=== PATIENT | female | born 1980 | race Caucasian/White ===

== ENCOUNTER 2017-09-14 10:17 | Emergency (ER) | payer OTHER ==
[2017-09-14 10:25] VITALS: BP 162/98; PULSE 103; RESP 20; TEMP 99.3
--- NOTE | 2017-09-14 10:42 | ED ---
General Adult HPI - General Chief complaint: Upper Respiratory Infection Stated complaint: chest congestion, infection on left breast Time Seen by Provider: 09/14/17 10:30 Source: patient, RN notes reviewed Mode of arrival: ambulatory Limitations: no limitations - History of Present Illness Initial comments: 37-year-old female presents to the emergency department with a chief complaint of upper respiratory infection as well as left breast infection. Patient has history of abscess to left breast. She states that she's noticed some drainage from the area over the past few days and some pain so she was concerned. Patient denies any increased redness. She has pain when she touches the area as long she stopped taking it feels somewhat okay. Patient's states she's had a cough cold symptoms. Patient does admit to history of smoking. Patient states she's having a greenish like sputum production. Patient denies any fever chills. Patient states that she was concerned due to her symptoms so she thought that she should be seen.Patient denies any recent fever, chills, shortness of breath, chest pain, back pain, abdominal pain, nausea vomiting, numbness or tingling, dysuria or hematuria, constipation or diarrhea, headaches or visual changes, or any other current symptoms. - Related Data Home Medications Medication Instructions Recorded Confirmed Ibuprofen [Motrin] 800 mg PO TID PRN 09/14/17 09/14/17 Venlafaxine HCl [Effexor XR] 75 mg PO DAILY 09/14/17 09/14/17 Venlafaxine HCl [Effexor XR] 150 mg PO DAILY 09/14/17 09/14/17 Previous Rx's Medication Instructions Recorded Albuterol Inhaler [Ventolin Hfa 1 - 2 puff INHALATION Q4-6H PRN #1 09/14/17 Inhaler] inhaler Sulfamethox-Tmp 800-160Mg [Bactrim 2 each PO Q12HR #56 tab 09/14/17 DS 800-160 mg] predniSONE 50 mg PO DAILY #5 tab 09/14/17 Allergies Allergy/AdvReac Type Severity Reaction Status Date / Time No Known Allergies Allergy Verified 09/14/17 10:31 Review of Systems ROS Statement: Those systems with pertinent positive or pertinent negative responses have been documented in the HPI. ROS Other: All systems not noted in ROS Statement are negative. Past Medical History Past Medical History: Asthma, COPD, Hypertension History of Any Multi-Drug Resistant Organisms: None Reported Additional Past Surgical History / Comment(s): left breast milk duct removal and reconstruction Past Psychological History: Anxiety, Depression Smoking Status: Current every day smoker Past Alcohol Use History: None Reported Past Drug Use History: None Reported General Exam Limitations: no limitations General appearance: alert, in no apparent distress Eye exam: Present: normal appearance, PERRL, EOMI. Absent: scleral icterus, conjunctival injection, periorbital swelling ENT exam: Present: normal exam, mucous membranes moist Neck exam: Present: normal inspection. Absent: tenderness, meningismus, lymphadenopathy Respiratory exam: Present: normal lung sounds bilaterally. Absent: respiratory distress, wheezes, rales, rhonchi, stridor Cardiovascular Exam: Present: regular rate, normal rhythm, normal heart sounds. Absent: systolic murmur, diastolic murmur, rubs, gallop, clicks Back exam: Present: normal inspection Neurological exam: Present: alert, oriented X3 Psychiatric exam: Present: normal affect, normal mood Skin exam: Present: warm, dry, intact, normal color, other (Patient is appear in abscess under the area that is palpable. There is active drainage to light pressure.). Absent: rash Course Vital Signs 09/14/17 10:19 Temperature 99.3 F Pulse Rate 103 H Respiratory 20 Rate Blood Pressure 162/98 O2 Sat by Pulse 97 Oximetry Medical Decision Making - Medical Decision Making 37 yo female presents to the ER with cc of aggression infection that was consistent with bronchitis. We'll start her an inhaler and prednisone for home. We discussed that her left breast we did actually have been draining. We will put her on Bactrim for this. We did discuss follow-up with surgery we discussed return parameters all her questions. She stated that she understood and she is in agreement with plan. This time patient will be discharged home. - Radiology Data Radiology results: report reviewed, image reviewed Disposition Clinical Impression: Acute bronchitis, Left breast abscess Disposition: HOME SELF-CARE Condition: Stable Instructions: Upper Respiratory Infection (ED), Abscess (ED) Additional Instructions: Please use medication as discussed. Please follow up with family doctor if symptoms have not improved over the next two days. Please return to the emergency room if your symptoms increase or worsen or for any other concerns. Prescriptions: Albuterol Inhaler [Ventolin Hfa Inhaler] 1 - 2 puff INHALATION Q4-6H PRN #1 inhaler PRN Reason: Cough predniSONE 50 mg PO DAILY #5 tab Sulfamethox-Tmp 800-160Mg [Bactrim DS 800-160 mg] 2 each PO Q12HR #56 tab Referrals: Michael Torres DO [Doctor of Osteopathic Medicine] - 1-2 days Time of Disposition: 11:00
--- NOTE | 2017-09-14 10:59 | XR ---
EXAMINATION TYPE: XR chest 2V DATE OF EXAM: 09/14/2017 COMPARISON: NONE HISTORY: Upper respiratory infection TECHNIQUE: Frontal and lateral views of the chest are obtained. FINDINGS: There is no focal air space opacity, pleural effusion, or pneumothorax seen. The cardiac silhouette size is within normal limits. The osseous structures are intact. IMPRESSION: No acute cardiopulmonary process.
== END 2017-09-14 11:09 | disposition home or self-care (01) ==
LOC: EC 10:17
DX: J20.9 Acute bronchitis, unspecified (principal); N61.1 Abscess of the breast and nipple; F32.9 Major depressive disorder, single episode, unspecified; F41.9 Anxiety disorder, unspecified; F17.200 Nicotine dependence, unspecified, uncomplicated; Z79.899 Other long term (current) drug therapy; Z98.890 Other specified postprocedural states
CPT/HCPCS: 71020; 99283

== ENCOUNTER → 2018-03-11 | Outpatient (CLI) | payer SELFPAY ==
[2018-03-11 11:16] LABS: ALT 26 U/L (9-52); AST 23 U/L (14-36); Albumin 3.9 g/dL (3.5-5.0); Alkaline Phosphatase 81 U/L (38-126); Anion Gap 11 mmol/L; Blood Urea Nitrogen 9 mg/dL (7-17); Calcium 9.3 mg/dL (8.4-10.2); Carbon Dioxide 24 mmol/L (22-30); Chloride 106 mmol/L (98-107); Cholesterol 142 mg/dL (<200); Glucose 76 mg/dL (74-99); HDL Cholesterol 42 mg/dL (40-60); LDL Cholesterol,Calculated 89 mg/dL (0-99); Potassium 4.5 mmol/L (3.5-5.1); Sodium 141 mmol/L (137-145); Total Bilirubin 0.3 mg/dL (0.2-1.3); Total Protein 6.4 g/dL (6.3-8.2); Triglycerides 56 mg/dL (<150); Uric Acid 5.1 mg/dL (3.7-7.4)
[2018-03-11 16:18] LABS: Folate, Serum 11.5 ng/mL
[2018-03-11 17:14] LABS: Hemoglobin A1C 5.7 % (4.0-6.0)
== END | disposition home or self-care (01) ==
LOC: LABWHC1 10:29
PROVIDERS: ATTEND Nurse Practitioner Adult Health
DX: Z00.00 Encounter for general adult medical examination without abnormal findings (principal); R53.83 Other fatigue; M10.9 Gout, unspecified; N63.42 Unspecified lump in left breast, subareolar
CPT/HCPCS: 36415; 80053; 80061; 82607; 82746; 83036; 84550

== ENCOUNTER → 2018-03-18 | Outpatient (CLI) | payer BC ==
--- NOTE | 2018-03-19 08:38 | USB ---
Reason for exam: clinical finding. Physical Findings: Nurse Summary: Patient complains of recurring left breast lump retroareolar with intermittent nipple discharge x 2 years (nurse mj). US Breast LT Left breast ultrasound includes all four quadrants, the retroareolar region and axilla. Finding demonstrates no cystic or solid lesion seen. The recurring palpable abnormality is not identified by the nurse or patient and no corresponding sonography cystic mass, solid mass or suspicious abnormality is seen. The patient states he is on antibiotic and will return for mammogram when a palpable mass recurs. These results were verbally communicated with the patient and result sheet given to the patient on 03/18/18. ASSESSMENT: Negative, BI-RAD 1 RECOMMENDATION: Routine screening mammogram of both breasts at age 42. Manage patient on a clinical basis. (or diagnostic mammogram when palpable returns)
== END | disposition home or self-care (01) ==
LOC: RADUSWWP 14:58
PROVIDERS: ATTEND Family Medicine
DX: Z00.00 Encounter for general adult medical examination without abnormal findings (principal); N63.20 Unspecified lump in the left breast, unspecified quadrant; R53.83 Other fatigue

== ENCOUNTER 2018-11-03 05:14 | Emergency (ER) | payer BC, OTHER ==
[2018-11-03 05:30] VITALS: TEMP 98.1
--- NOTE | 2018-11-03 05:57 | ED ---
General Adult HPI - General Source: patient, RN notes reviewed, old records reviewed Mode of arrival: ambulatory Limitations: no limitations <Gregorio Soni - Last Filed: 11/03/18 05:50> <Abbe Mcgowan - Last Filed: 11/03/18 08:13> - General Chief complaint: Extremity Problem,Nontraumatic Stated complaint: R hand swelling Time Seen by Provider: 11/03/18 05:32 - History of Present Illness Initial comments: 38 female presented for evaluation of right hand swelling. Patient's symptoms have been present for the past one day. Denies fever or chills. Denies specific injury. 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 She complains some mild pain with flexion at the wrist. She also had a wart removed on the dorsal surface of her hand approximately 1F weeks ago. Denies fever or chills. Denies erythema. (Gregorio Soni) - Related Data Home Medications Medication Instructions Recorded Confirmed Ibuprofen [Motrin] 800 mg PO TID PRN 09/14/17 11/03/18 ARIPiprazole [Abilify] 10 mg PO HS 11/03/18 11/03/18 PARoxetine [Paxil] 10 mg PO DAILY 11/03/18 11/03/18 traMADol HCl [Ultram] 50 mg PO Q8HR PRN 11/03/18 11/03/18 Allergies Allergy/AdvReac Type Severity Reaction Status Date / Time No Known Allergies Allergy Verified 11/03/18 07:35 Review of Systems ROS Other: All systems not noted in ROS Statement are negative. <Gregorio Soni - Last Filed: 11/03/18 05:50> ROS Other: All systems not noted in ROS Statement are negative. <Abbe Mcgowan - Last Filed: 11/03/18 08:13> ROS Statement: Those systems with pertinent positive or pertinent negative responses have been documented in the HPI. Past Medical History Past Medical History: COPD, Hypertension History of Any Multi-Drug Resistant Organisms: None Reported Past Surgical History: Cholecystectomy, Tubal Ligation Additional Past Surgical History / Comment(s): left breast milk duct removal and reconstruction Past Psychological History: Anxiety, Bipolar, Schizophrenia Smoking Status: Current every day smoker Past Alcohol Use History: None Reported Past Drug Use History: None Reported <Gregorio Soni - Last Filed: 11/03/18 05:50> General Exam Limitations: no limitations General appearance: alert, in no apparent distress Head exam: Present: atraumatic, normocephalic Eye exam: Present: normal appearance, PERRL, EOMI ENT exam: Present: normal exam Neck exam: Present: normal inspection. Absent: tenderness, meningismus Respiratory exam: Present: normal lung sounds bilaterally. Absent: respiratory distress, wheezes Cardiovascular Exam: Present: regular rate, normal rhythm GI/Abdominal exam: Present: soft. Absent: distended, tenderness Extremities exam: Present: joint swelling, other (To soft tissue swelling of the hand, mild tenderness. No erythema, no induration no fluctuance. Patient has normal range of motion at the wrist, range of motion of all digits is normal.) Neurological exam: Present: alert, oriented X3, CN II-XII intact. Absent: motor sensory deficit <Gregorio Soni - Last Filed: 11/03/18 05:50> Course <Gregorio Soni - Last Filed: 11/03/18 05:50> <Abbe Mcgowan - Last Filed: 11/03/18 08:13> Vital Signs 11/03/18 05:24 Temperature 98.1 F Pulse Rate 79 Respiratory 20 Rate Blood Pressure 130/83 O2 Sat by Pulse 100 Oximetry - Reevaluation(s) Reevaluation #1: 11/03/18 05:56 Laboratory studies reveal obtained, x-ray and ultrasound pending. (Gregorio Soni) Reevaluation #2: 11/03/18 0700 Patient's care is signed out to Dr. Mcgowan at shift change awaiting completion of workup. (Gregorio Soni) Procedures - Orthopedic Splinting/Casting Injury #1 Side: right Upper Extremity Injury Location: short arm, hand Upper Extremity Immobilizer: volar splint <Abbe Mcgowan - Last Filed: 11/03/18 08:13> Medical Decision Making <Gregorio Soni - Last Filed: 11/03/18 05:50> - Lab Data Result diagrams: 11/03/18 06:04 11/03/18 06:04 - Radiology Data Radiology results: report reviewed (Ultrasound right upper extremity negative for DVT), image reviewed (X-ray right hand shows no acute process) <Abbe Mcgowan - Last Filed: 11/03/18 08:13> - Medical Decision Making Patient reevaluated by myself, Dr. Mcgowan. Patient does have mild swelling to her right dorsal hand. There is some mild tenderness near the first metacarpal. Some tenderness with range of motion. Patient does admit to repetitive use of her hand at work. Patient is receptive to OCL placement. Patient updated on results and need for follow-up. (Abbe Mcgowan) - Lab Data Lab Results 11/03/18 11/03/18 Range/Units 06:04 06:04 WBC 7.3 (3.8-10.6) k/uL RBC 4.84 (3.80-5.40) m/uL Hgb 13.3 (11.4-16.0) gm/dL Hct 41.9 (34.0-46.0) % MCV 86.5 (80.0-100.0) fL MCH 27.5 (25.0-35.0) pg MCHC 31.8 (31.0-37.0) g/dL RDW 14.2 (11.5-15.5) % Plt Count 255 (150-450) k/uL Neutrophils % 59 % Lymphocytes % 27 % Monocytes % 9 % Eosinophils % 3 % Basophils % 1 % Neutrophils # 4.3 (1.3-7.7) k/uL Lymphocytes # 2.0 (1.0-4.8) k/uL Monocytes # 0.7 (0-1.0) k/uL Eosinophils # 0.2 (0-0.7) k/uL Basophils # 0.1 (0-0.2) k/uL Sodium 142 (137-145) mmol/L Potassium 4.6 (3.5-5.1) mmol/L Chloride 112 H (98-107) mmol/L Carbon Dioxide 24 (22-30) mmol/L Anion Gap 6 mmol/L BUN 10 (7-17) mg/dL Creatinine 0.69 (0.52-1.04) mg/dL Est GFR (CKD-EPI)AfAm >90 (>60 ml/min/1.73 sqM) Est GFR (CKD-EPI)NonAf >90 (>60 ml/min/1.73 sqM) Glucose 105 H (74-99) mg/dL Calcium 9.0 (8.4-10.2) mg/dL Total Bilirubin 0.4 (0.2-1.3) mg/dL AST 19 (14-36) U/L ALT 21 (9-52) U/L Alkaline Phosphatase 55 (38-126) U/L Total Protein 6.2 L (6.3-8.2) g/dL Albumin 3.4 L (3.5-5.0) g/dL Disposition <Gregorio Soni - Last Filed: 11/03/18 05:50> Is patient prescribed a controlled substance at d/c from ED?: No Time of Disposition: 08:12 <Abbe Mcgowan - Last Filed: 11/03/18 08:13> Clinical Impression: Hand swelling Disposition: HOME SELF-CARE Condition: Stable Instructions: Tenosynovitis (ED) Additional Instructions: Limit repetitive use of right hand. [id number] Motrin as needed. Ice to affected area. Return for increased pain, swelling, redness, fevers, worsening or changing symptoms or other concerns. Referrals: Juana Galeano MD [STAFF PHYSICIAN] - 1-2 days Ravi Tatum MD [STAFF PHYSICIAN] - 1-2 days
[2018-11-03 06:39] LABS: ALT 21 U/L (9-52); AST 19 U/L (14-36); Albumin 3.4 g/dL (3.5-5.0); Alkaline Phosphatase 55 U/L (38-126); Anion Gap 6 mmol/L; Blood Urea Nitrogen 10 mg/dL (7-17); Carbon Dioxide 24 mmol/L (22-30); Chloride 112 mmol/L (98-107); Glucose 105 mg/dL (74-99); Potassium 4.6 mmol/L (3.5-5.1); Sodium 142 mmol/L (137-145); Total Bilirubin 0.4 mg/dL (0.2-1.3); Total Protein 6.2 g/dL (6.3-8.2)
--- NOTE | 2018-11-03 06:47 | XR ---
EXAM: XR Right Hand Complete, 3 or More Views. CLINICAL HISTORY: Reason: Pain TECHNIQUE: Frontal, lateral and oblique views of the right hand. COMPARISON: No relevant prior studies available. FINDINGS: Bones: No acute fracture. Mild negative ulnar variance. Joints: No dislocation. Joint spaces are preserved. Soft tissues: Unremarkable. No radiopaque foreign body. IMPRESSION: No acute osseous abnormality.
[2018-11-03 07:04] LABS: Basophils # (A) 0.1 k/uL (0-0.2); Basophils % (A) 1 %; Eosinophils # (A) 0.2 k/uL (0-0.7); Eosinophils % (A) 3 %; HCT 41.9 % (34.0-46.0); HGB 13.3 gm/dL (11.4-16.0); Lymphocytes % (A) 27 %; MCH 27.5 pg (25.0-35.0); MCHC 31.8 g/dL (31.0-37.0); MCV 86.5 fL (80.0-100.0); Monocytes # (A) 0.7 k/uL (0-1.0); Monocytes % (A) 9 %; Neutrophils # (A) 4.3 k/uL (1.3-7.7); Neutrophils % (A) 59 %; Platelet Count 255 k/uL (150-450); RBC 4.84 m/uL (3.80-5.40); RDW 14.2 % (11.5-15.5); WBC 7.3 k/uL (3.8-10.6)
--- NOTE | 2018-11-03 07:54 | US ---
EXAMINATION TYPE: US venous doppler duplex UE RT DATE OF EXAM: 11/03/2018 COMPARISON: NONE CLINICAL HISTORY: Pain. swollen right wrist this am, no h/o dvt SIDE PERFORMED: Right Right Arm: Appears negative for DVT IMPRESSION: 1. Right upper extremity ultrasound negative for deep venous thrombosis.
[2018-11-03 08:45] VITALS: BP 129/82; PULSE 63; RESP 18
== END 2018-11-03 08:44 | disposition home or self-care (01) ==
LOC: EC 05:14
DX: M79.89 Other specified soft tissue disorders (principal); R29.898 Other symptoms and signs involving the musculoskeletal system; M25.531 Pain in right wrist; F20.9 Schizophrenia, unspecified; F31.9 Bipolar disorder, unspecified; F41.9 Anxiety disorder, unspecified; F17.200 Nicotine dependence, unspecified, uncomplicated; Z79.899 Other long term (current) drug therapy
CPT/HCPCS: 29125; 36415; 80053; 85025; 99284

== ENCOUNTER → 2019-04-09 | Outpatient (CLI) | payer BC ==
[2019-04-09 17:42] LABS: Anion Gap 3.3 mmol/L (4.00-12.00); Calcium 8.8 mg/dL (8.7-10.3); Carbon Dioxide 26.7 mmol/L (21.6-31.8); LDL Cholesterol,Calculated 80.4 mg/dL (0.0-131.0); Potassium 4.7 mmol/L (3.5-5.5); VLDL Calculation 15.6 mg/dL (5.00-40.00)
== END | disposition home or self-care (01) ==
LOC: LABWHC1 11:34
PROVIDERS: ATTEND Nurse Practitioner Adult Health
DX: M54.5 Low back pain (principal); F31.62 Bipolar disorder, current episode mixed, moderate
CPT/HCPCS: 36415; 80048; 80061

== ENCOUNTER 2019-04-22 05:59 | Emergency (ER) | payer BC ==
[2019-04-22 06:10] VITALS: TEMP 98.2
--- NOTE | 2019-04-22 07:51 | XR ---
EXAMINATION TYPE: XR ankle complete RT, XR foot complete RT DATE OF EXAM: 04/22/2019 CLINICAL HISTORY: Fall injury today with pain TECHNIQUE: Frontal, lateral and oblique images of the right ankle and foot are obtained. COMPARISON: None. FINDINGS: There is no acute fracture/dislocation evident in the right ankle. The ankle mortise appe ars within normal limits. The overlying soft tissue appears unremarkable. There is no acute fracture or dislocation evident in the right foot. Mild to moderate narrowing and s purring at the base of first metatarsal is present. Overlying soft tissue is unremarkable. IMPRESSION: There is no acute fracture or dislocation in the right ankle or foot.
[2019-04-22] MEDS ORDERED: IBUPROFEN 800 MG TAB PO STA (08:28)
--- NOTE | 2019-04-22 08:30 | ED ---
Lower Extremity Injury HPI - General Chief Complaint: Extremity Injury, Lower Stated Complaint: Rt foot injury Time Seen by Provider: 04/22/19 07:45 Source: patient, RN notes reviewed Mode of arrival: wheelchair Limitations: no limitations - History of Present Illness Initial Comments: This a 39-year-old female who states that she rolled her right foot yesterday when going downstairs she complains of pain to the lateral aspect of her right ankle as well as the dorsal and lateral aspect of the right foot as well as some plantar pain. She is able weight-bear but does have pain with weightbearing. She denies any other injuries proximal to this she did not ask a fall has no head neck or back pain complains. Pain is from most part sharp she states. No other modifying factors MD Complaint: ankle injury, foot injury - Related Data Home Medications Medication Instructions Recorded Confirmed Ibuprofen [Motrin] 800 mg PO TID PRN 09/14/17 04/22/19 traMADol HCl [Ultram] 50 mg PO Q8HR PRN 11/03/18 04/22/19 PARoxetine [Paxil] 20 mg PO DAILY 04/22/19 04/22/19 busPIRone HCL 10 mg PO DAILY 04/22/19 04/22/19 Previous Rx's Medication Instructions Recorded Ibuprofen 800 mg PO Q6HR PRN #20 tablet 04/22/19 Allergies Allergy/AdvReac Type Severity Reaction Status Date / Time No Known Allergies Allergy Verified 04/22/19 07:45 Review of Systems ROS Statement: Those systems with pertinent positive or pertinent negative responses have been documented in the HPI. ROS Other: All systems not noted in ROS Statement are negative. Past Medical History Past Medical History: COPD, Hypertension History of Any Multi-Drug Resistant Organisms: None Reported Past Surgical History: Cholecystectomy, Tubal Ligation Additional Past Surgical History / Comment(s): left breast milk duct removal and reconstruction Past Psychological History: Anxiety, Bipolar, Schizophrenia Smoking Status: Current every day smoker Past Alcohol Use History: None Reported Past Drug Use History: None Reported General Exam - General Exam Comments Initial Comments: This a well-developed well-nourished awake alert oriented 3 female Limitations: no limitations General appearance: alert, in no apparent distress Head exam: Present: atraumatic, normocephalic, normal inspection Eye exam: Present: normal appearance, PERRL, EOMI. Absent: scleral icterus, conjunctival injection, periorbital swelling ENT exam: Present: normal exam Neck exam: Present: full ROM Extremities exam: Present: full ROM, tenderness, normal capillary refill, other (Tenderness palpation over the lateral malleolus soft tissue with some slight amount of swelling noted. Tenderness palpation of the dorsal right foot at this time no overt plantar tenderness. No deformity no ecchymosis seen no step-off or crepitation no pain above the ankle to palpation extending up into the knee area again no sensorimotor vascular deficits) Back exam: Present: full ROM Neurological exam: Present: alert, oriented X3, CN II-XII intact Psychiatric exam: Present: normal affect, normal mood Skin exam: Present: warm, dry, intact, normal color. Absent: rash Course Vital Signs 04/22/19 06:06 Temperature 98.2 F Pulse Rate 79 Respiratory 20 Rate Blood Pressure 124/87 O2 Sat by Pulse 98 Oximetry Medical Decision Making - Medical Decision Making I did review the imaging and report no acute findings of fracture or subluxation. I did discuss this with the patient she'll be discharged with instructions for ice elevation and nonsteroidal for his pain weight-bear as tolerated Ashvin wrap. - Radiology Data Radiology results: report reviewed (Review shows no evidence of any fracture or subluxation), image reviewed Disposition Clinical Impression: Right ankle sprain, Right foot sprain Disposition: HOME SELF-CARE Condition: Good Instructions (If sedation given, give patient instructions): Ankle Sprain (ED), Foot Sprain (ED) Prescriptions: Ibuprofen 800 mg PO Q6HR PRN #20 tablet PRN Reason: Pain Is patient prescribed a controlled substance at d/c from ED?: No Referrals: None,Stated [Primary Care Provider] - 1-2 days
[2019-04-22 08:48] VITALS: BP 131/80; PULSE 72; RESP 18
== END 2019-04-22 08:40 | disposition home or self-care (01) ==
LOC: EC 05:59
DX: S93.401A Sprain of unspecified ligament of right ankle, initial encounter (principal); S93.601A Unspecified sprain of right foot, initial encounter; F31.9 Bipolar disorder, unspecified; F20.9 Schizophrenia, unspecified; F17.200 Nicotine dependence, unspecified, uncomplicated; Z79.899 Other long term (current) drug therapy; X50.9XXA Other and unspecified overexertion or strenuous movements or postures, initial encounter
CPT/HCPCS: 99283

== ENCOUNTER 2019-06-22 06:02 | Emergency (ER) | payer BC ==
[2019-06-22] MEDS ORDERED: KETOROLAC 60 MG/2 ML VIAL IM STA (06:30)
[2019-06-22] MEDS ORDERED: ORPHENADRINE 30 MG/ML 2 ML VIAL IM STA (06:30)
[2019-06-22] MEDS ORDERED: predniSONE 20 MG TAB PO STA (06:30)
--- NOTE | 2019-06-22 06:41 | ED ---
Back Pain HPI - General Chief Complaint: Back Pain/Injury Stated Complaint: Back Pain Time Seen by Provider: 06/22/19 06:24 Source: patient Limitations: no limitations - History of Present Illness Initial Comments: This patient is 39-year-old woman with history of previous low back pain who complains of having a flareup of her previous symptoms going on for about 3 days now. The patient states that she had lifted a large box prior to the onset of this. She indicates low back pain with radiation to her left leg. There is no weakness or numbness. No saddle anesthesia. No abdominal symptoms. The patient states that her previous workup showed an L5 disc problem. Patient states she is taken some ibuprofen which helps a little bit but does not completely relieve the pain. She states the pain gets worse when she is sitting up. MD Complaint: back pain, back injury Onset/Timin -: days(s) Similar Symptoms Previously: Yes Place: home Radiation: left leg Severity: moderate Quality: aching Consistency: constant Improves With: immobilization Worsens With: sitting upright Context: while lifting Associated Symptoms: denies other symptoms - Related Data Home Medications Medication Instructions Recorded Confirmed Ibuprofen [Motrin] 800 mg PO TID PRN 09/14/17 04/22/19 traMADol HCl [Ultram] 50 mg PO Q8HR PRN 11/03/18 04/22/19 PARoxetine [Paxil] 20 mg PO DAILY 04/22/19 04/22/19 busPIRone HCL 10 mg PO DAILY 04/22/19 04/22/19 Previous Rx's Medication Instructions Recorded Ibuprofen 800 mg PO Q6HR PRN #20 tablet 04/22/19 Methocarbamol [Robaxin-750] 750 mg PO TID PRN #30 tablet 06/22/19 predniSONE 20 mg PO BID #8 tab 06/22/19 Allergies Allergy/AdvReac Type Severity Reaction Status Date / Time No Known Allergies Allergy Verified 06/22/19 06:13 Review of Systems ROS Statement: Those systems with pertinent positive or pertinent negative responses have been documented in the HPI. ROS Other: All systems not noted in ROS Statement are negative. Constitutional: Denies: fever, chills, weakness Respiratory: Denies: cough, dyspnea Cardiovascular: Denies: chest pain Genitourinary: Denies: dysuria, frequency, hematuria Musculoskeletal: Reports: as per HPI, back pain Skin: Denies: rash Neurological: Denies: weakness, numbness Past Medical History Past Medical History: COPD, Hypertension Additional Past Medical History / Comment(s): back pain, " numbed the nerves" in back, History of Any Multi-Drug Resistant Organisms: None Reported Past Surgical History: Cholecystectomy, Tubal Ligation Additional Past Surgical History / Comment(s): left breast milk duct removal and reconstruction, Past Psychological History: Anxiety, Bipolar, Depression, Schizophrenia Smoking Status: Current every day smoker Past Alcohol Use History: None Reported Past Drug Use History: None Reported General Exam Limitations: no limitations General appearance: alert, in no apparent distress Head exam: Present: atraumatic, normocephalic Eye exam: Present: normal appearance Respiratory exam: Present: normal lung sounds bilaterally. Absent: respiratory distress, wheezes, rales, rhonchi, stridor Cardiovascular Exam: Present: regular rate, normal rhythm, normal heart sounds GI/Abdominal exam: Present: soft. Absent: distended, tenderness, guarding, rebound, rigid, mass Back exam: Present: normal inspection. Absent: CVA tenderness (R), CVA tenderness (L), paraspinal tenderness, vertebral tenderness Neurological exam: Present: alert, normal gait, reflexes normal. Absent: motor sensory deficit Skin exam: Present: warm, dry, intact, normal color. Absent: rash Course Vital Signs 06/22/19 06:09 Temperature 98.2 F Pulse Rate 68 Respiratory 17 Rate Blood Pressure 126/84 O2 Sat by Pulse 99 Oximetry Disposition Clinical Impression: Lumbar radiculopathy Disposition: HOME SELF-CARE Condition: Good Instructions (If sedation given, give patient instructions): Acute Low Back Pain (ED) Prescriptions: predniSONE 20 mg PO BID #8 tab Methocarbamol [Robaxin-750] 750 mg PO TID PRN #30 tablet PRN Reason: pain Is patient prescribed a controlled substance at d/c from ED?: No Referrals: None,Stated [Primary Care Provider] - 1-2 days
[2019-06-22 06:54] VITALS: BP 114/75; PULSE 56; RESP 18; TEMP 98
== END 2019-06-22 06:55 | disposition home or self-care (01) ==
LOC: EC 06:02
DX: M54.16 Radiculopathy, lumbar region (principal); F41.9 Anxiety disorder, unspecified; F32.9 Major depressive disorder, single episode, unspecified; F20.9 Schizophrenia, unspecified; F17.200 Nicotine dependence, unspecified, uncomplicated; Z79.899 Other long term (current) drug therapy
CPT/HCPCS: 99283; 96372 ×2; J2360; J1885; J7512

== ENCOUNTER 2020-05-16 19:35 | Emergency (ER) | payer BC ==
[2020-05-16] MEDS ORDERED: LIDOCAINE 1% INJ 10MG/ML (20 ML MDV) SQ ONE (19:55)
--- NOTE | 2020-05-16 20:00 | ED ---
General Adult HPI - General Source: patient, RN notes reviewed Mode of arrival: ambulatory Limitations: no limitations <Anuj Lr - Last Filed: 05/16/20 20:31> <Zoraida Chu - Last Filed: 05/20/20 02:01> - General Chief complaint: Wound/Laceration Stated complaint: Mouth Lac Time Seen by Provider: 05/16/20 19:45 - History of Present Illness Initial comments: 40-year-old female with a past medical, COPD presents to the emergency department for bleeding lip. Patient reports that she was eating when her friend told her that her lip was bleeding. Patient did not bite her lip that she recalls. Patient states she has never had this happen before. She does not have any bleeding disorders. She does not take blood thinners. She does not have any medical problems aside from knee pain. Patient reports she could not get it to stop with pressure so came to the ER..Patient has no other complaints at this time including shortness of breath, chest pain, abdominal pain, nausea or vomiting, headache, or visual changes. (Anuj Lr) - Related Data Home Medications Medication Instructions Recorded Confirmed busPIRone HCL 10 mg PO TID 04/22/19 05/16/20 PARoxetine HCL [Paxil] 40 mg PO DAILY 05/16/20 05/16/20 Allergies Allergy/AdvReac Type Severity Reaction Status Date / Time cephalexin [From Keflex] Allergy Rash/Hives Verified 05/16/20 20:49 Review of Systems ROS Other: All systems not noted in ROS Statement are negative. <Anuj Lr - Last Filed: 05/16/20 20:31> ROS Other: All systems not noted in ROS Statement are negative. <Zoraida Chu - Last Filed: 05/20/20 02:01> ROS Statement: Those systems with pertinent positive or pertinent negative responses have been documented in the HPI. Past Medical History Past Medical History: COPD, Hypertension Additional Past Medical History / Comment(s): back pain, " numbed the nerves" in back, History of Any Multi-Drug Resistant Organisms: None Reported Past Surgical History: Cholecystectomy, Tubal Ligation Additional Past Surgical History / Comment(s): left breast milk duct removal and reconstruction, Past Psychological History: Anxiety, Bipolar, Depression, Schizophrenia Smoking Status: Current every day smoker Past Alcohol Use History: None Reported Past Drug Use History: None Reported <Anuj Lr - Last Filed: 05/16/20 20:31> General Exam Limitations: no limitations General appearance: alert, in no apparent distress Head exam: Present: atraumatic, normocephalic, normal inspection Eye exam: Present: normal appearance, PERRL, EOMI. Absent: scleral icterus, conjunctival injection, periorbital swelling ENT exam: Present: normal exam, mucous membranes moist. Absent: normal oropharynx (Patient has a very small superficial artery and on the outside of the lip that is bleeding. I do not see a laceration.) Neck exam: Present: normal inspection, full ROM. Absent: tenderness, meningismus, lymphadenopathy Respiratory exam: Present: normal lung sounds bilaterally. Absent: respiratory distress, wheezes, rales, rhonchi, stridor Cardiovascular Exam: Present: regular rate, normal rhythm, normal heart sounds. Absent: systolic murmur, diastolic murmur, rubs, gallop, clicks GI/Abdominal exam: Present: normal bowel sounds Skin exam: Present: warm, dry, intact, normal color. Absent: rash <Anuj Lr - Last Filed: 05/16/20 20:31> Course Vital Signs 05/16/20 05/16/20 19:42 21:00 Temperature 98 F 98.7 F Pulse Rate 82 74 Respiratory 18 15 Rate Blood Pressure 165/105 138/71 O2 Sat by Pulse 99 97 Oximetry Procedures - Laceration Laceration #1 Consent Obtained: verbal consent Indication: laceration Site: lip Anesthetic Used: lidocaine 1% Anesthesia Technique: local infiltration Amount (mls): 1 Type of Sutures: vicryl Size of Sutures: 5-0 Number of Sutures: 1 Technique: other (figure 8) Patient Tolerated Procedure: well, no complications <Anuj Lr - Last Filed: 05/16/20 20:31> Medical Decision Making <Anuj Lr - Last Filed: 05/16/20 20:31> <Zoraida Chu - Last Filed: 05/20/20 02:01> - Medical Decision Making Patient has a small superficial blood vessel that will not stop with direct pressure. Therefore a [id number] stitch was placed to stop the bleeding. Patient will follow up with her primary care. I did discuss following up for blood studies including platelets and coags because of this bleeding and she is in agreement. She will return here for any worsening symptoms. (Anuj Lr) I was available for consultation in the emergency department. The history and physical exam were done by the midlevel provider. I was consulted for this patients care. I reviewed the case with the midlevel provider and based on their presentation of the patient, I agree with the assessment, medical decision making and plan of care as documented. Chart was dictated using [employer] dictation software. Attempts were made to correct any dictation errors however some typographical errors may persist. Patient was seen during a national state of emergency due to the Covid-19 pa ndemic. (Zoraida Chu) Disposition Is patient prescribed a controlled substance at d/c from ED?: No Time of Disposition: 20:30 <Anuj Lr - Last Filed: 05/16/20 20:31> <Zoraida Chu - Last Filed: 05/20/20 02:01> Clinical Impression: Laceration Disposition: HOME SELF-CARE Condition: Good Instructions (If sedation given, give patient instructions): Laceration (ED), Care For Your Absorbable Stitches (ED) Additional Instructions: Please monitor for signs of infection or return if this occurs. Return if you have any other worsening symptoms. Otherwise follow-up with primary care for a recheck in 1-2 days. This stitch is dissolvable. Return to the ER for any worsening symptoms. Referrals: Andrey Flores MD [Primary Care Provider] - 1-2 days
[2020-05-16 21:45] VITALS: BP 138/71; PULSE 74; RESP 15; TEMP 98.7
--- NOTE | 2020-05-17 07:50 | CDI ---
Dear Anuj Lr, PAC Please provide lip laceration repair length. Thank you, [place] [employer] Skilled Maintenance Supervisor If you have any questions, please contact Export Specialist at [phone] [facility]
== END 2020-05-16 21:17 | disposition home or self-care (01) ==
LOC: EC 19:35
DX: S01.511A Laceration without foreign body of lip, initial encounter (principal); F41.9 Anxiety disorder, unspecified; F32.9 Major depressive disorder, single episode, unspecified; F17.200 Nicotine dependence, unspecified, uncomplicated; Z79.899 Other long term (current) drug therapy; Z88.1 Allergy status to other antibiotic agents
CPT/HCPCS: 99282; 12011; J2001

== ENCOUNTER 2020-06-23 20:15 | Emergency (ER) | payer BC ==
[2020-06-23] MEDS ORDERED: DIPH,PERTUS(ACELL)TETVAC-LF 0.5 ML VIAL IM ONE (20:36)
[2020-06-23 20:37] VITALS: RESP 16
[2020-06-23] MEDS ORDERED: SULFAMETH-TMP DS STARTER PACK 2 TAB BTL PO STA (20:37)
--- NOTE | 2020-06-23 20:40 | ED ---
Wound/Laceration HPI - General Chief Complaint: Wound/Laceration Stated Complaint: L Hand Lac Time Seen by Provider: 06/23/20 20:31 Source: patient, RN notes reviewed, old records reviewed Mode of arrival: ambulatory Limitations: altered mental status - History of Present Illness Initial Comments: This 40-year-old female who presents the emergency department today for a laceration over the left palm of her hand. Patient reports she was at work and she uses a plastic piece overtop of the near. She reports that she had her hand on top of this. She reports that she's having some numbness in her left middle finger. She reports that she does have range of motion and extension and flexion of the fingers. She reports it is painful. She is not sure if the piece of plastic needle broke off into the hand. She denies knowing for tetanus is up-to-date and request an updated tetanus today. - Related Data Home Medications Medication Instructions Recorded Confirmed busPIRone HCL 10 mg PO TID 04/22/19 05/16/20 PARoxetine HCL [Paxil] 40 mg PO DAILY 05/16/20 05/16/20 Previous Rx's Medication Instructions Recorded Sulfamethox-Tmp 800-160Mg [Bactrim 1 tab PO Q12HR #10 tab 06/23/20 DS 800-160 mg] Allergies Allergy/AdvReac Type Severity Reaction Status Date / Time cephalexin [From Keflex] Allergy Rash/Hives Verified 05/16/20 20:49 Review of Systems ROS Statement: Those systems with pertinent positive or pertinent negative responses have been documented in the HPI. ROS Other: All systems not noted in ROS Statement are negative. Past Medical History Past Medical History: COPD, Hypertension Additional Past Medical History / Comment(s): back pain, " numbed the nerves" in back, History of Any Multi-Drug Resistant Organisms: None Reported Past Surgical History: Cholecystectomy, Tubal Ligation Additional Past Surgical History / Comment(s): left breast milk duct removal and reconstruction, Past Psychological History: Anxiety, Bipolar, Depression, Schizophrenia Smoking Status: Current every day smoker Past Alcohol Use History: None Reported Past Drug Use History: None Reported General Exam - General Exam Comments Initial Comments: 32-year-old female. Alert and oriented. No distress. Limitations: altered mental status General appearance: alert, in no apparent distress Head exam: Present: atraumatic, normocephalic, normal inspection Eye exam: Present: normal appearance ENT exam: Present: normal exam, mucous membranes moist Neck exam: Present: normal inspection. Absent: tenderness, meningismus, lymphadenopathy Respiratory exam: Present: normal lung sounds bilaterally. Absent: respiratory distress, wheezes, rales, rhonchi, stridor Cardiovascular Exam: Present: regular rate, normal rhythm, normal heart sounds. Absent: systolic murmur, diastolic murmur, rubs, gallop, clicks GI/Abdominal exam: Present: soft, normal bowel sounds. Absent: distended, tenderness, guarding, rebound, rigid Extremities exam: Present: normal inspection, full ROM, normal capillary refill. Absent: tenderness, pedal edema, joint swelling, calf tenderness Left Upper Arm exam: Present: normal inspection, full ROM Elbow exam: Present: normal inspection, full ROM Forearm Wrist exam: Present: normal inspection, full ROM Hand Wrist exam: Present: full ROM, tenderness (Less than 1 cm puncture woundOver the mid third metacarpal), swelling. Absent: normal inspection (Patient is a 3 cm puncture wound over the palmar aspect of the hand near the middle third metacarpal.), abrasion Neuro motor exam: Present: wrist extension intact, thumb opposition intact, thumb IP flexion intact, thumb adduction intact, fingers 2-5 abduction intact Vascular: Present: normal capillary refill Back exam: Present: normal inspection Neurological exam: Present: alert, oriented X3, CN II-XII intact Psychiatric exam: Present: normal affect, normal mood Skin exam: Present: warm, dry, intact, normal color. Absent: rash Course Vital Signs 06/23/20 20:28 Temperature 98.1 F Pulse Rate 68 Respiratory 16 Rate Blood Pressure 130/85 O2 Sat by Pulse 98 Oximetry Medical Decision Making - Medical Decision Making 40-year-old female presents to return today for a puncture wound from the plastic while at work. She reports that she had said puncture site on the palmar aspect of her third metacarpal. She did have some initial bleeding. Patient reports it did bleed Afterwards. She reports some numbness on the third digit. She has full range of motion no evidence of tendon rupture with flexion and extension with full strength. Patient hand x-ray shows no osseous lesion or foreign body. Advised Patient to follow-up with orthopedic. We'll put the Patient on antibiotic for puncture wound concern. She does have an ALLERGY to Keflex me on Bactrim. Advised follow-up with PCP and orthopedic if symptoms continue persist or worsen. - Radiology Data Radiology results: report reviewed Negative exam. No evidence of foreign body. No fracture. Disposition Clinical Impression: Puncture wound, hand Disposition: HOME SELF-CARE Condition: Good Additional Instructions: Please use medication as discussed. Please follow up with family doctor if symptoms have not improved over the next two days. Please return to the emergency room if your symptoms increase or worsen or for any other concerns. Prescriptions: Sulfamethox-Tmp 800-160Mg [Bactrim DS 800-160 mg] 1 tab PO Q12HR #10 tab Is patient prescribed a controlled substance at d/c from ED?: No Referrals: Andrey Flores MD [Primary Care Provider] - 1-2 days Luis Armando Bailon DO [Medical Doctor] - 1-2 days Time of Disposition: 21:37
--- NOTE | 2020-06-23 21:01 | XR ---
EXAMINATION TYPE: XR hand complete LT DATE OF EXAM: 06/23/2020 COMPARISON: NONE HISTORY: Puncture wound. Pain. TECHNIQUE: 3 views FINDINGS: Metacarpals are intact. I see no fracture nor dislocation. Joint spaces appear normal. Ther e is no evidence of a foreign body. IMPRESSION: Negative exam. No foreign body seen. No fracture.
[2020-06-23 21:56] VITALS: BP 136/78; PULSE 63; TEMP 97.9
== END 2020-06-23 21:56 | disposition home or self-care (01) ==
LOC: EC 20:15
DX: S61.432A Puncture wound without foreign body of left hand, initial encounter (principal); F41.9 Anxiety disorder, unspecified; F32.9 Major depressive disorder, single episode, unspecified; F17.200 Nicotine dependence, unspecified, uncomplicated; Z79.899 Other long term (current) drug therapy; Z88.1 Allergy status to other antibiotic agents; Z23 Encounter for immunization; W25.XXXA Contact with sharp glass, initial encounter; Y99.0 Civilian activity done for income or pay
CPT/HCPCS: 90471; 90715; 99283

== ENCOUNTER 2020-07-10 12:07 | Emergency (ER) | payer BC ==
[2020-07-10 12:12] VITALS: BP 123/84; PULSE 97; RESP 18; TEMP 98
[2020-07-10] MEDS ORDERED: LIDOCAINE 1% INJ 10MG/ML (20 ML MDV) SQ ONE (12:19)
[2020-07-10] MEDS ORDERED: BACITRACIN OINT 1 EACH PACKET TOPICAL ONE (12:35)
--- NOTE | 2020-07-10 12:36 | ED ---
Skin/Abscess/FB HPI - General Chief complaint: Skin/Abscess/Foreign Body Stated complaint: lt hand infection Time Seen by Provider: 07/10/20 12:13 Source: patient, RN notes reviewed Mode of arrival: ambulatory Limitations: no limitations - History of Present Illness Initial comments: 40-year-old female presents emergency Department chief complaint of abscess to her left palm. States approximately 17 days ago she had a puncture wound placed on antibiotics. Patient states that closed up seemed callus over but states is getting more painful and which she stuck a thumbtack any yesterday. Patient states that there was green purulent discharge in which she did take pictures. Patient states that he still painful. No fevers or chills. - Related Data Home Medications Medication Instructions Recorded Confirmed busPIRone HCL 10 mg PO TID 04/22/19 05/16/20 PARoxetine HCL [Paxil] 40 mg PO DAILY 05/16/20 05/16/20 Previous Rx's Medication Instructions Recorded Sulfamethox-Tmp 800-160Mg [Bactrim 1 tab PO Q12HR #10 tab 06/23/20 DS 800-160 mg] Clindamycin HCl 300 mg PO Q6HR #40 cap 07/10/20 Ibuprofen [Motrin] 600 mg PO Q8HR PRN #20 tab 07/10/20 Allergies Allergy/AdvReac Type Severity Reaction Status Date / Time cephalexin [From Keflex] Allergy Rash/Hives Verified 07/10/20 12:12 Review of Systems ROS Statement: Those systems with pertinent positive or pertinent negative responses have been documented in the HPI. ROS Other: All systems not noted in ROS Statement are negative. Past Medical History Past Medical History: COPD, Hypertension Additional Past Medical History / Comment(s): back pain, " numbed the nerves" in back, History of Any Multi-Drug Resistant Organisms: None Reported Past Surgical History: Cholecystectomy, Tubal Ligation Additional Past Surgical History / Comment(s): left breast milk duct removal and reconstruction, Past Psychological History: Anxiety, Bipolar, Depression, Schizophrenia Smoking Status: Current every day smoker Past Alcohol Use History: None Reported Past Drug Use History: None Reported General Exam Limitations: no limitations General appearance: alert, in no apparent distress Head exam: Present: atraumatic, normocephalic, normal inspection Neck exam: Present: normal inspection. Absent: tenderness, meningismus, lymphadenopathy Respiratory exam: Present: normal lung sounds bilaterally. Absent: respiratory distress, wheezes, rales, rhonchi, stridor Cardiovascular Exam: Present: regular rate, normal rhythm, normal heart sounds. Absent: systolic murmur, diastolic murmur, rubs, gallop, clicks Extremities exam: Present: other (Left palm there is a half centimeter callused/erythematous abscessed area mild times with palpation full range of motion of all digits and full strength) Course Vital Signs 07/10/20 12:09 Temperature 98.0 F Pulse Rate 97 Respiratory 18 Rate Blood Pressure 123/84 O2 Sat by Pulse 98 Oximetry Procedures - [place] Protocol (Time Out) Procedure Performed:: Incision and Drainage of left palm abscess Performing Provider: Aleks Fink Nurse: Darlene Mercedes Patient Identification (2 identifiers required): Verbal, Arm Band, Name, Birthdate 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/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 has Confirmed: Identity, Site, Procedure, Consent Site: Left palm abscess Site Marked: Yes Site Verified With Patient/Guardian: Yes - Incision & Drainage Consent Obtained: written consent Site: hand (left palm) Size (cm): 0 (0.5cm) Anesthetic Used: lidocaine 1%, without epi Amount (mLs): 3 I&D Cleaning Method: Alcohol Wipe Sterile Field Used?: No Needle Aspiration Performed?: Yes Irrigation Performed?: No I&D Drainage Obtained: Blood Culture Obtained?: No Patient Tolerated Procedure: well, no complications Medical Decision Making - Medical Decision Making Patient had an abscess from puncture wound to her left palmar aspect this was opened. Patient was placed on antibiotics return parameters were discussed. Her tetanus is up-to-date. Disposition Clinical Impression: Abscess of left hand Disposition: HOME SELF-CARE Condition: Stable Instructions (If sedation given, give patient instructions): Abscess Incision and Drainage (ED) Additional Instructions: Please return to the Emergency Department if symptoms worsen or any other concerns. Prescriptions: Clindamycin HCl 300 mg PO Q6HR #40 cap Ibuprofen [Motrin] 600 mg PO Q8HR PRN #20 tab PRN Reason: Pain Is patient prescribed a controlled substance at d/c from ED?: No Referrals: Andrey Flores MD [Primary Care Provider] - 1-2 days Time of Disposition: 12:35
== END 2020-07-10 12:47 | disposition home or self-care (01) ==
LOC: EC 12:07
DX: L02.512 Cutaneous abscess of left hand (principal); F41.9 Anxiety disorder, unspecified; F32.9 Major depressive disorder, single episode, unspecified; F17.200 Nicotine dependence, unspecified, uncomplicated; Z79.899 Other long term (current) drug therapy; Z88.1 Allergy status to other antibiotic agents
CPT/HCPCS: 10060; 99282; J2001

== ENCOUNTER → 2020-09-06 | Outpatient (CLI) | payer BC ==
[2020-09-06 16:12] LABS: African American GFR (CKD) 108.4 (60.0-200.0); Anion Gap 7.1 mmol/L (4.00-12.00); BUN/Creat Ratio 16.25 Ratio (12.00-20.00); Calcium 9.6 mg/dL (8.7-10.3); Carbon Dioxide 24.9 mmol/L (21.6-31.8); Chol/HDL Ratio 2.48; Non-African American GFR(CKD) 93.5 (60.0-200.0); Potassium 4.5 mmol/L (3.5-5.5)
== END | disposition home or self-care (01) ==
LOC: LABWHC1 07:39
PROVIDERS: ATTEND Nurse Practitioner Adult Health
DX: M54.5 Low back pain (principal); E66.9 Obesity, unspecified; F31.62 Bipolar disorder, current episode mixed, moderate
CPT/HCPCS: 36415; 80048; 80061; 82306; 84443

== ENCOUNTER 2021-04-24 04:23 | Emergency (ER) | payer BC ==
[2021-04-24] MEDS ORDERED: ACET/COD 300 MG/30 MG STARTER PACK 6 TAB BTL PO STA (05:21)
[2021-04-24] MEDS ORDERED: IBUPROFEN 600 MG STARTER PACK 4 TAB BTL PO STA (05:21)
[2021-04-24] MEDS ORDERED: dexAMETHasone 2 MG TAB PO STA (05:21)
--- NOTE | 2021-04-24 05:21 | ED ---
Extremity Problem HPI - General Chief complaint: Extremity Problem,Nontraumatic Stated complaint: R Knee Pain Time Seen by Provider: 04/24/21 04:31 Source: patient Mode of arrival: ambulatory - Related Data Home Medications Medication Instructions Recorded Confirmed busPIRone HCL 10 mg PO TID 04/22/19 05/16/20 PARoxetine HCL [Paxil] 40 mg PO DAILY 05/16/20 05/16/20 Previous Rx's Medication Instructions Recorded Sulfamethox-Tmp 800-160Mg [Bactrim 1 tab PO Q12HR #10 tab 06/23/20 DS 800-160 mg] Clindamycin HCl 300 mg PO Q6HR #40 cap 07/10/20 Ibuprofen [Motrin] 600 mg PO Q8HR PRN #20 tab 07/10/20 Allergies Allergy/AdvReac Type Severity Reaction Status Date / Time cephalexin [From Keflex] Allergy Rash/Hives Verified 04/24/21 04:39 Review of Systems ROS Statement: Those systems with pertinent positive or pertinent negative responses have been documented in the HPI. ROS Other: All systems not noted in ROS Statement are negative. Past Medical History Past Medical History: COPD, Hypertension Additional Past Medical History / Comment(s): back pain, " numbed the nerves" in back, History of Any Multi-Drug Resistant Organisms: None Reported Past Surgical History: Cholecystectomy, Tubal Ligation Additional Past Surgical History / Comment(s): left breast milk duct removal and reconstruction, Past Psychological History: Anxiety, Bipolar, Depression, Schizophrenia Smoking Status: Current every day smoker Past Alcohol Use History: None Reported Past Drug Use History: None Reported Course Vital Signs 04/24/21 04:29 Temperature 97.6 F Pulse Rate 73 Respiratory 15 Rate Blood Pressure 136/88 O2 Sat by Pulse 98 Oximetry Disposition Clinical Impression: Right knee pain Disposition: HOME SELF-CARE Condition: Good Instructions (If sedation given, give patient instructions): Knee Pain (ED) Is patient prescribed a controlled substance at d/c from ED?: No Referrals: Palomo Gage MD [Primary Care Provider] - 1-2 days
[2021-04-24 05:57] VITALS: BP 128/71; PULSE 75; RESP 16; TEMP 98
== END 2021-04-24 05:55 | disposition home or self-care (01) ==
LOC: EC 04:23
DX: M25.561 Pain in right knee (principal); J44.9 Chronic obstructive pulmonary disease, unspecified; I10 Essential (primary) hypertension; F41.9 Anxiety disorder, unspecified; F31.9 Bipolar disorder, unspecified; F20.9 Schizophrenia, unspecified; F17.200 Nicotine dependence, unspecified, uncomplicated
CPT/HCPCS: 99283; J8540

== ENCOUNTER → 2021-05-20 | Outpatient (CLI) | payer BC ==
--- NOTE | 2021-05-20 11:33 | US ---
EXAMINATION TYPE: US venous doppler duplex LE RT DATE OF EXAM: 05/20/2021 10:39 AM COMPARISON: 11/03/2019 CLINICAL HISTORY: I80.9 PHLEBITIS AND THROMBOPHLEBITIS. Pain right leg SIDE PERFORMED: right TECHNIQUE: The lower extremity deep venous system is examined utilizing real time linear array sonog genet with graded compression, doppler sonography and color-flow sonography. VESSELS IMAGED: Common Femoral Vein Deep Femoral Vein Greater Saphenous Vein * Femoral Vein Popliteal Vein Small Saphenous Vein * Proximal Calf Veins Right Leg: no evidence of DVT IMPRESSION: No evidence of deep venous thrombosis in the right lower extremity veins.
== END | disposition home or self-care (01) ==
LOC: RADUSWWP 10:19
PROVIDERS: ATTEND Orthopaedic Surgery
DX: I80.9 Phlebitis and thrombophlebitis of unspecified site (principal)

== ENCOUNTER → 2021-08-19 | Outpatient (CLI) | payer BC, OTHER ==
[2021-08-19 07:30] VITALS: BP 170/109; PULSE 78; RESP 18; TEMP 98.4
--- NOTE | 2021-08-19 07:48 | P.PAINCN ---
History of Present Illness - Reason for Consult Consult date: 08/19/21 - History of Present Illness This is a 41 years old female with a chronic history of severe low back pain with radiation to the lower extremity (RT >LT ), started in April 2021, he denies any initiating event she reported that the pain is constant and increases with any activity interfere with the quality of life, patient started physical therapy, and she already doing home exercise, she was treated with Motrin, and Flexeril and she continued to have severe low back pain, she feels some weakness in her lower extremity, she denies any fever or night sweats she denies any change in bowel movement or urination Past Medical History Past Medical History: Hypertension Additional Past Medical History / Comment(s): back pain, " numbed the nerves" in back, rt knee torn meniscus History of Any Multi-Drug Resistant Organisms: None Reported Past Surgical History: Cholecystectomy, Tubal Ligation Additional Past Surgical History / Comment(s): left breast milk duct removal and reconstruction, Past Anesthesia/Blood Transfusion Reactions: No Reported Reaction Smoking Status: Current every day smoker Medications and Allergies Home Medications Medication Instructions Recorded Confirmed Type Cyclobenzaprine [Flexeril] 10 mg PO TID 08/16/21 08/16/21 History FLUoxetine HCL [PROzac] 40 mg PO DAILY 08/16/21 08/16/21 History Ibuprofen [Motrin] 800 mg PO Q8HR PRN 08/16/21 08/16/21 History Loratadine [Claritin] 10 mg PO DAILY 08/16/21 08/16/21 History OXcarbazepine 600 mg PO BID 08/16/21 08/16/21 History hydrOXYzine HCL [Atarax] 10 mg PO TID 08/16/21 08/16/21 History Allergies Allergy/AdvReac Type Severity Reaction Status Date / Time cephalexin [From Keflex] Allergy Rash/Hives Verified 04/24/21 04:39 soap Allergy Rash/Hives Verified 08/16/21 11:42 Physical Exam Vitals: Vital Signs Temp Pulse Resp BP Pulse Ox 08/19/21 07:25 98.4 F 78 18 170/109 94 L Physical Examinations : -Constitutiona : Cooperative , not in acute distress . -HEENT : nech : supple , no Lymphadenopathy , normal thyroid size . : eyes : no ptosis , no icterus, no photophobia . - neurologic : Cranial nerve II to XII intact , no focal neurological deffecit . -psychatric : alert , oriented X 3 , appropriate affect , intact judgment and insight . -Lymphatic : no Lymphadenopathy . - musculoskeltal : Lumber spine moter stegnth lower extremities ,thigh and legs 5/5 Right side , 5/5 Left side deep tendon reflexes : normal Knee Jerk , normal ankle Jerk lumber facet Loading Test =positive Right , positive Left Range of motion of the lumbar spine Flexion 30 degrees, extension 10 degrees strait leg raising test = positive at 30 degree on the right side, negative on the left side Fabere test= positive Right , and positive LT . Sever tenderness over the Sacroiliac joint on the Right , and Left sides Results Comments: MRI of the lumbar spine= 11 lumbar degenerative disc disease multilevel lumbar spinal stenosis and lumbar spondylosis with lumbar facet arthropathy. Assessment and Plan Plan: Assessment and plan= chronic low back pain secondary to lumbar degenerative disc disease , lumbar spondylosis with lumbar facet arthropathy . Lumbar spinal stenosis Diagnoses, prognosis, treatment options, including but not limited to physical therapy, medication management, interventional therapies, and surgery, were discussed with the patient All the questions answered. Patient will be good candidate to have lumbar epidural steroid injection at L4 5 Time with Patient: Greater than 30 PQRS Measure Charge Sheet Measure #130: Documentation of Current Meds in Medical Chart: Patient's medications documented in chart Measure #226: Tobacco Use: Screen & Cessation Intervention: Pt screened for tobacco use AND intervention given Measure #111: Pneumonia Vaccination: Pneumococcal vaccine NOT administered or previously given Measure #47: Advance Care Plan: Advance care planning discussed & documented, pt chose/unable to give Measure #412: Opioid Treatment Agreement: No documentation of signed opioid treatment agreement Measure #408: Opioid Therapy Follow-up Evaluation: Patient had NO f/u eval minimum every 3 months during opioid therapy Measure #317: Preventitive Care & Scrn High Bld Press & F/U: Pre-hypertensive or hypertensive BP documented, pt will f/u with PCP Measure #128: Body Mass Index (BMI) Screening & Follow-up: BMI documented ABOVE normal parameters - f/u documented Measure #131: Pain Assessment & Follow-up: Pain positive & plan documented, Follow-up scheduled Measure #431: Unhealthy Alcohol Use Preventative Care & Scrn: Patient not identified as an unhealthy alcohol user Mode of Arrival: Ambulatory - Pain Location Lower Back Non-Pharmacological Interventions: Home Exercise, Inactivity, Physical Therapy, Stretching Pharmacological Interventions: Block, Medication, PRN Medication PQRS Narrative: Smoking Status Current every day smoker Blood Pressure 170/109 Pain Intensity [Lower Back] 9 Scale Used Numeric (1 - 10) Hx Alcohol Use (MH) No Home Medications: Ambulatory Orders Cyclobenzaprine [Flexeril] 10 mg PO TID 08/16/21 FLUoxetine HCL [PROzac] 40 mg PO DAILY 08/16/21 Ibuprofen [Motrin] 800 mg PO Q8HR PRN 08/16/21 Loratadine [Claritin] 10 mg PO DAILY 08/16/21 OXcarbazepine 600 mg PO BID 08/16/21 hydrOXYzine HCL [Atarax] 10 mg PO TID 08/16/21
== END ==
LOC: PNWHC3 07:04
PROVIDERS: ATTEND Specialist
DX: M51.36 Other intervertebral disc degeneration, lumbar region (principal); M47.816 Spondylosis without myelopathy or radiculopathy, lumbar region; M48.061 Spinal stenosis, lumbar region without neurogenic claudication; G89.29 Other chronic pain; I10 Essential (primary) hypertension; F17.200 Nicotine dependence, unspecified, uncomplicated; Z88.1 Allergy status to other antibiotic agents; Z91.048 Other nonmedicinal substance allergy status
CPT/HCPCS: 99211

== ENCOUNTER 2021-09-17 13:00 | Day surgery (SDC) | payer OTHER ==
[2021-09-16 11:05] VITALS: BMI 38.3
[2021-09-17] MEDS ORDERED: LIDOCAINE 1% (10MG/ML) FOR IV START INTRADERMA PRN (13:15)
[2021-09-17] MEDS ORDERED: LACTATED RINGERS 1,000 ML IV SCH (13:15)
[2021-09-17 13:26] VITALS: TEMP 98.3
[2021-09-17] MEDS ORDERED: fentaNYL (PF) 50 MCG/ML 2 ML AMP ONE (13:42)
[2021-09-17] MEDS ORDERED: methylPREDNISolone ACETATE 40 MG/ML 1 ML VIAL ONE (13:42)
[2021-09-17] MEDS ORDERED: MIDAZOLAM 2 MG/2 ML VIAL ONE (13:42)
[2021-09-17] MEDS ORDERED: IOPAMIDOL M200 10 ML VIAL ONE (13:42)
--- NOTE | 2021-09-17 13:57 | P.PCN ---
Date of Procedure: 09/17/21 Procedure(s) Performed: PREOPERATIVE DIAGNOSIS: 1- Lumbar Degenerative Disc Diseases 2-Lumbar spondylosis with Facet arthropathy without myelopathy 3-lumbar spinal stenosis POSTOPERATIVE DIAGNOSIS: Same as preop diagnosis. PROCEDURE 1. Lumbar epidural steroid injection under fluoroscopic guidance at the L5-S1 level. (Fluoroscopy imaging was available in radiology department) 2. Lumbar epidurogram. ANESTHESIA: Local with 1% lidocaine 3 ml and , moderate sedation with intravenous Versed 2 mg ,and fentanyle 100 Mcg EBL: Minimal PROCEDURE INDICATION: The patient with low back pain and radiculitis symptoms unresponsive to conservative treatment. Fluoroscopy was used to optimize visualization of the needle placement and to maximize safety. PROCEDURE DESCRIPTION / TECHNIQUE: The patient was seen and identified in the preoperative area. Risks, benefits, complications including but not limited to infections ,bleeding ,allergic reaction to the medications ,nerve damage and not complete pain releife , and alternatives were discussed with the patient. The patient agreed to proceed with the procedure and signed the consent. IV was started, and vital signs were stable. Patient was taken to the OR and time out was completed. The patient was placed in the prone position on procedure table and a pillow was placed under the abdomen to reduce lumbar lordosis. The lumbosacral area was prepped and draped in the usual sterile fashion.ere closely monitored during the procedure. Conscious sedation was used during the procedure to decrease patients anxiety. Vital signs was monitered during the entire procedure. Using anterior-posterior fluoroscopy, the L5-S1 interlaminar space was identified and the skin over this site was marked and then infiltrated with 1% lidocaine subcutaneously. Subsequently, a 20-gauge Tuohy epidural needle was inserted and advanced toward the epidural space using the ``Loss of resistance technique and guided by AP and lateral fluoroscopy. The correct needle position in the epidural space was verified with the injection of 2 mL of the water soluble contrast dye Isovue 200 contrast and observing an excellent epidurogram with the epidural spread of the dye, after negative aspiration for blood and CSF and in the absence of paresthesias. Again after negative aspiration, a 6 ml mixture containing 80 mg of Depo-medrol , and 2 ml of preservative free Normal Saline, and 2 ml of preservative free lidocaine 1% solution was injected and a washout of epidurogram was seen. Needle was withdrawn intact, skin was cleansed, and bandages were applied. COMPLICATIONS: None DISPOSITION / PLANS: The patient was placed in a supine position and transferred to the recovery area in a stable condition for observation. There was no evidence of lower extremity motor or sensory deficit after the procedure. Patient was discharged from the recovery room after meeting discharge criteria. Home discharge instructions were given to the patient by the staff. The patient was reexamined prior to discharge. The patient will schedule a follow up in the clinic in 2-4 weeks. Note = multiple attepts to do do the procedure at L4-5 ,I was not able to accesse the epidural space at that level,tthen I did the L5-S1 Levele.
[2021-09-17] MEDS ORDERED: IV FLUID CONTINUATION 1,000 ML IV ONE ×2 (14:04)
--- NOTE | 2021-09-17 14:10 | FL ---
Fluoroscopy HISTORY: Pain 11 seconds fluoroscopy time supplied to the referring clinician. 1 intraoperative C-arm images docume nt the procedure. See dictated report from anesthesia.
[2021-09-17 14:24] VITALS: RESP 18
[2021-09-17 14:38] VITALS: BP 128/79; PULSE 72
== END 2021-09-17 14:35 | disposition home or self-care (01) ==
LOC: ORPAIN 13:00
PROVIDERS: ATTEND Specialist
DX: M51.36 Other intervertebral disc degeneration, lumbar region (principal); M47.816 Spondylosis without myelopathy or radiculopathy, lumbar region
CPT/HCPCS: 62323; 81025; 99152

== ENCOUNTER 2021-10-24 09:58 | Day surgery (SDC) | payer OTHER ==
[2021-10-22 13:59] VITALS: BMI 40.3
[2021-10-24] MEDS ORDERED: LACTATED RINGERS 1,000 ML IV ONE (11:25)
[2021-10-24 11:26] VITALS: TEMP 98
[2021-10-24] MEDS ORDERED: MIDAZOLAM 2 MG/2 ML VIAL ONE (11:48)
[2021-10-24] MEDS ORDERED: IOPAMIDOL M200 10 ML VIAL ONE (11:48)
[2021-10-24] MEDS ORDERED: .fentaNYL (PF) 50 MCG/ML AMP ONE (11:48)
[2021-10-24] MEDS ORDERED: methylPREDNISolone ACETATE 40 MG/ML 1 ML VIAL ONE (11:48)
[2021-10-24] MEDS ORDERED: LACTATED RINGERS 1,000 ML IV SCH (12:00)
--- NOTE | 2021-10-24 12:03 | P.PCN ---
Date of Procedure: 10/24/21 Description of Procedure: Procedure: 1. L4-L5 Epidural steroid injection under fluoroscopic guidance #1 out of 3, 2. Lumbar epidurogram PREOPERATIVE DIAGNOSIS: Lumbar degenerative disc disease, and Lumbar radiculopathy. POSTOPERATIVE DIAGNOSIS: Lumbar degenerative disc disease, and Lumbar rad iculopathy. SURGEON: Alonso Perez ANESTHESIA: Local with 1% lidocaine, and IV sedation : Versed, and fentanyl EBL: None. Specimen removed: None Fluoroscopic image: saved to electronic medical records PROCEDURE INDICATION: The patient had history of Lumbar degenerative disc disease and Lumbar radiculopathy. Failed to conservative therapy. Presented for epidural steroid injection. PROCEDURE DESCRIPTION: The patient was seen and identified in the preoperative area. Risks, benefits, complications, and alternatives were discussed with the patient. The patient agreed to proceed with the procedure and signed the consent. IV was started, and vital signs were stable. Patient was taken to the procedure area, and time out was completed. The patient was placed in the prone position on procedure table and a pillow was placed under the abdomen to reduce lumbar lordosis. The lumbosacral area was prepped and draped in the usual sterile fashion. Critical pause was taken. Vital signs were closely monitored during the procedure. Using anterior-posterior fluoroscopy, the L4-L5 interlaminar space was identified, and skin and deeper tissues were localized with 1% lidocaine. Using anterior-posterior fluoroscopy, lateral fluoroscopy, and [id number] technique, a 20 gauge 3.5 Tuohy epidural needle entered the epidural space. After negative aspiration of CSF and blood with no paresthesias, 1 ml of Wepria292 contrast dye was injected and an excellent epidurogram was seen. Again after negative aspiration of CSF and blood with no paresthesias, 10 mL of block solution was injected into the epidural space. Block solution contained 80 mg of Depo-Medrol, and 8 mL of preservative-free normal saline. Needle was withdrawn intact, skin was cleansed, and bandages were applied. COMPLICATIONS: None. DISPOSITION / PLANS: The patient was placed in a supine position and transferred to the recovery area in a stable condition for observation. Patient was discharged from the recovery room after meeting discharge criteria. Home discharge instructions given to the patient by the staff. The patient was reexamined prior to discharge. The patient will schedule a follow up in the [facility] in 4 weeks.
[2021-10-24] MEDS ORDERED: IV FLUID CONTINUATION 1,000 ML IV ONE ×2 (12:08)
[2021-10-24 12:12] VITALS: RESP 15
--- NOTE | 2021-10-24 12:17 | FL ---
EXAMINATION TYPE: FL guided pain mgmt statistic DATE OF EXAM: 10/24/2021 HISTORY: Fluoroscopy time 5 seconds of fluoroscopy provided. IMPRESSION: 1. Fluoroscopy time.
[2021-10-24 13:10] VITALS: BP 118/60; PULSE 70
== END 2021-10-24 13:07 | disposition home or self-care (01) ==
LOC: ORPAIN 09:58
DX: M51.36 Other intervertebral disc degeneration, lumbar region (principal); M54.16 Radiculopathy, lumbar region
CPT/HCPCS: 62323; 81025; J2250; J1030; J3010; Q9966

== ENCOUNTER 2021-11-16 20:40 | Emergency (ER) | payer OTHER ==
[2021-11-16 21:02] VITALS: BP 139/86; PULSE 86; RESP 20; TEMP 97.5
--- NOTE | 2021-11-16 21:32 | XR ---
EXAMINATION TYPE: XR knee complete RT DATE OF EXAM: 11/16/2021 COMPARISON: NONE HISTORY: Knee pain TECHNIQUE: 3 views FINDINGS: There is small knee joint effusion. There is spurring of the femoral and tibial condyles. I see no fracture nor dislocation. IMPRESSION: Mild osteoarthritis and joint effusion. No fracture.
--- NOTE | 2021-11-16 22:36 | ED ---
Lower Extremity Injury HPI - General Chief Complaint: Extremity Injury, Lower Stated Complaint: Rt Knee pain Time Seen by Provider: 11/16/21 22:21 Source: patient, RN notes reviewed Mode of arrival: ambulatory Limitations: no limitations - History of Present Illness Initial Comments: 41-year-old female presented emergency department complaining of right knee pain. She notes she does have a slight or meniscus that she has been doing physical therapy for. She notes she has follow-up with orthopedist but not a while. She notes that he said he would not do surgery. She notes he does not take any medication at home. She denied any recent injury trauma. She denied any overuse. She was otherwise well-appearing in no apparent distress. She denied chest pain shortness breath headache nausea vomiting diarrhea constipation fever fatigue chills. - Related Data Home Medications Medication Instructions Recorded Confirmed FLUoxetine HCL [PROzac] 40 mg PO DAILY 08/16/21 10/22/21 Ibuprofen [Motrin] 800 mg PO Q8HR PRN 08/16/21 10/22/21 Loratadine [Claritin] 10 mg PO DAILY 08/16/21 10/22/21 OXcarbazepine 600 mg PO BID 08/16/21 10/22/21 hydrOXYzine HCL [Atarax] 10 mg PO TID 08/16/21 10/22/21 Allergies Allergy/AdvReac Type Severity Reaction Status Date / Time cephalexin [From Keflex] Allergy Rash/Hives Verified 11/16/21 21:03 soap Allergy Rash/Hives Verified 11/16/21 21:03 Review of Systems ROS Statement: Those systems with pertinent positive or pertinent negative responses have been documented in the HPI. ROS Other: All systems not noted in ROS Statement are negative. Past Medical History Past Medical History: Hypertension Additional Past Medical History / Comment(s): back pain, " numbed the nerves" in back, rt knee torn meniscus History of Any Multi-Drug Resistant Organisms: None Reported Past Surgical History: Cholecystectomy, Tubal Ligation Additional Past Surgical History / Comment(s): left breast milk duct removal and reconstruction, Past Anesthesia/Blood Transfusion Reactions: No Reported Reaction Past Psychological History: Anxiety, Bipolar, Depression, Schizophrenia Smoking Status: Current every day smoker Past Alcohol Use History: None Reported Past Drug Use History: None Reported General Exam Limitations: no limitations General appearance: alert, in no apparent distress Head exam: Present: atraumatic, normocephalic, normal inspection Eye exam: Present: normal appearance, PERRL, EOMI. Absent: scleral icterus, conjunctival injection, periorbital swelling ENT exam: Present: normal exam, mucous membranes moist Neck exam: Present: normal inspection Respiratory exam: Present: normal lung sounds bilaterally. Absent: respiratory distress, wheezes, rales, rhonchi, stridor Cardiovascular Exam: Present: regular rate, normal rhythm, normal heart sounds. Absent: systolic murmur, diastolic murmur, rubs, gallop, clicks Extremities exam: Present: normal inspection, full ROM, normal capillary refill. Absent: tenderness, pedal edema, joint swelling, calf tenderness Right Knee exam: Present: normal inspection, full ROM, tenderness (Minimal), swelling. Absent: abrasion, laceration, ecchymosis, deformity, crepitus, dislocation, erythema, effusion Neurological exam: Present: alert, oriented X3 Psychiatric exam: Present: normal affect, normal mood Skin exam: Present: warm, dry, intact, normal color. Absent: rash Course Vital Signs 11/16/21 20:59 Temperature 97.5 F L Pulse Rate 86 Respiratory 20 Rate Blood Pressure 139/86 O2 Sat by Pulse 100 Oximetry Medical Decision Making - Medical Decision Making 41-year-old female with right knee pain. X-ray the right knee ordered and is negative for any acute fractures dislo cations, small joint effusion. 15 g Toradol ordered for pain. Patient was informed that results in his room with discharge home with follow-up to orthopedics. Case discussed with Dr. Rahman, patient discharge home. - Radiology Data Radiology results: report reviewed, image reviewed X-ray right knee: Mild osteoarthritis and joint effusion. No fracture. Disposition Clinical Impression: Effusion of right knee joint, Right knee pain Disposition: HOME SELF-CARE Condition: Stable Instructions (If sedation given, give patient instructions): Knee Pain (ED) Additional Instructions: Please return to the Emergency Department if symptoms worsen or any other concerns. Follow-up with primary care 1-2 days. Follow-up with orthopedics as soon as possible. Take Tylenol Motrin as needed for pain. Is patient prescribed a controlled substance at d/c from ED?: No Referrals: Annabella Rao NPC [Primary Care Provider] - 1-2 days Branch,Rj M, PAC [PHYSICIAN [employer]OSTHETIC [employer]IDES TEACHER] - 1-2 days Time of Disposition: 22:36
[2021-11-16] MEDS: KETOROLAC 15 MG/ML 1 ML VIAL IM STA (22:41)
== END 2021-11-16 23:04 | disposition home or self-care (01) ==
LOC: EC 20:40
DX: M25.461 Effusion, right knee (principal); I10 Essential (primary) hypertension; F31.9 Bipolar disorder, unspecified; F41.9 Anxiety disorder, unspecified; F20.9 Schizophrenia, unspecified; F17.200 Nicotine dependence, unspecified, uncomplicated; Z79.1 Long term (current) use of non-steroidal anti-inflammatories (NSAID); Z79.899 Other long term (current) drug therapy
CPT/HCPCS: 73562; 99283; 96372; J1885

== ENCOUNTER → 2021-11-20 | Outpatient (CLI) | payer OTHER ==
[2021-11-20 11:36] VITALS: BP 147/101; PULSE 77; RESP 18; TEMP 98.1
--- NOTE | 2021-11-20 11:37 | P.PN ---
Subjective Progress Note Date: 11/20/21 This is Follow up visit for this 41 years old female with a chronic history of severe low back pain with radiation to the lower extremity (RT >LT ), she is diagnosed with lumbar spinal stenosis, lumbar degenerative disc disease and lumbar spondylosis with lumbar facet arthropathy , recently we have done multiple epidural steroid injections standstill , he reported that she had minimal benefit after Both injection, she had only 20% improvement of her low back pain, she denies any initiating event, she reported that the pain is constant and increases with any activity interfere with the quality of life, patient started physical therapy, and she already doing home exercise, she was treated with Motrin, and Flexeril and she had minimal benefit, she feels some weakness in her lower extremity, she denies any fever or night sweats she denies any change in bowel movement or urination Physical Examinations : -Constitutiona : Cooperative , not in acute distress . -HEENT : nech : supple , no Lymphadenopathy , normal thy roid size . : eyes : no ptosis , no icterus, no photophobia . - neurologic : Cranial nerve II to XII intact , no focal neurological deffecit . -psychatric : alert , oriented X 3 , appropriate affect , intact judgment and insight . -Lymphatic : no Lymphadenopathy . - musculoskeltal : Lumber spine moter stegnth lower extremities ,thigh and legs 5/5 Right side , 5/5 Left side deep tendon reflexes : normal Knee Jerk , normal ankle Jerk lumber facet Loading Test =positive Right , positive Left Range of motion of the lumbar spine Flexion 30 degrees, extension 10 degrees strait leg raising test = positive at 30 degree on the right side, negative on the left side Fabere test= positive Right , and positive LT . Sever tenderness over the Sacroiliac joint on the Right , and Left sides Results MRI of the lumbar spine= 11 lumbar degenerative disc disease multilevel lumbar spinal stenosis and lumbar spondylosis with lumbar facet arthropathy. Assessment and plan= chronic low back pain secondary to lumbar degenerative disc disease , lumbar spondylosis with lumbar facet arthropathy . Lumbar spinal stenosis Diagnoses, prognosis, treatment options, including but not limited to physical therapy, medication management, interventional therapies, and surgery, were discussed with the patient All the questions answered. Serge had 20% improvement of her low back pain after lumbar epidural steroid injections x2 Patient will be good candidate to diagnostic medial branch block lumbar area at L4 5 and L5-S1 possible RFA Time with Patient: Greater than 30 PQRS Measure Charge Sheet Measure #130: Documentation of Current Meds in Medical Chart: Patient's medications documented in chart Measure #226: Tobacco Use: Screen & Cessation Intervention: Pt screened for tobacco use AND intervention given Measure #111: Pneumonia Vaccination: Pneumococcal vaccine NOT administered or previously given Measure #47: Advance Care Plan: Advance care planning discussed & documented, pt chose/unable to give Measure #412: Opioid Treatment Agreement: No documentation of signed opioid treatment agreement Measure #408: Opioid Therapy Follow-up Evaluation: Patient had NO f/u eval minimum every 3 months during opioid therapy Measure #317: Preventitive Care & Scrn High Bld Press & F/U: Pre-hypertensive or hypertensive BP documented, pt will f/u with PCP Measure #128: Body Mass Index (BMI) Screening & Follow-up: BMI documented ABOVE normal parameters - f/u documented Measure #131: Pain Assessment & Follow-up: Pain positive & plan documented, Follow-up scheduled Measure #431: Unhealthy Alcohol Use Preventative Care & Scrn: Patient not identified as an unhealthy alcohol user Mode of Arrival: Ambulatory
== END ==
LOC: PNWHC3 10:45
PROVIDERS: ATTEND Specialist
DX: M51.36 Other intervertebral disc degeneration, lumbar region (principal); M47.816 Spondylosis without myelopathy or radiculopathy, lumbar region; M48.061 Spinal stenosis, lumbar region without neurogenic claudication; G89.29 Other chronic pain; F17.200 Nicotine dependence, unspecified, uncomplicated; Z88.1 Allergy status to other antibiotic agents; Z88.8 Allergy status to other drugs, medicaments and biological substances
CPT/HCPCS: 99211

== ENCOUNTER 2021-12-03 21:31 | Emergency (ER) | payer OTHER ==
[2021-12-04] MEDS ORDERED: ACETAMINOPHEN TAB 500 MG TAB PO STA (01:11)
[2021-12-04] MEDS ORDERED: BAMLANIVIMAB (EUA) 700 MG, ETESEVIMAB (EUA) 1,400 MG in SODIUM CHLORIDE 0.9% 100 ML IVPB ONE (01:30)
[2021-12-04] MEDS ORDERED: SODIUM CHLORIDE 0.9% 50 ML IVPB ONE (01:30)
--- NOTE | 2021-12-04 01:55 | ED ---
URI HPI - General Chief Complaint: Upper Respiratory Infection Stated Complaint: Wants Covid test Time Seen by Provider: 12/04/21 01:05 Source: patient, RN notes reviewed Mode of arrival: ambulatory Limitations: no limitations - Related Data Home Medications Medication Instructions Recorded Confirmed FLUoxetine HCL [PROzac] 60 mg PO DAILY 08/16/21 11/20/21 Ibuprofen [Motrin] 800 mg PO Q8HR PRN 08/16/21 11/20/21 Loratadine [Claritin] 10 mg PO DAILY PRN 08/16/21 11/20/21 OXcarbazepine 600 mg PO BID 08/16/21 11/20/21 hydrOXYzine HCL [Atarax] 10 mg PO TID PRN 08/16/21 11/20/21 Allergies Allergy/AdvReac Type Severity Reaction Status Date / Time cephalexin [From Keflex] Allergy Rash/Hives Verified 12/03/21 22:03 soap Allergy Rash/Hives Verified 12/03/21 22:03 Review of Systems ROS Statement: Those systems with pertinent positive or pertinent negative responses have been documented in the HPI. ROS Other: All systems not noted in ROS Statement are negative. Past Medical History Past Medical History: Hypertension Additional Past Medical History / Comment(s): back pain, " numbed the nerves" in back, rt knee torn meniscus History of Any Multi-Drug Resistant Organisms: None Reported Past Surgical History: Cholecystectomy, Tubal Ligation Additional Past Surgical History / Comment(s): left breast milk duct removal and reconstruction, Past Anesthesia/Blood Transfusion Reactions: No Reported Reaction Past Psychological History: Anxiety, Bipolar, Depression, Schizophrenia Smoking Status: Current every day smoker Past Alcohol Use History: None Reported Past Drug Use History: None Reported General Exam - General Exam Comments Initial Comments: Patient resting comfortably in the room. No distress. SpO2 is 97% on room air. At overhydration. Capillary refill less than 2 seconds. No evidence of mottling. Limitations: no limitations General appearance: alert, in no apparent distress Head exam: Present: atraumatic, normocephalic, normal inspection Eye exam: Present: normal appearance, PERRL, EOMI. Absent: scleral icterus, conjunctival injection, periorbital swelling ENT exam: Present: normal exam, mucous membranes moist Neck exam: Present: normal inspection, full ROM. Absent: tenderness, meningismus, lymphadenopathy Respiratory exam: Present: normal lung sounds bilaterally. Absent: respiratory distress, wheezes, rales, rhonchi, stridor Cardiovascular Exam: Present: regular rate, normal rhythm, normal heart sounds. Absent: systolic murmur, diastolic murmur, rubs, gallop, clicks GI/Abdominal exam: Present: soft, normal bowel sounds. Absent: distended, tenderness, guarding, rebound, rigid Extremities exam: Present: normal inspection, full ROM, normal capillary refill. Absent: tenderness, pedal edema, joint swelling, calf tenderness Back exam: Present: normal inspection Neurological exam: Present: alert, oriented X3, CN II-XII intact Psychiatric exam: Present: normal affect, normal mood Skin exam: Present: warm, dry, intact, normal color. Absent: rash Course Vital Signs 12/03/21 22:01 Temperature 100.1 F H Pulse Rate 75 Respiratory 18 Rate Blood Pressure 170/113 O2 Sat by Pulse 98 Oximetry Medical Decision Making - Medical Decision Making Patient criteria for monoclonal antibody infusion. This was ordered. Patient was counseled extensively on quarantine measures. All questions answered. Patient was told to return to the ER for any signs or symptoms worsen. Told to return immediately if any other problems arise. All questions answered. Treatment plan discussed. Patient in agreement - Lab Data Lab Results 12/03/21 Range/Units 22:15 Coronavirus (PCR) Detected A (Not Detectd) Disposition Clinical Impression: COVID-19, Cigarette smoker, Sinusitis Disposition: HOME SELF-CARE Condition: Good Instructions (If sedation given, give patient instructions): Coronavirus Disease 2019 (COVID-19), How to Stop Smoking (ED) Additional Instructions: SELF QUARANTINE DISCHARGE: As you are at risk for symptoms due to coronavirus, please stay home and stay away from others as much as possible. Please maintain social distance of 6 feet if possible. You should not return to work until at least 3 days (72 hours) have passed since recovery of symptoms. This defined as resolution of fever without the use of fever reducing medicines and improvement in respiratory symptoms (e.g,, cough, shortness of breath) and, At least 5 days have passed since symptoms first appeared. More information about what to do if you are sick can be found on the CDC website at https://www.cdc.gov/coronavirus/2019-ncov/ch-wis-tjt-sick/vmnmk-yvln-yfzt.html Expect the symptoms to last for 7-14 days from onset. Use acetaminophen (Tylenol) as needed for discomfort. You can take a maximum of 1 gram every 6 hours for discomfort, with your total dose in 24 hours not exceeding 4 grams. Be sure to maintain hydration. Drink continuous water and/or items high in vitamin C, such as orange juice and/or lemonade. Unless you have high blood pressure, you may consider Sudafed (which is [id number]) for nasal congestion. I would suggest that a short acting Sudafed rather than the 24 hour Sudafed. For a cough you may take Mucinex or Robitussin. Also consider the use of Vicks Vapor Rub or your chest when you sleep. Use a humidifier that is cleaned frequently, in the bedroom at night. For Nausea /Vomiting/Diarrhea associated with your Illness: o Small frequent sips of room temperature liquids. o Diet: [employer] - If you are still experiencing discomfort and/or nausea please slowly advancing your diet using the BRAT Diet = bananas, rice, apples/apple sauce, toast. o With diarrhea avoid any dairy for 48 hours after symptoms resolved. o Continue with activity as tolerated. If your symptoms do get worse and you believe that the upper respiratory infection has developed into something else, such as pneumonia or severe dehydration, please return to the emergency department or follow-up with your primary care. But expect to be symptomatic for the days as indicated above Is patient prescribed a controlled substance at d/c from ED?: No Referrals: Annabella Rao NPC [Primary Care Provider] - 12/11/21 Time of Disposition: 01:54
[2021-12-04 02:52] VITALS: RESP 20; TEMP 99.9
[2021-12-04 03:23] VITALS: BP 128/65; PULSE 71
== END 2021-12-04 03:58 | disposition home or self-care (01) ==
LOC: EC 21:31
DX: U07.1 COVID-19 (principal); F17.210 Nicotine dependence, cigarettes, uncomplicated; J01.90 Acute sinusitis, unspecified; I10 Essential (primary) hypertension; F41.9 Anxiety disorder, unspecified; F31.9 Bipolar disorder, unspecified; F25.9 Schizoaffective disorder, unspecified; Z88.1 Allergy status to other antibiotic agents; Z90.49 Acquired absence of other specified parts of digestive tract; Z98.51 Tubal ligation status
CPT/HCPCS: 99283; M0245; 87635

== ENCOUNTER → 2022-01-01 | Outpatient (CLI) | payer OTHER ==
[2022-01-01 09:21] LABS: Basophils # (A) 0.1 k/uL (0-0.2); Basophils % (A) 1 %; Eosinophils # (A) 0.3 k/uL (0-0.7); Eosinophils % (A) 3 %; HCT 40.7 % (34.0-46.0); HGB 13.2 gm/dL (11.4-16.0); Lymphocytes # (A) 2.7 k/uL (1.0-4.8); Lymphocytes % (A) 28 %; MCH 27.6 pg (25.0-35.0); MCHC 32.5 g/dL (31.0-37.0); MCV 85.1 fL (80.0-100.0); Mean Platelet Volume 7.6; Monocytes # (A) 0.5 k/uL (0-1.0); Monocytes % (A) 5 %; Neutrophils # (A) 5.9 k/uL (1.3-7.7); Neutrophils % (A) 62 %; Platelet Count 320 k/uL (150-450); RBC 4.78 m/uL (3.80-5.40); RDW 14.2 % (11.5-15.5); WBC 9.7 k/uL (3.8-10.6)
[2022-01-01 09:43] LABS: Potassium 3.9 mmol/L (3.5-5.1)
== END | disposition home or self-care (01) ==
LOC: PAT 07:26
PROVIDERS: ATTEND Orthopaedic Surgery
DX: M23.91 Unspecified internal derangement of right knee (principal)
CPT/HCPCS: 36415; 80051; 85025

== ENCOUNTER → 2022-01-01 | Outpatient (CLI) | payer OTHER | END | disposition home or self-care (01) | LOC: LABWHC1 08:23 | PROVIDERS: ATTEND Nurse Practitioner | DX: Z00.00 Encounter for general adult medical examination without abnormal findings (principal) | CPT/HCPCS: 36415; 80183 ==

== ENCOUNTER 2022-01-10 11:21 | Day surgery (SDC) | payer OTHER ==
--- NOTE | 2022-01-09 13:25 | HP ---
HISTORY AND PHYSICAL CHIEF COMPLAINT: Right knee pain. HISTORY OF PRESENT ILLNESS: The patient is a 41-year-old female who presents with right knee pain after an injury in April of 2021. She twisted her knee. She has had pain ever since. She notes posterior and lateral pain with walking and weightbearing activities along with stiffness and locking. She has tried medications in addition to therapy and an injection, without much relief. She notes daily pain that limits her. PAST MEDICAL HISTORY: Significant for bipolar disorder, anxiety, depression, arthritis and obesity. PAST SURGICAL HISTORY: Significant for cholecystectomy and tubal ligation. CURRENT MEDICATIONS: Prozac and oxcarbazepine. ALLERGIES: KEFLEX. FAMILY HISTORY: Significant for cancer. SOCIAL HISTORY: Significant for current tobacco use. REVIEW OF SYSTEMS: Sixteen-point review of systems otherwise reviewed and is noncontributory. PHYSICAL EXAMINATION: On examination, the patient is approximately 5 feet 11 inches, 280 pounds of endomorphic habitus. HEENT exam is nonfocal. Neck is supple. She has painless passive motion of the right hip. Straight-leg raise is negative. Active motion of right knee: Minus 9 to 115 degrees of flexion. She has a moderate effusion. She is tender about the lateral joint line. Collaterals are stable, Octavio is negative, Fede's elicits lateral pain. She does have an antalgic gait pattern. Her distal neurovascular exam appears intact in the right lower extremity. MRI report right knee 05/07/2021 shows evidence of a posterolateral meniscal tear along with medial compartment osteoarthrosis. IMPRESSION: 1. Right knee symptomatic lateral meniscal tear. 2. Right knee medial compartment osteoarthrosis. 3. Obesity. RECOMMENDATIONS: I talked to the patient at length regarding her condition along with treatment options. At this point she is having pain and mechanical symptoms that limit her despite previous conservative measures. After thorough discussion, she opts to proceed with surgery. We will plan to proceed with arthroscopic evaluation of the right knee with possible partial lateral meniscectomy. Risks and benefits were discussed at length in layman's terms. We will likely perform that as an outpatient procedure. MMODL / IJN: [id number] /
[~2022-01-10 11:21] MED LIST: CLINDAMYCIN 900 MG in DEXTROSE 5% IN WATER 50 ML IVPB PRN; DEXAMETHASONE SOD PHOSPHATE 4 MG/ML 1 ML VIAL IV ONE; HYDROmorphone 0.5 MG/0.5 ML SYRINGE IVP PRN; LACTATED RINGERS 1,000 ML IV SCH; MIDAZOLAM 2 MG/2 ML VIAL IV PRN; ONDANSETRON 4 MG/2 ML VIAL IVP ONE; SCOPOLAMINE 1.5MG/72HR PATCH TRANSDERM ONE
[2022-01-10] MEDS ORDERED: LIDOCAINE 1% INJ 10MG/ML (20 ML MDV) ONE (14:11)
[2022-01-10] MEDS ORDERED: PROPOFOL 10 MG/ML 20 ML VIAL IV ONE (14:11)
[2022-01-10] MEDS ORDERED: HYDROmorphone (PF) 1 MG/ML ONE (14:11)
[2022-01-10] MEDS ORDERED: MIDAZOLAM 2 MG/2 ML VIAL ONE (14:11)
[2022-01-10] MEDS ORDERED: fentaNYL (PF) 50 MCG/ML 2 ML AMP ONE (14:11)
[2022-01-10] MEDS ORDERED: EPINEPHrine (PF) 1 ML in SODIUM CHLORIDE 0.9% IRRIGATIO 3,000 ML IRRIGATION ONE ×4 (14:15)
--- NOTE | 2022-01-10 14:55 | P.OP ---
Date of Procedure: 01/10/22 Preoperative Diagnosis: Right knee internal derangement Postoperative Diagnosis: Right knee posterior lateral meniscal tear Procedure(s) Performed: Right knee arthroscopic partial lateral meniscectomy Anesthesia: TANIAA Surgeon: Beto Baig Estimated Blood Loss (ml): 10 Pathology: none sent Condition: stable Disposition: PACU Indications for Procedure: The patient's 41-year-old female presents with progressive right knee pain and mechanical symptoms after a previous twisting injury despite conservative measures. A discussion of the risks and benefits of operative intervention versus continued conservative measures was made with patient. She opted proceed with surgery. Operative risks to include infection, neurovascular injury, development of blood clots, possible incomplete resolution of symptoms, possible worsening symptoms and need for subsequent procedures was discussed. Informed consent was obtained. Operative Findings: As below Description of Procedure: The patient was brought to the operating room, and after induction of general anesthesia examined the right knee. Collaterals were stable, Octavio was negative, and posterior drawer was negative. The right lower extremity was prepped and draped in a normal fashion. A superior lateral portal was made through a 3 mm skin incision superior and lateral to the patella. This was used for outflow. A lateral portal was made through a 5 mm vertical skin incision lateral to the patella tendon above the joint line. Diagnostic arthroscopy was performed. On inspection of the medial compartment, the medial meniscus was stable and intact. Grade 2 chondral changes were noted diffusely in the medial compartment. On inspection of the notch, the anterior cruciate ligament appeared to be intact. On inspection of the lateral compartment, and oblique tear involving the middle to posterior one third was noted in the white-white junction. This was debrided back to a stable base with straight baskets and a motorized shaver. On inspection of the patellofemoral articulation, there was grade 2-3 chondral changes involving the lateral patella facet and the femoral trochlea. The gutters were clear debris. The knee was then thoroughly ir rigated. The portals were closed with Steri-Strips. A sterile dressing was applied in addition to a compression stocking. The patient was awoken from general anesthesia and transferred to recovery room in good condition. Blood loss was estimated at 10 mL. No complications were incurred.
[2022-01-10 15:04] VITALS: TEMP 97
[2022-01-10 15:29] VITALS: RESP 20
[2022-01-10] MEDS ORDERED: HYDROcodone/APAP 5-325MG 1 EACH TAB ONE (15:55)
[2022-01-10] MEDS ORDERED: HYDROcodone/APAP 5-325MG 1 EACH TAB PO ONE (15:56)
[2022-01-10 16:36] VITALS: BP 123/83; PULSE 91
== END 2022-01-10 16:42 | disposition home or self-care (01) ==
LOC: OR 11:21
PROVIDERS: ATTEND Orthopaedic Surgery
DX: S83.281A Other tear of lateral meniscus, current injury, right knee, initial encounter (principal); X50.1XXA Overexertion from prolonged static or awkward postures, initial encounter; M17.11 Unilateral primary osteoarthritis, right knee; F31.9 Bipolar disorder, unspecified; F41.9 Anxiety disorder, unspecified; F32.A Depression, unspecified; E66.9 Obesity, unspecified; Z68.41 Body mass index [BMI] 40.0-44.9, adult; Z90.49 Acquired absence of other specified parts of digestive tract; Z98.51 Tubal ligation status; Z79.899 Other long term (current) drug therapy; Z88.1 Allergy status to other antibiotic agents
CPT/HCPCS: 29881; J2250; J1100; J2405; J0171; J1170

== ENCOUNTER → 2022-03-27 | Outpatient (CLI) | payer OTHER ==
[2022-03-27 11:54] LABS: Appearance,Urine Cloudy (Clear); Bacteria,Urine Rare /hpf; Bilirubin,Urine Negative (Negative); Blood,Urine Negative (Negative); Color,Urine Yellow; Glucose,Urine (UA) Negative (Negative); Ketones,Urine Negative (Negative); Leukocyte Esterase,Urine Large (Negative); Mucus,Urine Rare /hpf; Nitrite,Urine Negative (Negative); PH, Urine 6.5 (5.0-8.0); Protein,Urine Negative (Negative); RBC,Urine 3 /hpf (0-5); Specific Gravity,Urine 1.017 (1.001-1.035); Squamous Epithelial Cell,Urine 8 /hpf (0-4); Urobilinogen,Urine <2.0 mg/dL (<2.0); WBC,Urine 5 /hpf (0-5)
[2022-03-27 12:03] LABS: Basophils # (A) 0.1 k/uL (0-0.2); Basophils % (A) 1 %; Eosinophils # (A) 0.2 k/uL (0-0.7); Eosinophils % (A) 2 %; HCT 43.2 % (34.0-46.0); HGB 13.9 gm/dL (11.4-16.0); Lymphocytes # (A) 2.5 k/uL (1.0-4.8); Lymphocytes % (A) 26 %; MCH 27.4 pg (25.0-35.0); MCHC 32.1 g/dL (31.0-37.0); MCV 85.4 fL (80.0-100.0); Mean Platelet Volume 7.9; Monocytes # (A) 0.5 k/uL (0-1.0); Monocytes % (A) 5 %; Neutrophils # (A) 6.3 k/uL (1.3-7.7); Neutrophils % (A) 65 %; Platelet Count 375 k/uL (150-450); RBC 5.06 m/uL (3.80-5.40); RDW 15.3 % (11.5-15.5); WBC 9.7 k/uL (3.8-10.6)
[2022-03-27 12:05] LABS: ALT 20 U/L (4-34); African American GFR (CKD) >90 (>60 ml/min/1.73 sqM); Albumin/Globulin Ratio 1.1; Anion Gap 8 mmol/L; Blood Urea Nitrogen 8 mg/dL (7-17); Calcium 9.2 mg/dL (8.4-10.2); Carbon Dioxide 22 mmol/L (22-30); Chloride 107 mmol/L (98-107); Globulin 3.7 g/dL; Glucose 98 mg/dL (74-99); Lipase 92 U/L (23-300); Non-African American GFR(CKD) >90 (>60 ml/min/1.73 sqM); Sodium 137 mmol/L (137-145); Total Bilirubin 0.7 mg/dL (0.2-1.3)
[2022-03-27 12:07] LABS: AST 32 U/L (14-36)
[2022-03-27 12:08] LABS: Albumin 4.1 g/dL (3.5-5.0); Alkaline Phosphatase 86 U/L (38-126); Total Protein 7.8 g/dL (6.3-8.2)
--- NOTE | 2022-03-27 12:16 | CT ---
EXAMINATION TYPE: CT abdomen pelvis w con DATE OF EXAM: 03/27/2022 COMPARISON: None HISTORY: Abdominal pain bilateral lower quadrants CT DLP: 2835.3 mGycm CONTRAST: CT scan of the abdomen and pelvis is performed with Oral Contrast and with IV Contrast, patient injec erick with 100 mL of Isovue 300. FINDINGS: LUNG BASES-: No visible nodule. No infiltrate. LIVER/GB: Cholecystectomy clips are in place. No space occupying hepatic lesion. Biliary tree is o f normal caliber. PANCREAS: No inflammation. No distinct mass. SPLEEN: No splenic enlargement. No lesion seen. ADRENALS: No nodule. No thickening. KIDNEYS/BLADDER: No hydronephrosis. No nephrolithiasis. No distinct renal mass. Urinary bladder g rossly unremarkable. BOWEL: Normal appendix. Normal bowel caliber. No inflammation. GENITAL ORGANS: No gross abnormality. LYMPH NODES: No greater than 1cm abdominal or pelvic lymph nodes are appreciated. AORTA: No significant abnormality. OSSEOUS STRUCTURES: No significant abnormality is seen. OTHER: No significant additional abnormality is seen. IMPRESSION: 1. No significant abnormality identified to account for the patient's symptoms.
== END | disposition home or self-care (01) ==
LOC: RADCTMAIN 10:32
PROVIDERS: ATTEND Internal Medicine
DX: R10.31 Right lower quadrant pain (principal); R10.32 Left lower quadrant pain
CPT/HCPCS: 80053; 83690; 85025; 81001; 74177; 36415; Q9967

== ENCOUNTER 2022-03-31 18:01 | Emergency (ER) | payer OTHER ==
[2022-03-31 19:44] VITALS: BP 126/80; PULSE 82; RESP 16; TEMP 98.3
--- NOTE | 2022-03-31 20:19 | XR ---
EXAMINATION TYPE: XR ankle complete LT DATE OF EXAM: 03/31/2022 COMPARISON: None HISTORY: Pain TECHNIQUE: 3 views FINDINGS: Ankle mortise is anatomic. I see no fracture nor dislocation. Joint spaces are normal. IMPRESSION: Negative left ankle exam. No fracture seen.
--- NOTE | 2022-03-31 20:21 | XR ---
EXAMINATION TYPE: XR foot complete LT DATE OF EXAM: 03/31/2022 COMPARISON: NONE HISTORY: Foot pain TECHNIQUE: 3 views FINDINGS: There is some spurring at the tarsometatarsal joints. Metatarsals are intact. I see no frac ture nor dislocation. The toes appear intact. There are no erosions. IMPRESSION: Mild spurring in the mid foot. No fracture.
--- NOTE | 2022-03-31 20:46 | ED ---
Lower Extremity Injury HPI - General Chief Complaint: Extremity Injury, Lower Stated Complaint: Left side hip pain Time Seen by Provider: 03/31/22 20:35 Source: patient, RN notes reviewed Mode of arrival: wheelchair - History of Present Illness Initial Comments: Patient was told to return to the ER for any signs or symptoms worsen. Told to return immediately if any other problems arise. All questions answered. Treatment plan discussed. Patient in agreement Every effort has been made to ensure accuracy of this dictation. However, due to the limitations of electronic medical records and dictation devices, errors in charting still occur. - Related Data Home Medications Medication Instructions Recorded Confirmed FLUoxetine HCL [PROzac] 40 mg PO QAM 08/16/21 01/10/22 Ibuprofen [Motrin] 800 mg PO Q8HR PRN 08/16/21 01/10/22 Loratadine [Claritin] 10 mg PO DAILY PRN 08/16/21 01/10/22 OXcarbazepine 600 mg PO BID 08/16/21 01/10/22 hydrOXYzine HCL [Atarax] 10 mg PO TID PRN 08/16/21 01/10/22 FLUoxetine HCL [PROzac] 20 mg PO HS 01/08/22 01/10/22 Previous Rx's Medication Instructions Recorded HYDROcodone/APAP 5-325MG [[place] 1 tab PO Q6HR PRN 3 Days #21 tab 01/10/22 5-325] Acetaminophen [Tylenol] 500 mg PO Q4-6H PRN #24 tab 03/31/22 Ibuprofen [Motrin] 600 mg PO Q8HR PRN #30 tab 03/31/22 Allergies Allergy/AdvReac Type Severity Reaction Status Date / Time cephalexin [From Keflex] Allergy Rash/Hives Verified 03/31/22 19:44 soap Allergy Rash/Hives Verified 03/31/22 19:44 Review of Systems ROS Statement: Those systems with pertinent positive or pertinent negative responses have been documented in the HPI. ROS Other: All systems not noted in ROS Statement are negative. Past Medical History Past Medical History: Hypertension Additional Past Medical History / Comment(s): back pain, " numbed the nerves" in back, rt knee torn meniscus History of Any Multi-Drug Resistant Organisms: None Reported Past Surgical History: Cholecystectomy, Orthopedic Surgery, Tubal Ligation Additional Past Surgical History / Comment(s): left breast milk duct removal and reconstruction, right knee Past Anesthesia/Blood Transfusion Reactions: No Reported Reaction Past Psychological History: Anxiety, Bipolar, Depression, Schizophrenia Smoking Status: Current every day smoker Past Alcohol Use History: None Reported Past Drug Use History: None Reported - Past Family History Mother Family Medical History: Unable to Obtain General Exam General appearance: alert, in no apparent distress Head exam: Present: atraumatic, normocephalic, normal inspection Eye exam: Present: normal appearance, PERRL, EOMI. Absent: scleral icterus, conjunctival injection, periorbital swelling ENT exam: Present: normal exam, mucous membranes moist Neck exam: Present: normal inspection. Absent: tenderness, meningismus, lymphadenopathy Respiratory exam: Present: normal lung sounds bilaterally. Absent: respiratory distress, wheezes, rales, rhonchi, stridor Cardiovascular Exam: Present: regular rate, normal rhythm, normal heart sounds. Absent: systolic murmur, diastolic murmur, rubs, gallop, clicks GI/Abdominal exam: Present: soft, normal bowel sounds. Absent: distended, tenderness, guarding, rebound, rigid Extremities exam: Present: full ROM (Full range of motion with increased pain), tenderness (Tenderness over the ATF and the deltoid ligament, no bony point tenderness), normal capillary refill, other (Ligament stability difficult to ascertain at this time.). Absent: normal inspection (Soft tissue swelling noted to both the lateral and medial aspects of the ankle), pedal edema, joint swelling, calf tenderness Back exam: Present: normal inspection Neurological exam: Present: alert, oriented X3, CN II-XII intact Psychiatric exam: Present: normal affect, normal mood Skin exam: Present: warm, dry, normal color. Absent: intact (Very superficial abrasion to the anterior aspect of left lower leg. No contamination.), rash Course Vital Signs 03/31/22 19:41 Temperature 98.3 F Pulse Rate 82 Respiratory 16 Rate Blood Pressure 126/80 O2 Sat by Pulse 97 Oximetry Medical Decision Making - Medical Decision Making No evidence of acute pathology and plain film x-rays. Warn the patient about the possibility of occult fracture. Presentation not consistent with Lisfranc fracture. Conservative therapy discussed. Ibuprofen, acetaminophen, Rice therapy, Ashvin wrap. Follow-up with orthopedics. Patient concurs with this treatment plan. Supervising physicians Dr. Soni - Radiology Data Radiology results: report reviewed, image reviewed Disposition Clinical Impression: Left ankle sprain, Abrasion, left lower leg, initial encounter Disposition: HOME SELF-CARE Instructions (If sedation given, give patient instructions): Ankle Sprain (ED), Abrasion (ED) Additional Instructions: Follow-up with orthopedics as directed. Prescriptions: Ibuprofen [Motrin] 600 mg PO Q8HR PRN #30 tab PRN Reason: Pain Acetaminophen [Tylenol] 500 mg PO Q4-6H PRN #24 tab PRN Reason: Pain Is patient prescribed a controlled substance at d/c from ED?: No Referrals: Emperatriz Gregorio DO [Doctor of Osteopathic Medicine] - 04/07/22 Time of Disposition: 20:44
== END 2022-03-31 20:50 | disposition home or self-care (01) ==
LOC: EC 18:01
DX: S93.402A Sprain of unspecified ligament of left ankle, initial encounter (principal); S80.812A Abrasion, left lower leg, initial encounter; I10 Essential (primary) hypertension; F31.9 Bipolar disorder, unspecified; F20.9 Schizophrenia, unspecified; F41.9 Anxiety disorder, unspecified; F17.200 Nicotine dependence, unspecified, uncomplicated; Z79.899 Other long term (current) drug therapy; Z88.1 Allergy status to other antibiotic agents; X50.1XXA Overexertion from prolonged static or awkward postures, initial encounter
CPT/HCPCS: 99283

== ENCOUNTER 2022-06-25 13:34 | Emergency (ER) | payer OTHER ==
[2022-06-25 14:47] VITALS: BP 123/79; PULSE 65; RESP 18; TEMP 98.9
--- NOTE | 2022-06-25 15:10 | XR ---
EXAMINATION TYPE: XR hand complete 3 views LT DATE OF EXAM: 06/25/2022 Comparison: 06/23/2020 Clinical History: 42-year-old female pain after injury/laceration Findings: No acute fracture, subluxation, or dislocation. Joint spaces are maintained. Impression: No acute osseous abnormality seen.
[2022-06-25] MEDS ORDERED: DIPH,PERTUS(ACELL)TETVAC-LF 0.5 ML VIAL IM ONE (15:51)
[2022-06-25] MEDS ORDERED: LIDOCAINE 1% INJ 10MG/ML (5 ML VIAL-PF) SQ ONE (15:51)
--- NOTE | 2022-06-25 16:19 | ED ---
Wound/Laceration HPI - General Chief Complaint: Wound/Laceration Stated Complaint: Finger Lac Time Seen by Provider: 06/25/22 15:21 Source: patient, RN notes reviewed Mode of arrival: ambulatory Limitations: no limitations - History of Present Illness Initial Comments: This is a 42-year-old female who presents to the emergency department for lacerations. States that she was cleaning a metal fan earlier today, when it accidentally flipped over and lacerated 2 of the fingers on her left hand. Unsure when her last Tetanus vaccine was. Denies any fevers, chills, sore throat, cough, dyspnea, chest pain, palpitations, abdominal pain, nausea, vomiting, diarrhea, back pain, or headaches. Extremity Location: Left: Hand Place: home Patient Tetanus UTD: No Context: accidental Associated Symptoms: pain Treatments Prior to Arrival: bandage - Related Data Home Medications Medication Instructions Recorded Confirmed FLUoxetine HCL [PROzac] 40 mg PO QAM 08/16/21 01/10/22 Ibuprofen [Motrin] 800 mg PO Q8HR PRN 08/16/21 01/10/22 Loratadine [Claritin] 10 mg PO DAILY PRN 08/16/21 01/10/22 OXcarbazepine 600 mg PO BID 08/16/21 01/10/22 hydrOXYzine HCL [Atarax] 10 mg PO TID PRN 08/16/21 01/10/22 FLUoxetine HCL [PROzac] 20 mg PO HS 01/08/22 01/10/22 Previous Rx's Medication Instructions Recorded HYDROcodone/APAP 5-325MG [[place] 1 tab PO Q6HR PRN 3 Days #21 tab 01/10/22 5-325] Acetaminophen [Tylenol] 500 mg PO Q4-6H PRN #24 tab 03/31/22 Ibuprofen [Motrin] 600 mg PO Q8HR PRN #30 tab 03/31/22 Allergies Allergy/AdvReac Type Severity Reaction Status Date / Time cephalexin [From Keflex] Allergy Rash/Hives Verified 06/25/22 14:47 soap Allergy Rash/Hives Verified 06/25/22 14:47 Review of Systems ROS Statement: Those systems with pertinent positive or pertinent negative responses have been documented in the HPI. ROS Other: All systems not noted in ROS Statement are negative. Past Medical History Past Medical History: Hypertension Additional Past Medical History / Comment(s): back pain, " numbed the nerves" in back, rt knee torn meniscus History of Any Multi-Drug Resistant Organisms: None Reported Past Surgical History: Cholecystectomy, Orthopedic Surgery, Tubal Ligation Additional Past Surgical History / Comment(s): left breast milk duct removal and reconstruction, right knee Past Anesthesia/Blood Transfusion Reactions: No Reported Reaction Past Psychological History: Anxiety, Bipolar, Depression, Schizophrenia Smoking Status: Current every day smoker Past Alcohol Use History: None Reported Past Drug Use History: None Reported - Past Family History Mother Family Medical History: Unable to Obtain General Exam Limitations: no limitations General appearance: alert, in no apparent distress Head exam: Present: atraumatic, normocephalic, normal inspection Respiratory exam: Present: normal lung sounds bilaterally. Absent: respiratory distress, wheezes, rales, rhonchi, stridor Cardiovascular Exam: Present: regular rate, normal rhythm, normal heart sounds. Absent: systolic murmur, diastolic murmur, rubs, gallop, clicks Neurological exam: Present: alert, oriented X3, CN II-XII intact Psychiatric exam: Present: normal affect, normal mood Skin exam: Present: other (2cm diagonal laceration to the center of the dorsal aspect of the left index finger. 1cm superficial laceration to the dorsal aspect of the left middle finger. Capillary refill <1 second. ) Course Vital Signs 06/25/22 14:43 Temperature 98.9 F Pulse Rate 65 Respiratory 18 Rate Blood Pressure 123/79 O2 Sat by Pulse 100 Oximetry Procedures - Laceration Laceration #1 Consent Obtained: verbal consent Indication: laceration Site: hand Size (cm): 2 Description: linear Depth: simple, single layer Anesthetic Used: lidocaine 1% Anesthesia Technique: local infiltration Amount (mls): 1 Type of Sutures: nylon Size of Sutures: 5-0 Number of Sutures: 2 Technique: simple, interrupted Medical Decision Making - Medical Decision Making This is a 42-year-old female who presents to the emergency department for lacerations to the left fingers. XRs revealed no acute osseous abnormalities. The laceration on the index finger was repaired with sutures. The laceration on the middle finger was superficial and no repair was required. Tetanus status was updated. Advised taking Tylenol and Ibuprofen as needed for pain relief. She will return in 5-7 days for suture removal. Return precautions reviewed in depth, the patient is instructed to return to the emergency department with any new, worsening, or concerning symptoms. Patient verbalized understanding. This case was discussed in detail with the attending ED physician. Presentation, findings, and treatment plan discussed in detail as well. - Radiology Data Radiology results: report reviewed, image reviewed Disposition Clinical Impression: Laceration Disposition: HOME SELF-CARE Instructions (If sedation given, give patient instructions): Care For Your Stitches (ED) Additional Instructions: Return to the emergency department with any new, worsening, or concerning symptoms and return in 5-7 days for suture removal. Take Tylenol and Ibuprofen as needed for pain relief. Is patient prescribed a controlled substance at d/c from ED?: No Referrals: Palomo Gage MD [Primary Care Provider] - 1-2 days
== END 2022-06-25 16:34 | disposition home or self-care (01) ==
LOC: EC 13:34
DX: S61.211A Laceration without foreign body of left index finger without damage to nail, initial encounter (principal); I10 Essential (primary) hypertension; Z23 Encounter for immunization; F17.200 Nicotine dependence, unspecified, uncomplicated; Z91.018 Allergy to other foods; Z88.8 Allergy status to other drugs, medicaments and biological substances
CPT/HCPCS: 73130; 90715; 99282; 90471; 12001; J2001

== ENCOUNTER 2022-06-27 23:16 | Emergency (ER) | payer OTHER ==
[2022-06-28 00:36] VITALS: BP 166/99; PULSE 65; RESP 19; TEMP 97.5
[2022-06-28] MEDS ORDERED: BACITRACIN ZINC 500 UNIT/GM OINT 28.4 GM TUBE TOPICAL STA (01:06)
[2022-06-28] MEDS ORDERED: DOXYCYCLINE 100 MG CAP PO STA (01:08)
--- NOTE | 2022-06-28 01:17 | ED ---
Recheck HPI - General Chief Complaint: Recheck/Abnormal Lab/Rx Stated Complaint: left hand finger infection Time Seen by Provider: 06/28/22 00:57 Source: patient, RN notes reviewed Mode of arrival: ambulatory - History of Present Illness Initial Comments: Patient seen here 2 days ago for a laceration to her left ring finger. Patient now complaining of redness and some drainage to the area. No headache, no fever or chills, no changes in vision or hearing, no sore throat or difficulty with speech, no neck pain, no chest pain or shortness of breath, no abdominal pain, no nausea or vomiting, no changes in urination or bowel movements, no numbness or tingling, no skin rashes or lesions. Past medical, surgical, social, and family history reviewed. MD Complaint: wound re-check Returns Today for: staple/Stitch removal - Related Data Home Medications Medication Instructions Recorded Confirmed FLUoxetine HCL [PROzac] 40 mg PO QAM 08/16/21 01/10/22 Ibuprofen [Motrin] 800 mg PO Q8HR PRN 08/16/21 01/10/22 Loratadine [Claritin] 10 mg PO DAILY PRN 08/16/21 01/10/22 OXcarbazepine 600 mg PO BID 08/16/21 01/10/22 hydrOXYzine HCL [Atarax] 10 mg PO TID PRN 08/16/21 01/10/22 FLUoxetine HCL [PROzac] 20 mg PO HS 01/08/22 01/10/22 Previous Rx's Medication Instructions Recorded HYDROcodone/APAP 5-325MG [[place] 1 tab PO Q6HR PRN 3 Days #21 tab 01/10/22 5-325] Acetaminophen [Tylenol] 500 mg PO Q4-6H PRN #24 tab 03/31/22 Ibuprofen [Motrin] 600 mg PO Q8HR PRN #30 tab 03/31/22 Doxycycline [Vibramycin] 100 mg PO BID 1 Days #20 each 06/28/22 Allergies Allergy/AdvReac Type Severity Reaction Status Date / Time cephalexin [From Keflex] Allergy Rash/Hives Verified 06/28/22 00:35 soap Allergy Rash/Hives Verified 06/28/22 00:35 Review of Systems ROS Statement: Those systems with pertinent positive or pertinent negative responses have been documented in the HPI. ROS Other: All systems not noted in ROS Statement are negative. Past Medical History Past Medical History: Hypertension Additional Past Medical History / Comment(s): back pain, " numbed the nerves" in back, rt knee torn meniscus History of Any Multi-Drug Resistant Organisms: None Reported Past Surgical History: Cholecystectomy, Orthopedic Surgery, Tubal Ligation Additional Past Surgical History / Comment(s): left breast milk duct removal and reconstruction, right knee Past Anesthesia/Blood Transfusion Reactions: No Reported Reaction Past Psychological History: Anxiety, Bipolar, Depression, Schizophrenia Smoking Status: Current every day smoker Past Alcohol Use History: None Reported Past Drug Use History: None Reported - Past Family History Mother Family Medical History: Unable to Obtain General Exam Limitations: no limitations General appearance: alert, in no apparent distress Head exam: Present: atraumatic, normocephalic, normal inspection Eye exam: Present: normal appearance, EOMI Neck exam: Present: normal inspection Respiratory exam: Present: normal lung sounds bilaterally. Absent: respiratory distress, wheezes, rales, rhonchi, stridor Cardiovascular Exam: Present: regular rate, normal rhythm, normal heart sounds. Absent: systolic murmur, diastolic murmur, rubs, gallop, clicks GI/Abdominal exam: Present: soft. Absent: tenderness Extremities exam: Present: normal inspection, full ROM, normal capillary refill. Absent: tenderness, pedal edema, joint swelling, calf tenderness Left Neuro motor exam: Present: wrist extension intact, thumb opposition intact, thumb IP flexion intact, thumb adduction intact, fingers 2-5 abduction intact Neurosensory exam: Present: radial nerve intact, ulnar nerve intact, median nerve intact. Absent: 2-point discrimination Vascular: Present: vascular compromise, normal capillary refill. Absent: Pallo Course Vital Signs 06/28/22 00:33 Temperature 97.5 F L Pulse Rate 65 Respiratory 19 Rate Blood Pressure 166/99 O2 Sat by Pulse 99 Oximetry Procedures - Procedures Initial comment: Patient appears to have secondary infection involving the laceration to her left ring finger. 2 sutures removed without difficulty. Wound was cleansed thoroughly. Antibiotic ointment applied. Sterile dressing applied. Patient tolerated well Medical Decision Making - Medical Decision Making Present with appear to be a secondary infection. Sutures removed. Patient had good tendon function. Patient had her tetanus updated previous visit. We'll treat the patient with doxycycline, wound care, warm compresses. Treatment plan discussed. All questions answered. Patient was told to return to the ER for any signs or symptoms worsen. Told to return immediately if any other problems arise. All questions answered. Treatment plan discussed. Patient in agreement Every effort has been made to ensure accuracy of this dictation. However, due to the limitations of electronic medical records and dictation devices, errors in charting still occur. [employer] Operator Dr. Rahman Disposition Clinical Impression: Cellulitis of finger of left hand Narrative: Cellulitis, left ring finger, secondary to laceration Disposition: HOME SELF-CARE Condition: Good Instructions (If sedation given, give patient instructions): Cellulitis (ED) Additional Instructions: Take antibiotics as directed. Apply warm compresses for 10-15 minutes 4 times daily. Follow-up with your regular physician as directed. Return to the ER immediately if any symptoms worsen, new symptoms arise, or any other problems develop. Prescriptions: Doxycycline [Vibramycin] 100 mg PO BID 1 Days #20 each Is patient prescribed a controlled substance at d/c from ED?: No Referrals: Palomo Gage MD [Primary Care Provider] - 1-2 days Time of Disposition: 01:09
== END 2022-06-28 01:31 | disposition home or self-care (01) ==
LOC: EC 23:16
DX: S61.215A Laceration without foreign body of left ring finger without damage to nail, initial encounter (principal); I10 Essential (primary) hypertension; F17.200 Nicotine dependence, unspecified, uncomplicated; Z88.8 Allergy status to other drugs, medicaments and biological substances; X58.XXXA Exposure to other specified factors, initial encounter

== ENCOUNTER 2022-06-30 01:01 | Emergency (ER) | payer OTHER ==
[2022-06-30 01:22] VITALS: BP 150/90; PULSE 76; RESP 19; TEMP 98.1
[2022-06-30] MEDS ORDERED: LIDOCAINE 1% INJ 10MG/ML (5 ML VIAL-PF) SQ ONE (01:28)
--- NOTE | 2022-06-30 01:29 | ED ---
Extremity Problem HPI - General Chief complaint: Extremity Problem,Nontraumatic Stated complaint: finger infection, revisit Time Seen by Provider: 06/30/22 01:23 Source: patient, RN notes reviewed Mode of arrival: ambulatory - History of Present Illness Initial comments: This is a pleasant, ilhlb-[id number] 42-year-old female who presents for his primary for recheck and on the distal aspect of her left fourth finger. Patient was seen here 2 nights ago and had suture removal after she noticed some redness around the wound. It appeared to be consistent with a mild infection. Patient has been on doxycycline for 2 days. Patient states that she believes the redness may be getting worse. She is Gettings on increased pain at the tip of the finger as well. No headache, no fever or chills, no changes in vision or hearing, no sore throat or difficulty with speech, no neck pain, no chest pain or shortness of breath, no abdominal pain, no nausea or vomiting, no changes in urination or bowel movements, no numbness or tingling, no skin rashes or lesions. Past medical, surgical, social, and family history reviewed. - Related Data Home Medications Medication Instructions Recorded Confirmed FLUoxetine HCL [PROzac] 40 mg PO QAM 08/16/21 01/10/22 Ibuprofen [Motrin] 800 mg PO Q8HR PRN 08/16/21 01/10/22 Loratadine [Claritin] 10 mg PO DAILY PRN 08/16/21 01/10/22 OXcarbazepine 600 mg PO BID 08/16/21 01/10/22 hydrOXYzine HCL [Atarax] 10 mg PO TID PRN 08/16/21 01/10/22 FLUoxetine HCL [PROzac] 20 mg PO HS 01/08/22 01/10/22 Previous Rx's Medication Instructions Recorded HYDROcodone/APAP 5-325MG [[place] 1 tab PO Q6HR PRN 3 Days #21 tab 01/10/22 5-325] Acetaminophen [Tylenol] 500 mg PO Q4-6H PRN #24 tab 03/31/22 Ibuprofen [Motrin] 600 mg PO Q8HR PRN #30 tab 03/31/22 Doxycycline [Vibramycin] 100 mg PO BID 1 Days #20 each 06/28/22 Allergies Allergy/AdvReac Type Severity Reaction Status Date / Time cephalexin [From Keflex] Allergy Rash/Hives Verified 06/30/22 01:22 soap Allergy Rash/Hives Verified 06/30/22 01:22 Review of Systems ROS Statement: Those systems with pertinent positive or pertinent negative responses have been documented in the HPI. ROS Other: All systems not noted in ROS Statement are negative. Past Medical History Past Medical History: Hypertension Additional Past Medical History / Comment(s): back pain, " numbed the nerves" in back, rt knee torn meniscus History of Any Multi-Drug Resistant Organisms: None Reported Past Surgical History: Cholecystectomy, Orthopedic Surgery, Tubal Ligation Additional Past Surgical History / Comment(s): left breast milk duct removal and reconstruction, right knee Past Anesthesia/Blood Transfusion Reactions: No Reported Reaction Past Psychological History: Anxiety, Bipolar, Depression, Schizophrenia Smoking Status: Current every day smoker Past Alcohol Use History: None Reported Past Drug Use History: None Reported - Past Family History Mother Family Medical History: Unable to Obtain General Exam - General Exam Comments Initial Comments: She does not appear to be ill or toxic. No evidence of systemic infection. General appearance: alert, in no apparent distress Head exam: Present: atraumatic Eye exam: Present: normal appearance, EOMI Neck exam: Present: normal inspection Respiratory exam: Present: normal lung sounds bilaterally. Absent: respiratory distress, wheezes, rales, rhonchi, stridor Cardiovascular Exam: Present: regular rate, normal rhythm, normal heart sounds. Absent: systolic murmur, diastolic murmur, rubs, gallop, clicks Left Hand Wrist exam: Present: full ROM, tenderness (Tender to the distal aspect of the left fourth finger), swelling (Minimal swelling distal aspect left fourth finger), subungual hematoma (Tiny subungual hematoma noted. Less than 10%), other (Erythema adjacent to the eponychial full consistent with a mild paronychia, left fourth finger). Absent: abrasion, laceration, ecchymosis, deformity, crepitus, dislocation, erythema, amputation, nail avulsion Neuro motor exam: Present: wrist extension intact, thumb opposition intact, thumb IP flexion intact, thumb adduction intact, fingers 2-5 abduction intact Neurosensory exam: Present: radial nerve intact, ulnar nerve intact, median nerve intact Vascular: Absent: vascular compromise, Pallo, pulse deficit radial art, pulse deficit ulnar art, radial pulse, brachial pulse Back exam: Present: normal inspection Neurological exam: Present: alert, oriented X3, CN II-XII intact. Absent: motor sensory deficit Psychiatric exam: Present: normal affect, normal mood Skin exam: Present: warm, dry. Absent: rash, cyanosis, diaphoretic, urticaria, vesicles, petechiae, pallor, abrasion Course Vital Signs 06/30/22 01:16 Temperature 98.1 F Pulse Rate 76 Respiratory 19 Rate Blood Pressure 150/90 O2 Sat by Pulse 99 Oximetry Procedures - Incision & Drainage Consent Obtained: verbal consent Site: upper extremity (Paronychia) Size (cm): 1 I&D Cleaning Method: Betadine Sterile Field Used?: Yes Scalpel Used: #11 Needle Aspiration Performed?: No Irrigation Performed?: Yes I&D Drainage Obtained: Pus, Blood Culture Obtained?: Yes Patient Tolerated Procedure: well Medical Decision Making - Medical Decision Making Patient has been on doxycycline for 2 days after having sutures removed from the distal aspect of her left fourth finger. Apparently this was a crush injury. Patient then developed some redness. I removed the sutures 2 days ago. Patient complaining of some increased swelling and redness to the distal aspect of the finger. No proximal symptomology. No subsequent injury. No fever or chills. Plan incision and drainage of paronychia. Incision and drainage was performed. Small amount of pus with minimal bleeding. We'll continue the antibiotics and warm compresses. Culture was sent. Patient was told to return to the ER for any signs or symptoms worsen. Told to return immediately if any other problems arise. All questions answered. Treatment plan discussed. Patient in agreement Every effort has been made to ensure accuracy of this dictation. However, due to the limitations of electronic medical records and dictation devices, errors in charting still occur. Communications Engineer Dr. Duque Disposition Clinical Impression: Paronychia of finger Narrative: Paronychia left fourth finger Disposition: HOME SELF-CARE Condition: Good Instructions (If sedation given, give patient instructions): Paronychia (ED) Additional Instructions: Warm compresses, use warm soapy water for 10-15 minutes at a time 4 times daily. Keep the wound clean and covered. Use topical antibiotic ointment such as Neosporin or triple antibiotic ointment Follow-up with your regular physician as directed. Return to the ER immediately if any symptoms worsen, new symptoms arise, or any other problems develop. Continue the doxycycline as prescribed Is patient prescribed a controlled substance at d/c from ED?: No Referrals: Palomo Gage MD [Primary Care Provider] - 07/02/22 Time of Disposition: 01:45
[2022-06-30] MEDS ORDERED: BACITRACIN OINT 1 EACH PACKET TOPICAL ONE (01:43)
== END 2022-06-30 01:58 | disposition home or self-care (01) ==
LOC: EC 01:01
DX: L03.012 Cellulitis of left finger (principal); I10 Essential (primary) hypertension; F17.200 Nicotine dependence, unspecified, uncomplicated; Z88.1 Allergy status to other antibiotic agents; Z91.048 Other nonmedicinal substance allergy status
CPT/HCPCS: 87070; 87205; 99282; 10060; J2001

== ENCOUNTER 2022-08-01 20:28 | Emergency (ER) | payer OTHER ==
[2022-08-01 21:16] VITALS: BP 141/91; PULSE 67; RESP 20; TEMP 98
--- NOTE | 2022-08-01 21:35 | XR ---
EXAMINATION TYPE: XR chest 2V DATE OF EXAM: 08/01/2022 9:32 PM COMPARISON: Left shoulder radiograph 08/01/2022 TECHNIQUE: XR chest 2V . CLINICAL INDICATION:Female, 42 years old with history of left shoulder pain; FINDINGS: Lungs/Pleura: There is no evidence of pleural effusion, focal consolidation, or pneumothorax. Pulmonary vascularity: Unremarkable. Heart/mediastinum: Cardiomediastinal silhouette is unremarkable. Musculoskeletal: No acute osseous pathology. IMPRESSION: No acute cardiopulmonary disease/process.
--- NOTE | 2022-08-01 21:36 | XR ---
EXAMINATION TYPE: XR shoulder complete LT DATE OF EXAM: 08/01/2022 9:32 PM INDICATION: Patient age:Female; 42 years old; Reason for study: left shoulder pain; COMPARISON: Chest x-ray 08/01/2022 TECHNIQUE: The left shoulder was examined in AP, internally rotated and scapular Y projections. . FINDINGS: No evidence of acute osseous pathology, joint dislocation, or soft tissue swelling. The remaining por tions of the visualized chest are unremarkable. Moderate acromioclavicular arthropathy. Acromioclavic ular joint demonstrates normal anatomical alignment. No radiopaque foreign bodies. IMPRESSION: 1. No evidence for fracture dislocation. 2. Moderate acromioclavicular arthropathy.
[2022-08-01] MEDS ORDERED: predniSONE 20 MG TAB PO STA (23:21)
--- NOTE | 2022-08-01 23:30 | ED ---
Upper Extremity HPI - General Chief Complaint: Extremity Injury, Upper Stated Complaint: left shoulder pain Time Seen by Provider: 08/01/22 23:11 Source: patient, RN notes reviewed, old records reviewed Mode of arrival: ambulatory Limitations: no limitations - History of Present Illness Initial Comments: This is a pleasant 42-year-old female presents to the emergency department complaining of pain in her left shoulder which started about 4 days ago. She states it feels like a sharp and dull pain in her shoulder which is exacerbated by reaching overhead above shoulder level. Does radiate into the upper arm at times. She states she occasionally gets a shooting type pain into the tricep area. Denies any chest pain or shortness of breath. Denies any loss of function or loss of strength. No rashes or lesions. No headache, no fever or chills, no changes in vision or hearing, no sore throat or difficulty with speech, no neck pain, no chest pain or shortness of breath, no abdominal pain, no nausea or vomiting, no changes in urination or bowel movements, no numbness or tingling, no skin rashes or lesions. Past medical, surgical, social, and family history reviewed. Complaint: Injury to:: left, shoulder - Related Data Home Medications Medication Instructions Recorded Confirmed FLUoxetine HCL [PROzac] 40 mg PO QAM 08/16/21 01/10/22 Ibuprofen [Motrin] 800 mg PO Q8HR PRN 08/16/21 01/10/22 Loratadine [Claritin] 10 mg PO DAILY PRN 08/16/21 01/10/22 OXcarbazepine 600 mg PO BID 08/16/21 01/10/22 hydrOXYzine HCL [Atarax] 10 mg PO TID PRN 08/16/21 01/10/22 FLUoxetine HCL [PROzac] 20 mg PO HS 01/08/22 01/10/22 Previous Rx's Medication Instructions Recorded HYDROcodone/APAP 5-325MG [[place] 1 tab PO Q6HR PRN 3 Days #21 tab 01/10/22 5-325] Acetaminophen [Tylenol] 500 mg PO Q4-6H PRN #24 tab 03/31/22 Ibuprofen [Motrin] 600 mg PO Q8HR PRN #30 tab 03/31/22 Doxycycline [Vibramycin] 100 mg PO BID 1 Days #20 each 06/28/22 methylPREDNISolone Dose Pack 4 mg PO DIRECTED #21 tab 08/01/22 [Medrol Dose Pack] Allergies Allergy/AdvReac Type Severity Reaction Status Date / Time cephalexin [From Keflex] Allergy Rash/Hives Verified 08/01/22 21:16 soap Allergy Rash/Hives Verified 08/01/22 21:16 Review of Systems ROS Statement: Those systems with pertinent positive or pertinent negative responses have been documented in the HPI. ROS Other: All systems not noted in ROS Statement are negative. Past Medical History Past Medical History: Hypertension Additional Past Medical History / Comment(s): back pain, " numbed the nerves" in back, rt knee torn meniscus, bipolar History of Any Multi-Drug Resistant Organisms: None Reported Past Surgical History: Cholecystectomy, Orthopedic Surgery, Tubal Ligation Additional Past Surgical History / Comment(s): left breast milk duct removal and reconstruction, right knee Past Anesthesia/Blood Transfusion Reactions: No Reported Reaction Past Psychological History: Anxiety, Bipolar, Depression, Schizophrenia Smoking Status: Current every day smoker Past Alcohol Use History: None Reported Past Drug Use History: None Reported - Past Family History Mother Family Medical History: Unable to Obtain General Exam Limitations: no limitations General appearance: alert, in no apparent distress Head exam: Present: atraumatic, normocephalic, normal inspection Eye exam: Present: normal appearance, PERRL, EOMI. Absent: scleral icterus, conjunctival injection, periorbital swelling ENT exam: Present: normal exam, mucous membranes moist Neck exam: Present: normal inspection, full ROM, other (No cervical tenderness, full range of motion). Absent: tenderness, meningismus, lymphadenopathy Respiratory exam: Present: normal lung sounds bilaterally. Absent: respiratory distress, wheezes, rales, rhonchi, stridor, chest wall tenderness, accessory muscle use, decreased breath sounds, prolonged expiratory Cardiovascular Exam: Present: regular rate, normal rhythm, normal heart sounds. Absent: systolic murmur, diastolic murmur, rubs, gallop, clicks GI/Abdominal exam: Present: soft, normal bowel sounds. Absent: distended, tenderness, guarding, rebound, rigid Extremities exam: Present: normal inspection, full ROM (Patient retains full range of motion with regards to left shoulder but has significant increased pain with both passive and active range of motion about the shoulder with abduction or external rotation. No crepitus. No break in skin integrity. No erythema.), normal capillary refill. Absent: tenderness, pedal edema, joint swelling, calf tenderness Back exam: Present: normal inspection, full ROM. Absent: tenderness, rash noted Neurological exam: Present: alert, oriented X3, CN II-XII intact Psychiatric exam: Present: normal affect, normal mood Skin exam: Present: warm, dry, intact, normal color. Absent: rash Course Vital Signs 08/01/22 21:12 Temperature 98 F Pulse Rate 67 Respiratory 20 Rate Blood Pressure 141/91 O2 Sat by Pulse 99 Oximetry Medical Decision Making - Medical Decision Making Symptomology most consistent with impingement syndrome. Patient does have some intermittent shooting pains down the arm. 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 Center mount did not consistent with infectious etiology. I consistent with central neurological etiology. I consistent with cardiac disease Patient was told to return to the ER for any signs or symptoms worsen. Told to return immediately if any other problems arise. All questions answered. Treatment plan discussed. Patient in agreement Every effort has been made to ensure accuracy of this dictation. However, due to the limitations of electronic medical records and dictation devices, errors in charting still occur. Agree to try a Medrol Dosepak. Patient is off work Thursday. I tallish needs to either follow up with orthopedics or her regular physician if symptoms persist discussed conservative therapy Supervising physicians Dr. Vásquez Disposition Clinical Impression: Impingement syndrome of left shoulder Disposition: HOME SELF-CARE Condition: Good Instructions (If sedation given, give patient instructions): Shoulder Pain (ED) Additional Instructions: Follow-up with your regular physician as directed. Return to the ER immediately if any symptoms worsen, new symptoms arise, or any other problems develop. If symptoms persist, make a follow-up appointment with the orthopedic physician or your regular physician. You may need further testing such as an EMG or further imaging Is patient prescribed a controlled substance at d/c from ED?: No Referrals: Palomo Gage MD [Primary Care Provider] - 1-2 days Time of Disposition: 23:23
== END 2022-08-01 23:48 | disposition home or self-care (01) ==
LOC: EC 20:28
DX: M75.42 Impingement syndrome of left shoulder (principal); I10 Essential (primary) hypertension; F17.200 Nicotine dependence, unspecified, uncomplicated; Z88.1 Allergy status to other antibiotic agents; Z91.09 Other allergy status, other than to drugs and biological substances
CPT/HCPCS: 93005; 73030; 71046; 99283; J7512

== ENCOUNTER 2022-08-13 23:07 | Emergency (ER) | payer OTHER ==
[2022-08-13 23:12] VITALS: TEMP 98.2
--- NOTE | 2022-08-14 00:10 | ED ---
Upper Extremity HPI - General Chief Complaint: Extremity Injury, Upper Stated Complaint: lt arm pain, finger infection Time Seen by Provider: 08/13/22 23:44 Source: patient, RN notes reviewed Mode of arrival: ambulatory Limitations: no limitations - History of Present Illness Initial Comments: This is a pleasant 42-year-old female who presents to the emergency department complaining of left fourth finger infection which has been recurrent. Patient had a laceration to the finger earlier in the spring and then subsequently had a wound infection. I removed the sutures myself. Anaerobic wound culture showed no bacteria. However she injured her left shoulder at work about 3 weeks ago and has had left shoulder pain which is exacerbated by movement since. Patient denying any chest pain or shortness of breath. There was no direct trauma. She states the pain seems to be in the left deltoid muscle area. No headache, no fever or chills, no changes in vision or hearing, no sore throat or difficulty with speech, no neck pain, no chest pain or shortness of breath, no abdominal pain, no nausea or vomiting, no changes in urination or bowel movem ents, no numbness or tingling, no skin rashes or lesions. Past medical, surgical, social, and family history reviewed. MD Complaint: Injury to:: left - Related Data Home Medications Medication Instructions Recorded Confirmed FLUoxetine HCL [PROzac] 40 mg PO QAM 08/16/21 01/10/22 Ibuprofen [Motrin] 800 mg PO Q8HR PRN 08/16/21 01/10/22 Loratadine [Claritin] 10 mg PO DAILY PRN 08/16/21 01/10/22 OXcarbazepine 600 mg PO BID 08/16/21 01/10/22 hydrOXYzine HCL [Atarax] 10 mg PO TID PRN 08/16/21 01/10/22 FLUoxetine HCL [PROzac] 20 mg PO HS 01/08/22 01/10/22 Previous Rx's Medication Instructions Recorded HYDROcodone/APAP 5-325MG [[place] 1 tab PO Q6HR PRN 3 Days #21 tab 01/10/22 5-325] Acetaminophen [Tylenol] 500 mg PO Q4-6H PRN #24 tab 03/31/22 Ibuprofen [Motrin] 600 mg PO Q8HR PRN #30 tab 03/31/22 Doxycycline [Vibramycin] 100 mg PO BID 1 Days #20 each 06/28/22 methylPREDNISolone Dose Pack 4 mg PO DIRECTED #21 tab 08/01/22 [Medrol Dose Pack] Amoxic-Pot Clav 875-125Mg 1 tab PO Q12HR 1 Days #20 tab 08/14/22 [Augmentin 875-125] HYDROcodone/APAP 5-325MG [[place] 1 tab PO Q6HR PRN 3 Days #12 tab 08/14/22 5-325] Sulfamethox-Tmp 800-160Mg [Bactrim 1 tab PO Q12HR #20 tab 08/14/22 DS 800-160 mg] Allergies Allergy/AdvReac Type Severity Reaction Status Date / Time cephalexin [From Keflex] Allergy Rash/Hives Verified 08/13/22 23:12 soap Allergy Rash/Hives Verified 08/13/22 23:12 Review of Systems ROS Statement: Those systems with pertinent positive or pertinent negative responses have been documented in the HPI. ROS Other: All systems not noted in ROS Statement are negative. Past Medical History Past Medical History: Hypertension Additional Past Medical History / Comment(s): back pain, " numbed the nerves" in back, rt knee torn meniscus, bipolar History of Any Multi-Drug Resistant Organisms: None Reported Past Surgical History: Cholecystectomy, Orthopedic Surgery, Tubal Ligation Additional Past Surgical History / Comment(s): left breast milk duct removal and reconstruction, right knee Past Anesthesia/Blood Transfusion Reactions: No Reported Reaction Past Psychological History: Anxiety, Bipolar, Depression, Schizophrenia Smoking Status: Current every day smoker Past Alcohol Use History: None Reported Past Drug Use History: None Reported - Past Family History Mother Family Medical History: Unable to Obtain General Exam - General Exam Comments Initial Comments: Patient does not appear to be ill or toxic. Vital signs reviewed. Limitations: no limitations General appearance: alert, in no apparent distress Head exam: Present: atraumatic, normocephalic, normal inspection Eye exam: Present: normal appearance, PERRL, EOMI. Absent: scleral icterus, conjunctival injection, periorbital swelling ENT exam: Present: normal exam, mucous membranes moist Neck exam: Present: normal inspection. Absent: tenderness, meningismus, lymphadenopathy Respiratory exam: Present: normal lung sounds bilaterally. Absent: respiratory distress, wheezes, rales, rhonchi, stridor Cardiovascular Exam: Present: regular rate, normal rhythm, normal heart sounds. Absent: systolic murmur, diastolic murmur, rubs, gallop, clicks GI/Abdominal exam: Present: soft, normal bowel sounds. Absent: distended, tenderness, guarding, rebound, rigid Extremities exam: Present: tenderness (Distal left fourth finger and left deltoi d area), normal capillary refill. Absent: normal inspection (Patient has what appears to be a paronychia involving the eponychial fold of the left fourth finger.), full ROM (Left shoulder), pedal edema, joint swelling Back exam: Present: normal inspection Neurological exam: Present: alert, oriented X3, CN II-XII intact Psychiatric exam: Present: normal affect, normal mood Skin exam: Present: warm, dry, intact, normal color. Absent: rash Course Vital Signs 08/13/22 08/14/22 23:08 02:56 Temperature 98.2 F Pulse Rate 75 68 Respiratory 22 15 Rate Blood Pressure 155/94 133/77 O2 Sat by Pulse 99 97 Oximetry Medical Decision Making - Lab Data Result diagrams: 08/14/22 01:25 08/14/22 01:25 Lab Results 08/14/22 08/14/22 Range/Units 01:25 01:25 WBC 11.7 H (3.8-10.6) k/uL RBC 5.27 (3.80-5.40) m/uL Hgb 13.7 (11.4-16.0) gm/dL Hct 43.7 (34.0-46.0) % MCV 83.0 (80.0-100.0) fL MCH 26.0 (25.0-35.0) pg MCHC 31.3 (31.0-37.0) g/dL RDW 15.2 (11.5-15.5) % Plt Count 328 (150-450) k/uL MPV 7.7 Neutrophils % 79 % Lymphocytes % 16 % Monocytes % 3 % Eosinophils % 1 % Basophils % 1 % Neutrophils # 9.2 H (1.3-7.7) k/uL Lymphocytes # 1.9 (1.0-4.8) k/uL Monocytes # 0.3 (0-1.0) k/uL Eosinophils # 0.2 (0-0.7) k/uL Basophils # 0.1 (0-0.2) k/uL ESR 32 H (0-20) mm/hr Sodium 135 L (137-145) mmol/L Potassium 4.6 (3.5-5.1) mmol/L Chloride 107 (98-107) mmol/L Carbon Dioxide 19 L (22-30) mmol/L Anion Gap 9 mmol/L BUN 8 (7-17) mg/dL Creatinine 0.58 (0.52-1.04) mg/dL Est GFR (CKD-EPI)AfAm >90 (>60 ml/min/1.73 sqM) Est GFR (CKD-EPI)NonAf >90 (>60 ml/min/1.73 sqM) Glucose 102 H (74-99) mg/dL Calcium 9.4 (8.4-10.2) mg/dL C-Reactive Protein 3.9 H (<1.0) mg/dL Disposition Clinical Impression: Paronychia of finger, Fracture of distal phalanx of left ring finger Disposition: HOME SELF-CARE Condition: Good Instructions (If sedation given, give patient instructions): Finger Fracture (ED), Paronychia (ED) Additional Instructions: Wear the finger splint as directed. Call 8 AM to schedule a follow-up with the orthopedic physician as discussed. Take the antibiotics as directed. Apply warm compresses 20 minutes on and off for times daily. Return to the ER immediately if any symptoms worsen, new symptoms arise, or any other problems develop. Prescriptions: Amoxic-Pot Clav 875-125Mg [Augmentin 875-125] 1 tab PO Q12HR 1 Days #20 tab Sulfamethox-Tmp 800-160Mg [Bactrim DS 800-160 mg] 1 tab PO Q12HR #20 tab HYDROcodone/APAP 5-325MG [[place] 5-325] 1 tab PO Q6HR PRN 3 Days #12 tab PRN Reason: Pain Is patient prescribed a controlled substance at d/c from ED?: No Referrals: Jean Claude Saldana DO [Doctor of Osteopathic Medicine] - As Soon As Possible Emperatriz Gregorio DO [Doctor of Osteopathic Medicine] - As Soon As Possible Time of Disposition: 02:46
--- NOTE | 2022-08-14 00:46 | XR ---
EXAMINATION TYPE: XR shoulder complete LT DATE OF EXAM: 08/14/2022 COMPARISON: 08/01/2022 HISTORY: Shoulder injury TECHNIQUE: 3 views FINDINGS: I see no fracture nor dislocation. Joint spaces are normal. There is minor spurring at the AC joint. IMPRESSION: Negative left shoulder exam.
--- NOTE | 2022-08-14 00:47 | XR ---
EXAMINATION TYPE: XR finger LT DATE OF EXAM: 08/14/2022 COMPARISON: NONE HISTORY: Pain TECHNIQUE: 3 views FINDINGS: There is nondisplaced fracture across the base of the distal phalanx of the ring finger lef t hand. No dislocation. No evidence of a foreign body. IMPRESSION: Acute nondisplaced fracture of the distal phalanx ring finger left hand.
[2022-08-14] MEDS ORDERED: KETOROLAC 15 MG/ML 1 ML VIAL IVP STA (00:56)
[2022-08-14] MEDS ORDERED: PIPERACILLIN-TAZOBACTAM 3.375 GM in SODIUM CHLORIDE 0.9% 100 ML IVPB STA (00:57)
[2022-08-14 01:52] LABS: Basophils # (A) 0.1 k/uL (0-0.2); Basophils % (A) 1 %; Eosinophils # (A) 0.2 k/uL (0-0.7); Eosinophils % (A) 1 %; HCT 43.7 % (34.0-46.0); HGB 13.7 gm/dL (11.4-16.0); Lymphocytes # (A) 1.9 k/uL (1.0-4.8); Lymphocytes % (A) 16 %; MCHC 31.3 g/dL (31.0-37.0); Mean Platelet Volume 7.7; Monocytes # (A) 0.3 k/uL (0-1.0); Monocytes % (A) 3 %; Neutrophils # (A) 9.2 k/uL (1.3-7.7); Neutrophils % (A) 79 %; Platelet Count 328 k/uL (150-450); RBC 5.27 m/uL (3.80-5.40); RDW 15.2 % (11.5-15.5); WBC 11.7 k/uL (3.8-10.6)
[2022-08-14 02:09] LABS: African American GFR (CKD) >90 (>60 ml/min/1.73 sqM); Anion Gap 9 mmol/L; Blood Urea Nitrogen 8 mg/dL (7-17); C Reactive Protein 3.9 mg/dL (<1.0); Calcium 9.4 mg/dL (8.4-10.2); Carbon Dioxide 19 mmol/L (22-30); Chloride 107 mmol/L (98-107); Glucose 102 mg/dL (74-99); Non-African American GFR(CKD) >90 (>60 ml/min/1.73 sqM); Potassium 4.6 mmol/L (3.5-5.1); Sodium 135 mmol/L (137-145)
[2022-08-14] MEDS ORDERED: HYDROcodone/APAP 5-325MG 1 EACH TAB PO STA (02:40)
[2022-08-14 02:56] VITALS: BP 133/77; PULSE 68; RESP 15
[2022-08-14 03:14] LABS: Erythrocyte Sedimentation Rate 32 mm/hr (0-20)
== END 2022-08-14 03:02 | disposition home or self-care (01) ==
LOC: EC 23:07
DX: S62.665A Nondisplaced fracture of distal phalanx of left ring finger, initial encounter for closed fracture (principal); L03.012 Cellulitis of left finger; I10 Essential (primary) hypertension; F17.200 Nicotine dependence, unspecified, uncomplicated; Z91.048 Other nonmedicinal substance allergy status; Z88.1 Allergy status to other antibiotic agents; Z79.899 Other long term (current) drug therapy
CPT/HCPCS: 99284; 36415; 80048; 85652; 85025; 86140; 73030; 73140; 96374; 96375; J2543; J1885

== ENCOUNTER 2022-12-10 02:13 | Emergency (ER) | payer OTHER ==
[2022-12-10] MEDS ORDERED: dexAMETHasone 2 MG TAB PO STA (02:48)
--- NOTE | 2022-12-10 03:18 | XR ---
EXAMINATION TYPE: XR chest 2V DATE OF EXAM: 12/10/2022 COMPARISON: 08/01/2022 HISTORY: Cough TECHNIQUE: 2 view FINDINGS: Heart and mediastinum are normal. Lungs are clear. Diaphragm is normal. Bony thorax appears normal. IMPRESSION: Normal chest. No change.
[2022-12-10] MEDS ORDERED: DOXYCYCLINE 100 MG CAP PO STA (03:52)
--- NOTE | 2022-12-10 03:56 | ED ---
General Adult HPI - General Chief complaint: Upper Respiratory Infection Stated complaint: Congestion Time Seen by Provider: 12/10/22 02:35 Source: patient, RN notes reviewed, old records reviewed Mode of arrival: ambulatory Limitations: no limitations - History of Present Illness Initial comments: Patient is a 42-year-old female with past medical history remarkable for tobacco use, hypertension and presents emergency Department complaining of a two-week history of worsening upper respiratory symptoms. Has not improved. Has nasal congestion, ear fullness sensation. Denies sore throat. Endorses a cough that is nonproductive. Denies fevers. Has not been tested for Covid or flu. Denies any shortness of breath, abdominal pain, nausea, vomiting, diarrhea, chest pain. No other acute complaints at this time. Is concerned she may have an upper respiratory infection. Is a smoker but has no history of COPD. Does not use inhalers at home. - Related Data Home Medications Medication Instructions Recorded Confirmed FLUoxetine HCL [PROzac] 40 mg PO QAM 08/16/21 01/10/22 Ibuprofen [Motrin] 800 mg PO Q8HR PRN 08/16/21 01/10/22 Loratadine [Claritin] 10 mg PO DAILY PRN 08/16/21 01/10/22 OXcarbazepine 600 mg PO BID 08/16/21 01/10/22 hydrOXYzine HCL [Atarax] 10 mg PO TID PRN 08/16/21 01/10/22 FLUoxetine HCL [PROzac] 20 mg PO HS 01/08/22 01/10/22 Previous Rx's Medication Instructions Recorded HYDROcodone/APAP 5-325MG [[employer] 1 tab PO Q6HR PRN 3 Days #21 tab 01/10/22 5-325] Acetaminophen [Tylenol] 500 mg PO Q4-6H PRN #24 tab 03/31/22 Ibuprofen [Motrin] 600 mg PO Q8HR PRN #30 tab 03/31/22 Doxycycline [Vibramycin] 100 mg PO BID 1 Days #20 each 06/28/22 methylPREDNISolone Dose Pack 4 mg PO DIRECTED #21 tab 08/01/22 [Medrol Dose Pack] Amoxic-Pot Clav 875-125Mg 1 tab PO Q12HR 1 Days #20 tab 08/14/22 [Augmentin 875-125] HYDROcodone/APAP 5-325MG [[employer] 1 tab PO Q6HR PRN 3 Days #12 tab 08/14/22 5-325] Sulfamethox-Tmp 800-160Mg [Bactrim 1 tab PO Q12HR #20 tab 08/14/22 DS 800-160 mg] Doxycycline Hyclate 100 mg PO BID 7 Days #14 capsule 12/10/22 Allergies Allergy/AdvReac Type Severity Reaction Status Date / Time cephalexin [From Keflex] Allergy Rash/Hives Verified 08/13/22 23:12 soap Allergy Rash/Hives Verified 08/13/22 23:12 Review of Systems ROS Statement: Those systems with pertinent positive or pertinent negative responses have been documented in the HPI. Review of Systems: CONST: Denies fever EYES: Denies blurry vision ENT: Endorses nasal congestion C/V: Denies Chest pain RESP: Denies shortness of breath GI: Denies abdominal pain : Denies dysuria SKIN: Denies rash. MSK: Denies joint pain. NEURO: Denies headache ROS Other: All systems not noted in ROS Statement are negative. Past Medical History Past Medical History: Hypertension Additional Past Medical History / Comment(s): back pain, " numbed the nerves" in back, rt knee torn meniscus, bipolar History of Any Multi-Drug Resistant Organisms: None Reported Past Surgical History: Cholecystectomy, Orthopedic Surgery, Tubal Ligation Additional Past Surgical History / Comment(s): left breast milk duct removal and reconstruction, right knee Past Anesthesia/Blood Transfusion Reactions: No Reported Reaction Past Psychological History: Anxiety, Bipolar, Depression, Schizophrenia Smoking Status: Current every day smoker Past Alcohol Use History: None Reported Past Drug Use History: None Reported - Past Family History Mother Family Medical History: Unable to Obtain General Exam - General Exam Comments Initial Comments: General: Appears in no acute distress. HEAD: Normal with no signs of head trauma. EYES: PERRLA, EOMI, conjunctiva normal, no discharge.Pupils are 3 mm and equal bilaterally. ENT: Hearing grossly intact, normal oropharynx. Bilateral TMs within normal limits. Mild tenderness with palpation of bilateral maxillary sinuses. RESPIRATORY: Clear breath sounds bilaterally. No wheezes, rales, or rhonchi. C/V: Regular rate and rhythm. S1 and S2 auscultated, no edema, peripheral pulses 2+ and intact throughout ABD: Abd is soft, nontender, nondistended EXT: Normal range of motion, no obvious deformity SKIN: No rashes or lesions observed on exposed skin. NEURO: Alert and oriented 4. Limitations: no limitations Course Vital Signs 12/10/22 02:19 Temperature 98.4 F Pulse Rate 71 Respiratory 18 Rate Blood Pressure 142/97 O2 Sat by Pulse 97 Oximetry Medical Decision Making - Medical Decision Making Based the patient's presentation and physical exam, I'm concerned for upper respiratory infection for the patient. We will obtain viral swabs as well as a chest x-ray. She'll be given a dose of steroids. Vital signs within acceptable limits. She was in agreement this plan. Patient is negative for Covid, flu, RSV. Chest x-ray reveals no acute cardio pulmonary process, infiltrate. After the patient. Due to her persistence of symptoms for 2 weeks, I will provide her with antibiotics. She'll be started on doxycycline twice a day and will be given a dose prior to discharge. She was in agreement this plan. Strict return precautions were discussed. Instructed to follow-up with her PCP within the next few days. I will provide the patient with a prescription for doxycycline. I instructed the patient to follow up with their PCP in the next 1-3 days. I explained that the patient should return to the emergency department if they experience any worsening symptoms. Strict return precautions were discussed with the patient. The patient expressed understanding of these instructions. I answered all questions that the patient had. The patient was discharged home in good condition with their prescriptions and follow up information. Was pt. sent in by a medical professional or institution (, [facility], [facility], urgent care, hospital, or fci...) When possible be specific @ -No Did you speak to anyone other than the patient for history (EMS, parent, family, police, friend...)? What history was obtained from this source @ -No Did you review nursing and triage notes (agree or disagree)? Why? @ -I reviewed and agree with nursing and triage notes Were old charts reviewed (outside hosp., previous admission, EMS record, old EKG, old radiological studies, urgent care reports/EKG's, fci records)? Report findings @ -No old charts were reviewed Differential Diagnosis (chest pain, altered mental status, abdominal pain women, abdominal pain men, vaginal bleeding, weakness, fever, dyspnea, syncope, headache, dizziness, GI bleed, back pain, seizure, CVA, palpatations, mental health)? @ -URI, Covid, influenza, sinusitis, pneumonia. This list is not all encompassing. EKG interpreted by me (3pts min.). @ -None done X-rays interpreted by me (1pt min.). @ -Chest x-ray reveals no acute infiltrate, cardiac primary process. CT interpreted by me (1pt min.). @ -None done U/S interpreted by me (1pt. min.). @ -None done What testing was considered but not performed or refused? (CT, X-rays, U/S, labs)? Why? @ -None What meds were considered but not given or refused? Why? @ -None Did you discuss the management of the patient with other professionals (professionals i.e. , PA, [facility], lab, RT, psych nurse, social scientist, historiography professor, teacher, geospatial program management officer, telephonic case manager)? Give summary @ -No Was smoking cessation discussed for >3mins.? @ -Yes Was critical care preformed (if so, how long)? @ -No Were there social determinants of health that impacted care today? How? (Homelessness, low income, unemployed, alcoholism, drug addiction, transportation, low edu. Level, literacy, decrease access to med. care, nursing home, rehab)? @ -No Was there de-escalation of care discussed even if they declined (Discuss DNR or withdrawal of care, Hospice)? DNR status @ -No What co-morbidities impacted this encounter? (DM, HTN, Smoking, COPD, CAD, Cancer, CVA, ARF, Chemo, Hep., AIDS, mental health diagnosis, sleep apnea, morbid obesity)? @ -Tobacco use Was patient admitted / discharged? Hospital course, mention meds given and route, prescriptions, significant lab abnormalities, going to OR and other pertinent info. @ -Discharged home. See above for ED course. Undiagnosed new problem with uncertain prognosis? @ -No Drug Therapy requiring intensive monitoring for toxicity (Heparin, Nitro, Insulin, Cardizem)? @ -No Were any procedures done? @ -No Diagnosis/symptom? @ -URI Acute, or Chronic, or Acute on Chronic? @ -Acute Uncomplicated (without systemic symptoms) or Complicated (systemic symptoms)? @ -Uncomplicated Side effects of treatment? @ -No Exacerbation, Progression, or Severe Exacerbation? @ -No Poses a threat to life or bodily function? How? (Chest pain, [place], [place], pneumonia, PE, COPD, DKA, ARF, appy, cholecystitis, CVA, Diverticulitis, Homicidal, Suicidal, threat to staff... and all critical care pts) @ -No Diagnosis/symptom? @ -Sinusitis Acute, or Chronic, or Acute on Chronic? @ -Acute Uncomplicated (without systemic symptoms) or Complicated (systemic symptoms)? @ -Uncomplicated Side effects of treatment? @ -none Exacerbation, Progression, or Severe Exacerbation] @ -no Poses a threat to life or bodily function? @ -no - Lab Data Lab Results 12/10/22 Range/Units 02:54 Influenza Type A (PCR) Not Detected (Not Detectd) Influenza Type B (PCR) Not Detected (Not Detectd) RSV (PCR) Not Detected (Not Detectd) SARS-CoV-2 (PCR) Not Detected (Not Detectd) Disposition Clinical Impression: Sinusitis, URI (upper respiratory infection) Disposition: HOME SELF-CARE Condition: Good Instructions (If sedation given, give patient instructions): Sinusitis (ED), Upper Respiratory Infection (ED) Prescriptions: Doxycycline Hyclate 100 mg PO BID 7 Days #14 capsule Is patient prescribed a controlled substance at d/c from ED?: No Referrals: Palomo Gage MD [Primary Care Provider] - 1-2 days Time of Disposition: 03:55
[2022-12-10 04:09] VITALS: BP 134/78; PULSE 72; RESP 16; TEMP 98.2
== END 2022-12-10 04:09 | disposition home or self-care (01) ==
LOC: EC 02:13
DX: J32.9 Chronic sinusitis, unspecified (principal); J06.9 Acute upper respiratory infection, unspecified; I10 Essential (primary) hypertension; F41.9 Anxiety disorder, unspecified; F31.9 Bipolar disorder, unspecified; F17.200 Nicotine dependence, unspecified, uncomplicated; Z88.1 Allergy status to other antibiotic agents; Z88.8 Allergy status to other drugs, medicaments and biological substances; Z20.822 Contact with and (suspected) exposure to COVID-19
CPT/HCPCS: 87636; 71046; 99283; J8540

== ENCOUNTER 2023-07-17 09:18 | Emergency (ER) | payer OTHER ==
[2023-07-17 09:26] VITALS: RESP 18
--- NOTE | 2023-07-17 09:53 | ED ---
General Adult HPI - General Chief complaint: Chest Pain Stated complaint: Chest pressure Time Seen by Provider: 07/17/23 09:27 Source: EMS Mode of arrival: EMS Limitations: no limitations - History of Present Illness Initial comments: Dictation was produced using [employer] dictation software. please excuse any grammatical, word or spelling errors. Chief Complaint: 43-year-old female presents emergency department for 2 days of sharp chest pain History of Present Illness: Is 43-year-old female she went to the urgent care for chief complaint of sharp chest pain. She also complaining of shortness of breath. Patient states worse with deep inspiration. Denies any trauma to chest. No history of blood clots. The ROS documented in this emergency department record has been reviewed and confirmed by me. Those systems with pertinent positive or negative responses have been documented in the HPI. All other systems are other negative and/or noncontributory. - Related Data Home Medications Medication Instructions Recorded Confirmed FLUoxetine HCL [PROzac] 40 mg PO QAM 08/16/21 01/10/22 Ibuprofen [Motrin] 800 mg PO Q8HR PRN 08/16/21 01/10/22 Loratadine [Claritin] 10 mg PO DAILY PRN 08/16/21 01/10/22 OXcarbazepine 600 mg PO BID 08/16/21 01/10/22 hydrOXYzine HCL [Atarax] 10 mg PO TID PRN 08/16/21 01/10/22 FLUoxetine HCL [PROzac] 20 mg PO HS 01/08/22 01/10/22 Previous Rx's Medication Instructions Recorded HYDROcodone/APAP 5-325MG [[place] 1 tab PO Q6HR PRN 3 Days #21 tab 01/10/22 5-325] Acetaminophen [Tylenol] 500 mg PO Q4-6H PRN #24 tab 03/31/22 Ibuprofen [Motrin] 600 mg PO Q8HR PRN #30 tab 03/31/22 Doxycycline [Vibramycin] 100 mg PO BID 1 Days #20 each 06/28/22 methylPREDNISolone Dose Pack 4 mg PO DIRECTED #21 tab 08/01/22 [Medrol Dose Pack] Amoxic-Pot Clav 875-125Mg 1 tab PO Q12HR 1 Days #20 tab 08/14/22 [Augmentin 875-125] HYDROcodone/APAP 5-325MG [[place] 1 tab PO Q6HR PRN 3 Days #12 tab 08/14/22 5-325] Sulfamethox-Tmp 800-160Mg [Bactrim 1 tab PO Q12HR #20 tab 08/14/22 DS 800-160 mg] Doxycycline Hyclate 100 mg PO BID 7 Days #14 capsule 12/10/22 Allergies Allergy/AdvReac Type Severity Reaction Status Date / Time cephalexin [From Keflex] Allergy Rash/Hives Verified 07/17/23 09:27 soap Allergy Rash/Hives Verified 07/17/23 09:27 Bleach (Sodium Hypochlorite) AdvReac Itching Verified 07/17/23 09:27 Review of Systems ROS Statement: Those systems with pertinent positive or pertinent negative responses have been documented in the HPI. ROS Other: All systems not noted in ROS Statement are negative. Past Medical History Past Medical History: Hypertension Additional Past Medical History / Comment(s): back pain, " numbed the nerves" in back, rt knee torn meniscus, bipolar History of Any Multi-Drug Resistant Organisms: None Reported Past Surgical History: Cholecystectomy, Orthopedic Surgery, Tubal Ligation Additional Past Surgical History / Comment(s): left breast milk duct removal and reconstruction, right knee Past Anesthesia/Blood Transfusion Reactions: No Reported Reaction Past Psychological History: Anxiety, Bipolar, Depression, Schizophrenia Smoking Status: Current every day smoker Past Alcohol Use History: None Reported Past Drug Use History: None Reported - Past Family History Mother Family Medical History: Unable to Obtain General Exam - General Exam Comments Initial Comments: PHYSICAL EXAM: General Impression: Alert and oriented x3, not in acute distress HEENT: Normocephalic atraumatic, extra-ocular movements intact, pupils equal and reactive to light bilaterally, mucous membranes moist. Cardiovascular: Heart regular rate and rhythm Chest: Able to complete full sentences, no retractions, no tachypnea Abdomen: abdomen soft, non-tender, non-distended, no organomegaly Musculoskeletal: Pulses present and equal in all extremities, no peripheral edema Motor: no focal deficits noted Neurological: CN II-XII grossly intact, no focal motor or sensory deficits noted Skin: Intact with no visualized rashes Psych: Normal affect and mood Limitations: no limitations Course Vital Signs 07/17/23 09:23 Temperature 97.9 F Pulse Rate 73 Respiratory 18 Rate Blood Pressure 162/91 O2 Sat by Pulse 97 Oximetry EKG Findings - EKG Comments: EKG Findings:: My EKG interpretation: Ventricular rate 61, sinus rhythm,. 160, QRS and 5, QTc 443. No MA prolongation, no QTC prolongation, no ST or T-wave changes noted. Overall, this EKG is unremarkable Medical Decision Making - Medical Decision Making Was pt. sent in by a medical professional or institution (, [facility], COMPOSITION ROOFER, urgent care, hospital, or fci...) When possible be specific @ -No Did you speak to anyone other than the patient for history (EMS, parent, family, police, friend...)? What history was obtained from this source @ -No Did you review nursing and triage notes (agree or disagree)? Why? @ -I reviewed and agree with nursing and triage notes Were old charts reviewed (outside hosp., previous admission, EMS record, old EKG, old radiological studies, urgent care reports/EKG's, fci records)? Report findings @ -No old charts were reviewed Differential Diagnosis (chest pain, altered mental status, abdominal pain women, abdominal pain men, vaginal bleeding, musculoskeletal, weakness, fever, dyspnea, syncope, headache, dizziness, GI bleed, back pain, seizure, CVA, palpatations, mental health)? @ -Differential Chest Pain: Stable Angina, Unstable Angina, STEMI, NSTEMI Aortic Dissection, Pneumothorax, Musculoskeletal, Esophageal Spasm GERD, Cholecystitis, Pancreatitis, Zoster, this is not meant to be an all-inclusive list. EKG interpreted by me (3pts min.). @ -As above X-rays interpreted by me (1pt min.). @ -Chest x-ray shows no acute processes CT interpreted by me (1pt min.). @ -None done U/S interpreted by me (1pt. min.). @ -None done What testing was considered but not performed or refused? (CT, X-rays, U/S, labs)? Why? @ -None What meds were considered but not given or refused? Why? @ -None Did you discuss the management of the patient with other professionals (professionals i.e. [facility]AN[facility] [place], COMPOSITION ROOFER, lab, RT, psych nurse, sexual assault social worker, ball thread machine tender, teacher, vessel traffic officer, social work case manager)? Give summary @ -No Was smoking cessation discussed for >3mins.? @ -No Was critical care preformed (if so, how long)? @ -No Were there social determinants of health that impacted care today? How? (Homelessness, low income, unemployed, alcoholism, drug addiction, transportation, low edu. Level, literacy, decrease access to med. care, penitentiary, rehab)? @ -No Was there de-escalation of care discussed even if they declined (Discuss DNR or withdrawal of care, Hospice)? DNR status @ -No What co-morbidities impacted this encounter? (DM, HTN, Smoking, COPD, CAD, Cancer, CVA, ARF, Chemo, Hep., AIDS, mental health diagnosis, sleep apnea, morbid obesity)? @ -None Was patient admitted / discharged? Hospital course, mention meds given and route, prescriptions, significant lab abnormalities, going to OR and other pertinent info. @ -43-year-old female presents with pleuritic chest pain. Vital signs stable. Not tachycardic, not hypoxic. She did report also associated shortness of breath. Labs are unremarkable. D-dimer and troponin negative. Chest x-ray is nonacute. Reevaluated penicillin 30 and resting comfortably. Discharged Undiagnosed new problem with uncertain prognosis? @ -No Drug Therapy requiring intensive monitoring for toxicity (Heparin, Nitro, Insulin, Cardizem)? @ -No Were any procedures done? @ -[No] Diagnosis/symptom? Acute, or Chronic, or Acute on Chronic? Uncomplicated (without systemic symptoms) or Complicated (systemic symptoms)? @ -1. Pleuritic chest pain Side effects of treatment? @ -[No] Exacerbation, Progression, or Severe Exacerbation? @ -[No] Poses a threat to life or bodily function? How? (Chest pain, [place], [place], pneumonia, PE, COPD, DKA, ARF, appy, cholecystitis, CVA, Diverticulitis, Homicidal, Suicidal, threat to staff... and all critical care pts) @ -[No] - Lab Data Result diagrams: 07/17/23 10:16 07/17/23 10:16 Lab Results 07/17/23 07/17/23 07/17/23 Range/Units 10:16 10:16 10:16 WBC 10.4 (3.8-10.6) k/uL RBC 4.76 (3.80-5.40) m/uL Hgb 12.8 (11.4-16.0) gm/dL Hct 39.1 (34.0-46.0) % MCV 82.2 (80.0-100.0) fL MCH 26.8 (25.0-35.0) pg MCHC 32.6 (31.0-37.0) g/dL RDW 15.0 (11.5-15.5) % Plt Count 307 (150-450) k/uL MPV 8.4 Neutrophils % 62 % Lymphocytes % 28 % Monocytes % 6 % Eosinophils % 2 % Basophils % 0 % Neutrophils # 6.5 (1.3-7.7) k/uL Lymphocytes # 2.9 (1.0-4.8) k/uL Monocytes # 0.6 (0-1.0) k/uL Eosinophils # 0.2 (0-0.7) k/uL Basophils # 0.0 (0-0.2) k/uL D-Dimer 0.46 (<0.60) mg/L FEU Sodium 135 L (137-145) mmol/L Potassium 4.5 (3.5-5.1) mmol/L Chloride 104 (98-107) mmol/L Carbon Dioxide 23 (22-30) mmol/L Anion Gap 8 mmol/L BUN 11 (7-17) mg/dL Creatinine 0.71 (0.52-1.04) mg/dL Est GFR (CKD-EPI)AfAm >90 (>60 ml/min/1.73 sqM) Est GFR (CKD-EPI)NonAf >90 (>60 ml/min/1.73 sqM) Glucose 89 (74-99) mg/dL Calcium 9.0 (8.4-10.2) mg/dL Troponin I (0.000-0.034) ng/mL HCG, Quant <2.4 mIU/mL 07/17/23 Range/Units 10:16 WBC (3.8-10.6) k/uL RBC (3.80-5.40) m/uL Hgb (11.4-16.0) gm/dL Hct (34.0-46.0) % MCV (80.0-100.0) fL MCH (25.0-35.0) pg MCHC (31.0-37.0) g/dL RDW (11.5-15.5) % Plt Count (150-450) k/uL MPV Neutrophils % % Lymphocytes % % Monocytes % % Eosinophils % % Basophils % % Neutrophils # (1.3-7.7) k/uL Lymphocytes # (1.0-4.8) k/uL Monocytes # (0-1.0) k/uL Eosinophils # (0-0.7) k/uL Basophils # (0-0.2) k/uL D-Dimer (<0.60) mg/L FEU Sodium (137-145) mmol/L Potassium (3.5-5.1) mmol/L Chloride (98-107) mmol/L Carbon Dioxide (22-30) mmol/L Anion Gap mmol/L BUN (7-17) mg/dL Creatinine (0.52-1.04) mg/dL Est GFR (CKD-EPI)AfAm (>60 ml/min/1.73 sqM) Est GFR (CKD-EPI)NonAf (>60 ml/min/1.73 sqM) Glucose (74-99) mg/dL Calcium (8.4-10.2) mg/dL Troponin I <0.012 (0.000-0.034) ng/mL HCG, Quant mIU/mL Disposition Clinical Impression: Pleurisy Disposition: HOME SELF-CARE Condition: Good Instructions (If sedation given, give patient instructions): Costochondritis (ED) Is patient prescribed a controlled substance at d/c from ED?: No Referrals: Palomo Gage MD [Primary Care Provider] - 1-2 days Time of Disposition: 11:26
[2023-07-17 10:28] LABS: Basophils % (A) 0 %; Eosinophils # (A) 0.2 k/uL (0-0.7); Eosinophils % (A) 2 %; HCT 39.1 % (34.0-46.0); HGB 12.8 gm/dL (11.4-16.0); Lymphocytes # (A) 2.9 k/uL (1.0-4.8); Lymphocytes % (A) 28 %; MCH 26.8 pg (25.0-35.0); MCHC 32.6 g/dL (31.0-37.0); MCV 82.2 fL (80.0-100.0); Mean Platelet Volume 8.4; Monocytes # (A) 0.6 k/uL (0-1.0); Monocytes % (A) 6 %; Neutrophils # (A) 6.5 k/uL (1.3-7.7); Neutrophils % (A) 62 %; Platelet Count 307 k/uL (150-450); RBC 4.76 m/uL (3.80-5.40); WBC 10.4 k/uL (3.8-10.6)
--- NOTE | 2023-07-17 10:39 | XR ---
EXAMINATION TYPE: XR chest 2V DATE OF EXAM: 07/17/2023 COMPARISON: 12/10/2022 TECHNIQUE: PA and lateral views submitted. HISTORY: Chest pain FINDINGS: The lungs are clear and there is no pneumothorax, pleural effusion, or focal pneumonia. Heart size normal and no overt failure. Osseous structures demonstrate hypertrophic and degenerative changes of the spine. AC joint arthropathy. Biapical pleural thickening. IMPRESSION: 1. No acute process.
[2023-07-17 10:40] LABS: African American GFR (CKD) >90 (>60 ml/min/1.73 sqM); Anion Gap 8 mmol/L; Blood Urea Nitrogen 11 mg/dL (7-17); Carbon Dioxide 23 mmol/L (22-30); Chloride 104 mmol/L (98-107); Glucose 89 mg/dL (74-99); Non-African American GFR(CKD) >90 (>60 ml/min/1.73 sqM); Potassium 4.5 mmol/L (3.5-5.1); Sodium 135 mmol/L (137-145)
[2023-07-17 10:56] LABS: HCG,Quantitative Serum <2.4 mIU/mL
[2023-07-17 11:55] VITALS: BP 145/85; PULSE 65; TEMP 98.2
== END 2023-07-17 11:55 | disposition home or self-care (01) ==
LOC: EC 09:18
DX: R09.1 Pleurisy (principal); I10 Essential (primary) hypertension; F41.9 Anxiety disorder, unspecified; F31.9 Bipolar disorder, unspecified; F17.200 Nicotine dependence, unspecified, uncomplicated; Z79.899 Other long term (current) drug therapy; Z88.8 Allergy status to other drugs, medicaments and biological substances; Z88.1 Allergy status to other antibiotic agents
CPT/HCPCS: 36415; 71046; 80048; 84484; 84702; 85025; 85379; 93005; 99285

== ENCOUNTER 2023-09-18 08:53 | Emergency (ER) | payer OTHER ==
[2023-09-18] MEDS ORDERED: PANTOPRAZOLE 40 MG/10 ML VIAL IVP STA (10:11)
[2023-09-18] MEDS ORDERED: ONDANSETRON 4 MG/2 ML VIAL IVP STA (10:11)
[2023-09-18] MEDS ORDERED: SODIUM CHLORIDE 0.9% 1,000 ML IV STA (10:11)
--- NOTE | 2023-09-18 10:37 | ED ---
General Adult HPI - General Chief complaint: Nausea/Vomiting/Diarrhea Stated complaint: VOMITING,CHILLS Time Seen by Provider: 09/18/23 10:00 Source: patient, RN notes reviewed, old records reviewed Mode of arrival: ambulatory Limitations: no limitations - History of Present Illness Initial comments: Patient is a 43-year-old female with past medical history remarkable for cholecystectomy presents emergency Department complaining of multiple complaints . They include nausea, vomiting, diarrhea, mild cough. Has been seen at urgent care multiple times this week and they diagnosed with upper respiratory infection and no testing. States the nausea and vomiting since her worse. Denies any significant abdominal pain. Denies chest pain or shortness of breath. No history of cardiac disease. No fevers. Mild sore throat. No known sick contacts. Is concern for dehydration or other infectious etiology for symptoms. Presents for further evaluation at this time. I evaluated the patient when she was placed in a room. - Related Data Home Medications Medication Instructions Recorded Confirmed FLUoxetine HCL [PROzac] 40 mg PO DAILY 08/16/21 09/18/23 OXcarbazepine 600 mg PO BID 08/16/21 09/18/23 FLUoxetine HCL [PROzac] 20 mg PO DAILY 01/08/22 09/18/23 OXcarbazepine [Trileptal] 300 mg PO BID 09/18/23 09/18/23 diazePAM [Valium] 5 mg PO BID PRN 09/18/23 09/18/23 Previous Rx's Medication Instructions Recorded Famotidine [Pepcid] 20 mg PO DAILY 14 Days #14 tablet 09/18/23 Allergies Allergy/AdvReac Type Severity Reaction Status Date / Time Bleach (Sodium Hypochlorite) Allergy Rash/Hives Verified 09/18/23 11:39 cephalexin [From Keflex] Allergy Rash/Hives Verified 09/18/23 11:39 soap Allergy Rash/Hives Verified 09/18/23 11:39 Review of Systems ROS Statement: Those systems with pertinent positive or pertinent negative responses have been documented in the HPI. Review of Systems: CONST: Denies fever EYES: Denies blurry vision ENT: Denies nasal congestion C/V: Denies Chest pain RESP: Denies shortness of breath GI: Endorses nausea and vomiting : Denies dysuria SKIN: Denies rash. MSK: Denies joint pain. NEURO: Denies headache ROS Other: All systems not noted in ROS Statement are negative. Past Medical History Past Medical History: Hypertension Additional Past Medical History / Comment(s): back pain, " numbed the nerves" in back, rt knee torn meniscus, bipolar History of Any Multi-Drug Resistant Organisms: None Reported Past Surgical History: Cholecystectomy, Orthopedic Surgery, Tubal Ligation Additional Past Surgical History / Comment(s): left breast milk duct removal and reconstruction, right knee Past Anesthesia/Blood Transfusion Reactions: No Reported Reaction Past Psychological History: Anxiety, Bipolar, Depression, Schizophrenia Smoking Status: Current every day smoker Past Alcohol Use History: None Reported Past Drug Use History: None Reported - Past Family History Mother Family Medical History: Unable to Obtain General Exam - General Exam Comments Initial Comments: General: Appears in no acute distress. HEAD: Normal with no signs of head trauma. EYES: PERRLA, EOMI, conjunctiva normal, no discharge. ENT: Hearing grossly intact, normal oropharynx. Posterior oropharynx is mildly erythematous. Mildly dry mucous membranes. RESPIRATORY: Clear breath sounds bilaterally. No wheezes, rales, or rhonchi. C/V: Regular rate and rhythm. S1 and S2 auscultated, no edema, peripheral pulses 2+ and intact throughout ABD: Abd is soft, nontender, nondistended EXT: Normal range of motion, no obvious deformity SKIN: No rashes or lesions observed on exposed skin. NEURO: Alert and oriented 4. Limitations: no limitations Course Vital Signs 09/18/23 09/18/23 09/18/23 08:55 11:58 13:50 Temperature 98.1 F 98.6 F 98.9 F Pulse Rate 95 73 70 Respiratory 20 17 16 Rate Blood Pressure 104/72 112/68 115/70 O2 Sat by Pulse 96 95 99 Oximetry Medical Decision Making - Medical Decision Making Was pt. sent in by a medical professional or institution (, PA, BET TAKER, urgent care, hospital, or custodial...) When possible be specific @ -No Did you speak to anyone other than the patient for history (EMS, parent, family, police, friend...)? What history was obtained from this source @ -No Did you review nursing and triage notes (agree or disagree)? Why? @ -I reviewed and agree with nursing and triage notes Were old charts reviewed (outside hosp., previous admission, EMS record, old EKG, old radiological studies, urgent care reports/EKG's, custodial records)? Report findings @ -Old charts reviewed. Differential Diagnosis (chest pain, altered mental status, abdominal pain women, abdominal pain men, vaginal bleeding, weakness, fever, dyspnea, syncope, headache, dizziness, GI bleed, back pain, seizure, CVA, palpatations, mental health, musculoskeletal)? @ -Differential Abdominal Pain Women: Appendicitis, Cholecystitis, diverticulosis, ischemic bowel, pancreatitis, hepatitis, UTI, gastroenteritis, AAA, incarcerated hernia, bowel obstruction, constipation, inflammatory bowel, hepatitis, peptic ulcer disease, splenic infarction, perforated viscus, vulvitis, ovarian torsion, PID, kidney stone, placenta abruption, this is not meant to be an all-inclusive list EKG interpreted by me (3pts min.). @ -As above X-rays interpreted by me (1pt min.). @ -Chest x-ray shows no obvious evidence of acute cardio pulmonary process. CT interpreted by me (1pt min.). @ -None done U/S interpreted by me (1pt. min.). @ -None done What testing was considered but not performed or refused? (CT, X-rays, U/S, labs)? Why? @ -None What meds were considered but not given or refused? Why? @ -None Did you discuss the management of the patient with other professionals (professionals i.e. , PA, BET TAKER, lab, RT, psych nurse, hospice social worker, radio director, teacher, geological technical officer, complex case manager)? Give summary @ -No Was smoking cessation discussed for >3mins.? @ -No Was critical care preformed (if so, how long)? @ -No Were there social determinants of health that impacted care today? How? (Homelessness, low income, unemployed, alcoholism, drug addiction, transportation, low edu. Level, literacy, decrease access to med. care, usp, rehab)? @ -No Was there de-escalation of care discussed even if they declined (Discuss DNR or withdrawal of care, Hospice)? DNR status @ -No What co-morbidities impacted this encounter? (DM, HTN, Smoking, COPD, CAD, Cancer, CVA, ARF, Chemo, Hep., AIDS, mental health diagnosis, sleep apnea, morbid obesity)? @ -None Was patient admitted / discharged? Hospital course, mention meds given and route, prescriptions, significant lab abnormalities, going to OR and other pertinent info. @ -Based on the patient's presentation and physical exam, I'm concerned for possible infectious etiology for her current symptoms. We will obtain a screening EKG in addition to abdominal laboratory studies per chest x-ray will also be obtained. His no abdominal pain. She'll be given symptomatic treatment with IV fluids, Protonix, Zofran. Patient was in agreement this plan. Vital signs within acceptable limits. Chest x-ray unremarkable. Patient's laboratory studies also within acceptable limits. Contaminated urine. No concern for UTI at this time. Viral swabs and strep throat swab negative. Discussed results with the patient. She expressed understanding. She is feeling improved. She'll be discharged home at this time. Discussed proper hy dration. Strict return precautions discussed. I will provide the patient with a prescription for Zofran, Pepcid. I instructed the patient to follow up with their PCP in the next 1-3 days. I explained that the patient should return to the emergency department if they experience any wo rsening symptoms. Strict return precautions were discussed with the patient. The patient expressed understanding of these instructions. I answered all questions that the patient had. The patient was discharged home in good condition with their prescriptions and follow up information. Undiagnosed new problem with uncertain prognosis? @ -No Drug Therapy requiring intensive monitoring for toxicity (Heparin, Nitro, Insulin, Cardizem)? @ -No Were any procedures done? @ -No Diagnosis/symptom? @ -Nausea and vomiting Acute, or Chronic, or Acute on Chronic? @ -Acute Uncomplicated (without systemic symptoms) or Complicated (systemic symptoms)? @ -Uncomplicated Side effects of treatment? @ -none Exacerbation, Progression, or Severe Exacerbation] @ -no Poses a threat to life or bodily function? @ -no. - Lab Data Result diagrams: 09/18/23 10:44 09/18/23 10:44 Lab Results 09/18/23 09/18/23 09/18/23 Range/Units 10:44 10:44 10:44 WBC 10.6 (3.8-10.6) k/uL RBC 5.04 (3.80-5.40) m/uL Hgb 13.5 (11.4-16.0) gm/dL Hct 41.2 (34.0-46.0) % MCV 81.8 (80.0-100.0) fL MCH 26.9 (25.0-35.0) pg MCHC 32.8 (31.0-37.0) g/dL RDW 15.8 H (11.5-15.5) % Plt Count 205 (150-450) k/uL MPV 7.9 Neutrophils % (Manual) 33 % Lymphocytes % (Manual) 57 % Monocytes % (Manual) 9 % Eosinophils % (Manual) 2 % Neutrophils # (Manual) 3.50 (1.3-7.7) k/uL Lymphocytes # (Manual) 6.04 H (1.0-4.8) k/uL Monocytes # (Manual) 0.95 (0-1.0) k/uL Eosinophils # (Manual) 0.21 (0-0.7) k/uL Nucleated RBCs 0 (0-0) /100 WBC Manual Slide Review Performed PT 11.1 (10.0-12.5) sec INR 1.0 (<1.2) APTT 29.8 (22.0-30.0) sec Sodium 137 (137-145) mmol/L Potassium 4.0 (3.5-5.1) mmol/L Chloride 108 H (98-107) mmol/L Carbon Dioxide 22 (22-30) mmol/L Anion Gap 7 mmol/L BUN 9 (7-17) mg/dL Creatinine 0.77 (0.52-1.04) mg/dL Est GFR (CKD-EPI)AfAm >90 (>60 ml/min/1.73 sqM) Est GFR (CKD-EPI)NonAf >90 (>60 ml/min/1.73 sqM) Glucose 93 (74-99) mg/dL Plasma Lactic Acid Zac (0.7-2.0) mmol/L Calcium 8.4 (8.4-10.2) mg/dL Total Bilirubin 0.6 (0.2-1.3) mg/dL AST 77 H (14-36) U/L ALT 65 H (4-34) U/L Alkaline Phosphatase 118 (38-126) U/L Total Protein 6.3 (6.3-8.2) g/dL Albumin 3.2 L (3.5-5.0) g/dL Amylase <30 L (30-110) U/L Lipase 56 (23-300) U/L HCG, Qual Not Detected Urine Color Urine Appearance (Clear) Urine pH (5.0-8.0) Ur Specific Atkins (1.001-1.035) Urine Protein (Negative) Urine Glucose (UA) (Negative) Urine Ketones (Negative) Urine Blood (Negative) Urine Nitrite (Negative) Urine Bilirubin (Negative) Urine Urobilinogen (<2.0) mg/dL Ur Leukocyte Esterase (Negative) Urine RBC (0-5) /hpf Urine WBC (0-5) /hpf Urine WBC Clumps (None) /hpf Ur Squamous Epith Cells (0-4) /hpf Urine Bacteria (None) /hpf Urine Mucus (None) /hpf Influenza Type A (PCR) (Not Detectd) Influenza Type B (PCR) (Not Detectd) RSV (PCR) (Not Detectd) SARS-CoV-2 (PCR) (Not Detectd) Group A Strep (PCR) (Not Detectd) 09/18/23 09/18/23 09/18/23 Range/Units 10:44 10:44 10:44 WBC (3.8-10.6) k/uL RBC (3.80-5.40) m/uL Hgb (11.4-16.0) gm/dL Hct (34.0-46.0) % MCV (80.0-100.0) fL MCH (25.0-35.0) pg MCHC (31.0-37.0) g/dL RDW (11.5-15.5) % Plt Count (150-450) k/uL MPV Neutrophils % (Manual) % Lymphocytes % (Manual) % Monocytes % (Manual) % Eosinophils % (Manual) % Neutrophils # (Manual) (1.3-7.7) k/uL Lymphocytes # (Manual) (1.0-4.8) k/uL Monocytes # (Manual) (0-1.0) k/uL Eosinophils # (Manual) (0-0.7) k/uL Nucleated RBCs (0-0) /100 WBC Manual Slide Review PT (10.0-12.5) sec INR (<1.2) APTT (22.0-30.0) sec Sodium (137-145) mmol/L Potassium (3.5-5.1) mmol/L Chloride (98-107) mmol/L Carbon Dioxide (22-30) mmol/L Anion Gap mmol/L BUN (7-17) mg/dL Creatinine (0.52-1.04) mg/dL Est GFR (CKD-EPI)AfAm (>60 ml/min/1.73 sqM) Est GFR (CKD-EPI)NonAf (>60 ml/min/1.73 sqM) Glucose (74-99) mg/dL Plasma Lactic Acid Zac 1.0 (0.7-2.0) mmol/L Calcium (8.4-10.2) mg/dL Total Bilirubin (0.2-1.3) mg/dL AST (14-36) U/L ALT (4-34) U/L Alkaline Phosphatase (38-126) U/L Total Protein (6.3-8.2) g/dL Albumin (3.5-5.0) g/dL Amylase (30-110) U/L Lipase (23-300) U/L HCG, Qual Urine Color Urine Appearance (Clear) Urine pH (5.0-8.0) Ur Specific Atkins (1.001-1.035) Urine Protein (Negative) Urine Glucose (UA) (Negative) Urine Ketones (Negative) Urine Blood (Negative) Urine Nitrite (Negative) Urine Bilirubin (Negative) Urine Urobilinogen (<2.0) mg/dL Ur Leukocyte Esterase (Negative) Urine RBC (0-5) /hpf Urine WBC (0-5) /hpf Urine WBC Clumps (None) /hpf Ur Squamous Epith Cells (0-4) /hpf Urine Bacteria (None) /hpf Urine Mucus (None) /hpf Influenza Type A (PCR) Not Detected (Not Detectd) Influenza Type B (PCR) Not Detected (Not Detectd) RSV (PCR) Not Detected (Not Detectd) SARS-CoV-2 (PCR) Not Detected (Not Detectd) Group A Strep (PCR) NOT DETECTED (Not Detectd) 09/18/23 Range/Units 11:54 WBC (3.8-10.6) k/uL RBC (3.80-5.40) m/uL Hgb (11.4-16.0) gm/dL Hct (34.0-46.0) % MCV (80.0-100.0) fL MCH (25.0-35.0) pg MCHC (31.0-37.0) g/dL RDW (11.5-15.5) % Plt Count (150-450) k/uL MPV Neutrophils % (Manual) % Lymphocytes % (Manual) % Monocytes % (Manual) % Eosinophils % (Manual) % Neutrophils # (Manual) (1.3-7.7) k/uL Lymphocytes # (Manual) (1.0-4.8) k/uL Monocytes # (Manual) (0-1.0) k/uL Eosinophils # (Manual) (0-0.7) k/uL Nucleated RBCs (0-0) /100 WBC Manual Slide Review PT (10.0-12.5) sec INR (<1.2) APTT (22.0-30.0) sec Sodium (137-145) mmol/L Potassium (3.5-5.1) mmol/L Chloride (98-107) mmol/L Carbon Dioxide (22-30) mmol/L Anion Gap mmol/L BUN (7-17) mg/dL Creatinine (0.52-1.04) mg/dL Est GFR (CKD-EPI)AfAm (>60 ml/min/1.73 sqM) Est GFR (CKD-EPI)NonAf (>60 ml/min/1.73 sqM) Glucose (74-99) mg/dL Plasma Lactic Acid Zac (0.7-2.0) mmol/L Calcium (8.4-10.2) mg/dL Total Bilirubin (0.2-1.3) mg/dL AST (14-36) U/L ALT (4-34) U/L Alkaline Phosphatase (38-126) U/L Total Protein (6.3-8.2) g/dL Albumin (3.5-5.0) g/dL Amylase (30-110) U/L Lipase (23-300) U/L HCG, Qual Urine Color [place] Urine Appearance Cloudy H (Clear) Urine pH 6.0 (5.0-8.0) Ur Specific Atkins >1.030 (1.001-1.035) Urine Protein 1+ (Negative) Urine Glucose (UA) Negative (Negative) Urine Ketones Negative (Negative) Urine Blood Negative (Negative) Urine Nitrite Negative (Negative) Urine Bilirubin 1+ (Negative) Urine Urobilinogen 2.0 (<2.0) mg/dL Ur Leukocyte Esterase Large (Negative) Urine RBC 43 H (0-5) /hpf Urine WBC 146 H (0-5) /hpf Urine WBC Clumps Occasional H (None) /hpf Ur Squamous Epith Cells 36 H (0-4) /hpf Urine Bacteria Few H (None) /hpf Urine Mucus Many H (None) /hpf Influenza Type A (PCR) (Not Detectd) Influenza Type B (PCR) (Not Detectd) RSV (PCR) (Not Detectd) SARS-CoV-2 (PCR) (Not Detectd) Group A Strep (PCR) (Not Detectd) - EKG Data -: EKG Interpreted by Me EKG Comments: 12-lead Electrocardiogram Interpretation Note EKG was reviewed and interpreted by myself. 12-lead ECG performed at 1059 is interpreted by me as revealing normal sinus rhythm at a rate of 75 beats per minute. [place]ley is normal. MT interval is 152 ms, QRS ration is 103 ms, QTc is 454 ms.. There were no ST or T wave abnormalities to suggest myocardial ischemia or injury. R wave progression across the precordium was satisfactory. By my interpretation this EKG is non-diagnostic for acute ischemia. Disposition Clinical Impression: Nausea and vomiting Disposition: HOME SELF-CARE Condition: Good Instructions (If sedation given, give patient instructions): Acute Nausea and Vomiting (ED) Prescriptions: Famotidine [Pepcid] 20 mg PO DAILY 14 Days #14 tablet Is patient prescribed a controlled substance at d/c from ED?: No Referrals: Palomo Gage MD [Primary Care Provider] - 1-2 days Time of Disposition: 13:30
[2023-09-18 11:05] LABS: HCT 41.2 % (34.0-46.0); HGB 13.5 gm/dL (11.4-16.0); MCH 26.9 pg (25.0-35.0); MCHC 32.8 g/dL (31.0-37.0); MCV 81.8 fL (80.0-100.0); Mean Platelet Volume 7.9; Platelet Count 205 k/uL (150-450); RBC 5.04 m/uL (3.80-5.40); RDW 15.8 % (11.5-15.5); WBC 10.6 k/uL (3.8-10.6)
--- NOTE | 2023-09-18 11:12 | XR ---
EXAMINATION TYPE: XR chest 2V DATE OF EXAM: 09/18/2023 COMPARISON: NONE HISTORY: Nausea. TECHNIQUE: Frontal and lateral views of the chest are obtained. FINDINGS: There is no focal air space opacity, pleural effusion, or pneumothorax seen. The cardiac silhouette size is within normal limits. The osseous structures are intact. IMPRESSION: No acute cardiopulmonary process.
[2023-09-18 11:13] LABS: HCG,Qualitative Serum Not Detected
[2023-09-18 11:18] LABS: ALT 65 U/L (4-34); AST 77 U/L (14-36); African American GFR (CKD) >90 (>60 ml/min/1.73 sqM); Albumin 3.2 g/dL (3.5-5.0); Alkaline Phosphatase 118 U/L (38-126); Amylase <30 U/L (30-110); Anion Gap 7 mmol/L; Blood Urea Nitrogen 9 mg/dL (7-17); Calcium 8.4 mg/dL (8.4-10.2); Carbon Dioxide 22 mmol/L (22-30); Chloride 108 mmol/L (98-107); Glucose 93 mg/dL (74-99); Lipase 56 U/L (23-300); Non-African American GFR(CKD) >90 (>60 ml/min/1.73 sqM); Sodium 137 mmol/L (137-145); Total Bilirubin 0.6 mg/dL (0.2-1.3); Total Protein 6.3 g/dL (6.3-8.2)
[2023-09-18 11:51] LABS: Partial Thromboplastin Time 29.8 sec (22.0-30.0); Prothrombin Time 11.1 sec (10.0-12.5)
[2023-09-18 11:58] LABS: Eosinophils # (M) 0.21 k/uL (0-0.7); Lymphocytes # (M) 6.04 k/uL (1.0-4.8); Monocytes # (M) 0.95 k/uL (0-1.0); Neutrophils % (M) 33 %; Nucleated Red Blood Cells 0 /100 WBC (0-0); Total Cells Counted 200
[2023-09-18 13:10] LABS: Bacteria,Urine Few /hpf; Mucus,Urine Many /hpf; RBC,Urine 43 /hpf (0-5); Squamous Epithelial Cell,Urine 36 /hpf (0-4); WBC,Urine 146 /hpf (0-5)
[2023-09-18 13:31] LABS: Appearance,Urine Cloudy (Clear); Color,Urine Orange; Specific Gravity,Urine >1.030 (1.001-1.035)
[2023-09-18 13:32] LABS: Bilirubin,Urine 1+ (Negative); Blood,Urine Negative (Negative); Glucose,Urine (UA) Negative (Negative); Ketones,Urine Negative (Negative); Nitrite,Urine Negative (Negative); Protein,Urine 1+ (Negative)
[2023-09-18 13:33] LABS: Leukocyte Esterase,Urine Large (Negative)
[2023-09-18] MEDS ORDERED: ONDANSETRON 4 MG ODT STARTER PACK 2 TAB BTL PO STA (13:48)
[2023-09-18 13:59] VITALS: BP 115/70; PULSE 70; RESP 16; TEMP 98.9
== END 2023-09-18 14:04 | disposition home or self-care (01) ==
LOC: EC 08:53
DX: R11.2 Nausea with vomiting, unspecified (principal); I10 Essential (primary) hypertension; F41.9 Anxiety disorder, unspecified; F31.9 Bipolar disorder, unspecified; F17.200 Nicotine dependence, unspecified, uncomplicated; Z88.1 Allergy status to other antibiotic agents; Z88.8 Allergy status to other drugs, medicaments and biological substances; Z79.899 Other long term (current) drug therapy; Z20.822 Contact with and (suspected) exposure to COVID-19
CPT/HCPCS: 99284 ×2; 96374 ×2; 36415; 93005; 87651; 80053; 82150; 83605; 83690; 85025; 85610; 85730; 81001; 84703; 87636; 71046; 96375; J2405; S0119; C9113

== ENCOUNTER 2023-09-21 16:24 | Inpatient (IN) | payer OTHER ==
--- NOTE | 2023-09-21 17:27 | XR ---
EXAMINATION TYPE: XR KUB DATE OF EXAM: 09/21/2023 5:17 PM CLINICAL INDICATION:Female, 43 years old with history of abdominal pain; COMPARISON: None. TECHNIQUE: One radiographic view of the abdomen was obtained. FINDINGS: The bowel gas pattern is nonspecific without dilated loops of small or large bowel. There i s no evidence for organomegaly or pneumoperitoneum. The osseous structures are intact. No abnormal calcifications are present. Fecal material and gas are demonstrated throughout the colon and rectum. Right upper quadrant cholecystectomy clips. Left pelvis tubal ligation clip. IMPRESSION: Nonspecific bowel gas pattern without radiographic evidence for acute process.
[2023-09-21 17:39] LABS: Appearance,Urine Cloudy (Clear); Bilirubin,Urine Negative (Negative); Blood,Urine Negative (Negative); Color,Urine Dark Yellow; Glucose,Urine (UA) Negative (Negative); Ketones,Urine Trace (Negative); Leukocyte Esterase,Urine Large (Negative); Mucus,Urine Many /hpf; Nitrite,Urine Negative (Negative); Protein,Urine 1+ (Negative); RBC,Urine 6 /hpf (0-5); Specific Gravity,Urine 1.033 (1.001-1.035); Squamous Epithelial Cell,Urine 17 /hpf (0-4); WBC,Urine 12 /hpf (0-5)
[2023-09-21 17:46] LABS: HCT 39.2 % (34.0-46.0); HGB 12.6 gm/dL (11.4-16.0); MCH 26.2 pg (25.0-35.0); MCHC 32.2 g/dL (31.0-37.0); MCV 81.2 fL (80.0-100.0); Mean Platelet Volume 7.8; Platelet Count 225 k/uL (150-450); RBC 4.82 m/uL (3.80-5.40); RDW 15.9 % (11.5-15.5); WBC 15.9 k/uL (3.8-10.6)
[2023-09-21 18:03] LABS: ALT 61 U/L (4-34); AST 76 U/L (14-36); African American GFR (CKD) >90 (>60 ml/min/1.73 sqM); Albumin 3.3 g/dL (3.5-5.0); Alkaline Phosphatase 115 U/L (38-126); Amylase 33 U/L (30-110); Anion Gap 6 mmol/L; Blood Urea Nitrogen 9 mg/dL (7-17); Calcium 8.8 mg/dL (8.4-10.2); Carbon Dioxide 24 mmol/L (22-30); Chloride 106 mmol/L (98-107); Glucose 89 mg/dL (74-99); Lipase 68 U/L (23-300); Non-African American GFR(CKD) 86 (>60 ml/min/1.73 sqM); Sodium 136 mmol/L (137-145); Total Bilirubin 0.7 mg/dL (0.2-1.3); Total Protein 6.7 g/dL (6.3-8.2)
[2023-09-21 18:29] LABS: Nucleated Red Blood Cells 0 /100 WBC (0-0); Total Cells Counted 100
[2023-09-21 18:50] LABS: Lymphocytes # (M) 10.49 k/uL (1.0-4.8); Monocytes # (M) 0.64 k/uL (0-1.0); Neutrophils # (M) 4.77 k/uL (1.3-7.7); Neutrophils % (M) 30 %
[2023-09-21 18:52] LABS: Polychromasia Present
--- NOTE | 2023-09-21 20:15 | ED ---
General Adult HPI <Darryl Rahman - Last Filed: 09/21/23 23:58> - General Source: patient, RN notes reviewed Mode of arrival: ambulatory Limitations: no limitations <Yaima Tinajero - Last Filed: 09/22/23 01:15> - General Chief complaint: Abdominal Pain Stated complaint: abdo pain sob Time Seen by Provider: 09/21/23 19:34 - History of Present Illness Initial comments: 43-year-old female presents to emergency room chief complaint of left-sided abdominal pain. She states that this started 2 days ago. She states that this pain is on the left side of her abdomen and goes to her back slightly. She st ates that she was recently diagnosed with an upper respiratory infection and thought that she strained something from coughing. She states that this pain is been constant for the past 2 days. She does admit to vomiting 3-4 days ago. She also admits to diarrhea. Denies blood in stool, fever, chills. (Yaima Tinajero) - Related Data Home Medications Medication Instructions Recorded Confirmed FLUoxetine HCL [PROzac] 40 mg PO DAILY 08/16/21 09/21/23 OXcarbazepine 600 mg PO BID 08/16/21 09/21/23 FLUoxetine HCL [PROzac] 20 mg PO DAILY 01/08/22 09/21/23 OXcarbazepine [Trileptal] 300 mg PO BID 09/18/23 09/21/23 diazePAM [Valium] 5 mg PO BID PRN 09/18/23 09/21/23 Previous Rx's Medication Instructions Recorded Famotidine [Pepcid] 20 mg PO DAILY 14 Days #14 tablet 09/18/23 Allergies Allergy/AdvReac Type Severity Reaction Status Date / Time Bleach (Sodium Hypochlorite) Allergy Rash/Hives Verified 09/21/23 22:50 cephalexin [From Keflex] Allergy Rash/Hives Verified 09/21/23 22:50 soap Allergy Rash/Hives Verified 09/21/23 22:50 Review of Systems ROS Other: All systems not noted in ROS Statement are negative. <Darryl Rahman - Last Filed: 09/21/23 23:58> ROS Other: All systems not noted in ROS Statement are negative. <Yaima Tinajero - Last Filed: 09/22/23 01:15> ROS Statement: Those systems with pertinent positive or pertinent negative responses have been documented in the HPI. Past Medical History Past Medical History: Hypertension Additional Past Medical History / Comment(s): back pain, " numbed the nerves" in back, rt knee torn meniscus, bipolar, ovarian cyst History of Any Multi-Drug Resistant Organisms: None Reported Past Surgical History: Cholecystectomy, Orthopedic Surgery, Tubal Ligation Additional Past Surgical History / Comment(s): left breast milk duct removal and reconstruction, right knee Past Anesthesia/Blood Transfusion Reactions: No Reported Reaction Past Psychological History: Anxiety, Bipolar, Depression, Schizophrenia Smoking Status: Current every day smoker Past Alcohol Use History: None Reported Past Drug Use History: None Reported - Past Family History Mother Family Medical History: Unable to Obtain <Yaima Tinajero - Last Filed: 09/22/23 01:15> General Exam Limitations: no limitations General appearance: alert, in no apparent distress Head exam: Present: atraumatic, normocephalic, normal inspection Eye exam: Present: normal appearance, PERRL, EOMI. Absent: scleral icterus, conjunctival injection, periorbital swelling ENT exam: Present: normal exam, mucous membranes moist Neck exam: Present: normal inspection. Absent: tenderness, meningismus, lymphadenopathy Respiratory exam: Present: normal lung sounds bilaterally. Absent: respiratory distress, wheezes, rales, rhonchi, stridor Cardiovascular Exam: Present: regular rate, normal rhythm, normal heart sounds. Absent: systolic murmur, diastolic murmur, rubs, gallop, clicks GI/Abdominal exam: Present: soft, tenderness (Left upper quadrant), normal bowel sounds. Absent: guarding, rebound, rigid Extremities exam: Present: normal inspection, full ROM, normal capillary refill. Absent: tenderness, pedal edema, joint swelling, calf tenderness Back exam: Present: normal inspection Neurological exam: Present: alert, oriented X3 Psychiatric exam: Present: normal affect, normal mood Skin exam: Present: warm, dry, intact, normal color. Absent: rash <Yaima Tinajero - Last Filed: 09/22/23 01:15> Course <Darryl Rahman - Last Filed: 09/21/23 23:58> Vital Signs 09/21/23 09/21/23 16:29 19:38 Temperature 98.2 F 98.8 F Pulse Rate 109 H 91 Respiratory 16 18 Rate Blood Pressure 128/90 136/86 O2 Sat by Pulse 97 96 Oximetry - Reevaluation(s) Reevaluation #1: 09/21/23 23:58 I was asked to provide placement in order, no other interaction (Darryl Rahman) Medical Decision Making - Lab Data Result diagrams: 09/21/23 17:35 09/21/23 17:35 <Darryl Rahman - Last Filed: 09/21/23 23:58> - Lab Data Result diagrams: 09/21/23 17:35 09/21/23 17:35 <Yaima Tinajero - Last Filed: 09/22/23 01:15> - Medical Decision Making Was pt. sent in by a medical professional or institution (, PA, LINE PRODUCER, urgent care, hospital, or half-way...) When possible be specific @ -No Did you speak to anyone other than the patient for history (EMS, parent, family, police, friend...)? What history was obtained from this source @ -No Did you review nursing and triage notes (agree or disagree)? Why? @ -I reviewed and agree with nursing and triage notes Were old charts reviewed (outside hosp., previous admission, EMS record, old EKG, old radiological studies, urgent care reports/EKG's, half-way records)? Report findings @ -No old charts were reviewed Differential Diagnosis (chest pain, altered mental status, abdominal pain women, abdominal pain men, vaginal bleeding, weakness, fever, dyspnea, syncope, he adache, dizziness, GI bleed, back pain, seizure, CVA, palpatations, mental health, musculoskeletal)? @ -Differential Abdominal Pain Women: Appendicitis, Cholecystitis, diverticulosis, ischemic bowel, pancreatitis, hepatitis, UTI, gastroenteritis, AAA, incarcerated hernia, bowel obstruction, constipation, inflammatory bowel, hepatitis, peptic ulcer disease, splenic infarction, perforated viscus, vulvitis, ovarian torsion, PID, kidney stone, placenta abruption, this is not meant to be an all-inclusive list EKG interpreted by me (3pts min.). @ -none X-rays interpreted by me (1pt min.). @ -None done CT interpreted by me (1pt min.). @ -None done U/S interpreted by me (1pt. min.). @ -None done What testing was considered but not performed or refused? (CT, X-rays, U/S, labs)? Why? @ -None What meds were considered but not given or refused? Why? @ -None Did you discuss the management of the patient with other professionals (pro fessionals i.e. , PA, LINE PRODUCER, lab, RT, psych nurse, social sciences instructor, bulbs farmworker, teacher, chief security officer, family independence case manager)? Give summary @ -Case discussed with Dr. Montesinos patient will be admitted with surgical consult Case discussed with [facility] who is accepting of the admission Was smoking cessation discussed for >3mins.? @ -No Was critical care preformed (if so, how long)? @ -No Were there social determinants of health that impacted care today? How? (Homelessness, low income, unemployed, alcoholism, drug addiction, transportation, low edu. Level, literacy, decrease access to med. care, half-way, rehab)? @ -No Was there de-escalation of care discussed even if they declined (Discuss DNR or withdrawal of care, Hospice)? DNR status @ -No What co-morbidities impacted this encounter? (DM, HTN, Smoking, COPD, CAD, Cancer, CVA, ARF, Chemo, Hep., AIDS, mental health diagnosis, sleep apnea, morbid obesity)? @ -None Was patient admitted / discharged? Hospital course, mention meds given and route, prescriptions, significant lab abnormalities, going to OR and other pertinent info. @ -Admitted. Patient presented to emergency room chief complaint of abdominal pain 2 days. States this pain is been constant. She does admit to some episodes of vomiting prior to the onset of the abdominal pain. She also admits to diarrhea. Laboratory studies obtained which showed white count of 15.9.CMP shows sodium 136, potassium 4.0, AST and ALT slightly elevated; UA shows trace ketones, 1+ protein, large leukocyte esterase, 6 RBCs, 12 WBCs, 17 squamous epithelial cells this urine will be sent for culture CT abdomen and pelvis showed low density regions in the spleen which are irregular shaped, one linear peripherally and laterally along the periphery and the other more masslike and wedged shaped; cholecystectomy with pneumobilia. Case was discussed with Dr. Montesinos who will consult on the patient. Case discussed with [facility] who is accepting of the admission. Undiagnosed new problem with uncertain prognosis? @ -No Drug Therapy requiring intensive monitoring for toxicity (Heparin, Nitro, Insulin, Cardizem)? @ -No Were any procedures done? @ -No Diagnosis/symptom? @ -Abdominal pain Acute, or Chronic, or Acute on Chronic? @ -Acute Uncomplicated (without systemic symptoms) or Complicated (systemic symptoms)? @ -uncomplicated Side effects of treatment? @ -No Exacerbation, Progression, or Severe Exacerbation? @ -No Poses a threat to life or bodily function? How? (Chest pain, [place], [place], pneumonia, PE, COPD, DKA, ARF, appy, cholecystitis, CVA, Diverticulitis, Homicidal, Suicidal, threat to staff... and all critical care pts) @ -No (Yaima Tinajero) - Lab Data Lab Results 09/21/23 09/21/23 09/21/23 Range/Units 16:55 16:55 17:35 WBC 15.9 H (3.8-10.6) k/uL RBC 4.82 (3.80-5.40) m/uL Hgb 12.6 (11.4-16.0) gm/dL Hct 39.2 (34.0-46.0) % MCV 81.2 (80.0-100.0) fL MCH 26.2 (25.0-35.0) pg MCHC 32.2 (31.0-37.0) g/dL RDW 15.9 H (11.5-15.5) % Plt Count 225 (150-450) k/uL MPV 7.8 Neutrophils % (Manual) 30 % Lymphocytes % (Manual) 66 % Monocytes % (Manual) 4 % Eosinophils % (Manual) Not Reportable Neutrophils # (Manual) 4.77 (1.3-7.7) k/uL Lymphocytes # (Manual) 10.49 H (1.0-4.8) k/uL Monocytes # (Manual) 0.64 (0-1.0) k/uL Eosinophils # (Manual) LINE PRODUCER Nucleated RBCs 0 (0-0) /100 WBC Differential Comment Manual Slide Review Performed Polychromasia Present Sodium (137-145) mmol/L Potassium (3.5-5.1) mmol/L Chloride (98-107) mmol/L Carbon Dioxide (22-30) mmol/L Anion Gap mmol/L BUN (7-17) mg/dL Creatinine (0.52-1.04) mg/dL Est GFR (CKD-EPI)AfAm (>60 ml/min/1.73 sqM) Est GFR (CKD-EPI)NonAf (>60 ml/min/1.73 sqM) Glucose (74-99) mg/dL Plasma Lactic Acid Zac (0.7-2.0) mmol/L Calcium (8.4-10.2) mg/dL Total Bilirubin (0.2-1.3) mg/dL AST (14-36) U/L ALT (4-34) U/L Alkaline Phosphatase (38-126) U/L Total Protein (6.3-8.2) g/dL Albumin (3.5-5.0) g/dL Amylase (30-110) U/L Lipase (23-300) U/L Urine Color Dark Yellow Urine Appearance Cloudy H (Clear) Urine pH 6.0 (5.0-8.0) Ur Specific Tyler 1.033 (1.001-1.035) Urine Protein 1+ H (Negative) Urine Glucose (UA) Negative (Negative) Urine Ketones Trace H (Negative) Urine Blood Negative (Negative) Urine Nitrite Negative (Negative) Urine Bilirubin Negative (Negative) Urine Urobilinogen 2.0 (<2.0) mg/dL Ur Leukocyte Esterase Large H (Negative) Urine RBC 6 H (0-5) /hpf Urine WBC 12 H (0-5) /hpf Ur Squamous Epith Cells 17 H (0-4) /hpf Urine Mucus Many H (None) /hpf Urine HCG, Qual Not Detected (Not Detectd) 09/21/23 09/21/23 Range/Units 17:35 17:35 WBC (3.8-10.6) k/uL RBC (3.80-5.40) m/uL Hgb (11.4-16.0) gm/dL Hct (34.0-46.0) % MCV (80.0-100.0) fL MCH (25.0-35.0) pg MCHC (31.0-37.0) g/dL RDW (11.5-15.5) % Plt Count (150-450) k/uL MPV Neutrophils % (Manual) % Lymphocytes % (Manual) % Monocytes % (Manual) % Eosinophils % (Manual) Neutrophils # (Manual) (1.3-7.7) k/uL Lymphocytes # (Manual) (1.0-4.8) k/uL Monocytes # (Manual) (0-1.0) k/uL Eosinophils # (Manual) Nucleated RBCs (0-0) /100 WBC Differential Comment Manual Slide Review Polychromasia Sodium 136 L (137-145) mmol/L Potassium 4.0 (3.5-5.1) mmol/L Chloride 106 (98-107) mmol/L Carbon Dioxide 24 (22-30) mmol/L Anion Gap 6 mmol/L BUN 9 (7-17) mg/dL Creatinine 0.85 (0.52-1.04) mg/dL Est GFR (CKD-EPI)AfAm >90 (>60 ml/min/1.73 sqM) Est GFR (CKD-EPI)NonAf 86 (>60 ml/min/1.73 sqM) Glucose 89 (74-99) mg/dL Plasma Lactic Acid Zac 1.0 (0.7-2.0) mmol/L Calcium 8.8 (8.4-10.2) mg/dL Total Bilirubin 0.7 (0.2-1.3) mg/dL AST 76 H (14-36) U/L ALT 61 H (4-34) U/L Alkaline Phosphatase 115 (38-126) U/L Total Protein 6.7 (6.3-8.2) g/dL Albumin 3.3 L (3.5-5.0) g/dL Amylase 33 (30-110) U/L Lipase 68 (23-300) U/L Urine Color Urine Appearance (Clear) Urine pH (5.0-8.0) Ur Specific Tyler (1.001-1.035) Urine Protein (Negative) Urine Glucose (UA) (Negative) Urine Ketones (Negative) Urine Blood (Negative) Urine Nitrite (Negative) Urine Bilirubin (Negative) Urine Urobilinogen (<2.0) mg/dL Ur Leukocyte Esterase (Negative) Urine RBC (0-5) /hpf Urine WBC (0-5) /hpf Ur Squamous Epith Cells (0-4) /hpf Urine Mucus (None) /hpf Urine HCG, Qual (Not Detectd) Disposition <Darryl Rahman - Last Filed: 09/21/23 23:58> Is patient prescribed a controlled substance at d/c from ED?: No <Yaima Tinajero - Last Filed: 09/22/23 01:15> Clinical Impression: Abdominal pain Disposition: ADMITTED IP TO THIS HOSP Condition: Stable
--- NOTE | 2023-09-21 21:45 | CT ---
EXAMINATION TYPE: CT abdomen pelvis w con CT DLP: 2396.8 mGycm, Automated exposure control for dose reduction was used. DATE OF EXAM: 09/21/2023 9:16 PM COMPARISON: CT abdomen pelvis most recent from 03/27/2022 CLINICAL INDICATION:Female, 43 years old with history of abd pain; left side abd pain, pelvic pain an d SOB, TECHNIQUE: Axial CT of the ;CT abdomen pelvis w con;Sagittal and coronal reformats were created on a separate workstation. Contrast used:100ml mL of Isovue 300 with IV Contrast, (none if empty) Oral contrast used: without Oral Contrast (none if empty) FINDINGS: LOWER CHEST: The heart is mildly enlarged for size. ABDOMEN LIVER: Unremarkable GALLBLADDER AND BILE DUCTS: Mild amount of pneumobilia noted. The gallbladder surgically absent. Some what similar to prior. PANCREAS: Unremarkable. SPLEEN: Spleen demonstrates low density regions which are at least 2 which are irregular shaped. Find ings are new from prior exam 03/27/2022. One of them is linear more peripherally and laterally along th e periphery and the other is more masslike but also along the periphery and wedge-shaped. ADRENAL GLANDS: Unremarkable. KIDNEYS AND URETERS: No evidence of hydronephrosis or renal calculus. The ureters are unremarkable. PELVIS BLADDER: Unremarkable REPRODUCTIVE: Unremarkable. ABDOMEN & PELVIS STOMACH AND BOWEL: No evidence of bowel obstruction. The appendix is normal. PERITONEUM/RETROPERITONEUM: No evidence of pneumoperitoneum or free fluid. Surgical clips within the pelvis on the left. VASCULATURE: No evidence of aortic aneurysm. MUSCULOSKELETAL: No acute osseous abnormalities LYMPH NODES: No gross evidence for lymphadenopathy. SOFT TISSUE/ABDOMINAL WALL: Unremarkable IMPRESSION: 1. Lower density nonenhancing areas are seen within the liver one which is more linear and other mor e masslike. These are not seen on 03/27/2022. Correlate for history of trauma. Consider multiphase cont rast-enhanced MRI or CT for further characterization. Correlate with history of trauma for traumatic injury. Alternatively one of these lesions looks wedgelike which could represent infarct. No no addit ional acute abdominal process definitively visualized. 2. Cholecystectomy with pneumobilia.
[2023-09-21] MEDS ORDERED: ACETAMINOPHEN TAB 500 MG TAB PO STA (22:24)
[2023-09-21] MEDS ORDERED: MORPHINE SULFATE 2 MG/ML SYRINGE IVP ONE (22:24)
[2023-09-21] MEDS ORDERED: NALOXONE 0.4 MG/ML 1 ML VIAL IV PRN (22:41)
[2023-09-21] MEDS: SODIUM CHLORIDE 0.9% 1,000 ML IV SCH (23:58)
[2023-09-22] MEDS: KETOROLAC 15 MG/ML 1 ML VIAL IVP PRN ×2 (01:30→10:20)
[2023-09-22] MEDS: MORPHINE SULFATE 4 MG/ML SYRINGE IV PRN ×4 (01:31→21:04)
[2023-09-22] MEDS: ACETAMINOPHEN TAB 325 MG TAB PO PRN (01:31)
[2023-09-22] MEDS ORDERED: HEPARIN SODIUM 1,000 UN/ML (10ML VL) IV PRN (06:23)
[2023-09-22] MEDS ORDERED: HEPARIN SODIUM 1,000 UN/ML (10ML VL) IV ONE (06:23)
--- NOTE | 2023-09-22 06:30 | P.HPIM ---
History of Present Illness H&P Date: 09/21/23 Chief Complaint: abd pain 43-year-old female with history of bipolar disorder Patient coming in for complaint of sudden onset left-sided abdominal pain of 2 days' duration she reports that everyone at home is sick with upper respiratory infection she started having left-sided abdominal pain colicky in nature 6 out of 10 in severity for the past 2 days comes and goes was associated with diarrhea. But denies any fevers or chills denies any urinary changes. However today she noticed that she vomited with food every time she eats she would throw up diarrhea not improving and started to have decreased urine output for which she decided to come in for evaluation Computed tomography scan of the abdomen showed lower density nonenhancing areas within the liver one is linear one of masslike not seen compared to a year ago radiologist recommended further testing and suggesting one of the lesions look switch like which could represent an infarct She denies any history of blood clots or recent travel denies any history of trauma to the abdomen Patient admits to tobacco smoking denies illicit drugs or alcohol review of systems Pertinent positives as noted in HPI. All other systems were reviewed and are negative on exam Constitutional: No acute distress, conversant, pleasant Eyes: Anicteric sclerae, moist conjunctiva, Pupils equal round reactive to light ENMT: NC/AT Oropharynx clear, no erythema, or exudates Neck: Supple, no masses, or JVD No carotid bruits No thyromegaly Lungs: Clear to auscultation Clear to percussion Normal respiratory effort, no accessory muscle use Cardiovascular: Heart regular in rate and rhythm, No murmurs, gallops, or rubs No peripheral edema Abdominal: Soft Nontender, no guarding, rebound or rigidity Abdomen moving with respiration Normoactive bowel sounds No hepatomegaly, No splenomegaly No palpable mass No abdominal wall hernia noted Skin: Normal temperature, tone, texture, turgor No induration No subcutaneous nodules No rash, lesions No ulcers Extremities: No digital cyanosis No clubbing Pedal pulses intact and symmetrical Radial pulses intact and symmetrical No calf tenderness Psychiatric: Alert and oriented to person, place and time Appropriate affect fair judgement Neuro Muscles Strength 5/5 in all 4 extremities Sensation to light touch grossly present throughout Cranial nerves II-XII grossly intact Lymphatics: no palpable cervical or supraclavicular lymph nodes Past Medical History Past Medical History: Hypertension Additional Past Medical History / Comment(s): back pain, " numbed the nerves" in back, rt knee torn meniscus, bipolar, ovarian cyst History of Any Multi-Drug Resistant Organisms: None Reported Past Surgical History: Cholecystectomy, Orthopedic Surgery, Tubal Ligation Additional Past Surgical History / Comment(s): left breast milk duct removal and reconstruction, right knee Past Anesthesia/Blood Transfusion Reactions: No Reported Reaction Past Psychological History: Anxiety, Bipolar, Depression, Schizophrenia Smoking Status: Current every day smoker Past Alcohol Use History: None Reported Past Drug Use History: None Reported - Past Family History Mother Family Medical History: Unable to Obtain Medications and Allergies Home Medications Medication Instructions Recorded Confirmed Type FLUoxetine HCL [PROzac] 40 mg PO DAILY 08/16/21 09/21/23 History OXcarbazepine 600 mg PO BID 08/16/21 09/21/23 History FLUoxetine HCL [PROzac] 20 mg PO DAILY 01/08/22 09/21/23 History Famotidine [Pepcid] 20 mg PO DAILY 14 Days #14 tablet 09/18/23 09/21/23 Rx OXcarbazepine [Trileptal] 300 mg PO BID 09/18/23 09/21/23 History diazePAM [Valium] 5 mg PO BID PRN 09/18/23 09/21/23 History Allergies Allergy/AdvReac Type Severity Reaction Status Date / Time Bleach (Sodium Hypochlorite) Allergy Rash/Hives Verified 09/21/23 22:50 cephalexin [From Keflex] Allergy Rash/Hives Verified 09/21/23 22:50 soap Allergy Rash/Hives Verified 09/21/23 22:50 Physical Exam Vitals: Vital Signs Temp Pulse Resp BP Pulse Ox 09/22/23 02:00 98.6 F 82 18 144/88 93 L 09/22/23 00:00 141/92 09/21/23 23:00 94 18 130/67 94 L 09/21/23 21:00 130/91 09/21/23 20:00 136/86 93 L 09/21/23 19:40 136/86 95 09/21/23 19:38 98.8 F 91 18 136/86 96 09/21/23 16:29 98.2 F 109 H 16 128/90 97 Intake and Output 09/21/23 09/21/23 09/22/23 14:59 22:59 06:59 Other: Weight 127.006 kg Results CBC & Chem 7: 09/21/23 17:35 09/21/23 17:35 Labs: Abnormal Lab Results - Last 24 Hours (Table) 09/21/23 09/21/23 09/21/23 Range/Units 01:55 16:55 17:35 WBC 15.9 H (3.8-10.6) k/uL RDW 15.9 H (11.5-15.5) % Lymphocytes # (Manual) 10.49 H (1.0-4.8) k/uL D-Dimer 2.39 H (<0.60) mg/L FEU Sodium (137-145) mmol/L AST (14-36) U/L ALT (4-34) U/L Albumin (3.5-5.0) g/dL Urine Appearance Cloudy H (Clear) Urine Protein 1+ H (Negative) Urine Ketones Trace H (Negative) Ur Leukocyte Esterase Large H (Negative) Urine RBC 6 H (0-5) /hpf Urine WBC 12 H (0-5) /hpf Ur Squamous Epith Cells 17 H (0-4) /hpf Urine Mucus Many H (None) /hpf 09/21/23 Range/Units 17:35 WBC (3.8-10.6) k/uL RDW (11.5-15.5) % Lymphocytes # (Manual) (1.0-4.8) k/uL D-Dimer (<0.60) mg/L FEU Sodium 136 L (137-145) mmol/L AST 76 H (14-36) U/L ALT 61 H (4-34) U/L Albumin 3.3 L (3.5-5.0) g/dL Urine Appearance (Clear) Urine Protein (Negative) Urine Ketones (Negative) Ur Leukocyte Esterase (Negative) Urine RBC (0-5) /hpf Urine WBC (0-5) /hpf Ur Squamous Epith Cells (0-4) /hpf Urine Mucus (None) /hpf Assessment and Plan Assessment: 43-year-old female with bipolar disorder coming in today history of left-sided abdominal pain and diarrhea, computed tomography scan of the abdomen suggested low-density nonenhancing areas within the liver could be masslike versus infarct I discussed the case with the adductor accepted the admission for abdominal pain requiring further workup and evaluation by surgery and GI with anticipated length of stay less than [address] findings suggestive of nonenhancing low-density lesions in the liver possible masslike structures versus infarct Await surgery and GI input Check acute respiratory viral panel D-dimer was elevated Liver infarct usually self-limited will hold off anticoagulation until further evaluation check liver Doppler ultrasound Symptomatic control of nausea with Zofran when necessary Symptomatic control of pain with morphine when necessary Blood work showing hemoglobin 12.6 Leukocytosis 15.9 afebrile Renal function unremarkable sodium 136 potassium 409 creatinine 0.8 Bipolar disorder Resume home psych meds Full code DVT prophylaxis heparin subcu.tid
[2023-09-22] MEDS: HEPARIN SOD,PORK IN 0.45% NACL 25,000 UNIT in 0.45% NACL 1 250ML.BAG IV SCH ×2 (07:05→19:51)
[2023-09-22] MEDS: SODIUM CHLORIDE 0.9% 1,000 ML IV SCH ×3 (07:24→22:13)
[2023-09-22] MEDS: OXcarbazepine 300 MG TAB PO SCH ×2 (08:49→22:13)
[2023-09-22] MEDS: FLUoxetine HCL 20 MG CAP PO SCH (08:50)
[2023-09-22] MEDS: FAMOTIDINE 20 MG TAB PO SCH (08:50)
[2023-09-22] MEDS ORDERED: NON FORMULARY DRUG (Fluoxetine Hcl [Prozac] 40 MG Capsule) PO SCH (09:00)
[2023-09-22] MEDS ORDERED: OXCARBAZEPINE 600 MG PO SCH (09:00)
[2023-09-22] MEDS: ONDANSETRON 4 MG/2 ML VIAL IVP PRN (10:16)
[2023-09-22 10:30] LABS: HCT 38.1 % (34.0-46.0); HGB 12.6 gm/dL (11.4-16.0); MCH 27.2 pg (25.0-35.0); MCHC 33.1 g/dL (31.0-37.0); MCV 82.2 fL (80.0-100.0); Mean Platelet Volume 7.8; Platelet Count 179 k/uL (150-450); RBC 4.64 m/uL (3.80-5.40); RDW 15.8 % (11.5-15.5); WBC 8.1 k/uL (3.8-10.6)
[2023-09-22] MEDS ORDERED: diazePAM 5 MG TAB PO PRN (11:41)
--- NOTE | 2023-09-22 11:44 | P.PN ---
Subjective Progress Note Date: 09/22/23 43 year old F with PMH of Bipolar disorder presents to the ED for LLQ abdominal pain that has been ongoing for the past 2 days. Reports a recent URI that she has recovered from. Pain is colicky in nature, 6/10 in severity radiating to the LUQ with deep inspiration. Reports some nausea and diarrhea but no vomiting. Reports a history of ovarian cyst. No dysuria. No history of IV drug use. In the ED she underwent extensive evaluation. Vital signs were stable. CBC showed a leukocytosis of 15.9. D-dimer 2.39. CMP sodium 136, AST 76, ALT 61, albumin 3.3. Amylase and lipase negative. Urinalysis large leukocyte esterase with 12 WBC. Urine hCG negative. COVID-19 and RSV negative. KUB showing no acute process. CT AP shows lower density nonenhancing areas within the spleen, correlate for trauma, consider MRI or CT with contrast, infarct? Patient was admitted for further management and workup given findings on CTAP. She was started on a heparin drip for concerns of splenic infarct. Surgery and GI consulted. 09/22 Patient was seen and examined. She reports continue LLQ abdominal pain. Reports nausea. CBC shows normal Hg and WBC count. General: non toxic, no distress, appears at stated age Derm: warm, dry Head: atraumatic, normocephalic, symmetric Eyes: EOMI, no lid lag, anicteric sclera Cardiovascular: S1S2 reg, no murmur Lungs: CTA bilateral, no rhonchi, no rales , no accessory muscle use Abdominal: soft, TTP LLQ without rebound, no guarding, no appreciable organomegaly Ext: no gross muscle atrophy, no edema, no contractures Neuro: no focal neuro deficits Psych: Alert, oriented, appropriate affect Abdominal pain Splenic mass Elevated D-Dimer Chronic conditions: Bipolar disorder Based on my assessment of this patient, this patient meets a high complexity level of care. Patient has an acute diagnosis of Abdominal pain with splenic mass concerning for splenic infarct that poses a threat to life or bodily function. Abdominal pain: Morphine 4 mg IV Q4H PRN for pain. Zofran 4 mg IV Q6H PRN for N/V. Surgery and GI consulted. Splenic mass: She will likely need further imaging. Awaiting input from GI. Continue heparin drip at 18 units/kg/hr. Elevated D-Dimer: Heparin drip as above. I have reviewed the following outplacement consultant notes: I have reviewed the results of the following tests: CBC I have ordered the following tests: Pelvic US. APTT I have discussed the care of this patient with the following independent historian: I have independently interpreted the following test below: I have discussed the management of this patient with the following physician: Objective - Vital Signs Vital signs: Vital Signs Temp 98.6 F 09/22/23 02:00 Pulse 90 09/22/23 10:00 Resp 20 09/22/23 10:00 BP 119/57 09/22/23 10:00 Pulse Ox 95 09/22/23 10:00 FiO2 Intake & Output 09/21/23 09/22/23 09/22/23 18:59 06:59 18:59 Weight 127.006 kg - Labs CBC & Chem 7: 09/22/23 09:15 09/21/23 17:35 Labs: Abnormal Lab Results - Last 24 Hours (Table) 09/21/23 09/21/23 09/21/23 Range/Units 01:55 16:55 17:35 WBC 15.9 H (3.8-10.6) k/uL RDW 15.9 H (11.5-15.5) % Lymphocytes # (Manual) 10.49 H (1.0-4.8) k/uL D-Dimer 2.39 H (<0.60) mg/L FEU Sodium (137-145) mmol/L AST (14-36) U/L ALT (4-34) U/L Albumin (3.5-5.0) g/dL Urine Appearance Cloudy H (Clear) Urine Protein 1+ H (Negative) Urine Ketones Trace H (Negative) Ur Leukocyte Esterase Large H (Negative) Urine RBC 6 H (0-5) /hpf Urine WBC 12 H (0-5) /hpf Ur Squamous Epith Cells 17 H (0-4) /hpf Urine Mucus Many H (None) /hpf 09/21/23 09/22/23 Range/Units 17:35 09:15 WBC (3.8-10.6) k/uL RDW 15.8 H (11.5-15.5) % Lymphocytes # (Manual) (1.0-4.8) k/uL D-Dimer (<0.60) mg/L FEU Sodium 136 L (137-145) mmol/L AST 76 H (14-36) U/L ALT 61 H (4-34) U/L Albumin 3.3 L (3.5-5.0) g/dL Urine Appearance (Clear) Urine Protein (Negative) Urine Ketones (Negative) Ur Leukocyte Esterase (Negative) Urine RBC (0-5) /hpf Urine WBC (0-5) /hpf Ur Squamous Epith Cells (0-4) /hpf Urine Mucus (None) /hpf
--- NOTE | 2023-09-22 11:54 | P.CONS ---
History of Present Illness - Reason for Consult Consult date: 09/22/23 Liver infarction Requesting physician: Reji Boggs - Chief Complaint Left-sided abdominal pain - History of Present Illness This is a pleasant 43-year-old female who presented to the emergency department yesterday with complaints of left-sided abdominal pain. Patient states that it started 2-3 days ago. The pain is mostly on the left lower abdomen where she states she's had ovarian cysts in the past. States the pain is similar. It is a constant crampy feeling worse with palpation. Apparently the patient also has been sick with an upper respiratory infection over the last week and then prior to coming into the hospital she states that she had a day or so of nausea and vomiting and diarrhea. She denied any blood in her emesis or stool. Past medical history includes hypertension, bipolar, back pain, ovarian cysts, cholecystectomy, and tubal ligation. Patient is a every day smoker, denies any regular alcohol consumption. She underwent abdominal x-ray that showed nonspecific bowel gas pattern without evidence for acute process. She was noted to have elevated d-dimer. She underwent a CT of the abdomen and pelvis which had distal cord and report and findings. In the body of the report that stated low density nonenhancing areas in the spleen however in the impression it states low density nonenhancing area seen within the liver which could represent infarct. Gastroenterology was consulted for liver infarction. Patient denies any previous history of clotting disorder, no recent new medications. Denies any history of liver disease. Denies any recent trauma or falls. Admitting labs WBC 15.9 hemoglobin 12.6 hematocrit 39 platelet count 225,000 d-dimer 2.39 sodium 136 potassium 4.0 BUN 9 creatinine 0.85 glucose 89 total bilirubin 0.7 AST 76 ALT 61 alkaline phosphatase 1:15 amylase 33 and lipase 68 Review of Systems REVIEW OF SYSTEMS: CARDIOPULMONARY: No chest pain or shortness of breath. Gastrointestinal: Left lower quadrant pain. Nausea vomiting and diarrhea 2 days prior to hospitalization. No hematemesis, coffee-ground emesis. No rectal bleeding, or melena. GENITOURINARY: No dysuria or hematuria. MUSCULOSKELETAL: Reports normal range of motion chronic back pain. SKIN: No rashes. No jaundice. ENDOCRINE: No chills, fevers. No excessive weight gain or loss. No polydipsia or polyuria. PSYCHIATRIC: Unremarkable. NEUROLOGY: No change in mental status. Denies dizziness, headache. ENT: Vision unremarkable. CONSTITUTIONAL: No recent weight loss. No fever, chills, night sweats. Patient recently diagnosed with upper respiratory infection. Past Medical History Past Medical History: Hypertension Additional Past Medical History / Comment(s): back pain, " numbed the nerves" in back, rt knee torn meniscus, bipolar, ovarian cyst History of Any Multi-Drug Resistant Organisms: None Reported Past Surgical History: Cholecystectomy, Orthopedic Surgery, Tubal Ligation Additional Past Surgical History / Comment(s): left breast milk duct removal and reconstruction, right knee Past Anesthesia/Blood Transfusion Reactions: No Reported Reaction Past Psychological History: Anxiety, Bipolar, Depression, Schizophrenia Smoking Status: Current every day smoker Past Alcohol Use History: None Reported Past Drug Use History: None Reported - Past Family History Mother Family Medical History: Unable to Obtain Medications and Allergies Home Medications Medication Instructions Recorded Confirmed Type FLUoxetine HCL [PROzac] 40 mg PO DAILY 08/16/21 09/21/23 History OXcarbazepine 600 mg PO BID 08/16/21 09/21/23 History FLUoxetine HCL [PROzac] 20 mg PO DAILY 01/08/22 09/21/23 History Famotidine [Pepcid] 20 mg PO DAILY 14 Days #14 tablet 09/18/23 09/21/23 Rx OXcarbazepine [Trileptal] 300 mg PO BID 09/18/23 09/21/23 History diazePAM [Valium] 5 mg PO BID PRN 09/18/23 09/21/23 History Allergies Allergy/AdvReac Type Severity Reaction Status Date / Time Bleach (Sodium Hypochlorite) Allergy Rash/Hives Verified 09/21/23 22:50 cephalexin [From Keflex] Allergy Rash/Hives Verified 09/21/23 22:50 soap Allergy Rash/Hives Verified 09/21/23 22:50 Physical Exam Vitals: Vital Signs Temp Pulse Resp BP Pulse Ox 09/22/23 08:00 86 16 135/68 98 09/22/23 02:00 98.6 F 82 18 144/88 93 L 09/22/23 00:00 141/92 09/21/23 23:00 94 18 130/67 94 L 09/21/23 21:00 130/91 09/21/23 20:00 136/86 93 L 09/21/23 19:40 136/86 95 09/21/23 19:38 98.8 F 91 18 136/86 96 09/21/23 16:29 98.2 F 109 H 16 128/90 97 Intake and Output 09/21/23 09/22/23 09/22/23 22:59 06:59 14:59 Other: Weight 127.006 kg General appearance: The patient is alert, oriented, appears in no acute distress. HET: Head is normocephalic and atraumatic. Conjunctiva pink. Sclera anicteric. Neck: Supple without lymphadenopathy. Trachea midline. Heart: Regular. Lungs: Equal expansion, normal respiratory effort. Abdomen: Soft, left lower and left upper abdomen with tenderness to palpation, nondistended. No guarding or rigidity. Skin: No rashes. No jaundice. Extremities: Normal skin color and turgor. No pedal edema. Neurological: No focal deficits. Alert and oriented x3. Results CBC & Chem 7: 09/22/23 09:15 09/21/23 17:35 Labs: Abnormal Lab Results - Last 24 Hours (Table) 09/21/23 09/21/23 09/21/23 Range/Units 01:55 16:55 17:35 WBC 15.9 H (3.8-10.6) k/uL RDW 15.9 H (11.5-15.5) % Lymphocytes # (Manual) 10.49 H (1.0-4.8) k/uL D-Dimer 2.39 H (<0.60) mg/L FEU Sodium (137-145) mmol/L AST (14-36) U/L ALT (4-34) U/L Albumin (3.5-5.0) g/dL Urine Appearance Cloudy H (Clear) Urine Protein 1+ H (Negative) Urine Ketones Trace H (Negative) Ur Leukocyte Esterase Large H (Negative) Urine RBC 6 H (0-5) /hpf Urine WBC 12 H (0-5) /hpf Ur Squamous Epith Cells 17 H (0-4) /hpf Urine Mucus Many H (None) /hpf 09/21/23 Range/Units 17:35 WBC (3.8-10.6) k/uL RDW (11.5-15.5) % Lymphocytes # (Manual) (1.0-4.8) k/uL D-Dimer (<0.60) mg/L FEU Sodium 136 L (137-145) mmol/L AST 76 H (14-36) U/L ALT 61 H (4-34) U/L Albumin 3.3 L (3.5-5.0) g/dL Urine Appearance (Clear) Urine Protein (Negative) Urine Ketones (Negative) Ur Leukocyte Esterase (Negative) Urine RBC (0-5) /hpf Urine WBC (0-5) /hpf Ur Squamous Epith Cells (0-4) /hpf Urine Mucus (None) /hpf Comments: CT abdomen and pelvis with contrast. Initially impression reported as low density nonenhancing areas seen within the liver one which is more linear and other more masslike. These are not seen on 03/27/2022. Correlate for history of trauma. Consider multiphasic contrast enhanced MRI or CT for further characterization. Correlate with history of trauma or traumatic injury. Alternatively one of these lesions looks much like which could represent infarct. No additional acute abdominal process definitively visualized. Cholecystectomy with pneumobilia. Addendum added today at 0933 which reports lower density nonenhancing areas are seen within the spleen one which is more linear and other more masslike. These are not seen on 03/27/2022. Correlate for history of trauma. Consider multiphasic contrast enhanced MRI or CT for further characterization. Correlate with history of trauma or traumatic injury. Alternatively one of these lesions looks wedgelike which could represent infarct. No additional acute abdominal process definitively visualized. Assessment and Plan (1) Abdominal pain Narrative/Plan: 43-year-old who reported to the emergency department with complaints of lower left abdominal pain starting 2-3 days ago. Patient recently sick with acute upper respiratory infection followed by nausea vomiting and diarrhea 1-2 days prior to this admission. She was known to have elevated d-dimer. Denies any p revious history of blood clots or clotting disorders. She underwent CT abdomen and pelvis that initially reported possible liver infarct however has been addended that areas of concern were noted in the spleen. Patient has been started on IV heparin drip with general surgery on consult. She denies any abdominal trauma or falls. Patient does state that she has history of ovarian cysts. No further nausea or vomiting, no fevers or chills. Still has an achy discomfort in the left lower abdomen. Liver ultrasound ordered. Current Visit: Yes Status: Acute Code(s): R10.9 - UNSPECIFIED ABDOMINAL PAIN SNOMED Code(s): 11037095 (2) Elevated LFTs Narrative/Plan: Patient with mildly elevated LFTs noted on previous emergency room visit on 09/18/2023 as well as this admission. 77 and 76 respectively ALT mildly elevated as well 65 on previous admission and 61 on this admission. Normal LFTs in the past. No new medications or antibiotics. May be reactive to possible splenic infarct. Current Visit: Yes Status: Acute Code(s): R79.89 - OTHER SPECIFIED ABNORMAL FINDINGS OF BLOOD CHEMISTRY SNOMED Code(s): 177992223 Plan: 1. Continue symptomatic and supportive care 2. Continue heparin drip for now for possible splenic infarct 3. Daily CMP 4. Liver ultrasound ordered, currently pending 5. Transvaginal ultrasound ordered currently pending 6. Will order MRI abdomen with contrast 7. Consider possible consult to hematology regarding possible splenic infarct Thank you for this consultation, we will continue to follow. Dr. Albin Telles I agree with the dictator's note, documented as a scribe by Reshma Santoyo.
[2023-09-22 12:10] LABS: Eosinophils # (M) 0.24 k/uL (0-0.7); Lymphocytes # (M) 4.54 k/uL (1.0-4.8); Monocytes # (M) 0.65 k/uL (0-1.0); Neutrophils # (M) 2.67 k/uL (1.3-7.7); Neutrophils % (M) 33 %; Nucleated Red Blood Cells 0 /100 WBC (0-0); Total Cells Counted 100
--- NOTE | 2023-09-22 13:26 | P.GSCN ---
History of Present Illness Consult date: 09/22/23 History of present illness: CHIEF COMPLAINT: Abdominal pain HISTORY OF PRESENT ILLNESS: This is a 43-year-old female who presented with left-sided abdominal pain 2 days. She reports the pain is in the left lower quadrant and it does radiate up into the left upper quadrant. Pain is worse with deep breath. She has been having a significant cough with upper respirat ory infection for the past week. She has been having nausea and vomiting the last emesis was 2 days ago. She is having bowel movements but they have been diarrhea. She denies any trauma or injury to the abdomen. Patient had a computed tomography scan of the abdomen which initially discussed findings in the liver. However radiologist did make an addendum and report states lower density nonenhancing areas are seen in within the spleen 1 which is more linear and other more masslike. One of these lesions looks wedgelike which could represent infarct. Patient is currently on IV heparin for possible splenic infarct. She denies being on any blood thinners at home. PAST MEDICAL HISTORY: Hypertension, back pain, ovarian cyst, bipolar, schizophrenia anxiety and depression PAST SURGICAL HISTORY: Cholecystectomy, Orthopedic Surgery, Tubal Ligation MEDICATIONS: See below ALLERGIES: See below SOCIAL HISTORY: No illicit drug use. Nicotine dependence REVIEW OF SYSTEMS: CONSTITUTIONAL: Denies fever or chills. HEENT: Denies blurred vision, vision changes, or eye pain. Denies hemoptysis CARDIOVASCULAR: Denies chest pain or pressure. RESPIRATORY: No shortness of breath. GASTROINTESTINAL: See HPI for pertinent findings HEMATOLOGIC: Denies bleeding disorders. GENITOURINARY: Denies any blood in urine or increased urinary frequency. SKIN: Denies pruitis. Denies rash. PHYSICAL EXAM: VITAL SIGNS: Reviewed GENERAL: Well-developed in no acute distress. ABDOMEN: Soft. Nondistended. Tenderness with palpation of the left side of the abdomen more so on the left lower quadrant. Tenderness from the left lower quadrant all he up into the left upper quadrant. NEUROLOGIC: Alert and oriented. Cranial nerves II through XII grossly intact. LABORATORY DATA: WBC 15.9 down to 8.1 Hgb 12.6 platelets 179 D-dimer 2.39 Sodium 136 potassium 4.0 creatinine 0.85 Lactic acid 1.0 AST 76 ALT 61 lipase 68 COVID-19 not detected RSV negative IMAGING: Computed tomography scan abdomen and pelvis reports lower density nonenhancing areas are seen within the spleen 1 which is more linear and other more masslike. These are not seen on 03/27/2022. Correlate for history of trauma. Consider multiphase contrast-enhanced MRI or CT for further characterization. Correlate with history of trauma or traumatic injury. Alternatively one of these lesions looks wedgelike which could represent infarct. No additional acute abdominal process definitively visualized. ASSESSMENT: 1. Left-sided abdominal pain 2. Possible splenic infarct PLAN: -Continue to observe -Continue IV heparin for possible splenic infarct -Follow up on abdominal ultrasound and transvaginal ultrasound results Physician Arm Maker note has been reviewed by physician. Signing provider agrees with the documented findings, assessment, and plan of care. Past Medical History Past Medical History: Hypertension Additional Past Medical History / Comment(s): back pain, " numbed the nerves" in back, rt knee torn meniscus, bipolar, ovarian cyst History of Any Multi-Drug Resistant Organisms: None Reported Past Surgical History: Cholecystectomy, Orthopedic Surgery, Tubal Ligation Additional Past Surgical History / Comment(s): left breast milk duct removal and reconstruction, right knee Past Anesthesia/Blood Transfusion Reactions: No Reported Reaction Past Psychological History: Anxiety, Bipolar, Depression, Schizophrenia Smoking Status: Current every day smoker Past Alcohol Use History: None Reported Past Drug Use History: None Reported - Past Family History Mother Family Medical History: Unable to Obtain Medications and Allergies Home Medications Medication Instructions Recorded Confirmed Type FLUoxetine HCL [PROzac] 40 mg PO DAILY 08/16/21 09/21/23 History OXcarbazepine 600 mg PO BID 08/16/21 09/21/23 History FLUoxetine HCL [PROzac] 20 mg PO DAILY 01/08/22 09/21/23 History Famotidine [Pepcid] 20 mg PO DAILY 14 Days #14 tablet 09/18/23 09/21/23 Rx OXcarbazepine [Trileptal] 300 mg PO BID 09/18/23 09/21/23 History diazePAM [Valium] 5 mg PO BID PRN 09/18/23 09/21/23 History Allergies Allergy/AdvReac Type Severity Reaction Status Date / Time Bleach (Sodium Hypochlorite) Allergy Rash/Hives Verified 09/21/23 22:50 cephalexin [From Keflex] Allergy Rash/Hives Verified 09/21/23 22:50 soap Allergy Rash/Hives Verified 09/21/23 22:50 Surgical - Exam Vital Signs Temp Pulse Resp BP Pulse Ox 98.2 F 109 H 16 128/90 97 09/21/23 16:29 09/21/23 16:29 09/21/23 16:29 09/21/23 16:29 09/21/23 16:29 Results - Labs 09/22/23 09:15 09/21/23 17:35 Abnormal Lab Results - Last 24 Hours (Table) 09/21/23 09/21/23 09/21/23 Range/Units 01:55 16:55 17:35 WBC 15.9 H (3.8-10.6) k/uL RDW 15.9 H (11.5-15.5) % Lymphocytes # (Manual) 10.49 H (1.0-4.8) k/uL D-Dimer 2.39 H (<0.60) mg/L FEU Sodium (137-145) mmol/L AST (14-36) U/L ALT (4-34) U/L Albumin (3.5-5.0) g/dL Urine Appearance Cloudy H (Clear) Urine Protein 1+ H (Negative) Urine Ketones Trace H (Negative) Ur Leukocyte Esterase Large H (Negative) Urine RBC 6 H (0-5) /hpf Urine WBC 12 H (0-5) /hpf Ur Squamous Epith Cells 17 H (0-4) /hpf Urine Mucus Many H (None) /hpf 09/21/23 09/22/23 Range/Units 17:35 09:15 WBC (3.8-10.6) k/uL RDW 15.8 H (11.5-15.5) % Lymphocytes # (Manual) (1.0-4.8) k/uL D-Dimer (<0.60) mg/L FEU Sodium 136 L (137-145) mmol/L AST 76 H (14-36) U/L ALT 61 H (4-34) U/L Albumin 3.3 L (3.5-5.0) g/dL Urine Appearance (Clear) Urine Protein (Negative) Urine Ketones (Negative) Ur Leukocyte Esterase (Negative) Urine RBC (0-5) /hpf Urine WBC (0-5) /hpf Ur Squamous Epith Cells (0-4) /hpf Urine Mucus (None) /hpf Diabetes panel 09/21/23 Range/Units 17:35 Sodium 136 L (137-145) mmol/L Potassium 4.0 (3.5-5.1) mmol/L Chloride 106 (98-107) mmol/L Carbon Dioxide 24 (22-30) mmol/L BUN 9 (7-17) mg/dL Creatinine 0.85 (0.52-1.04) mg/dL Glucose 89 (74-99) mg/dL Calcium 8.8 (8.4-10.2) mg/dL AST 76 H (14-36) U/L ALT 61 H (4-34) U/L Alkaline Phosphatase 115 (38-126) U/L Total Protein 6.7 (6.3-8.2) g/dL Albumin 3.3 L (3.5-5.0) g/dL Calcium panel 09/21/23 Range/Units 17:35 Calcium 8.8 (8.4-10.2) mg/dL Albumin 3.3 L (3.5-5.0) g/dL Pituitary panel 09/21/23 Range/Units 17:35 Sodium 136 L (137-145) mmol/L Potassium 4.0 (3.5-5.1) mmol/L Chloride 106 (98-107) mmol/L Carbon Dioxide 24 (22-30) mmol/L BUN 9 (7-17) mg/dL Creatinine 0.85 (0.52-1.04) mg/dL Glucose 89 (74-99) mg/dL Calcium 8.8 (8.4-10.2) mg/dL Adrenal panel 09/21/23 Range/Units 17:35 Sodium 136 L (137-145) mmol/L Potassium 4.0 (3.5-5.1) mmol/L Chloride 106 (98-107) mmol/L Carbon Dioxide 24 (22-30) mmol/L BUN 9 (7-17) mg/dL Creatinine 0.85 (0.52-1.04) mg/dL Glucose 89 (74-99) mg/dL Calcium 8.8 (8.4-10.2) mg/dL Total Bilirubin 0.7 (0.2-1.3) mg/dL AST 76 H (14-36) U/L ALT 61 H (4-34) U/L Alkaline Phosphatase 115 (38-126) U/L Total Protein 6.7 (6.3-8.2) g/dL Albumin 3.3 L (3.5-5.0) g/dL
[2023-09-22 13:51] LABS: INR 1.1 (<1.2); Prothrombin Time 11.9 sec (10.0-12.5)
[2023-09-22 13:52] LABS: Partial Thromboplastin Time 150.2 sec (22.0-30.0)
--- NOTE | 2023-09-22 14:06 | US ---
EXAMINATION TYPE: US transvaginal DATE OF EXAM: 09/22/2023 COMPARISON: NONE CLINICAL INDICATION: Female, 43 years old with history of LLQ pain; h/o ovarian cysts, tubal ligation , 2 cycles this month - not normal TECHNIQUE: TV. Transvaginal sonographic images Date of LMP: 2 cycles this month EXAM MEASUREMENTS: Uterus: 7.5 x 5.3 x 4.7 cm Endometrial Stripe: 0.9 cm Right Ovary: 3.8 x 3.5 x 4.0 cm Left Ovary: 3.5 x 1.9 x 2.4 cm 1. Uterus: Retroverted wnl 2. Endometrium: wnl 3. Right Ovary: cyst with daughter cyst seen = 3.3 x 3.4 x 3.6cm 4. Left Ovary: 1.5 x 1.7 x 1.6cm Spectral, color and waveform doppler imaging shows good arterial and venous flow within the ovaries ; there is no evidence for ovarian torsion. 5. Bilateral Adnexa: mild bilaterally 6. Posterior cul-de-sac: wnl. Some free fluid is present which could be physiologic. IMPRESSION: 1. Right ovarian cyst. Follow up following the next normal menstrual period or 6 weeks is recommended .
--- NOTE | 2023-09-22 14:08 | US ---
EXAMINATION TYPE: US abdomen limited DATE OF EXAM: 09/22/2023 COMPARISON: NONE CLINICAL INDICATION: Female, 43 years old with history of splenic infarct; LUQ pain, patient had CT t hat showed splenic infarct TECHNIQUE: Multiple sonographic images of the left upper quadrant are obtained. FINDINGS: EXAM MEASUREMENTS: Spleen: 12.4 cm Left Kidney: 11.3 x 5.3 x 5.8 cm HOSIERY KNITTER NOTES: large habitus and bowel gas limits exam 1. Spleen: tiny granulomas seen, hypoechoic area measuring 2.5 x 1.9 x 2.2cm seen, 2nd lesion noted on CT not appreciated on US. 2. Left Kidney: wnl IMPRESSION: 1. Hypoechoic lesion by ultrasound appears to correspond to the hypodense lesion on CT exam
[2023-09-23] MEDS: HEPARIN SOD,PORK IN 0.45% NACL 25,000 UNIT in 0.45% NACL 1 250ML.BAG IV SCH ×2 (00:49→20:01)
[2023-09-23] MEDS: SODIUM CHLORIDE 0.9% 1,000 ML IV SCH ×2 (05:15→19:30)
[2023-09-23] MEDS: OXcarbazepine 300 MG TAB PO SCH ×2 (08:29→20:01)
[2023-09-23] MEDS: FAMOTIDINE 20 MG TAB PO SCH (08:29)
[2023-09-23] MEDS: MORPHINE SULFATE 4 MG/ML SYRINGE IV PRN ×2 (08:47→19:57)
[2023-09-23] MEDS: ONDANSETRON 4 MG/2 ML VIAL IVP PRN (08:47)
[2023-09-23] MEDS: FLUoxetine HCL 20 MG CAP PO SCH (08:47)
[2023-09-23 09:10] LABS: HCT 39.4 % (37.2-46.3); HGB 12.5 d/dL (12.0-15.0); MCH 25.9 pg (27.0-32.0); MCHC 31.7 d/dL (32.0-37.0); MCV 81.6 FL (80.0-97.0); Mean Platelet Volume 10.8 FL (9.5-12.2); NRBC Per 100 WBC 0.03 X 10*3/uL (0.00-0.01); Platelet Count 194 X 10*3/uL (140-440); RBC 4.83 X 10*6/uL (4.10-5.20); RDW 16.9 % (11.5-14.5); WBC 9.83 X 10*3/uL (4.50-10.00)
[2023-09-23 09:19] LABS: Albumin 2.9 d/dL (3.8-4.9); BUN/Creat Ratio 8.86 Ratio (12.00-20.00); Blood Urea Nitrogen 6.2 mg/dL (9.0-27.0); Calcium 8.2 mg/dL (8.7-10.3); Carbon Dioxide 20.9 mmol/L (21.6-31.8); Chloride 107 mmol/L (96-109); Globulin 2.7 d/dL (1.6-3.3); Glucose 78 mg/dL (70-110); Potassium 4.1 mmol/L (3.5-5.5); Sodium 138 mmol/L (135-145); Total Protein 5.6 d/dL (6.2-8.2)
[2023-09-23 09:20] LABS: ALT 56 U/L (8-44); AST 67 U/L (13-35); Albumin/Globulin Ratio 1.07 Ratio (1.60-3.17); Alkaline Phosphatase 109 U/L (41-126); Total Bilirubin 0.5 mg/dL (0.3-1.2)
--- NOTE | 2023-09-23 11:19 | P.PN ---
Subjective Progress Note Date: 09/23/23 Hospital course: Patient is a 43-year-old female with a past medical history of bipolar disorder. She presented to the emergency department on 09/21/23 with a chief complaint of abdominal pain. Patient underwent full evaluation in the emergency department. CBC showing leukocytosis with WBC count of 15.9. BMP revealing hyponatremia with sodium 136 and elevated liver enzymes with AST of 76, ALT is 61, an alkaline phosphatase of 115. Urinalysis contaminated. Covid PCR negative. D- dimer was elevated at 2.39. CT abdomen and pelvis with contrast was completed showing lower density nonenhancing areas within the spleen 1 appearing linear and other reported to be more masslike, unable to rule out infarct. Patient was started on heparin infusion and admitted under our services with consultation to Gen. surgery and gastroenterology. Physical exam: Vital signs reviewed and stable. General: Nontoxic, no distress and appears stated age. Derm: Skin warm and dry, normal coloration for ethnicity. Head: Atraumatic, normocephalic and symmetric. Eyes: EOMs intact, no lid lag, and anicteric sclera Mouth: no lip lesions, mucus membranes moist Cardiovascular: regular rate and rhythm with normal S1S2, no murmur, positive posterior tibial pulses bilaterally, and cap refill < 2 seconds. Lungs: Respirations even, regular, and unlabored on room air. Lungs CTA bilaterally, no rhonchi, no rales, no wheezing, and no accessory muscle usage. Abdominal: soft, diffuse tenderness to palpation in left upper and lower quadrants, pain appears worse in left upper quadrant Ext: ROM intact. No gross muscle atrophy, no edema, no contractures Neuro: Speech clear, face symmetrical and CN II-XII grossly intact with no noted focal neuro deficits Psych: Alert and oriented to person, place, time, and situation. Appropriate and pleasant affect. Assessment and Plan of Care: Left-sided abdominal pain, rule out splenic infarct vs splenic mass Elevated liver enzymes Elevated d-dimer, believed to be secondary to above continue high intensity heparin infusion -Continuation of high intensity heparin infusion. Morning PTT is therapeutic at 54.1 seconds. -Gastroenterology following, discussed with gastroenterology CAN CAPPER recommending patient undergo MRI abdomen -Gen. surgery following reviewed documentation in chart. -Continue with gentle IV fluid hydration reduced 0.9% normal saline infusion to 100 mL per hour. -Patient has failed observation length of stay, order placed for admit to inpatient secondary to continued concerns of splenic infarct versus splenic mass. Bipolar disorder Continue daily medication regimen with Prozac 60 mg daily and oxcarbazepine 900 mg twice daily with when necessary Valium 5 mg as needed for anxiety. Data reviewed: Morning labs reviewed. CBC unremarkable. PTT therapeutic at 54.1 seconds. BMP unremarkable. Liver profile continues to show elevation of AST at 67 and ALT of 56 with a normal alkaline phosphatase of 109 and bilirubin of 0.5. Vital signs reviewed. Blood pressure 149/72, heart rate 77, respiratory rate 17, temp 98.9F, and SpO2 of 96% on room air. CODE STATUS: Full code DVT prophylaxis: Heparin infusion Anticipated discharge date: Clinical course to determine Anticipated discharge place: Home Patient was seen independently by Nurse Pracitioner. This document was prepared using [employer] dictation software. Please allow for errors in showcase trimmer, while rare they do occur. Rivas Arvizu NP rendered care for this patient independently, reviewed the findings and plan as documented in the note above. I did not physically speak with or examine the patient on this date Objective - Vital Signs Vital signs: Vital Signs Temp 98.9 F 09/23/23 07:00 Pulse 77 09/23/23 07:00 Resp 17 09/23/23 07:00 BP 149/72 09/23/23 07:00 Pulse Ox 96 09/23/23 07:00 FiO2 Intake & Output 09/22/23 09/23/23 09/23/23 18:59 06:59 18:59 Intake Total 250.000 162.825 Balance 250.000 162.825 Weight 127.006 kg Intake: Intake, IV Titration 250.000 162.825 Amount Heparin Sod,Pork in 0.45% 250.000 162.825 NaCl 25,000 unit In 0.45 % NaCl 1 250ml.bag @ 18 UNITS/KG/HR 22.861 mls/hr IV .[id number] [facility] Rx#: [id number] Other: # Voids 1 # Bowel Movements 0 - Labs CBC & Chem 7: 09/28/23 05:27 09/28/23 05:27 Labs: Abnormal Lab Results - Last 24 Hours (Table) 09/22/23 09/22/23 09/22/23 Range/Units 09:15 12:58 22:40 MCH (27.0-32.0) pg MCHC (32.0-37.0) d/dL RDW 15.8 H (11.5-15.5) % NRBC/100 WBC Diff (0.00-0.01) X 10*3/uL APTT 150.2 H* 48.5 H (22.0-30.0) sec Carbon Dioxide (21.6-31.8) mmol/L BUN (9.0-27.0) mg/dL BUN/Creatinine Ratio (12.00-20.00) Ratio Calcium (8.7-10.3) mg/dL AST (13-35) U/L ALT (8-44) U/L Total Protein (6.2-8.2) d/dL Albumin (3.8-4.9) d/dL Albumin/Globulin Ratio (1.60-3.17) Ratio 09/23/23 09/23/23 09/23/23 Range/Units 05:22 05:22 05:22 MCH 25.9 L (27.0-32.0) pg MCHC 31.7 L (32.0-37.0) d/dL RDW 16.9 H (11.5-15.5) % NRBC/100 WBC Diff 0.03 H (0.00-0.01) X 10*3/uL APTT 54.1 H (22.0-30.0) sec Carbon Dioxide 20.9 L (21.6-31.8) mmol/L BUN 6.2 L (9.0-27.0) mg/dL BUN/Creatinine Ratio 8.86 L (12.00-20.00) Ratio Calcium 8.2 L (8.7-10.3) mg/dL AST 67 H (13-35) U/L ALT 56 H (8-44) U/L Total Protein 5.6 L (6.2-8.2) d/dL Albumin 2.9 L (3.8-4.9) d/dL Albumin/Globulin Ratio 1.07 L (1.60-3.17) Ratio
[2023-09-23] MEDS: KETOROLAC 15 MG/ML 1 ML VIAL IVP PRN (11:43)
[2023-09-23 12:09] LABS: Elliptocytes 2+; Eosinophils # (M) 0 X 10*3/uL (0.04-0.35); Lymphocytes # (M) 7.57 X 10*3/uL (0.90-5.00); Microcytosis (M) 2+; Monocytes # (M) 0.49 X 10*3/uL (0.20-1.00); Neutrophils # (M) 1.67 X 10*3/uL (1.80-7.70); Neutrophils % (M) 17 %
--- NOTE | 2023-09-23 13:30 | MR ---
EXAMINATION TYPE: MR abdomen wo/w con DATE OF EXAM: 09/23/2023 1:03 PM CLINICAL INDICATION:Female, 43 years old with history of abdominal pain, evaluate spleen; Abdominal p ain, abnormal CT. COMPARISON: CT scan abdomen from 09/21/2023. TECHNIQUE: Multiplanar multi-sequence imaging was performed without contrast. Post contrast imaging was performed. Post IV contrast subtraction images were also submitted for review. IV Contrast: 13 cc Gadavist FINDINGS: LOWER CHEST: No gross irregularity. ABDOMEN Liver: No evidence for hepatic steatosis or cirrhosis. Gallbladder and Bile ducts: No evidence for ductal dilation, or biliary stricture or evidence of chol edocholithiasis. The gallbladder is within normal limits. Pancreas: No ductal dilation. No evidence for solid mass. Spleen: Areas of concern within the spleen do not demonstrate postcontrast enhancement. These are sim ilar in morphology to CT. These extend towards the periphery and there are wedge-shape. The vasculatu re of the spleen appears patent. Adrenal glands: Unremarkable. Kidneys: No evidence for obstructive uropathy. No suspicious renal masses. Stomach and Bowel: No evidence for bowel wall thickening or evidence for obstruction.. Peritoneum: No evidence of pneumoperitoneum or free fluid. Vasculature: No aortic aneurysm. Splenic vein in the splenic artery appear patent Musculoskeletal: The osseous structures appear intact. Lymph Nodes: No gross evidence for lymphadenopathy. Abdominal wall: Unremarkable. IMPRESSION: Findings within the spleen are favored represent splenic infarcts. No suspicious masses.
--- NOTE | 2023-09-23 13:57 | P.PN ---
Subjective Progress Note Date: 09/23/23 Principal diagnosis: Possible Splenic infarct This is a pleasant 43-year-old female who presented to the emergency department yesterday with complaints of left-sided abdominal pain. Patient states that it started 2-3 days ago. The pain is mostly on the left lower abdomen where she states she's had ovarian cysts in the past. States the pain is similar. It is a constant crampy feeling worse with palpation. Apparently the patient also has been sick with an upper respiratory infection over the last week and then prior to coming into the hospital she states that she had a day or so of nausea and vomiting and diarrhea. She denied any blood in her emesis or stool. Past m edical history includes hypertension, bipolar, back pain, ovarian cysts, cholecystectomy, and tubal ligation. Patient is a every day smoker, denies any regular alcohol consumption. She underwent abdominal x-ray that showed nonspecific bowel gas pattern without evidence for acute process. She was noted to have elevated d-dimer. She underwent a CT of the abdomen and pelvis which had distal cord and report and findings. In the body of the report that stated low density nonenhancing areas in the spleen however in the impression it states low density nonenhancing area seen within the liver which could represent infarct. Gastroenterology was consulted for liver infarction. Patient denies any previous history of clotting disorder, no recent new medications. Denies any history of liver disease. Denies any recent trauma or falls. Admitting labs WBC 15.9 hemoglobin 12.6 hematocrit 39 platelet count 225,000 d-dimer 2.39 sodium 136 potassium 4.0 BUN 9 creatinine 0.85 glucose 89 total bilirubin 0.7 AST 76 ALT 61 alkaline phosphatase 1:15 amylase 33 and lipase 68 09/23/2023 Patient seen and examined today as a follow-up. States she still has pain in the left side of her abdomen mostly in the left lower and flank region. States she vomited once through the night. No nausea or vomiting currently. She is waiting for MRI of pancreas. History patient underwent a liver ultrasound that reported hypoechoic lesion by ultrasound appears to correspond to hypodense lesion on CT exam. Transvaginal ultrasound also completed reporting a right ovarian cyst recommend follow-up in 6 weeks. AST ALT trending down. Objective - Vital Signs Vital signs: Vital Signs Temp 98.9 F 09/23/23 07:00 Pulse 77 09/23/23 07:00 Resp 17 09/23/23 07:00 BP 149/72 09/23/23 07:00 Pulse Ox 96 09/23/23 07:00 FiO2 Intake & Output 09/22/23 09/23/23 09/23/23 18:59 06:59 18:59 Intake Total 250.000 162.825 Balance 250.000 162.825 Weight 127.006 kg Intake: Intake, IV Titration 250.000 162.825 Amount Heparin Sod,Pork in 0.45% 250.000 162.825 NaCl 25,000 unit In 0.45 % NaCl 1 250ml.bag @ 18 UNITS/KG/HR 22.861 mls/hr IV .[id number] [facility] Rx#: [id number] Other: # Voids 1 # Bowel Movements 0 - Exam General appearance: The patient is alert, oriented, appears in no acute distress. HET: Head is normocephalic and atraumatic. Conjunctiva pink. Sclera anicteric. Neck: Supple without lymphadenopathy. Abdomen: Soft, left lower quadrant tenderness and flank tenderness, nondistended. Guarding but no rigidity. Extremities: Normal skin color and turgor. No pedal edema Skin: No rashes, no jaundice Neurological: No focal deficits. Alert and oriented. - Labs CBC & Chem 7: 09/23/23 05:22 09/23/23 05:22 Labs: Abnormal Lab Results - Last 24 Hours (Table) 09/22/23 09/22/23 09/22/23 Range/Units 09:15 12:58 22:40 MCH (27.0-32.0) pg MCHC (32.0-37.0) d/dL RDW 15.8 H (11.5-15.5) % NRBC/100 WBC Diff (0.00-0.01) X 10*3/uL APTT 150.2 H* 48.5 H (22.0-30.0) sec Carbon Dioxide (21.6-31.8) mmol/L BUN (9.0-27.0) mg/dL BUN/Creatinine Ratio (12.00-20.00) Ratio Calcium (8.7-10.3) mg/dL AST (13-35) U/L ALT (8-44) U/L Total Protein (6.2-8.2) d/dL Albumin (3.8-4.9) d/dL Albumin/Globulin Ratio (1.60-3.17) Ratio 09/23/23 09/23/23 09/23/23 Range/Units 05:22 05:22 05:22 MCH 25.9 L (27.0-32.0) pg MCHC 31.7 L (32.0-37.0) d/dL RDW 16.9 H (11.5-15.5) % NRBC/100 WBC Diff 0.03 H (0.00-0.01) X 10*3/uL APTT 54.1 H (22.0-30.0) sec Carbon Dioxide 20.9 L (21.6-31.8) mmol/L BUN 6.2 L (9.0-27.0) mg/dL BUN/Creatinine Ratio 8.86 L (12.00-20.00) Ratio Calcium 8.2 L (8.7-10.3) mg/dL AST 67 H (13-35) U/L ALT 56 H (8-44) U/L Total Protein 5.6 L (6.2-8.2) d/dL Albumin 2.9 L (3.8-4.9) d/dL Albumin/Globulin Ratio 1.07 L (1.60-3.17) Ratio Assessment and Plan (1) Abdominal pain Narrative/Plan: 43-year-old who reported to the emergency department with complaints of lower left abdominal pain starting 2-3 days ago. Patient recently sick with acute upper respiratory infection followed by nausea vomiting and diarrhea 1-2 days prior to this admission. She was known to have elevated d-dimer. Denies any previous history of blood clots or clotting disorders. She underwent CT abdomen and pelvis that initially reported possible liver infarct however has been addended that areas of concern were noted in the spleen. Patient has been started on IV heparin drip with general surgery on consult. She denies any abdominal trauma or falls. Patient does state that she has history of ovarian cysts. No further nausea or vomiting, no fevers or chills. Still has an achy d iscomfort in the left lower abdomen. Liver ultrasound ordered. Current Visit: Yes Status: Acute Code(s): R10.9 - UNSPECIFIED ABDOMINAL PAIN SNOMED Code(s): 90246186 (2) Elevated LFTs Narrative/Plan: Patient with mildly elevated LFTs noted on previous emergency room visit on 09/18/2023 as well as this admission. 77 and 76 respectively ALT mildly e levated as well 65 on previous admission and 61 on this admission. Normal LFTs in the past. No new medications or antibiotics. May be reactive to possible splenic infarct. Current Visit: Yes Status: Acute Code(s): R79.89 - OTHER SPECIFIED ABNORMAL FINDINGS OF BLOOD CHEMISTRY SNOMED Code(s): 465052764 (3) Splenic infarct Narrative/Plan: CT abdomen and pelvis with and without contrast reviewed stating that findings within the spleen are favored to represent splenic infarcts. No suspicious masses. Will recommend a hematology consult for further recommendations on anticoagulation. Current Visit: Yes Status: Acute Code(s): D73.5 - INFARCTION OF SPLEEN SNOMED Code(s): 84907438 Plan: 1. Continue symptomatic and supportive care 2. MRI abdomen reviewed 3. Continue heparin drip for now, will consult hematology for further recommendations on anticoagulation 4. Patient may have regular diet if cleared by surgery 5. Appreciate recommendations from general surgery 6. There is no indication for any further gastroenterology workup Thank you for this consultation, we will sign off at this time. Dr. Albin Telles I agree with the dictator's note, documented as a scribe by Reshma Santoyo.
--- NOTE | 2023-09-23 14:36 | P.PN ---
Subjective Progress Note Date: 09/23/23 CHIEF COMPLAINT: Left-sided abdominal pain HISTORY OF PRESENT ILLNESS: Patient continues to complain of pain along the left side of her abdomen. She denies any nausea or vomiting. Abdominal ultrasound report Hypoechoic lesion noted in spleen. Transvaginal ultrasound noted a right ovarian cyst. Abdomen MRI findings within the spleen favored to represent splenic infarcts. No suspicious masses. Patient remains on IV heparin. Afebrile. WBC is 9.83 Hgb 12.5 platelet 194 PHYSICAL EXAM: VITAL SIGNS: Reviewed. GENERAL: Well-developed in no acute distress. ABDOMEN: Soft. Nondistended. Tenderness with palpation along the left side of the abdomen from the upper left to left lower quadrant. Left flank tenderness NEUROLOGIC: Alert and oriented. Cranial nerves II through XII grossly intact. ASSESSMENT: 1. Left-sided abdominal pain 2. Splenic infarct PLAN: -No surgical intervention planned -Continue IV heparin -Agree with consulting hematology for anticoagulation recommendations for s plenic infarct -Agree with advancing diet Physician Truck Hopper note has been reviewed by physician. Signing provider agrees with the documented findings, assessment, and plan of care. Objective - Vital Signs Vital signs: Vital Signs Temp 98.9 F 09/23/23 07:00 Pulse 77 09/23/23 07:00 Resp 17 09/23/23 07:00 BP 149/72 09/23/23 07:00 Pulse Ox 96 09/23/23 07:00 FiO2 Intake & Output 09/22/23 09/23/23 09/23/23 18:59 06:59 18:59 Intake Total 250.000 162.825 Balance 250.000 162.825 Weight 127.006 kg Intake: Intake, IV Titration 250.000 162.825 Amount Heparin Sod,Pork in 0.45% 250.000 162.825 NaCl 25,000 unit In 0.45 % NaCl 1 250ml.bag @ 18 UNITS/KG/HR 22.861 mls/hr IV .[id number] [facility] Rx#: [id number] Other: # Voids 1 # Bowel Movements 0 - Labs CBC & Chem 7: 09/23/23 05:22 09/23/23 05:22 Labs: Abnormal Lab Results - Last 24 Hours (Table) 09/22/23 09/22/23 09/23/23 Range/Units 12:58 22:40 05:22 MCH 25.9 L (27.0-32.0) pg MCHC 31.7 L (32.0-37.0) d/dL RDW 16.9 H (11.5-14.5) % Lymphocytes # (Manual) 7.57 H (0.90-5.00) X 10*3/uL Eosinophils # (Manual) 0 L (0.04-0.35) X 10*3/uL NRBC/100 WBC Diff 0.03 H (0.00-0.01) X 10*3/uL Microcytosis (manual) 2+ A Elliptocytes 2+ A APTT 150.2 H* 48.5 H (22.0-30.0) sec Carbon Dioxide (21.6-31.8) mmol/L BUN (9.0-27.0) mg/dL BUN/Creatinine Ratio (12.00-20.00) Ratio Calcium (8.7-10.3) mg/dL AST (13-35) U/L ALT (8-44) U/L Total Protein (6.2-8.2) d/dL Albumin (3.8-4.9) d/dL Albumin/Globulin Ratio (1.60-3.17) Ratio 09/23/23 09/23/23 Range/Units 05:22 05:22 MCH (27.0-32.0) pg MCHC (32.0-37.0) d/dL RDW (11.5-14.5) % Lymphocytes # (Manual) (0.90-5.00) X 10*3/uL Eosinophils # (Manual) (0.04-0.35) X 10*3/uL NRBC/100 WBC Diff (0.00-0.01) X 10*3/uL Microcytosis (manual) Elliptocytes APTT 54.1 H (22.0-30.0) sec Carbon Dioxide 20.9 L (21.6-31.8) mmol/L BUN 6.2 L (9.0-27.0) mg/dL BUN/Creatinine Ratio 8.86 L (12.00-20.00) Ratio Calcium 8.2 L (8.7-10.3) mg/dL AST 67 H (13-35) U/L ALT 56 H (8-44) U/L Total Protein 5.6 L (6.2-8.2) d/dL Albumin 2.9 L (3.8-4.9) d/dL Albumin/Globulin Ratio 1.07 L (1.60-3.17) Ratio Microbiology - Last 24 Hours (Table) 09/21/23 16:55 Urine Culture - Final Urine,Voided
[2023-09-24] MEDS: SODIUM CHLORIDE 0.9% 1,000 ML IV SCH ×3 (01:33→20:06)
[2023-09-24] MEDS: HEPARIN SOD,PORK IN 0.45% NACL 25,000 UNIT in 0.45% NACL 1 250ML.BAG IV SCH ×2 (03:40→13:21)
[2023-09-24] MEDS: FAMOTIDINE 20 MG TAB PO SCH (08:39)
[2023-09-24] MEDS: FLUoxetine HCL 20 MG CAP PO SCH (08:39)
[2023-09-24] MEDS: OXcarbazepine 300 MG TAB PO SCH ×2 (08:40→20:06)
[2023-09-24] MEDS: MORPHINE SULFATE 4 MG/ML SYRINGE IV PRN ×3 (08:40→17:56)
[2023-09-24] MEDS: KETOROLAC 15 MG/ML 1 ML VIAL IVP PRN ×2 (11:41→20:06)
--- NOTE | 2023-09-24 13:45 | P.PN ---
Subjective Progress Note Date: 09/24/23 CHIEF COMPLAINT: Left-sided abdominal pain HISTORY OF PRESENT ILLNESS: Patient continues to complain of pain along the left side of her abdomen. She denies any nausea or vomiting. She reports relief in pain with laying on the left side of the abdomen. She did report vomiting yesterday because she thinks she ate too fast. She was up to tolerate breakfast. She is having bowel movements. Patient be seen by hematology for further anticoagulation recommendations. PHYSICAL EXAM: VITAL SIGNS: Reviewed. GENERAL: Well-developed in no acute distress. ABDOMEN: Soft. Nondistended. Tenderness with palpation along the left side of the abdomen from the upper left to left lower quadrant. Left flank tenderness NEUROLOGIC: Alert and oriented. Cranial nerves II through XII grossly intact. ASSESSMENT: 1. Left-sided abdominal pain 2. Splenic infarct PLAN: -No surgical intervention planned -Continue IV heparin -Awaiting further hematology recommendations -Continue regular diet Physician Livestock Feeder note has been reviewed by physician. Signing provider agrees with the documented findings, assessment, and plan of care. Objective - Vital Signs Vital signs: Vital Signs Temp 97.6 F 09/24/23 07:38 Pulse 78 09/24/23 08:00 Resp 16 09/24/23 08:00 BP 123/78 09/24/23 07:38 Pulse Ox 94 L 09/24/23 07:38 FiO2 Intake & Output 09/23/23 09/24/23 09/24/23 18:59 06:59 18:59 Intake Total 280.872 116.594 327.584 Balance 280.872 116.594 327.584 Intake: Intake, IV Titration 162.872 116.594 147.584 Amount Heparin Sod,Pork in 0.45% 162.872 116.594 147.584 NaCl 25,000 unit In 0.45 % NaCl 1 250ml.bag @ 18 UNITS/KG/HR 22.861 mls/hr IV .[id number] [facility] Rx#: [id number] Oral 118 180 Other: # Voids 2 2 - Labs CBC & Chem 7: 09/23/23 05:22 09/23/23 05:22 Labs: Abnormal Lab Results - Last 24 Hours (Table) 09/23/23 09/24/23 Range/Units 05:22 05:42 Neutrophils # (Manual) 1.67 L (1.80-7.70) X 10*3/uL APTT 46.7 H (22.0-30.0) sec Microbiology - Last 24 Hours (Table) 09/21/23 16:55 Urine Culture - Final Urine,Voided
[2023-09-24 14:36] LABS: African American GFR (CKD) >90 (>60 ml/min/1.73 sqM); Anion Gap 3 mmol/L; Blood Urea Nitrogen 7 mg/dL (7-17); Calcium 7.9 mg/dL (8.4-10.2); Carbon Dioxide 23 mmol/L (22-30); Chloride 109 mmol/L (98-107); Glucose 95 mg/dL (74-99); Non-African American GFR(CKD) >90 (>60 ml/min/1.73 sqM); Potassium 4.1 mmol/L (3.5-5.1); Sodium 135 mmol/L (137-145)
--- NOTE | 2023-09-24 15:07 | US ---
EXAMINATION TYPE: US venous doppler duplex LE BI DATE OF EXAM: 09/24/2023 2:58 PM COMPARISON: 05/20/2021 CLINICAL INDICATION: Female, 43 years old with history of r/o thrombus, dx splenic infarct; On IV hep otis. No redness or swelling. SIDE PERFORMED: Bilateral TECHNIQUE: The lower extremity deep venous system is examined utilizing real time linear array sonog genet with graded compression, doppler sonography and color-flow sonography. VESSELS IMAGED: Common Femoral Vein Deep Femoral Vein Greater Saphenous Vein * Femoral Vein Popliteal Vein Small Saphenous Vein * Proximal Calf Veins (* superficial vessels) Right Leg: Negative for DVT Left Leg: Negative for DVT IMPRESSION: Grayscale, color doppler, spectral doppler imaging performed of the deep veins of the lo wer extremities. There is normal flow, compressibility, vascular waveforms.
--- NOTE | 2023-09-24 15:21 | P.PN ---
Subjective Progress Note Date: 09/24/23 Hospital course: Patient is a 43-year-old female with a past medical history of bipolar disorder. She presented to the emergency department on 09/21/23 with a chief complaint of abdominal pain. Patient underwent full evaluation in the emergency department. CBC showing leukocytosis with WBC count of 15.9. BMP revealing hyponatremia with sodium 136 and elevated liver enzymes with AST of 76, ALT is 61, an alkaline phosphatase of 115. Urinalysis contaminated. Covid PCR negative. D- dimer was elevated at 2.39. CT abdomen and pelvis with contrast was completed showing lower density nonenhancing areas within the spleen 1 appearing linear and other reported to be more masslike, unable to rule out infarct. Patient was started on heparin infusion and admitted under our services with consultation to Gen. surgery and gastroenterology. Abdominal MRI shows findings consistent with splenic infarcts. Lower extremity Dopplers negative for DVT. Hematology consulted. Physical exam: Vital signs reviewed and stable. General: Nontoxic, no distress and appears stated age. Derm: Skin warm and dry, normal coloration for ethnicity. Head: Atraumatic, normocephalic and symmetric. Eyes: EOMs intact, no lid lag, and anicteric sclera Mouth: no lip lesions, mucus membranes moist Cardiovascular: regular rate and rhythm with normal S1S2, no murmur, positive posterior tibial pulses bilaterally, and cap refill < 2 seconds. Lungs: Respirations even, regular, and unlabored on room air. Lungs CTA bilaterally, no rhonchi, no rales, no wheezing, and no accessory muscle usage. Abdominal: soft, diffuse tenderness to palpation in left upper and lower quadrants, pain appears worse in left upper quadrant Ext: ROM intact. No gross muscle atrophy, no edema, no contractures Neuro: Speech clear, face symmetrical and CN II-XII grossly intact with no noted focal neuro deficits Psych: Alert and oriented to person, place, time, and situation. Appropriate and pleasant affect. Assessment and Plan of Care: Splenic infarcts Left-sided abdominal pain Elevated liver enzymes Elevated d-dimer, believed to be secondary to above -Continuation of high intensity heparin infusion, monitor for bleeding, daily CBC -Gastroenterology following -Gen. surgery note reviewed, no interventions planned -Continue with gentle IV fluid hydration reduced 0.9% normal saline infusion to 100 mL per hour. -Hematology consulted, consider transitioning off of IV heparin to oral anticoagulation Bipolar disorder Continue daily medication regimen with Prozac 60 mg daily and oxcarbazepine 900 mg twice daily with when necessary Valium 5 mg as needed for anxiety. Data reviewed: APTT 46.7, sodium 135, creatinine 0.7 -Abdominal MRI report reviewed, shows findings consistent with splenic infarcts -Lower extremity Dopplers, no DVT noted CODE STATUS: Full code DVT prophylaxis: Heparin infusion Anticipated discharge date: Likely tomorrow Anticipated discharge place: Home Objective - Vital Signs Vital signs: Vital Signs Temp 97.8 F 09/24/23 14:00 Pulse 75 09/24/23 14:00 Resp 18 09/24/23 14:00 BP 130/83 09/24/23 14:00 Pulse Ox 96 09/24/23 14:00 FiO2 Intake & Output 09/23/23 09/24/23 09/24/23 18:59 06:59 18:59 Intake Total 280.872 116.594 327.584 Balance 280.872 116.594 327.584 Intake: Intake, IV Titration 162.872 116.594 147.584 Amount Heparin Sod,Pork in 0.45% 162.872 116.594 147.584 NaCl 25,000 unit In 0.45 % NaCl 1 250ml.bag @ 18 UNITS/KG/HR 22.861 mls/hr IV .[id number] [facility] Rx#: [id number] Oral 118 180 Other: # Voids 2 2 - Labs CBC & Chem 7: 09/23/23 05:22 09/24/23 13:23 Labs: Abnormal Lab Results - Last 24 Hours (Table) 09/23/23 09/24/23 09/24/23 Range/Units 05:22 05:42 13:23 Neutrophils # (Manual) 1.67 L (1.80-7.70) X 10*3/uL APTT 46.7 H (22.0-30.0) sec Sodium 135 L (137-145) mmol/L Chloride 109 H (98-107) mmol/L Calcium 7.9 L (8.4-10.2) mg/dL
--- NOTE | 2023-09-24 17:57 | CT ---
EXAMINATION TYPE: CT angio abdomen pelvis, without and with contrast and with 3-D reconstruction monica otscano at an independent workstation DATE OF EXAM: 09/24/2023 HISTORY: R/o thrombus, splenic infarct noted on MRI. Inpatient. CT DLP: 2830.60mGycm Automated Exposure Control for Dose Reduction was Utilized. CONTRAST: CT scan of the abdomen and pelvis is performed with IV Contrast, patient injected with 100 mL of Isovue 370. COMPARISON: CT 09/21/2022; MR abdomen 09/23/2023 FINDINGS: LUNG BASES: No significant abnormality is appreciated. LIVER/GB: No significant abnormality is appreciated. PANCREAS: No significant abnormality is seen. SPLEEN: The known two splenic hypodense lesions are redemonstrated and unchanged. Mild splenomegaly r edemonstrated, stable. ADRENALS: No significant abnormality is seen. KIDNEYS: No significant abnormality is seen. BOWEL: No bowel dilation. No focal inflammatory change. Appendix is unremarkable. PERITONEAL CAVITY: There is a [id number] volume of cul-de-sac fluid in the pelvis. No other pe ritoneal fluid. No pneumoperitoneum. VASCULATURE: The precontrast data set is negative for evidence of intramural hematoma or other acute aortic proces s. There are generalized atherosclerotic changes seen throughout the aorta, relatively mild in degree. The visualized distal thoracic aorta is not dilated. Abdominal aorta is not dilated. The celiac axis, SMA, and ALPHONSE are widely patent, as are the bilateral renal arteries. The splenic artery arises from the celiac axis and has normal caliber; it is widely patent and unremarkable throughout its extent. The splenic vein is also contrast-opacified and unrema rkable, as is the portal venous system. Aortoiliac inflow is widely patent, as are the bilateral common, external, and internal iliac arterie s. The bilateral [employer] and visualized proximal profunda/superficial femoral arteries are also patent. LYMPH NODES: No greater than 1 cm abdominal or pelvic lymph nodes. PELVIC VISCERA: No gross abnormality seen. OSSEOUS STRUCTURES: No aggressive lesion. Limitation of the study: CT a contrast opacification is only arterial. Without intravenous contrast contrast-enhancement there is limited CT sensitivity for focal visceral lesions, filling defects, and venous pathology. IMPRESSION: Stable splenic findings. Unremarkable CTA. Pelvic cul-de-sac fluid noted.
[2023-09-24] MEDS: ONDANSETRON 4 MG/2 ML VIAL IVP PRN (18:02)
[2023-09-25 05:17] LABS: Cardiolipin Ab IgG Interp Negative (Negative); Cardiolipin Ab IgM Interp Negative (Negative); Cardiolipin IgA Antibody <2.0 U/mL; Cardiolipin IgM Antibody <1.5 U/mL
[2023-09-25] MEDS: ONDANSETRON 4 MG/2 ML VIAL IVP PRN ×2 (05:35→20:03)
[2023-09-25] MEDS: MORPHINE SULFATE 4 MG/ML SYRINGE IV PRN ×3 (05:35→20:04)
[2023-09-25] MEDS: HEPARIN SOD,PORK IN 0.45% NACL 25,000 UNIT in 0.45% NACL 1 250ML.BAG IV SCH ×3 (05:36→20:04)
[2023-09-25] MEDS: SODIUM CHLORIDE 0.9% 1,000 ML IV SCH ×2 (05:39→11:00)
[2023-09-25] MEDS: OXcarbazepine 300 MG TAB PO SCH ×2 (08:40→20:04)
[2023-09-25] MEDS: FAMOTIDINE 20 MG TAB PO SCH (08:40)
[2023-09-25] MEDS: FLUoxetine HCL 20 MG CAP PO SCH (08:40)
[2023-09-25 08:46] LABS: BUN/Creat Ratio 9.25 Ratio (12.00-20.00); Blood Urea Nitrogen 7.4 mg/dL (9.0-27.0); Calcium 8.4 mg/dL (8.7-10.3); Carbon Dioxide 25.4 mmol/L (21.6-31.8); Chloride 107 mmol/L (96-109); Glucose 86 mg/dL (70-110); Potassium 4.4 mmol/L (3.5-5.5); Sodium 139 mmol/L (135-145)
[2023-09-25] MEDS ORDERED: fentaNYL (PF) 50 MCG/ML 2 ML AMP ONE (09:44)
--- NOTE | 2023-09-25 10:01 | P.CRDCN ---
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 She has a PMH of borderline HTN and borderline DM. We have been asked to evaluate the patient for need for echo/Samira/o thrombus with diagnosis of splenic infarct. Patient states that she was having abdominal pain for the past 2 weeks and thought it was her ovaries. She has also had nausea and vomiting. She's never had these symptoms before. She is normally quite active and does not have any chest pain or shortness of breath with activity. She denies having any dizziness no syncope episodes. She has occasional cough. She's had no blood in her urine or stool. Patient is active smoker of half a pack per day. She denies any alcohol use. Patient has been maintained on heparin drip. CTA of the abdomen and pelvis reveals stable splenic findings with known to splenic hypodense lesions are demonstrated and unchanged. Mild splenomegaly redemonstrated. WBC 9.8, hemoglobin 12.5, platelet count 194. Electrolytes normal. BUN 7.4, creatinine 0.8. Home cardiac medications: None Review Of Systems: At the time of my evaluation: Constitutional: No fever, no chills. No weakness, fatigue or lethargy. EENT: No headache. No dizziness. Lungs: No shortness of breath, cough, no sputum production. No wheezing. Cardiovascular: No chest pain, no lower extremity edema. No palpitations. No paroxysmal nocturnal dyspnea. No orthopnea. No lightheadedness or dizziness. No syncopal episodes. Abdominal: + abdominal pain. + nausea, +vomiting. No diarrhea. No constipation. No bloody or tarry stools. Genitourinary: No dysuria. Musculoskeletal: No myalgias. No muscle weakness, no frequent falls. Integumentary: No wounds. No rash. No unusual bruising. Neurologic: No aphasia. No facial droop. No change in mentation. Physical examination: Gen: This is a 43-year-old female resting in bed and appears to be fairly comfortable. VS: reviewed HEENT: Head is atraumatic, normocephalic. Pupils equal, round. Sclerae is anicteric. NECK: Supple. No JVD. . LUNGS: Clear to auscultation. No wheezes or rhonchi. No intercostal retractions. HEART: Regular rate and rhythm. Soft murmur. ABDOMEN: Soft + left-sided tenderness. EXTREMITIES: No pedal edema. No calf tenderness. NEUROLOGICAL: Patient is awake, alert and oriented x3. Assessment: Splenic infarcts Left-sided abdominal pain Borderline hypertension Borderline diabetes Plan: Patient will be scheduled for FABBY today with Dr. Alvarez Further recommendations to follow based upon clinical course Thank you kindly for this consultation. Nurse practitioner note has been reviewed, I agree with documented findings and plan of care. Patient was seen and examined. Past Medical History Past Medical History: Hypertension Additional Past Medical History / Comment(s): back pain, " numbed the nerves" in back, rt knee torn meniscus, bipolar, ovarian cyst History of Any Multi-Drug Resistant Organisms: None Reported Past Surgical History: Cholecystectomy, Orthopedic Surgery, Tubal Ligation Additional Past Surgical History / Comment(s): left breast milk duct removal and reconstruction, right knee Past Anesthesia/Blood Transfusion Reactions: No Reported Reaction Past Psychological History: Anxiety, Bipolar, Depression, Schizophrenia Smoking Status: Current every day smoker Past Alcohol Use History: None Reported Additional Past Alcohol Use History / Comment(s): 1ppd, SINCE 18 YR. Past Drug Use History: None Reported - Past Family History Mother Family Medical History: Unable to Obtain Medications and Allergies Home Medications Medication Instructions Recorded Confirmed Type FLUoxetine HCL [PROzac] 40 mg PO DAILY 08/16/21 09/21/23 History OXcarbazepine 600 mg PO BID 08/16/21 09/21/23 History FLUoxetine HCL [PROzac] 20 mg PO DAILY 01/08/22 09/21/23 History Famotidine [Pepcid] 20 mg PO DAILY 14 Days #14 tablet 09/18/23 09/21/23 Rx OXcarbazepine [Trileptal] 300 mg PO BID 09/18/23 09/21/23 History diazePAM [Valium] 5 mg PO BID PRN 09/18/23 09/21/23 History Allergies Allergy/AdvReac Type Severity Reaction Status Date / Time Bleach (Sodium Hypochlorite) Allergy Rash/Hives Verified 09/21/23 22:50 cephalexin [From Keflex] Allergy Rash/Hives Verified 09/21/23 22:50 soap Allergy Rash/Hives Verified 09/21/23 22:50 Physical Exam Vitals: Vital Signs Temp Pulse Resp BP Pulse Ox 09/25/23 02:00 97.6 F 69 16 114/66 95 09/24/23 20:00 75 18 09/24/23 19:00 98.0 F 73 15 110/76 100 09/24/23 14:00 97.8 F 75 18 130/83 96 09/24/23 08:00 78 16 09/24/23 07:38 97.6 F 78 16 123/78 94 L Intake and Output 09/24/23 09/25/23 09/25/23 22:59 06:59 14:59 Intake Total 247.666 Balance 247.666 Intake: Intake, IV Titration 247.666 Amount Heparin Sod,Pork in 0.45% 247.666 NaCl 25,000 unit In 0.45 % NaCl 1 250ml.bag @ 18 UNITS/KG/HR 22.861 mls/hr IV .[id number] [facility] Rx#: [id number] Other: # Voids 2 # Bowel Movements 0 Results 09/23/23 05:22 09/25/23 05:15 Coagulation 09/24/23 09/25/23 Range/Units 05:42 05:15 APTT 46.7 H 45.0 H (22.0-30.0) sec Comprehensive Metabolic Panel 09/24/23 Range/Units 13:23 Sodium 135 L (137-145) mmol/L Potassium 4.1 (3.5-5.1) mmol/L Chloride 109 H (98-107) mmol/L Carbon Dioxide 23 (22-30) mmol/L BUN 7 (7-17) mg/dL Creatinine 0.70 (0.52-1.04) mg/dL Glucose 95 (74-99) mg/dL Calcium 7.9 L (8.4-10.2) mg/dL Current Medications Generic Name Dose Route Start Last Admin Trade Name Freq PRN Reason Stop Dose Admin Acetaminophen 650 mg 09/21/23 22:41 09/22/23 01:31 Acetaminophen Tab 325 Mg Tab PO 650 mg Q6HR PRN Administration Mild Pain or Fever > 100.5 Diazepam 5 mg 09/22/23 11:41 Diazepam 5 Mg Tab PO BID PRN Anxiety Famotidine 20 mg 09/22/23 09:00 09/24/23 08:39 Famotidine 20 Mg Tab PO 20 mg DAILY [facility] Administration Fluoxetine HCl 60 mg 09/22/23 09:00 09/24/23 08:39 Fluoxetine Hcl 20 Mg Cap PO 60 mg DAILY [facility] Administration Heparin Sodium (Porcine) 0 unit 09/22/23 06:23 Heparin Sodium 1,000 Un/Ml (10ml Vl) IV PER PROTOCOL PRN Low PTT Protocol Sodium Chloride 1,000 mls @ 100 mls/hr 09/21/23 22:45 09/25/23 05:39 Saline 0.9% IV 100 mls/hr .Q10H [facility] Administration Heparin Sodium/Sodium Chloride 250 mls @ 22.861 mls/hr 09/22/23 06:30 09/25/23 05:36 25,000 unit/ Sodium Chloride IV 12 units/kg/hr .[id number] [facility] 15.241 mls/hr Administration Protocol 18 UNITS/KG/HR Morphine Sulfate 4 mg 09/21/23 22:41 09/25/23 05:35 Morphine Sulfate 4 Mg/Ml Syringe IV 4 mg Q4HR PRN Administration Severe Pain (Scale 7 to 10) Naloxone HCl 0.2 mg 09/21/23 22:41 Naloxone 0.4 Mg/Ml 1 Ml Vial IV Q2M PRN Opioid Reversal Ondansetron HCl 4 mg 09/22/23 10:10 09/25/23 05:35 Ondansetron 4 Mg/2 Ml Vial IVP 4 mg Q6HR PRN Administration Nausea And Vomiting Oxcarbazepine 900 mg 09/22/23 09:00 09/24/23 20:06 Oxcarbazepine 300 Mg Tab PO 900 mg BID [facility] Administration Intake and Output 09/24/23 09/25/23 09/25/23 22:59 06:59 14:59 Intake Total 247.666 Balance 247.666 Intake: Intake, IV Titration 247.666 Amount Heparin Sod,Pork in 0.45% 247.666 NaCl 25,000 unit In 0.45 % NaCl 1 250ml.bag @ 18 UNITS/KG/HR 22.861 mls/hr IV .[id number] [facility] Rx#: [id number] Other: # Voids 2 # Bowel Movements 0 09/23/23 05:22 09/24/23 13:23
[2023-09-25] MEDS ORDERED: BENZOCAINE SPRAY 1 CAN MUCOUS MEM ONE (10:07)
[2023-09-25] MEDS ORDERED: IV FLUID CONTINUATION 1,000 ML IV ONE (10:08)
[2023-09-25] MEDS ORDERED: fentaNYL (PF) 50 MCG/ML 2 ML AMP IVP ONE (10:20)
[2023-09-25] MEDS ORDERED: MIDAZOLAM 2 MG/2 ML VIAL IVP ONE ×2 (10:20→10:29)
--- NOTE | 2023-09-25 10:36 | P.PCN ---
Date of Procedure: 09/25/23 Description of Procedure: Indication: Splenic infarct Procedure Description: After explaining the procedure to the patient, it's risk and complications, blood pressure, heart rate and O2 saturation were monitored. The throat was sprayed with Cetacaine. Patient received 3 mg intravenous Versed, 50 mcg intra venous fentanyl. The probe was introduced into the esophagus without difficulty. Images were obtained. Following that, the probe was removed. There was no immediate complication. Findings: Left atrial size is normal, left atrial appendage is normal. left ventricular size and systolic function are normal. Aortic valve, mitral valve and tricuspid valve are normal. Descending thoracic aorta is normal. Contrast bubble study revealed no shunting across the intra-atrial septum with Valsalva maneuver. No pericardial effusion Doppler: Pulse wave and color Doppler were obtained, and revealed mild mitral regurgitation. There was no shunting by color Doppler study Conclusion: 1. Normal left ventricular size and systolic function 2. Normal appearance of the left atrial appendage 3. No evidence of shunting 4. Mild mitral regurgitation 5. Normal appearance of the descending thoracic aorta.
--- NOTE | 2023-09-25 10:59 | P.PN ---
Subjective Progress Note Date: 09/25/23 CHIEF COMPLAINT: Left-sided abdominal pain HISTORY OF PRESENT ILLNESS: Patient continues to complain of pain along the left side of her abdomen. She did report an episode of vomiting yesterday after lunch. But she was able to tolerate her dinner. She currently denies any nausea. Her pain is controlled. She is scheduled for a FABBY today. CTA of the abdomen had reported stable splenic findings. Patient seen by hematology. PHYSICAL EXAM: VITAL SIGNS: Reviewed. GENERAL: Well-developed in no acute distress. ABDOMEN: Soft. Nondistended. Tenderness with palpation along the left side of the abdomen from the upper left to left lower quadrant. Left flank tenderness NEUROLOGIC: Alert and oriented. Cranial nerves II through XII grossly intact. ASSESSMENT: 1. Left-sided abdominal pain 2. Splenic infarcts PLAN: -No surgical intervention planned -Continue IV heparin -Hematology following. Anticoagulation recommendations per hematology -Continue supportive care Physician Rivet Bucker note has been reviewed by physician. Signing provider agrees with the documented findings, assessment, and plan of care. Objective - Vital Signs Vital signs: Vital Signs Temp 98.0 F 09/25/23 07:51 Pulse 94 09/25/23 07:51 Resp 12 09/25/23 07:51 BP 123/77 09/25/23 07:51 Pulse Ox 95 09/25/23 07:51 FiO2 Intake & Output 09/24/23 09/25/23 09/25/23 18:59 06:59 18:59 Intake Total 327.584 247.666 Balance 327.584 247.666 Intake: Intake, IV Titration 147.584 247.666 Amount Heparin Sod,Pork in 0.45% 147.584 247.666 NaCl 25,000 unit In 0.45 % NaCl 1 250ml.bag @ 18 UNITS/KG/HR 22.861 mls/hr IV .[id number] [facility] Rx#: [id number] Oral 180 Other: # Voids 2 # Bowel Movements 0 - Labs CBC & Chem 7: 09/23/23 05:22 09/25/23 05:15 Labs: Abnormal Lab Results - Last 24 Hours (Table) 09/24/23 09/25/23 09/25/23 Range/Units 13:23 05:15 05:15 APTT 45.0 H (22.0-30.0) sec Sodium 135 L (137-145) mmol/L Chloride 109 H (98-107) mmol/L BUN 7.4 L (9.0-27.0) mg/dL BUN/Creatinine Ratio 9.25 L (12.00-20.00) Ratio Calcium 7.9 L 8.4 L (8.4-10.2) mg/dL
--- NOTE | 2023-09-25 11:07 | P.CONS ---
History of Present Illness - Reason for Consult Consult date: 09/24/23 splenic infarct Requesting physician: Reshma Ortiz - Chief Complaint abdominal pain - History of Present Illness Patient is a 43-year-old female with history of bipolar disorder. Consult was placed for splenic infarcts. Patient presented to emergency room with complaints of sudden onset left-sided abdominal pain began last 2 days. Patient does reports she's had recent URI symptoms. She also reports associated diarrhea and nausea vomiting. Denies blood in stool and melena. Denies urinary symptoms and fever and chills. Patient denies unintentional weight loss and night sweats. denies history of CVA and TN. Denies history of blood clots. Denies personal and family history of blood clotting disorders. Denies previous diagnosis of anemias or thalassemia. No known autoimmune disorders. Upon admission CT abdomen and pelvis revealed lower density nonenhancing areas are seen within the spleen which is more linear and other more masslike. One of the lesions look wedgelike which could represent infarct.abdominal ultrasound revealed a hypoechoic lesion patient corresponding to hypodense lesion on CT exam. Transvaginal ultrasound showed a right ovarian cyst. MRI abdomen revealed findings within the spleen are favored to represent splenic infarcts, no suspicious masses noted. CBC revealed WBC 9.8 with lymphocytosis noted, 7.57. Hemoglobin 12.5, platelets 194,000. AST 67, ALT 56. Review of Systems 10 point ROS is negative except as stated in the HPI Past Medical History Past Medical History: Hypertension Additional Past Medical History / Comment(s): back pain, " numbed the nerves" in back, rt knee torn meniscus, bipolar, ovarian cyst History of Any Multi-Drug Resistant Organisms: None Reported Past Surgical History: Cholecystectomy, Orthopedic Surgery, Tubal Ligation Additional Past Surgical History / Comment(s): left breast milk duct removal and reconstruction, right knee Past Anesthesia/Blood Transfusion Reactions: No Reported Reaction Past Psychological History: Anxiety, Bipolar, Depression, Schizophrenia Smoking Status: Current every day smoker Past Alcohol Use History: None Reported Additional Past Alcohol Use History / Comment(s): 1ppd, SINCE 18 YR. Past Drug Use History: None Reported - Past Family History Mother Family Medical History: Unable to Obtain Medications and Allergies Home Medications Medication Instructions Recorded Confirmed Type FLUoxetine HCL [PROzac] 40 mg PO DAILY 08/16/21 09/21/23 History OXcarbazepine 600 mg PO BID 08/16/21 09/21/23 History FLUoxetine HCL [PROzac] 20 mg PO DAILY 01/08/22 09/21/23 History Famotidine [Pepcid] 20 mg PO DAILY 14 Days #14 tablet 09/18/23 09/21/23 Rx OXcarbazepine [Trileptal] 300 mg PO BID 09/18/23 09/21/23 History diazePAM [Valium] 5 mg PO BID PRN 09/18/23 09/21/23 History Allergies Allergy/AdvReac Type Severity Reaction Status Date / Time Bleach (Sodium Hypochlorite) Allergy Rash/Hives Verified 09/21/23 22:50 cephalexin [From Keflex] Allergy Rash/Hives Verified 09/21/23 22:50 soap Allergy Rash/Hives Verified 09/21/23 22:50 Physical Exam Vitals: Vital Signs Temp Pulse Resp BP Pulse Ox 09/24/23 14:00 97.8 F 75 18 130/83 96 09/24/23 08:00 78 16 09/24/23 07:38 97.6 F 78 16 123/78 94 L 09/24/23 02:00 97.8 F 68 16 123/81 95 Intake and Output 09/24/23 09/24/23 09/24/23 06:59 14:59 22:59 Intake Total 116.594 327.584 Balance 116.594 327.584 Intake: Intake, IV Titration 116.594 147.584 Amount Heparin Sod,Pork in 0.45% 116.594 147.584 NaCl 25,000 unit In 0.45 % NaCl 1 250ml.bag @ 18 UNITS/KG/HR 22.861 mls/hr IV .[id number] [facility] Rx#: [id number] Oral 180 Other: # Voids 2 - Constitutional General appearance: no acute distress, obese - EENT Eyes: anicteric sclerae, EOMI ENT: hearing grossly normal - Neck Neck: no lymphadenopathy - Respiratory Respiratory: bilateral: CTA - Cardiovascular Rhythm: regular Heart sounds: normal: S1, S2 leg Peripheral Edema: bilateral: None - Gastrointestinal General gastrointestinal: soft, tenderness Localized gastrointestinal: tender: LUQ, LLQ - Integumentary Integumentary: no cyanotic, no jaundiced - Neurologic Neurologic: CNII-XII intact - Musculoskeletal Musculoskeletal: strength equal bilaterally - Psychiatric Psychiatric: A&O x's 3, appropriate affect, intact judgment & insight Results CBC & Chem 7: 09/23/23 05:22 09/25/23 05:15 Labs: Abnormal Lab Results - Last 24 Hours (Table) 09/23/23 09/24/23 09/24/23 Range/Units 05:22 05:42 13:23 Neutrophils # (Manual) 1.67 L (1.80-7.70) X 10*3/uL APTT 46.7 H (22.0-30.0) sec Sodium 135 L (137-145) mmol/L Chloride 109 H (98-107) mmol/L Calcium 7.9 L (8.4-10.2) mg/dL Comments: transvaginal ultrasound reviewed CT scan - abdomen: report reviewed CT scan - pelvis: report reviewed US - abdomen: report reviewed MRI - abdomen: report reviewed Assessment and Plan (1) Abdominal pain Current Visit: Yes Status: Acute Priority: High Code(s): R10.9 - UNSPECIFIED ABDOMINAL PAIN SNOMED Code(s): 55894469 (2) Elevated LFTs Current Visit: Yes Status: Acute Priority: High Code(s): R79.89 - OTHER SPECIFIED ABNORMAL FINDINGS OF BLOOD CHEMISTRY SNOMED Code(s): 506459394 (3) Splenic infarct Current Visit: Yes Status: Acute Priority: High Code(s): D73.5 - INFARCTION OF SPLEEN SNOMED Code(s): 86623378 Plan: Splenic infarct: -Complaints of sudden onset left-sided abdominal pain that began over last 2 days with associated diarrhea and nausea vomiting. -No constitutional symptoms. No known history of CVA, [place], blood clots. Denies personal and family history of blood clotting disorders. Denies previous diagnosis of anemias or thalassemia. No known autoimmune disorders. -Upon admission CT abdomen and pelvis revealed lower density nonenhancing areas are seen within the spleen which is more linear and other more masslike. One of the lesions look wedgelike which could represent infarct. Abdominal ultrasound revealed a hypoechoic lesion patient corresponding to hypodense lesion on CT exam. MRI abdomen revealed findings within the spleen are favored to represent splenic infarcts, no suspicious masses noted. -CBC revealed WBC 9.8 with lymphocytosis noted, 7.57. Hemoglobin 12.5, platelets 194,000. AST 67, ALT 56. -Flow cytometry on peripheral blood, B and T lymphocyte panel ordered for evaluation of lymphocytosis -APL workup ordered -Will obtain further imaging to r/o underlying thrombus attributing to splenic infarct -Cardiology consulted for evaluation for echo/FABBY -Recommend to continue anticoagulation for now, pending current workup Pt updated on plan of care and ia greeable to proceed with further testing attests: I have seen and examined patient, performed H&P, developed impression and plan of care. Discussed with dictator. Agree with documentation, dictated as a scribe
--- NOTE | 2023-09-25 13:22 | P.PN ---
Subjective Progress Note Date: 09/25/23 Hospital course: Patient is a 43-year-old female with a past medical history of bipolar disorder. She presented to the emergency department on 09/21/23 with a chief complaint of abdominal pain. Patient underwent full evaluation in the emergency department. CBC showing leukocytosis with WBC count of 15.9. BMP revealing hyponatremia with sodium 136 and elevated liver enzymes with AST of 76, ALT is 61, an alkaline phosphatase of 115. Urinalysis contaminated. Covid PCR negative. D- dimer was elevated at 2.39. CT abdomen and pelvis with contrast was completed showing lower density nonenhancing areas within the spleen 1 appearing linear and other reported to be more masslike, unable to rule out infarct. Patient was started on heparin infusion and admitted under our services with consultation to Gen. surgery and gastroenterology. Abdominal MRI shows findings consistent with splenic infarcts. Lower extremity Dopplers negative for DVT. Hematology consulted. Unclear source of potential embolism. Cardiology also consulted. FABBY he did not show any evidence of shunting, normal LV size and systolic function, normal appearance of left atrial appendage. Physical exam: Vital signs reviewed and stable. General: Nontoxic, no distress and appears stated age. Derm: Skin warm and dry, normal coloration for ethnicity. Head: Atraumatic, normocephalic and symmetric. Eyes: EOMs intact, no lid lag, and anicteric sclera Mouth: no lip lesions, mucus membranes moist Cardiovascular: regular rate and rhythm with normal S1S2, no murmur, positive posterior tibial pulses bilaterally, and cap refill < 2 seconds. Lungs: Respirations even, regular, and unlabored on room air. Lungs CTA bilaterally, no rhonchi, no rales, no wheezing, and no accessory muscle usage. Abdominal: soft, diffuse tenderness to palpation in left upper and lower quadrants, pain appears worse in left upper quadrant Ext: ROM intact. No gross muscle atrophy, no edema, no contractures Neuro: Speech clear, face symmetrical and CN II-XII grossly intact with no noted focal neuro deficits Psych: Alert and oriented to person, place, time, and situation. Appropriate and pleasant affect. Assessment and Plan of Care: Splenic infarcts Left-sided abdominal pain Elevated liver enzymes Elevated d-dimer, believed to be secondary to above -Continuation of high intensity heparin infusion, monitor for bleeding, daily CBC -Hematology following, pending recommendations with regards to further anticoagulation therapy -Gen. surgery note reviewed, no interventions planned -Cardiology was also consulted, FABBY report reviewed, no evidence of shunting, normal appearance of left atrial appendage Bipolar disorder Continue daily medication regimen with Prozac 60 mg daily and oxcarbazepine 900 mg twice daily with when necessary Valium 5 mg as needed for anxiety. Data reviewed: APTT 45, sodium 139, creatinine 0.8 CODE STATUS: Full code DVT prophylaxis: Heparin infusion Anticipated discharge date: Likely tomorrow Anticipated discharge place: Home Objective - Vital Signs Vital signs: Vital Signs Temp 97.7 F 09/25/23 11:03 Pulse 84 09/25/23 11:45 Resp 12 09/25/23 11:45 BP 119/76 09/25/23 11:45 Pulse Ox 91 L 09/25/23 11:45 FiO2 Intake & Output 09/24/23 09/25/23 09/25/23 18:59 06:59 18:59 Intake Total 327.584 247.666 158.571 Balance 327.584 247.666 158.571 Intake: IV 75 Intake, IV Titration 147.584 247.666 83.571 Amount Heparin Sod,Pork in 0.45% 147.584 247.666 83.571 NaCl 25,000 unit In 0.45 % NaCl 1 250ml.bag @ 18 UNITS/KG/HR 22.861 mls/hr IV .[id number] [facility] Rx#: [id number] Oral 180 Other: # Voids 2 # Bowel Movements 0 - Labs CBC & Chem 7: 09/23/23 05:22 09/25/23 05:15 Labs: Abnormal Lab Results - Last 24 Hours (Table) 09/24/23 09/25/23 09/25/23 Range/Units 13:23 05:15 05:15 APTT 45.0 H (22.0-30.0) sec Sodium 135 L (137-145) mmol/L Chloride 109 H (98-107) mmol/L BUN 7.4 L (9.0-27.0) mg/dL BUN/Creatinine Ratio 9.25 L (12.00-20.00) Ratio Calcium 7.9 L 8.4 L (8.4-10.2) mg/dL
--- NOTE | 2023-09-25 16:36 | P.PN ---
Subjective Progress Note Date: 09/25/23 Principal diagnosis: splenic infarct At today's visit patient is resting comfortably in bed. Reporting persisting left-sided abdominal pain. Had 1 episode nausea vomiting yesterday, symptoms have since resolved. S?P FABBY today with cardiology. Objective - Vital Signs Vital signs: Vital Signs Temp 98.2 F 09/25/23 13:54 Pulse 53 L 09/25/23 13:54 Resp 14 09/25/23 13:54 BP 115/74 09/25/23 13:54 Pulse Ox 94 L 09/25/23 13:54 FiO2 Intake & Output 09/24/23 09/25/23 09/25/23 18:59 06:59 18:59 Intake Total 327.584 247.666 276.571 Balance 327.584 247.666 276.571 Intake: IV 75 Intake, IV Titration 147.584 247.666 83.571 Amount Heparin Sod,Pork in 0.45% 147.584 247.666 83.571 NaCl 25,000 unit In 0.45 % NaCl 1 250ml.bag @ 18 UNITS/KG/HR 22.861 mls/hr IV .[id number] [facility] Rx#: [id number] Oral 180 118 Other: # Voids 2 # Bowel Movements 0 - Constitutional General appearance: Present: no acute distress, obese - EENT Eyes: Present: anicteric sclerae, EOMI ENT: Present: hearing grossly normal - Respiratory Details: breathing is even and unlabored - Cardiovascular Details: skin warm and dry - Gastrointestinal General gastrointestinal: Present: soft, tenderness Localized gastrointestinal: tender: LUQ, LLQ - Integumentary Integumentary: Absent: cyanotic - Neurologic Neurologic: Present: CNII-XII intact - Musculoskeletal Musculoskeletal: Present: strength equal bilaterally - Psychiatric Psychiatric: Present: A&O x's 3 - Labs CBC & Chem 7: 09/23/23 05:22 09/25/23 05:15 Labs: Abnormal Lab Results - Last 24 Hours (Table) 09/25/23 09/25/23 Range/Units 05:15 05:15 APTT 45.0 H (22.0-30.0) sec BUN 7.4 L (9.0-27.0) mg/dL BUN/Creatinine Ratio 9.25 L (12.00-20.00) Ratio Calcium 8.4 L (8.7-10.3) mg/dL - Imaging and Cardiology Venous US: report reviewed FABBY and CTA abdomen and pelvis reviewed Assessment and Plan (1) Abdominal pain Current Visit: Yes Status: Acute Priority: High Code(s): R10.9 - UNSPECIFIED ABDOMINAL PAIN SNOMED Code(s): 00987439 (2) Elevated LFTs Current Visit: Yes Status: Acute Priority: High Code(s): R79.89 - OTHER SPECIFIED ABNORMAL FINDINGS OF BLOOD CHEMISTRY SNOMED Code(s): 608162089 (3) Splenic infarct Current Visit: Yes Status: Acute Priority: High Code(s): D73.5 - INFARCTION OF SPLEEN SNOMED Code(s): 52477164 Plan: Splenic infarct: -Complaints of sudden onset left-sided abdominal pain that began over last 2 days with associated diarrhea and nausea vomiting. -No constitutional symptoms. No known history of CVA, VT, blood clots. Denies personal and family history of blood clotting disorders. Denies previous diagnosis of anemias or thalassemia. No known autoimmune disorders. -Upon admission CT abdomen and pelvis revealed lower density nonenhancing areas are seen within the spleen which is more linear and other more masslike. One of the lesions look wedgelike which could represent infarct. Abdominal ultrasound revealed a hypoechoic lesion patient corresponding to hypodense lesion on CT ex am. MRI abdomen revealed findings within the spleen are favored to represent splenic infarcts, no suspicious masses noted. -CBC revealed WBC 9.8 with lymphocytosis noted, 7.57. Hemoglobin 12.5, plat elets 194,000. AST 67, ALT 56. -Flow cytometry on peripheral blood, B and T lymphocyte panel ordered for evaluation of lymphocytosis, results pending -APL workup ordered, cardiolipins negative, beta 2 glycoprotein pending -Will obtain further imaging to r/o underlying thrombus attributing to splenic infarct. Dopplers of bilateral lower extremities negative for DVT. CTA abdomen pelvis revealed stable splenic findings, unremarkable CTA -Cardiology consulted for evaluation for echo/FABBY. FABBY showed no evidence of shunting or intracardiac thrombus with a normal LV systolic function. -Recommend to continue anticoagulation for now, pending current workup Pt updated on results thus far
[2023-09-26] MEDS: ONDANSETRON 4 MG/2 ML VIAL IVP PRN (03:47)
[2023-09-26] MEDS: MORPHINE SULFATE 4 MG/ML SYRINGE IV PRN ×2 (03:48→21:19)
--- NOTE | 2023-09-26 08:59 | P.PN ---
Subjective Progress Note Date: 09/26/23 Patient is a 43-year-old female with bipolar disorder, hypertension, and chronic back pain who presented to the emergency department with complaints of abdominal pain. In the emergency department she underwent an extensive evaluation. Initial vitals were remarkable for heart rate of 109. Initial laboratory analysis was remarkable for white blood cell count 15.9, d-dimer 2.39, AST 76, ALT 61. She subsequently underwent a CT abdomen and pelvis which was remarkable for nonenhancing areas in the spleen concerning for possible infarct as well as nonenhancing areas in the liver also with possible infarct. She was subsequently admitted. GI and general surgery were consulted. She subsequently underwent an abdominal ultrasound which showed tiny granulomas as well as a hypoechoic lesion in the spleen. She underwent a transvaginal ultrasound which demonstrates a right ovarian cyst follow-up the next normal menstrual cycle in 6 weeks recommended. She then underwent MRI of the abdomen which demonstrated splenic infarcts without suspicious masses. Bilateral large Dopplers were negative. She then underwent a CTA of the abdomen and pelvis which shows stable splenic findings an otherwise unremarkable CTA. Hematology and oncology was consulted. She then had a cardiology consult and FABBY was performed which showed no evidence of shunting or intracardiac thrombus. Patient seen and examined at bedside. She continues to have some abdominal pain but it is getting better. She is feeling hungy. SHe is having some lower abdominal cramping but has had this for 20 years. She denies any family hx of blood clots but states that her mother had lymphoma, she had a tubal ligation 20 years ago. She had 2 menstrual cycles this month. Vital signs reviewed General: nontoxic, no distress, appears at stated age Cardiovascular: S1S2 reg, no murmur, positive posterior tibial pulse bilateral, Lungs: CTA bilateral, no rhonchi, no rales , no accessory muscle use Abdominal: soft, nontender to palpation, no guarding, no appreciable organomegaly Ext: no gross muscle atrophy, no edema b/l lower extremities, no contractures Neuro: CN II-XI grossly intact, no focal neuro deficits Psych: Alert, oriented, appropriate affect Assessment/Plan: Splenic infarcts Transaminitis Abdominal pain due to splenic infarcts -Hematology oncology recommendations: Cardiology consult for possible FABBY, flow cytometry on peripheral blood with BMT lymphocyte panel, Hypercoag workup -FABBY without signs of intracardiac thrombus, cardiology signed off - On heparin gtt, continue to monitor ptt, monitor patient for unusual bleeding as sign of toxicity. -Tylenol 650 mg every 6 hours as needed for pain, morphine 4 mg IV every 4 hours as needed for severe pain -COVID and RSV negative - had 2 menstrual cycles this month. - anticardiolipin antibodies negative - flow cytometery and B2 pending - Surgery recs: no surgical intervention warranted - GI signed off - CBC in AM Bipolar disorder -Continue with Trileptal 900 mg twice daily -Prozac 60 mg daily Imaging: None new Data Review: Ptt> 200 DVT prophylaxis: On heparin gtt Anticipated discharge date: Once cleared from oncology Anticipated discharge place: Home This dictation was prepared using [employer] voice recognition software. Though every attempt is made to correct errors during dictation some may still exist. Objective - Vital Signs Vital signs: Vital Signs Temp 98.0 F 09/26/23 07:00 Pulse 58 L 09/26/23 07:00 Resp 12 09/26/23 07:00 BP 118/75 09/26/23 07:00 Pulse Ox 94 L 09/26/23 07:00 FiO2 Intake & Output 09/25/23 09/26/23 09/26/23 18:59 06:59 18:59 Intake Total 276.571 136.915 Balance 276.571 136.915 Intake: IV 75 Intake, IV Titration 83.571 136.915 Amount Heparin Sod,Pork in 0.45% 83.571 136.915 NaCl 25,000 unit In 0.45 % NaCl 1 250ml.bag @ 18 UNITS/KG/HR 22.861 mls/hr IV .[id number] [facility] Rx#: [id number] Oral 118 Other: # Voids 3 2 # Bowel Movements 1 - Labs CBC & Chem 7: 09/23/23 05:22 09/25/23 05:15 Labs: Abnormal Lab Results - Last 24 Hours (Table) 09/26/23 Range/Units 05:26 APTT >200.0 H* (22.0-30.0) sec
[2023-09-26] MEDS: OXcarbazepine 300 MG TAB PO SCH ×2 (09:16→21:19)
[2023-09-26] MEDS: FAMOTIDINE 20 MG TAB PO SCH (09:17)
[2023-09-26] MEDS: FLUoxetine HCL 20 MG CAP PO SCH (09:17)
[2023-09-26] MEDS: HEPARIN SOD,PORK IN 0.45% NACL 25,000 UNIT in 0.45% NACL 1 250ML.BAG IV SCH ×2 (09:18→21:24)
[2023-09-26] MEDS: HYDROcodone/APAP 5-325MG 1 EACH TAB PO PRN ×2 (09:37→16:19)
[2023-09-26] MEDS: SODIUM CHLORIDE 0.9% 1,000 ML IV SCH (09:38)
--- NOTE | 2023-09-26 10:48 | P.PN ---
Subjective Progress Note Date: 09/26/23 (Surgery) Patient is still complaining of pain. No changes overnight. Abdominal exam is unchanged from last exam. Plan: Continue medical management. No surgical intervention necessary at this time. Objective - Vital Signs Vital signs: Vital Signs Temp 98.0 F 09/26/23 07:00 Pulse 58 L 09/26/23 07:00 Resp 12 09/26/23 07:00 BP 118/75 09/26/23 07:00 Pulse Ox 94 L 09/26/23 07:00 FiO2 Intake & Output 09/25/23 09/26/23 09/26/23 18:59 06:59 18:59 Intake Total 276.571 136.915 201.689 Balance 276.571 136.915 201.689 Intake: IV 75 Intake, IV Titration 83.571 136.915 201.689 Amount Heparin Sod,Pork in 0.45% 83.571 136.915 201.689 NaCl 25,000 unit In 0.45 % NaCl 1 250ml.bag @ 18 UNITS/KG/HR 22.861 mls/hr IV .[id number] [facility] Rx#: [id number] Oral 118 Other: # Voids 3 2 # Bowel Movements 1 - Labs CBC & Chem 7: 09/23/23 05:22 09/25/23 05:15 Labs: Abnormal Lab Results - Last 24 Hours (Table) 09/26/23 Range/Units 05:26 APTT >200.0 H* (22.0-30.0) sec
[2023-09-27] MEDS: MORPHINE SULFATE 4 MG/ML SYRINGE IV PRN (03:53)
[2023-09-27 06:07] LABS: Anisocytosis Slight; HCT 38.6 % (34.0-46.0); HGB 12.5 gm/dL (11.4-16.0); MCH 26.7 pg (25.0-35.0); MCHC 32.4 g/dL (31.0-37.0); MCV 82.5 fL (80.0-100.0); Mean Platelet Volume 7.8; Platelet Count 192 k/uL (150-450); RBC 4.67 m/uL (3.80-5.40); RDW 16.9 % (11.5-15.5); WBC 8.2 k/uL (3.8-10.6)
[2023-09-27] MEDS: HEPARIN SOD,PORK IN 0.45% NACL 25,000 UNIT in 0.45% NACL 1 250ML.BAG IV SCH (07:33)
[2023-09-27] MEDS ORDERED: MORPHINE SULFATE 4 MG/ML SYRINGE IV PRN (08:27)
--- NOTE | 2023-09-27 08:47 | P.PN ---
Subjective Progress Note Date: 09/27/23 Patient is a 43-year-old female with bipolar disorder, hypertension, and chronic back pain who presented to the emergency department with complaints of abdominal pain. In the emergency department she underwent an extensive evaluation. Initial vitals were remarkable for heart rate of 109. Initial laboratory analysis was remarkable for white blood cell count 15.9, d-dimer 2.39, AST 76, ALT 61. She subsequently underwent a CT abdomen and pelvis which was remarkable for nonenhancing areas in the spleen concerning for possible infarct as well as nonenhancing areas in the liver also with possible infarct. She was subsequently admitted. GI and general surgery were consulted. She subsequently underwent an abdominal ultrasound which showed tiny granulomas as well as a hypoechoic lesion in the spleen. She underwent a transvaginal ultrasound which demonstrates a right ovarian cyst follow-up the next normal menstrual cycle in 6 weeks recommended. She then underwent MRI of the abdomen which demonstrated splenic infarcts without suspicious masses. Bilateral large Dopplers were negative. She then underwent a CTA of the abdomen and pelvis which shows stable splenic findings an otherwise unremarkable CTA. Hematology and oncology was consulted. She then had a cardiology consult and FABBY was performed which showed no evidence of shunting or intracardiac thrombus. She was tranitioned off heparin and to eliquis on 09/27. Patient seen and examined at bedside. She reports that she's doing well. She continues to have some left-sided upper quadrant pain as well as some cramping but that seems to have shifted. She has no other complaints currently. She is worried about returning to work and I stated that she will get at least 1 week off. Vital signs reviewed General: nontoxic, no distress, appears at stated age Cardiovascular: S1S2 reg, no murmur, positive posterior tibial pulse bilateral, Lungs: CTA bilateral, no rhonchi, no rales , no accessory muscle use Abdominal: soft, nontender to palpation, no guarding, no appreciable organomegaly Ext: no gross muscle atrophy, no edema b/l lower extremities, no contractures Neuro: CN II-XI grossly intact, no focal neuro deficits Psych: Alert, oriented, appropriate affect Assessment/Plan: Splenic infarcts Transaminitis Abdominal pain due to splenic infarcts -Hematology oncology recommendations: Cardiology consult for possible FABBY, flow cytometry on peripheral blood with BMT lymphocyte panel, Hypercoag workup -FABBY without signs of intracardiac thrombus, cardiology signed off - D/C heparin gtt start Eliquis 10 mg BID -Tylenol 650 mg every 6 hours as needed for pain, morphine 4 mg IV every 4 hours as needed for severe pain, nocro 5/325 mg PRN moderate pain - COVID and RSV negative - had 2 menstrual cycles this month. - anticardiolipin antibodies negative - Flow cytometery and B2 pending - Await further Oncology recs - Await further surgery recs - GI signed off - CBC in AM Bipolar disorder -Continue with Trileptal 900 mg twice daily -Prozac 60 mg daily Imaging: None new Data Review: Labs for today include CBC and PTT which were remarkable for PTT 35.3 DVT prophylaxis: Eliquis Anticipated discharge date: in AM Anticipated discharge place: Home This dictation was prepared using [employer] voice recognition software. Though every attempt is made to correct errors during dictation some may still exist. Objective - Vital Signs Vital signs: Vital Signs Temp 98.1 F 09/27/23 03:15 Pulse 67 09/27/23 03:15 Resp 17 09/27/23 03:15 BP 144/90 09/27/23 03:15 Pulse Ox 96 09/27/23 03:15 FiO2 Intake & Output 09/26/23 09/27/23 09/27/23 19:59 06:59 18:59 Intake Total 236.22 Balance 236.22 Intake: Intake, IV Titration 236.22 Amount Heparin Sod,Pork in 0.45% 236.22 NaCl 25,000 unit In 0.45 % NaCl 1 250ml.bag @ 18 UNITS/KG/HR 22.861 mls/hr IV .[id number] [facility] Rx#: [id number] Oral Other: # Voids # Bowel Movements - Labs CBC & Chem 7: 09/27/23 05:42 09/25/23 05:15 Labs: Abnormal Lab Results - Last 24 Hours (Table) 09/26/23 09/27/23 09/27/23 Range/Units 14:43 05:42 05:42 RDW 16.9 H (11.5-15.5) % APTT 69.3 H 35.3 H (22.0-30.0) sec
--- NOTE | 2023-09-27 09:16 | P.PN ---
Subjective Progress Note Date: 09/27/23 Principal diagnosis: Abdominal pain Patient says she is doing better today. Less discomfort. Tolerating diet. She is switching pain medicines to orals is patent discharge tomorrow. She is on eloquis. Objective - Vital Signs Vital signs: Vital Signs Temp 98.1 F 09/27/23 07:00 Pulse 59 L 09/27/23 07:00 Resp 16 09/27/23 07:00 BP 145/89 09/27/23 07:00 Pulse Ox 97 09/27/23 07:00 FiO2 Intake & Output 09/26/23 09/27/23 09/27/23 19:59 06:59 18:59 Intake Total 236.22 Balance 236.22 Intake: Intake, IV Titration 236.22 Amount Heparin Sod,Pork in 0.45% 236.22 NaCl 25,000 unit In 0.45 % NaCl 1 250ml.bag @ 18 UNITS/KG/HR 22.861 mls/hr IV .[id number] [facility] Rx#: [id number] Oral Other: # Voids # Bowel Movements - Exam Abdomen: Soft, nontender, nondistended - Labs CBC & Chem 7: 09/27/23 05:42 09/25/23 05:15 Labs: Abnormal Lab Results - Last 24 Hours (Table) 09/26/23 09/27/23 09/27/23 Range/Units 14:43 05:42 05:42 RDW 16.9 H (11.5-15.5) % APTT 69.3 H 35.3 H (22.0-30.0) sec Assessment and Plan (1) Splenic infarct Narrative/Plan: Patient has improving abdominal pain. She is anxious to go home. Continue anticoagulation for possible thrombotic event. Reevaluate tomorrow. Current Visit: Yes Status: Acute Priority: High Code(s): D73.5 - INFARCTION OF SPLEEN SNOMED Code(s): 84759014
[2023-09-27] MEDS: OXcarbazepine 300 MG TAB PO SCH ×2 (09:19→20:38)
[2023-09-27] MEDS: FAMOTIDINE 20 MG TAB PO SCH (09:19)
[2023-09-27] MEDS: FLUoxetine HCL 20 MG CAP PO SCH (09:19)
[2023-09-27] MEDS: Apixaban Initiation Dose--VTE 5 MG TAB PO SCH ×2 (09:20→20:38)
[2023-09-27] MEDS: SODIUM CHLORIDE 0.9% 1,000 ML IV SCH (09:23)
[2023-09-27] MEDS: HYDROcodone/APAP 5-325MG 1 EACH TAB PO PRN ×3 (09:26→20:38)
[2023-09-27] MEDS: ONDANSETRON 4 MG/2 ML VIAL IVP PRN ×2 (10:19→20:47)
--- NOTE | 2023-09-27 10:47 | P.PN ---
Subjective Progress Note Date: 09/27/23 the patient has been tolerating her diet, though she states that she feels somewhat nauseous with decreased appetite today. abdominal pain is slowly improving but still present. Objective - Vital Signs Vital signs: Vital Signs Temp 98.1 F 09/27/23 07:00 Pulse 59 L 09/27/23 07:00 Resp 16 09/27/23 07:00 BP 145/89 09/27/23 07:00 Pulse Ox 97 09/27/23 07:00 FiO2 Intake & Output 09/26/23 09/27/23 09/27/23 19:59 06:59 18:59 Intake Total 476.22 Balance 476.22 Intake: Intake, IV Titration 236.22 Amount Heparin Sod,Pork in 0.45% 236.22 NaCl 25,000 unit In 0.45 % NaCl 1 250ml.bag @ 18 UNITS/KG/HR 22.861 mls/hr IV .[id number] [facility] Rx#: [id number] Oral 240 Other: # Voids # Bowel Movements - Constitutional General appearance: Present: no acute distress - EENT Eyes: Present: EOMI ENT: Present: hearing grossly normal, normal oropharynx - Respiratory Respiratory: bilateral: CTA - Cardiovascular Rhythm: regular Heart sounds: normal: S1, S2 - Gastrointestinal General gastrointestinal: Present: normal bowel sounds, soft Localized gastrointestinal: tender: LUQ - Integumentary Integumentary: Present: normal - Neurologic Neurologic: Present: CNII-XII intact - Musculoskeletal Musculoskeletal: Present: strength equal bilaterally - Psychiatric Psychiatric: Present: A&O x's 3, appropriate affect - Labs CBC & Chem 7: 09/27/23 05:42 09/25/23 05:15 Labs: Abnormal Lab Results - Last 24 Hours (Table) 09/26/23 09/27/23 09/27/23 Range/Units 14:43 05:42 05:42 RDW 16.9 H (11.5-15.5) % APTT 69.3 H 35.3 H (22.0-30.0) sec Assessment and Plan (1) Splenic infarct Narrative/Plan: workup is in progress. Her Dopplers, as well as cardiac workup was negative. CT angiogram did show some atherosclerosis in the aorta, above the bif urcation, which could potentially be the source of embolization. However other causes would have to be ruled out. partial antiphospholipid antibody workup is negative so far. Additional labs in this regard, as well as flow cytometry are still pending. - in the meantime, it would be reasonable to continue anticoagulation. patient has been changed to Eliquis. - if above-mentioned workup is negative, consider additional hypercoagulable workup as an outpatient - repeat CMP and a.m. If liver enzymes are still elevated, it may be reasonable to consider more specific imaging of the liver, as portal vvein thrombosis, and splenic infarct due to splenic congestion can occur from infiltrative liver processes Current Visit: Yes Status: Acute Priority: High Code(s): D73.5 - INFARCTION OF SPLEEN SNOMED Code(s): 72378992
[2023-09-28] MEDS: HYDROcodone/APAP 5-325MG 1 EACH TAB PO PRN ×2 (05:25→11:39)
[2023-09-28 06:29] LABS: Anisocytosis Slight; HCT 39.8 % (34.0-46.0); MCH 26.9 pg (25.0-35.0); MCHC 32.6 g/dL (31.0-37.0); MCV 82.5 fL (80.0-100.0); Mean Platelet Volume 7.8; Platelet Count 182 k/uL (150-450); RBC 4.83 m/uL (3.80-5.40); RDW 16.8 % (11.5-15.5); WBC 9.7 k/uL (3.8-10.6)
[2023-09-28 06:39] LABS: ALT 68 U/L (4-34); AST 70 U/L (14-36); African American GFR (CKD) >90 (>60 ml/min/1.73 sqM); Albumin 2.8 g/dL (3.5-5.0); Albumin/Globulin Ratio 0.9; Alkaline Phosphatase 149 U/L (38-126); Anion Gap 6 mmol/L; Blood Urea Nitrogen 8 mg/dL (7-17); Calcium 8.3 mg/dL (8.4-10.2); Carbon Dioxide 25 mmol/L (22-30); Chloride 105 mmol/L (98-107); Glucose 86 mg/dL (74-99); Non-African American GFR(CKD) >90 (>60 ml/min/1.73 sqM); Potassium 4.3 mmol/L (3.5-5.1); Sodium 136 mmol/L (137-145); Total Bilirubin 0.3 mg/dL (0.2-1.3); Total Protein 5.8 g/dL (6.3-8.2)
[2023-09-28 07:49] VITALS: BP 120/73; PULSE 75; TEMP 98.3
[2023-09-28] MEDS: Apixaban Initiation Dose--VTE 5 MG TAB PO SCH (08:47)
[2023-09-28] MEDS: FAMOTIDINE 20 MG TAB PO SCH (08:47)
[2023-09-28] MEDS: OXcarbazepine 300 MG TAB PO SCH (08:47)
[2023-09-28] MEDS: FLUoxetine HCL 20 MG CAP PO SCH (08:51)
[2023-09-28] MEDS: ACETAMINOPHEN TAB 325 MG TAB PO PRN (08:52)
[2023-09-28] MEDS: ONDANSETRON 4 MG/2 ML VIAL IVP PRN (08:52)
[2023-09-28 10:10] VITALS: RESP 17
--- NOTE | 2023-09-28 11:08 | P.DS ---
Providers Date of admission: 09/23/23 11:11 Expected date of discharge: 09/28/23 Attending physician: Reji Boggs MD Consults: 09/21/23 22:41 Consult Physician Routine Consulting Provider: Librado Montesinos Consult Reason/Comments: abdominal pain, abn CT Do you want consulting provider notified?: Already Contacted 09/23/23 13:53 Consult Physician Routine Consulting Provider: Flakito Bosch Consult Reason/Comments: splenic infarcts Do you want consulting provider notified?: Yes 09/24/23 13:44 Consult Physician Routine Consulting Provider: Stefano Pretty Consult Reason/Comments: eval for echo/FABBY, r/o thrombus, dx splenic infarct Do you want consulting provider notified?: Yes Primary care physician: Palomo Gage MD Hospital Course: Discharge Diagnosis: Splenic infarcts Transaminitis Abdominal pain due to splenic infarcts Bipolar disorder RIght ovairian cyst, abnormal menstral pattern- recommend repeat US in 6 weeks. Hospital Course: Patient is a 43-year-old female with bipolar disorder, hypertension, and chronic back pain who presented to the emergency department with complaints of abdominal pain. In the emergency department she underwent an extensive evaluation. Initial vitals were remarkable for heart rate of 109. Initial laboratory analysis was remarkable for white blood cell count 15.9, d-dimer 2.39, AST 76, ALT 61. She subsequently underwent a CT abdomen and pelvis which was remarkable for nonenhancing areas in the spleen concerning for possible infarct as well as nonenhancing areas in the liver also with possible infarct. She was admitted for splenic infarct. GI and general surgery were consulted. She underwent an abdominal ultrasound which showed tiny granulomas as well as a hypoechoic lesion in the spleen. She underwent a transvaginal ultrasound which demonstrates a right ovarian cyst follow-up the next normal menstrual cycle in 6 weeks recommended. She then underwent MRI of the abdomen which demonstrated splenic infarcts without suspicious masses. Bilateral lower extremity venous sopplers were negative. MRI abdomen showed splenic infarcts, but no liver lesion. She then underwent a CTA of the abdomen and pelvis which shows stable splenic findings an otherwise unremarkable CTA. Hematology and oncology was consulted. Cardiology consult and FABBY was performed which showed no evidence of shunting or intracardiac thrombus. She was tranitioned off heparin and to eliquis on 09/27. She was determined stable for discharge. She was cleared by oncology. Follow-up: Repeat ultrasound in 6 weeks for ovarian cysts, Dr. Danitza Tovar next week for results of flow cytometry and beta 2 microglobulin, Dr. Quijano in 2-3 days. [place] 21 tablets given for pain. Pending: Flow cytometry and Beta 2 glycoprotein pending. Patient seen and examined at bedside. Doing well, having some nausea with her eliquis but feels she can manage with zofran. Vital signs reviewed and stable. General: nontoxic, no distress, appears at stated age Cardiovascular: S1S2 reg, no murmur, positive posterior tibial pulse bilateral, Lungs: CTA bilateral, no rhonchi, no rales , no accessory muscle use Abdominal: soft, nontender to palpation, no guarding, no appreciable organomegaly Ext: no gross muscle atrophy, no edema b/l lower extremities, no contractures Neuro: CN II-XI grossly intact, no focal neuro deficits Psych: Alert, oriented, appropriate affect A total of 47 minutes of time were spent preparing this complex discharge summary. Patient was discharged on 09/28/23. This dictation was prepared using [employer] voice recognition software. Though every attempt is made to correct errors during dictation some may still exist. Patient Condition at Discharge: Stable Plan - Discharge Summary New Discharge Prescriptions: New HYDROcodone/APAP 5-325MG [[place] 5-325] 1 each PO Q6HR PRN #21 tab PRN Reason: Moderate Breakthrough Pain Apixaban [Eliquis Starter Pack (for VTE)] 5 - 10 mg PO DIRECTED 30 Days #1 each Ondansetron [Zofran] 4 mg PO Q8HR PRN #30 tab PRN Reason: Nausea Continue OXcarbazepine 600 mg PO BID FLUoxetine HCL [PROzac] 20 mg PO DAILY OXcarbazepine [Trileptal] 300 mg PO BID diazePAM [Valium] 5 mg PO BID PRN PRN Reason: Anxiety Famotidine [Pepcid] 20 mg PO DAILY 14 Days #14 tablet FLUoxetine HCL [PROzac] 40 mg PO DAILY Discharge Medication List FLUoxetine HCL [PROzac] 40 mg PO DAILY 08/16/21 [History] OXcarbazepine 600 mg PO BID 08/16/21 [History] FLUoxetine HCL [PROzac] 20 mg PO DAILY 01/08/22 [History] Famotidine [Pepcid] 20 mg PO DAILY 14 Days #14 tablet 09/18/23 [Rx] OXcarbazepine [Trileptal] 300 mg PO BID 09/18/23 [History] diazePAM [Valium] 5 mg PO BID PRN 09/18/23 [History] Apixaban [Eliquis Starter Pack (for VTE)] 5 - 10 mg PO DIRECTED 30 Days #1 each 09/28/23 [Rx] HYDROcodone/APAP 5-325MG [[place] 5-325] 1 each PO Q6HR PRN #21 tab 09/28/23 [Rx] Ondansetron [Zofran] 4 mg PO Q8HR PRN #30 tab 09/28/23 [Rx] Follow up Appointment(s)/Referral(s): Daniela Noland MD [STAFF PHYSICIAN] - 1 Week Palomo Gage MD [Primary Care Provider] - 1-2 days Patient Instructions/Handouts: Acute Abdominal Pain (DC), Splenic Infarction (GEN) Activity/Diet/Wound Care/Special Instructions: Activity: As tolerated Diet: Regular Special Instructions: You are being discharged home on a blood thinner. Do not engage in any high risk activities such as contact sports, horseback riding, or ATV riding. He may bleed more easily peaked, If you fall and hit you head please go to the ER for an evaluation. If you have any abnormal bruising or bleeding please seek medical attention. You had a right ovarian cyst would should be re-imaged again with your next menstrual cycle. Please ensure that you follow with Dr. Noland for the results of your 2 pending tests. Discharge/Stand Alone Forms: Work/School Release / Restrict Discharge Disposition: HOME SELF-CARE
--- NOTE | 2023-09-28 12:02 | P.PN ---
Subjective Progress Note Date: 09/28/23 CHIEF COMPLAINT: Left-sided abdominal pain HISTORY OF PRESENT ILLNESS: Patient reports that she is feeling better today. She still has some mild left-sided abdominal pain. She has been evaluated by hematology. They have placed her on Eliquis for anticoagulation for possible thrombotic event. Patient tolerating diet. PHYSICAL EXAM: VITAL SIGNS: Reviewed. GENERAL: Well-developed in no acute distress. ABDOMEN: Soft. Nondistended. mild tenderness left side of abdomen NEUROLOGIC: Alert and oriented. Cranial nerves II through XII grossly intact. ASSESSMENT: 1. Left-sided abdominal pain 2. Splenic infarcts PLAN: -No surgical intervention planned -Patient can be discharged surgical standpoint when medically cleared. Physician Termite Control Service Representative note has been reviewed by physician. Signing provider agrees with the documented findings, assessment, and plan of care. Objective - Vital Signs Vital signs: Vital Signs Temp 98.3 F 09/28/23 07:00 Pulse 75 09/28/23 08:00 Resp 17 09/28/23 08:00 BP 120/73 09/28/23 07:00 Pulse Ox 94 L 09/28/23 07:00 FiO2 Intake & Output 09/27/23 09/28/23 09/28/23 18:59 06:59 18:59 Intake Total 712.22 Balance 712.22 Intake: Intake, IV Titration 236.22 Amount Heparin Sod,Pork in 0.45% 236.22 NaCl 25,000 unit In 0.45 % NaCl 1 250ml.bag @ 18 UNITS/KG/HR 22.861 mls/hr IV .[id number] [facility] Rx#: [id number] Oral 476 Other: # Voids 3 2 # Bowel Movements 1 - Labs CBC & Chem 7: 09/28/23 05:27 09/28/23 05:27 Labs: Abnormal Lab Results - Last 24 Hours (Table) 09/28/23 09/28/23 Range/Units 05:27 05:27 RDW 16.8 H (11.5-15.5) % Sodium 136 L (137-145) mmol/L Calcium 8.3 L (8.4-10.2) mg/dL AST 70 H (14-36) U/L ALT 68 H (4-34) U/L Alkaline Phosphatase 149 H (38-126) U/L Total Protein 5.8 L (6.3-8.2) g/dL Albumin 2.8 L (3.5-5.0) g/dL
--- NOTE | 2023-09-28 15:34 | P.PN ---
Subjective Progress Note Date: 09/28/23 Principal diagnosis: splenic infarct At today's visit patient is resting comfortably in bed. Reporting improvement in abdominal pain. Denies nausea vomiting and diarrhea. BMs are normal. Plan is for discharge today Objective - Vital Signs Vital signs: Vital Signs Temp 98.3 F 09/28/23 07:00 Pulse 75 09/28/23 08:00 Resp 17 09/28/23 08:00 BP 120/73 09/28/23 07:00 Pulse Ox 94 L 09/28/23 07:00 FiO2 Intake & Output 09/27/23 09/28/23 09/28/23 18:59 06:59 18:59 Intake Total 712.22 240 Balance 712.22 240 Intake: Intake, IV Titration 236.22 Amount Heparin Sod,Pork in 0.45% 236.22 NaCl 25,000 unit In 0.45 % NaCl 1 250ml.bag @ 18 UNITS/KG/HR 22.861 mls/hr IV .[id number] [facility] Rx#: [id number] Oral 476 240 Other: # Voids 3 2 # Bowel Movements 1 - Constitutional General appearance: Present: no acute distress, obese - EENT Eyes: Present: anicteric sclerae, EOMI ENT: Present: hearing grossly normal - Respiratory Details: breathing is even and unlabored - Cardiovascular Details: skin is warm and dry - Integumentary Integumentary: Absent: cyanotic - Neurologic Neurologic: Present: CNII-XII intact - Musculoskeletal Musculoskeletal: Present: strength equal bilaterally - Psychiatric Psychiatric: Present: A&O x's 3 - Labs CBC & Chem 7: 09/28/23 05:27 09/28/23 05:27 Labs: Abnormal Lab Results - Last 24 Hours (Table) 09/28/23 09/28/23 Range/Units 05:27 05:27 RDW 16.8 H (11.5-15.5) % Sodium 136 L (137-145) mmol/L Calcium 8.3 L (8.4-10.2) mg/dL AST 70 H (14-36) U/L ALT 68 H (4-34) U/L Alkaline Phosphatase 149 H (38-126) U/L Total Protein 5.8 L (6.3-8.2) g/dL Albumin 2.8 L (3.5-5.0) g/dL Assessment and Plan (1) Abdominal pain Status: Acute Priority: High Code(s): R10.9 - UNSPECIFIED ABDOMINAL PAIN SNOMED Code(s): 50651349 (2) Elevated LFTs Status: Acute Priority: High Code(s): R79.89 - OTHER SPECIFIED ABNORMAL FINDINGS OF BLOOD CHEMISTRY SNOMED Code(s): 081245923 (3) Splenic infarct Status: Acute Priority: High Code(s): D73.5 - INFARCTION OF SPLEEN SNOMED Code(s): 67906931 Plan: Splenic infarct: Workup is in progress. Her Dopplers, as well as cardiac workup was negative. CT angiogram did show some atherosclerosis in the aorta, above the bifurcation, which could potentially be the source of embolization. However other causes would have to be ruled out. partial antiphospholipid antibody workup is negative so far. Additional labs in this regard, as well as flow cytometry are still pending. - in the meantime, it would be reasonable to continue anticoagulation. patient has been changed to Eliquis. - if above-mentioned workup is negative, consider additional hypercoagulable workup as an outpatient - Spoke with IM, plan is for discharge today. Recommended to continue Eliquis at this time, and will schedule f/u outpt to review pending labs, and provide further recommendations pending workup Pt was agreeable with POC
== END 2023-09-28 11:56 | disposition home or self-care (01) | DRG 663 ==
LOC: EC 16:24 → 6NMEDSUR 23:58 → OBSVTOIN 09-23 11:11
PROVIDERS: ADMIT Internal Medicine; ATTEND Internal Medicine
DX: D73.5 Infarction of spleen (principal); D72.820 Lymphocytosis (symptomatic); E87.1 Hypo-osmolality and hyponatremia; F17.210 Nicotine dependence, cigarettes, uncomplicated; F20.9 Schizophrenia, unspecified; F31.9 Bipolar disorder, unspecified; F41.9 Anxiety disorder, unspecified; G89.29 Other chronic pain; I10 Essential (primary) hypertension; I70.0 Atherosclerosis of aorta; R73.03 Prediabetes; N83.201 Unspecified ovarian cyst, right side; Z79.01 Long term (current) use of anticoagulants; Z79.899 Other long term (current) drug therapy; Z80.7 Family history of other malignant neoplasms of lymphoid, hematopoietic and related tissues; Z90.49 Acquired absence of other specified parts of digestive tract; Z88.8 Allergy status to other drugs, medicaments and biological substances
CPT/HCPCS: 36415; 74018; 74174; 74177; 74183; 76705; 76830; 80048; 80053; 81001; 81025; 82150; 83605; 83690; 85025; 85027; 85379; 85610; 85652; 85730; 86147; 87086; 87634; 87635; 88184; 88185; 93312; 93320; 93325; 93970; 93975; 96361; 96374; 96375; 96376; 99285

== ENCOUNTER → 2023-11-12 | Outpatient (CLI) | payer OTHER ==
--- NOTE | 2023-11-12 16:54 | CT ---
EXAMINATION TYPE: CT angio chest CT DLP: 583 mGycm, Automated exposure control for dose reduction was used. DATE OF EXAM: 11/12/2023 4:43 PM COMPARISON: 09/18/2023 radiograph. CLINICAL INDICATION:Female, 43 years old with history of R0602; SOB TECHNIQUE/CONTRAST: CTA scan of the thorax is performed with IV Contrast, patient injected with 100 mL of Isovue 370, MIP images are created and reviewed these are created on a separate workstation.. FINDINGS: Pulmonary Artery: There is no evidence for a central filling defect within the pulmonary vasculature to suggest acute pulmonary embolism. Limited evaluation of the segmental and subsegmental branches se condary to bolus timing. The pulmonary artery is of normal size. Lungs/Pleura: Mild centrilobular emphysema changes. No evidence of focal consolidation, pleural effus ion or pneumothorax. Airway: Large airways are patent. Heart: Heart is within normal limits for size. Vasculature: No evidence of aortic aneurysm. Mediastinum: No gross evidence of adenopathy. Partially calcified lymph nodes in the mediastinum Musculoskeletal: No acute osseous abnormalities Soft Tissues: Unremarkable. Lower neck: No significant findings. Upper Abdomen: Gallbladder surgically absent. IMPRESSION: 1. No evidence of central pulmonary embolism. Limited evaluation of the segmental and subsegmental br anches due to bolus timing. 2. Sequela of chronic granulomatous disease. 3. Mild emphysema. Follow up recommendations for incidental pulmonary nodules, if there are any, are per [employer] [employer] or [employer] [place] [employer].
== END | disposition home or self-care (01) ==
LOC: RADCTMAIN 15:53
PROVIDERS: ATTEND Internal Medicine
DX: J43.9 Emphysema, unspecified (principal); J84.10 Pulmonary fibrosis, unspecified
CPT/HCPCS: 71275; Q9967

== ENCOUNTER → 2023-11-13 | Outpatient (CLI) | payer OTHER ==
[2023-11-13 15:57] LABS: Basophils # (A) 0.06 X 10*3/uL (0.00-0.10); Basophils % (A) 0.8 %; Eosinophils # (A) 0.19 X 10*3/uL (0.04-0.35); Eosinophils % (A) 2.6 %; HCT 42.3 % (37.2-46.3); HGB 13.7 g/dL (12.0-15.0); Lymphocytes # (A) 4.58 X 10*3/uL (0.90-5.00); Lymphocytes % (A) 62.7 %; MCH 27.1 pg (27.0-32.0); MCHC 32.4 g/dL (32.0-37.0); MCV 83.6 FL (80.0-97.0); Mean Platelet Volume 9.9 FL (9.5-12.2); Monocytes # (A) 0.48 X 10*3/uL (0.20-1.00); Monocytes % (A) 6.6 %; NRBC Per 100 WBC 0 X 10*3/uL (0.00-0.01); Neutrophils # (A) 1.99 X 10*3/uL (1.80-7.70); Neutrophils % (A) 27.2 %; Platelet Count 298 X 10*3/uL (140-440); RBC 5.06 X 10*6/uL (4.10-5.20); RDW 16.7 % (11.5-14.5); WBC 7.31 X 10*3/uL (4.50-10.00)
[2023-11-13 16:24] LABS: % Iron Saturation 9.51 (12.00-45.00); BUN/Creat Ratio 8.86 Ratio (12.00-20.00); Blood Urea Nitrogen 6.2 mg/dL (9.0-27.0); Carbon Dioxide 22.4 mmol/L (21.6-31.8); Chloride 108 mmol/L (96-109); Glucose 107 mg/dL (70-110); Iron 33 UG/DL (50-170); Sodium 140 mmol/L (135-145); Total Iron Binding Capacity 347 UG/DL (228-460)
[2023-11-13 16:25] LABS: ALT 20 U/L (8-44); AST 20 U/L (13-35); Albumin 3.4 g/dL (3.8-4.9); Albumin/Globulin Ratio 1.48 Ratio (1.60-3.17); Alkaline Phosphatase 76 U/L (41-126); Calcium 8.7 mg/dL (8.7-10.3); Globulin 2.3 g/dL (1.6-3.3); Total Bilirubin <0.2 mg/dL (0.3-1.2); Total Protein 5.7 g/dL (6.2-8.2)
== END | disposition home or self-care (01) ==
LOC: LABWHC1 12:02
PROVIDERS: ATTEND Internal Medicine
DX: K92.1 Melena (principal)
CPT/HCPCS: 36415; 80053; 82728; 83540; 83550; 84443; 85025

== ENCOUNTER 2023-12-03 03:15 | Emergency (ER) | payer OTHER ==
[2023-12-03 03:29] VITALS: TEMP 97.9
[2023-12-03 03:56] LABS: ALT 23 U/L (4-34); AST 22 U/L (14-36); African American GFR (CKD) >90 (>60 ml/min/1.73 sqM); Albumin 3.3 g/dL (3.5-5.0); Alkaline Phosphatase 83 U/L (38-126); Anion Gap 10 mmol/L; Blood Urea Nitrogen 12 mg/dL (7-17); Calcium 8.6 mg/dL (8.4-10.2); Carbon Dioxide 17 mmol/L (22-30); Chloride 109 mmol/L (98-107); Glucose 105 mg/dL (74-99); INR 0.9 (<1.2); Non-African American GFR(CKD) >90 (>60 ml/min/1.73 sqM); Partial Thromboplastin Time 25.2 sec (22.0-30.0); Potassium 4.1 mmol/L (3.5-5.1); Prothrombin Time 9.6 sec (10.0-12.5); Sodium 136 mmol/L (137-145); Total Bilirubin 0.3 mg/dL (0.2-1.3); Total Protein 6.2 g/dL (6.3-8.2)
[2023-12-03 04:02] LABS: Basophils # (A) 0.1 k/uL (0-0.2); Basophils % (A) 1 %; Eosinophils # (A) 0.3 k/uL (0-0.7); Eosinophils % (A) 2 %; HCT 41.6 % (34.0-46.0); HGB 13.7 gm/dL (11.4-16.0); Lymphocytes # (A) 7.1 k/uL (1.0-4.8); Lymphocytes % (A) 51 %; MCH 27.5 pg (25.0-35.0); MCHC 32.9 g/dL (31.0-37.0); MCV 83.5 fL (80.0-100.0); Monocytes # (A) 0.8 k/uL (0-1.0); Monocytes % (A) 5 %; Neutrophils # (A) 5.2 k/uL (1.3-7.7); Neutrophils % (A) 38 %; Platelet Count 287 k/uL (150-450); RBC 4.98 m/uL (3.80-5.40); RDW 15.9 % (11.5-15.5); WBC 13.8 k/uL (3.8-10.6)
[2023-12-03 04:39] LABS: RBC Morphology Normal
[2023-12-03 06:04] VITALS: BP 120/68; PULSE 82; RESP 16
--- NOTE | 2023-12-03 06:16 | ED ---
GI Bleed HPI - General Chief complaint: GI Bleed Stated complaint: BLOOD IN STOOL Time Seen by Provider: 12/03/23 03:33 Source: patient Mode of arrival: ambulatory Limitations: no limitations - History of Present Illness MD complaint: blood on toilet paper -: hour(s) Radiation: none Severity scale (1-10): 0 Quality: painless Improves with: none Worsens with: none Context: blood thinners Associated Symptoms: denies other symptoms - Related Data Home Medications Medication Instructions Recorded Confirmed FLUoxetine HCL [PROzac] 40 mg PO DAILY 08/16/21 09/21/23 OXcarbazepine 600 mg PO BID 08/16/21 09/21/23 FLUoxetine HCL [PROzac] 20 mg PO DAILY 01/08/22 09/21/23 OXcarbazepine [Trileptal] 300 mg PO BID 09/18/23 09/21/23 diazePAM [Valium] 5 mg PO BID PRN 09/18/23 09/21/23 Previous Rx's Medication Instructions Recorded Famotidine [Pepcid] 20 mg PO DAILY 14 Days #14 tablet 09/18/23 Apixaban [Eliquis Starter Pack 5 - 10 mg PO DIRECTED 30 Days 09/28/23 (for VTE)] #1 each HYDROcodone/APAP 5-325MG [[place] 1 each PO Q6HR PRN #21 tab 09/28/23 5-325] Ondansetron [Zofran] 4 mg PO Q8HR PRN #30 tab 09/28/23 Allergies Allergy/AdvReac Type Severity Reaction Status Date / Time Bleach (Sodium Hypochlorite) Allergy Rash/Hives Verified 12/03/23 03:25 cephalexin [From Keflex] Allergy Rash/Hives Verified 12/03/23 03:25 soap Allergy Rash/Hives Verified 12/03/23 03:25 Review of Systems ROS Statement: Those systems with pertinent positive or pertinent negative responses have been documented in the HPI. ROS Other: All systems not noted in ROS Statement are negative. Constitutional: Denies: fever, chills, weakness Respiratory: Denies: cough, dyspnea Cardiovascular: Denies: chest pain, palpitations, syncope Gastrointestinal: Reports: constipation, hematochezia. Denies: abdominal pain, nausea, vomiting, melena Genitourinary: Denies: dysuria, hematuria Musculoskeletal: Denies: back pain Skin: Denies: rash Neurological: Denies: headache, weakness Past Medical History Past Medical History: Hypertension Additional Past Medical History / Comment(s): back pain, " numbed the nerves" in back, rt knee torn meniscus, bipolar, ovarian cyst, blood clot in spleen History of Any Multi-Drug Resistant Organisms: None Reported Past Surgical History: Cholecystectomy, Orthopedic Surgery, Tubal Ligation Additional Past Surgical History / Comment(s): left breast milk duct removal and reconstruction, right knee Past Anesthesia/Blood Transfusion Reactions: No Reported Reaction Past Psychological History: Anxiety, Bipolar, Depression, Schizophrenia Smoking Status: Current every day smoker Past Alcohol Use History: None Reported Past Drug Use History: None Reported - Past Family History Mother Family Medical History: Unable to Obtain General Exam Limitations: no limitations General appearance: alert, in no apparent distress Head exam: Present: atraumatic, normocephalic Eye exam: Present: normal appearance. Absent: scleral icterus, conjunctival injection Neck exam: Present: normal inspection Respiratory exam: Present: normal lung sounds bilaterally. Absent: respiratory distress, wheezes, rales, rhonchi, stridor Cardiovascular Exam: Present: regular rate, normal rhythm, normal heart sounds. Absent: systolic murmur, diastolic murmur, rubs, gallop GI/Abdominal exam: Present: soft. Absent: distended, tenderness, guarding, rebound, rigid, mass, pulsatile mass, hernia Rectal exam: Present: normal inspection, tenderness. Absent: fecal impaction, hemorrhoids, mass Extremities exam: Present: normal inspection, normal capillary refill. Absent: pedal edema, calf tenderness Back exam: Present: normal inspection. Absent: CVA tenderness (R), CVA tenderness (L) Neurological exam: Present: alert Skin exam: Present: warm, dry, intact, normal color. Absent: rash Course Vital Signs 12/03/23 12/03/23 03:22 05:54 Temperature 97.9 F 97.9 F Pulse Rate 92 82 Respiratory 20 16 Rate Blood Pressure 177/94 120/68 O2 Sat by Pulse 99 100 Oximetry Medical Decision Making - Medical Decision Making Patient is 43-year-old woman who noted that there was blood when wiping and b lood in the water after bowel movement. The patient states that she had been constipated and did have difficult time passing stool and then had some blood after. The patient taking blood thinner after splenic clot. The patient exam reveals just a trace of blood at the exam and there may be small internal hemorrhoid. There is no active bleeding. The patient is not having abdominal cramping suggestive of bleeding higher in the gastrointestinal tract. Vital signs are good and the patient's labs show a good hemoglobin. In light of this, we discussed holding her medication one day and then resuming usual use. The patient will use fiber supplement so that she is not straining at bowel move ment. Discussed appropriate further care and follow-up as well as return parameters Was pt. sent in by a medical professional or institution (, PA, CUSTOM GARMENT DESIGNER, urgent care, hospital, or fpc...) When possible be specific @ -[No] Did you speak to anyone other than the patient for history (EMS, parent, family, police, friend...)? What history was obtained from this source @ -[No] Did you review nursing and triage notes (agree or disagree)? Why? @ -[I reviewed and agree with nursing and triage notes] Were old charts reviewed (outside hosp., previous admission, EMS record, old EKG, old radiological studies, urgent care reports/EKG's, fpc records)? Report findings @ -[No old charts were reviewed] Differential Diagnosis (chest pain, altered mental status, abdominal pain women, abdominal pain men, vaginal bleeding, weakness, fever, dyspnea, syncope, headache, dizziness, GI bleed, back pain, seizure, CVA, palpatations, mental health, musculoskeletal)? @ -[Differential GI Bleed: Esophageal varices, aortoenteric fistula, Katherin-Hathaway, gastritis, peptic ulcer disease, diverticulosis, inflammatory bowel disease, hemorrhoids, fissure, colitis, malignancy, Meckels diverticulum, this is not meant to be an all- inclusive list. EKG interpreted by me (3pts min.). @ -[As above] X-rays interpreted by me (1pt min.). @ -[None done] CT interpreted by me (1pt min.). @ -[None done] U/S interpreted by me (1pt. min.). @ -[None done] What testing was considered but not performed or refused? (CT, X-rays, U/S, labs)? Why? @ -[None] What meds were considered but not given or refused? Why? @ -[None] Did you discuss the management of the patient with other professionals (professionals i.e. , PA, CUSTOM GARMENT DESIGNER, lab, RT, psych nurse, perinatal social worker, all source intelligence technician, teacher, immigration officer, nurse case manager)? Give summary @ -[No] Was smoking cessation discussed for >3mins.? @ -[No] Was critical care preformed (if so, how long)? @ -[No] Were there social determinants of health that impacted care today? How? (Homelessness, low income, unemployed, alcoholism, drug addiction, transportation, low edu. Level, literacy, decrease access to med. care, mcc, rehab)? @ -[No] Was there de-escalation of care discussed even if they declined (Discuss DNR or withdrawal of care, Hospice)? DNR status @ -[No] What co-morbidities impacted this encounter? (DM, HTN, Smoking, COPD, CAD, Canc er, CVA, ARF, Chemo, Hep., AIDS, mental health diagnosis, sleep apnea, morbid obesity)? @ -[Recent splenic blood clot using anticoagulant medicines Was patient admitted / discharged? Hospital course, mention meds given and route, prescriptions, significant lab abnormalities, going to OR and other pertinent info. @ -[As above Undiagnosed new problem with uncertain prognosis? @ -[No] Drug Therapy requiring intensive monitoring for toxicity (Heparin, Nitro, Insulin, Cardizem)? @ -[No] Were any procedures done? @ -[No] Diagnosis/symptom? @ -[Acute gastrointestinal bleeding Acute, or Chronic, or Acute on Chronic? @ -[Acute Uncomplicated (without systemic symptoms) or Complicated (systemic symptoms)? @ -[Uncomplicated Side effects of treatment? @ -[No] Exacerbation, Progression, or Severe Exacerbation? @ -[No] Poses a threat to life or bodily function? How? (Chest pain, [place], [place], pneumonia, PE, COPD, DKA, ARF, appy, cholecystitis, CVA, Diverticulitis, Homicidal, Suicidal, threat to staff... and all critical care pts) @ -[Extremely low likelihood, discussed return parameters and appropriate follow-up - Lab Data Result diagrams: 12/03/23 03:39 12/03/23 03:39 Lab Results 12/03/23 12/03/23 12/03/23 Range/Units 03:39 03:39 03:39 WBC 13.8 H (3.8-10.6) k/uL RBC 4.98 (3.80-5.40) m/uL Hgb 13.7 (11.4-16.0) gm/dL Hct 41.6 (34.0-46.0) % MCV 83.5 (80.0-100.0) fL MCH 27.5 (25.0-35.0) pg MCHC 32.9 (31.0-37.0) g/dL RDW 15.9 H (11.5-15.5) % Plt Count 287 (150-450) k/uL MPV 8.0 Neutrophils % 38 % Lymphocytes % 51 % Monocytes % 5 % Eosinophils % 2 % Basophils % 1 % Neutrophils # 5.2 (1.3-7.7) k/uL Lymphocytes # 7.1 H (1.0-4.8) k/uL Monocytes # 0.8 (0-1.0) k/uL Eosinophils # 0.3 (0-0.7) k/uL Basophils # 0.1 (0-0.2) k/uL Manual Slide Review Performed RBC Morphology Normal PT 9.6 L (10.0-12.5) sec INR 0.9 (<1.2) APTT 25.2 (22.0-30.0) sec Sodium 136 L (137-145) mmol/L Potassium 4.1 (3.5-5.1) mmol/L Chloride 109 H (98-107) mmol/L Carbon Dioxide 17 L (22-30) mmol/L Anion Gap 10 mmol/L BUN 12 (7-17) mg/dL Creatinine 0.64 (0.52-1.04) mg/dL Est GFR (CKD-EPI)AfAm >90 (>60 ml/min/1.73 sqM) Est GFR (CKD-EPI)NonAf >90 (>60 ml/min/1.73 sqM) Glucose 105 H (74-99) mg/dL Plasma Lactic Acid Zac (0.7-2.0) mmol/L Calcium 8.6 (8.4-10.2) mg/dL Total Bilirubin 0.3 (0.2-1.3) mg/dL AST 22 (14-36) U/L ALT 23 (4-34) U/L Alkaline Phosphatase 83 (38-126) U/L Total Protein 6.2 L (6.3-8.2) g/dL Albumin 3.3 L (3.5-5.0) g/dL Stool Occult Blood (Negative) 12/03/23 12/03/23 Range/Units 03:39 04:20 WBC (3.8-10.6) k/uL RBC (3.80-5.40) m/uL Hgb (11.4-16.0) gm/dL Hct (34.0-46.0) % MCV (80.0-100.0) fL MCH (25.0-35.0) pg MCHC (31.0-37.0) g/dL RDW (11.5-15.5) % Plt Count (150-450) k/uL MPV Neutrophils % % Lymphocytes % % Monocytes % % Eosinophils % % Basophils % % Neutrophils # (1.3-7.7) k/uL Lymphocytes # (1.0-4.8) k/uL Monocytes # (0-1.0) k/uL Eosinophils # (0-0.7) k/uL Basophils # (0-0.2) k/uL Manual Slide Review RBC Morphology PT (10.0-12.5) sec INR (<1.2) APTT (22.0-30.0) sec Sodium (137-145) mmol/L Potassium (3.5-5.1) mmol/L Chloride (98-107) mmol/L Carbon Dioxide (22-30) mmol/L Anion Gap mmol/L BUN (7-17) mg/dL Creatinine (0.52-1.04) mg/dL Est GFR (CKD-EPI)AfAm (>60 ml/min/1.73 sqM) Est GFR (CKD-EPI)NonAf (>60 ml/min/1.73 sqM) Glucose (74-99) mg/dL Plasma Lactic Acid Zac 1.0 (0.7-2.0) mmol/L Calcium (8.4-10.2) mg/dL Total Bilirubin (0.2-1.3) mg/dL AST (14-36) U/L ALT (4-34) U/L Alkaline Phosphatase (38-126) U/L Total Protein (6.3-8.2) g/dL Albumin (3.5-5.0) g/dL Stool Occult Blood Positive H (Negative) Disposition Clinical Impression: Lower gastrointestinal hemorrhage Disposition: HOME SELF-CARE Condition: Good Instructions (If sedation given, give patient instructions): Gastrointestinal Bleeding (ED) Additional Instructions: As we discussed, hold taking your eliquis for 24 hours, then resume usual dosing. Return immediately if the symptoms recur or if any other symptoms develop Is patient prescribed a controlled substance at d/c from ED?: No Referrals: Palomo Gage DO [Primary Care Provider] - 1-2 days
== END 2023-12-03 06:29 | disposition home or self-care (01) ==
LOC: EC 03:15
DX: K92.2 Gastrointestinal hemorrhage, unspecified (principal); I10 Essential (primary) hypertension; F41.9 Anxiety disorder, unspecified; F31.9 Bipolar disorder, unspecified; F17.200 Nicotine dependence, unspecified, uncomplicated; Z79.899 Other long term (current) drug therapy; Z88.1 Allergy status to other antibiotic agents; Z88.8 Allergy status to other drugs, medicaments and biological substances; Z90.49 Acquired absence of other specified parts of digestive tract
CPT/HCPCS: 36415; 80053; 82272; 83605; 85025; 85610; 85730; 99284

== ENCOUNTER → 2023-12-30 | Outpatient (CLI) | payer OTHER ==
--- NOTE | 2023-12-30 16:16 | US ---
EXAMINATION TYPE: US pelvis complete transvag DATE OF EXAM: 12/30/2023 COMPARISON: 09/22/2023 CLINICAL INDICATION: Female, 43 years old with history of N83.209 UNSPECIFIED OVARIAN CYST, UNSPECIFI ED SIDE; HX of ovarian cyst. Patient states that she has pelvic pain constantly and abnormal bleeding . Bilateral tubal ligation TECHNIQUE: Transvaginal (TV) and Transabdominal (TA) . Transabdominal sonographic images of the pel vis were acquired. Transvaginal sonographic images were medically necessary to better assess the fol lowing anatomy: Date of LMP: 12/16/2023 EXAM MEASUREMENTS: Uterus: 7.1 x 4.2 x 5.8 cm Endometrial Stripe: 1.2 cm Right Ovary: 3.2 x 1.5 x 2.1 cm Left Ovary: 3.4 x 3.8 x 3.7 cm 1. Uterus: Retroverted wnl 2. Endometrium: wnl 3. Right Ovary: wnl 4. Left Ovary: There is a 3.2 x 2.7 x 3.1 cm anechoic area with irregular borders and internal debri s. Probable hemorrhagic cyst versus other etiology. 5. Bilateral Adnexa: Obscured by overlying bowel gas 6. Posterior cul-de-sac: There is a small amount of free fluid seen IMPRESSION: 1. Left ovarian probable hemorrhagic cyst versus less likely endometrioma. Short-term follow-up in 6 -8 weeks is recommended. 2. Endometrium within normal limits for thickness.
--- NOTE | 2024-01-01 10:15 | MM ---
Reason for Exam: Screening (asymptomatic). Patient History: Menarche at age 14. First Full-Term at age 20. Risk Values: Jaz 5 year model risk: 0.4%. NCI Lifetime model risk: 7.3%. Tissue Density: There are scattered fibroglandular densities. Findings: Analyzed By CAD. There is no suspicious group of microcalcifications or new suspicious mass in either breast. Overall Assessment: Negative, BI-RAD 1 Management: Screening Mammogram of both breasts in 1 year. . Patient should continue monthly self-breast exams. A clinical breast exam by your physician is recommended on an annual basis. This exam should not preclude additional follow-up of suspicious palpable abnormalities. Note on Jaz scores and lifetime risk: 1. A Jaz score greater than 3% is considered moderate risk. If this is the case, consider specialist referral to assess eligibility for a risk reducing agent. 2. If overall lifetime risk for the development of breast cancer is 20% or higher, the patient may qualify for future screening with alternating mammogram and breast MRI. Electronically signed and approved by: Albin Oates M.D. Radiologis
== END | disposition home or self-care (01) ==
LOC: RADMAMWWP 15:04
PROVIDERS: ATTEND Internal Medicine
DX: Z12.31 Encounter for screening mammogram for malignant neoplasm of breast (principal); N83.209 Unspecified ovarian cyst, unspecified side
CPT/HCPCS: 76830; 76856; 77067

== ENCOUNTER → 2024-01-11 | Outpatient (CLI) | payer OTHER ==
--- NOTE | 2024-01-11 11:05 | CT ---
EXAMINATION TYPE: CT abdomen w con CT DLP: 1583.4 mGycm, Automated exposure control for dose reduction was used. DATE OF EXAM: 01/11/2024 10:49 AM COMPARISON: CT abdomen pelvis most recent from CLINICAL INDICATION:Female, 43 years old with history of D72.820 LYMPHOCYTOSIS (SYMPTOMATIC); lymphoc ytosis, symptomatic, hx of splenic blood clot TECHNIQUE: Axial CT abdomen w con;Sagittal and coronal reformats were created on a separate workstat ion. Contrast used:100 mL of Isovue 300 with IV Contrast, (none if empty) Oral contrast used: with Oral Contrast (none if empty) FINDINGS: LOWER CHEST: Unremarkable ABDOMEN LIVER: Unremarkable GALLBLADDER AND BILE DUCTS: The gallbladder is surgically absent. PANCREAS: Unremarkable. SPLEEN: Scattered calcified granulomas. ADRENAL GLANDS: Unremarkable. KIDNEYS AND URETERS: No evidence of hydronephrosis or renal calculus. The ureters are unremarkable. PELVIS BLADDER: Unremarkable REPRODUCTIVE: Unremarkable. ABDOMEN & PELVIS STOMACH AND BOWEL: No evidence of bowel obstruction. The appendix is normal. PERITONEUM/RETROPERITONEUM: No evidence of pneumoperitoneum or free fluid. VASCULATURE: Mild atherosclerotic calcifications are present throughout the abdominal aorta and its b ranches. No evidence of aortic aneurysm. MUSCULOSKELETAL: No acute osseous abnormalities LYMPH NODES: No gross evidence for lymphadenopathy. SOFT TISSUE/ABDOMINAL WALL: Unremarkable IMPRESSION: No evidence for acute process within the abdomen.
== END | disposition home or self-care (01) ==
LOC: RADCTMAIN 09:57
PROVIDERS: ATTEND Internal Medicine Hematology & Oncology
DX: D72.820 Lymphocytosis (symptomatic) (principal); D73.5 Infarction of spleen; D68.59 Other primary thrombophilia; M10.9 Gout, unspecified; M12.9 Arthropathy, unspecified
CPT/HCPCS: 74160; Q9967

== ENCOUNTER → 2024-04-12 | Outpatient (CLI) | payer OTHER ==
--- NOTE | 2024-04-14 14:21 | CT ---
EXAMINATION TYPE: CT abdomen w con CT DLP: 1392.40 mGycm, Automated exposure control for dose reduction was used. DATE OF EXAM: 04/12/2024 1:01 PM COMPARISON: 01/11/2024 CLINICAL INDICATION:Female, 44 years old with history of D72.820 LYMPHOCYTOSIS (SYMPTOMATIC); splenic blood clot f/u TECHNIQUE: Axial CT abdomen w con;Sagittal and coronal reformats were created on a separate workstat ion. Contrast used:100ml mL of Isovue 300 with IV Contrast, (none if empty) Oral contrast used: with Oral Contrast (none if empty) FINDINGS: LOWER CHEST: Consider granuloma in the right lower lobe. ABDOMEN LIVER: Unremarkable GALLBLADDER AND BILE DUCTS: The gallbladder is surgically absent. There are 2 foci of gas but to be w ithin the central biliary system PANCREAS: Unremarkable. SPLEEN: Scattered calcified granulomas. No evidence for infarct or other abnormality. ADRENAL GLANDS: Unremarkable. KIDNEYS AND URETERS: No evidence of hydronephrosis or renal calculus. The ureters are unremarkable. STOMACH AND BOWEL: No evidence of bowel obstruction. The appendix is normal. PERITONEUM/RETROPERITONEUM: No evidence of pneumoperitoneum or free fluid. VASCULATURE: Mild atherosclerotic calcifications are present throughout the abdominal aorta and its b ranches. No evidence of aortic aneurysm. MUSCULOSKELETAL: No acute osseous abnormalities LYMPH NODES: No gross evidence for lymphadenopathy. SOFT TISSUE/ABDOMINAL WALL: Unremarkable IMPRESSION: 1. Spleen demonstrates chronic granulomatous change No evidence for infarct. No evidence for acute p rocess within the abdomen. 2. 2 foci of gas thought to be in the central biliary system, this finding is new from prior, correl ate with surgical/procedural intervention.
== END | disposition home or self-care (01) ==
LOC: RADCTMAIN 10:33
PROVIDERS: ATTEND Internal Medicine Hematology & Oncology
DX: D72.820 Lymphocytosis (symptomatic) (principal); D68.59 Other primary thrombophilia; D73.5 Infarction of spleen; M10.9 Gout, unspecified
CPT/HCPCS: 74160; Q9967

== ENCOUNTER → 2024-06-23 | Outpatient (CLI) | payer OTHER ==
--- NOTE | 2024-06-23 11:05 | US ---
EXAMINATION TYPE: US transvaginal DATE OF EXAM: 06/23/2024 COMPARISON: US 12/30/2023 CLINICAL INDICATION: Female, 44 years old with history of N83.209 UNSPECIFIED OVARIAN CYST, UNSPECIFI ED SIDE; History of ovarian cysts TECHNIQUE: Transvaginal only per ordering physician Date of LMP: 3 weeks ago EXAM MEASUREMENTS: Uterus: 7.1 x 4.6 x 5.7 cm Endometrial Stripe: 0.9 cm Right Ovary: 2.2 x 1.4 x 1.4 cm Left Ovary: 2.8 x 1.7 x 3.3 cm 1. Uterus: retroverted 2. Endometrium: appears wnl 3. Right Ovary: 1.1 x 1.1 x 1.0cm complex cystic area 4. Left Ovary: 1.8 x 1.3 x 2.0cm complex cystic area 5. Bilateral Adnexa: wnl 6. Posterior cul-de-sac: small amount of free fluid IMPRESSION: 1. Complex right ovarian cyst measuring 1.1 cm new from prior exam. 2. Complex left ovarian cyst measuring 1.8 cm. This is reduced in size compared to prior exam when it measured 3.2 cm. Findings could secondary to a hemorrhagic cyst. Endometrioma or other cystic lesio ns of the ovary not excluded.
== END | disposition home or self-care (01) ==
LOC: RADUSWWP 07:29
PROVIDERS: ATTEND Internal Medicine
DX: N83.209 Unspecified ovarian cyst, unspecified side (principal); N83.291 Other ovarian cyst, right side; N83.292 Other ovarian cyst, left side
CPT/HCPCS: 76830

== ENCOUNTER 2024-09-16 01:11 | Emergency (ER) | payer OTHER ==
[2024-09-16 01:15] VITALS: RESP 18
[2024-09-16] MEDS: KETOROLAC 15 MG/ML 1 ML VIAL IM STA (02:08)
--- NOTE | 2024-09-16 03:09 | XR ---
EXAM: XR Bilateral Knees, 3 Views CLINICAL HISTORY: ITS.REASON XR Reason: fall TECHNIQUE: Three views of the bilateral knees. COMPARISON: No relevant prior studies available. FINDINGS: Bones/joints: Diffuse osseous demineralization. Moderate joint space narrowing of the medial compartment. No acute fracture or subluxation. Soft tissues: Unremarkable. IMPRESSION: No acute fracture or subluxation.
--- NOTE | 2024-09-16 03:18 | XR ---
EXAM: XR Left Wrist Complete, 3 or More Views CLINICAL HISTORY: ITS.REASON XR Reason: fall TECHNIQUE: Frontal, lateral and oblique views of the left wrist. COMPARISON: No relevant prior studies available. FINDINGS: Bones/joints: Unremarkable. No acute fracture. No dislocation. Soft tissues: Unremarkable. No radiopaque foreign body. IMPRESSION: No acute fracture.
--- NOTE | 2024-09-16 03:33 | ED ---
Fall HPI - General Chief Complaint: Fall Stated Complaint: Fall, Left Knee Injury, Left Hand Injury Time Seen by Provider: 09/16/24 01:35 Source: patient Mode of arrival: ambulatory - History of Present Illness Initial Comments: 44-year-old female presenting for evaluation post fall. Patient had a fall 2 hours ago when she was at the end of her stairs and she felt like her knee gave out. Patient states that she has "knee issues". She is having pain in the bilateral knees, more so on the left. She also has some swelling and abrasion of the left wrist. No head injury, loss of consciousness, or use of blood thinners. No chest pain difficulty breathing or abdominal pain. - Related Data Home Medications Medication Instructions Recorded Confirmed FLUoxetine HCL [PROzac] 40 mg PO DAILY 08/16/21 09/21/23 OXcarbazepine 600 mg PO BID 08/16/21 09/21/23 FLUoxetine HCL [PROzac] 20 mg PO DAILY 01/08/22 09/21/23 OXcarbazepine [Trileptal] 300 mg PO BID 09/18/23 09/21/23 diazePAM [Valium] 5 mg PO BID PRN 09/18/23 09/21/23 Previous Rx's Medication Instructions Recorded Famotidine [Pepcid] 20 mg PO DAILY 14 Days #14 tablet 09/18/23 Apixaban [Eliquis Starter Pack 5 - 10 mg PO DIRECTED 30 Days 09/28/23 (for VTE)] #1 each HYDROcodone/APAP 5-325MG [[place] 1 each PO Q6HR PRN #21 tab 09/28/23 5-325] Ondansetron [Zofran] 4 mg PO Q8HR PRN #30 tab 09/28/23 Allergies Allergy/AdvReac Type Severity Reaction Status Date / Time Bleach (Sodium Hypochlorite) Allergy Rash/Hives Verified 09/16/24 01:14 cephalexin [From Keflex] Allergy Rash/Hives Verified 09/16/24 01:14 soap Allergy Rash/Hives Verified 09/16/24 01:14 Review of Systems ROS Statement: Those systems with pertinent positive or pertinent negative responses have been documented in the HPI. ROS Other: All systems not noted in ROS Statement are negative. Past Medical History Past Medical History: Hypertension Additional Past Medical History / Comment(s): back pain, " numbed the nerves" in back, rt knee torn meniscus, bipolar, ovarian cyst, blood clot in spleen History of Any Multi-Drug Resistant Organisms: None Reported Past Surgical History: Cholecystectomy, Orthopedic Surgery, Tubal Ligation Additional Past Surgical History / Comment(s): left breast milk duct removal and reconstruction, right knee Past Anesthesia/Blood Transfusion Reactions: No Reported Reaction Past Psychological History: Anxiety, Bipolar, Depression, Schizophrenia Smoking Status: Current every day smoker, Vaper Past Alcohol Use History: None Reported Past Drug Use History: None Reported - Past Family History Mother Family Medical History: Unable to Obtain General Exam General appearance: alert, in no apparent distress Head exam: Present: atraumatic, normocephalic, normal inspection Eye exam: Present: normal appearance, PERRL, EOMI Neck exam: Present: normal inspection. Absent: meningismus Respiratory exam: Present: normal lung sounds bilaterally. Absent: respiratory distress, wheezes, rales, rhonchi, stridor Cardiovascular Exam: Present: regular rate, normal rhythm, normal heart sounds. Absent: systolic murmur, diastolic murmur, rubs, gallop, clicks Left Hand Wrist exam: Present: full ROM, tenderness, swelling, abrasion Left Knee exam: Present: normal inspection, full ROM Right Knee exam: Present: normal inspection, full ROM Neurological exam: Present: alert, oriented X3 Psychiatric exam: Present: normal affect, normal mood Skin exam: Present: warm, dry Course Vital Signs 09/16/24 09/16/24 01:13 03:40 Temperature 97.8 F 97.6 F Pulse Rate 88 80 Respiratory 18 18 Rate Blood Pressure 158/102 140/89 O2 Sat by Pulse 99 98 Oximetry Medical Decision Making - Medical Decision Making Was pt. sent in by a medical professional or institution (, PA, DIRECTOR OF NURSES REGISTRY, urgent care, hospital, or care home...) When possible be specific @ -No Did you speak to anyone other than the patient for history (EMS, parent, family, police, friend...)? What history was obtained from this source @ -No Did you review nursing and triage notes (agree or disagree)? Why? @ -I reviewed and agree with nursing and triage notes Were old charts reviewed (outside hosp., previous admission, EMS record, old EKG, old radiological studies, urgent care reports/EKG's, care home records)? Report findings @ -No old charts were reviewed Differential Diagnosis (chest pain, altered mental status, abdominal pain women, abdominal pain men, vaginal bleeding, weakness, fever, dyspnea, syncope, headache, dizziness, GI bleed, back pain, seizure, CVA, palpatations, mental health, musculoskeletal)? @ -Differential Musculoskeletal Muscular strain, contusion, ligament sprain, fracture, arthritis, septic arthritis, bursitis, cellulitis, muscle spasm, nerve compression, DVT, arterial occlusion, herpes zoster, electrolyte abnormality, tumor.... This is not meant to be in all inclusive list EKG interpreted by me (3pts min.). @ -As above X-rays interpreted by me (1pt min.). @ -X-rays are obtained of the left wrist and bilateral knees, no acute fracture or dislocation is appreciated CT interpreted by me (1pt min.). @ -None done U/S interpreted by me (1pt. min.). @ -None done What testing was considered but not performed or refused? (CT, X-rays, U/S, la bs)? Why? @ -None What meds were considered but not given or refused? Why? @ -None Did you discuss the management of the patient with other professionals (professionals i.e. , PA, DIRECTOR OF NURSES REGISTRY, lab, RT, psych nurse, social welfare clerk, assistant football coach, teacher, systems support officer, case aide)? Give summary @ -No Was smoking cessation discussed for >3mins.? @ -No Was critical care preformed (if so, how long)? @ -No Were there social determinants of health that impacted care today? How? (Homelessness, low income, unemployed, alcoholism, drug addiction, transportation, low edu. Level, literacy, decrease access to med. care, detention, rehab)? @ -No Was there de-escalation of care discussed even if they declined (Discuss DNR or withdrawal of care, Hospice)? DNR status @ -No What co-morbidities impacted this encounter? (DM, HTN, Smoking, COPD, CAD, Cancer, CVA, ARF, Chemo, Hep., AIDS, mental health diagnosis, sleep apnea, morbid obesity)? @ -None Was patient admitted / discharged? Hospital course, mention meds given and route, prescriptions, significant lab abnormalities, going to OR and other pertinent info. @ -44-year-old female presenting for evaluation post fall, complaining of pain to the bilateral knees and left wrist. No head injury, loss of consciousness, use of blood thinners. X-rays are negative for fracture or dislocation. On reassessment patient is resting comfortably watching a video on her phone. She is educated on today's findings and supportive management at home. Discharged. Follow-up with PCP. She has followed with an orthopedist in the past and was instructed to follow-up with him as well. Report back to ER with any new or worsening symptoms. Discussed return parameters and answered all questions. Patient conveyed verbal understanding and agreed to the plan. I discussed this case in detail with my attending Dr. Salazar Undiagnosed new problem with uncertain prognosis? @ -No Drug Therapy requiring intensive monitoring for toxicity (Heparin, Nitro, Insulin, Cardizem)? @ -No Were any procedures done? @ -No Diagnosis/symptom? @ -Fall, knee injury, wrist injury Acute, or Chronic, or Acute on Chronic? @ -Acute Uncomplicated (without systemic symptoms) or Complicated (systemic symptoms)? @ -Uncomplicated Side effects of treatment? @ -No Exacerbation, Progression, or Severe Exacerbation? @ -No Poses a threat to life or bodily function? How? (Chest pain, [place], [place], pneumonia, PE, COPD, DKA, ARF, appy, cholecystitis, CVA, Diverticulitis, Homicidal, Suicidal, threat to staff... and all critical care pts) @ -Unlikely Disposition Clinical Impression: Fall, Knee pain, Wrist injury Disposition: HOME SELF-CARE Condition: Good Instructions (If sedation given, give patient instructions): Wrist Injury (ED), Knee Pain (ED) Additional Instructions: Follow-up with PCP. Report back to ER with any new or worsening symptoms. Take Motrin and Tylenol as needed for pain control. Rest, ice, elevate the affected extremities. Is patient prescribed a controlled substance at d/c from ED?: No Referrals: Palomo Gage DO [Primary Care Provider] - 1-2 days Time of Disposition: 03:33
[2024-09-16 06:05] VITALS: BP 140/89; PULSE 80; TEMP 97.6
== END 2024-09-16 04:05 | disposition home or self-care (01) ==
LOC: EC 01:11
CPT/HCPCS: 96372; 99284

== ENCOUNTER → 2025-03-30 | Outpatient (CLI) | payer OTHER ==
--- NOTE | 2025-03-30 14:53 | XR ---
EXAMINATION TYPE: XR shoulder complete LT DATE OF EXAM: 03/30/2025 CLINICAL INDICATION: Female, 45 years old with history of M25.512, pain TECHNIQUE: Three views of the left shoulder are obtained. COMPARISON: Prior left shoulder x-rays August 14, 2022. FINDINGS: There is no acute fracture/dislocation evident in the left shoulder. Persistent mild-to-mo derate narrowing and spurring at the acromioclavicular joint. Glenohumeral joint is maintained. The visualized ribs are intact and unremarkable. IMPRESSION: As above. No significant change from prior. [facility], , 03/30/2025 2:50 PM
[2025-03-30 18:44] LABS: Basophils # (A) 0.04 X 10*3/uL (0.00-0.10); Basophils % (A) 0.5 %; Eosinophils # (A) 0.13 X 10*3/uL (0.04-0.35); Eosinophils % (A) 1.7 %; HCT 42.2 % (37.2-46.3); HGB 12.8 g/dL (12.0-15.0); Lymphocytes # (A) 3.29 X 10*3/uL (0.90-5.00); Lymphocytes % (A) 41.8 %; MCHC 30.3 g/dL (32.0-37.0); MCV 82.3 FL (80.0-97.0); Mean Platelet Volume 10.3 FL (9.5-12.2); Monocytes # (A) 0.53 X 10*3/uL (0.20-1.00); Monocytes % (A) 6.7 %; NRBC Per 100 WBC 0 X 10*3/uL (0.00-0.01); Neutrophils # (A) 3.86 X 10*3/uL (1.80-7.70); Platelet Count 307 X 10*3/uL (140-440); RBC 5.13 X 10*6/uL (4.10-5.20); RDW 15.1 % (11.5-14.5); WBC 7.87 X 10*3/uL (4.50-10.00)
[2025-03-30 18:53] LABS: ALT 22 U/L (8-44); AST 19 U/L (13-35); Albumin 3.8 g/dL (3.8-4.9); Albumin/Globulin Ratio 1.41 Ratio (1.60-3.17); Alkaline Phosphatase 91 U/L (41-126); BUN/Creat Ratio 9.75 Ratio (12.00-20.00); Blood Urea Nitrogen 7.8 mg/dL (9.0-27.0); Calcium 8.9 mg/dL (8.7-10.3); Carbon Dioxide 21.9 mmol/L (21.6-31.8); Chloride 105 mmol/L (96-109); Chol/HDL Ratio 4.24 Ratio; Globulin 2.7 g/dL (1.6-3.3); Glucose 100 mg/dL (70-110); LDL Cholesterol,Calculated 112.5 mg/dL (0.0-131.0); Potassium 4.6 mmol/L (3.5-5.5); Sodium 137 mmol/L (135-145); Total Bilirubin 0.3 mg/dL (0.3-1.2); Total Protein 6.5 g/dL (6.2-8.2)
== END | disposition home or self-care (01) ==
LOC: LABWHC1 14:07
PROVIDERS: ATTEND Internal Medicine
DX: Z00.00 Encounter for general adult medical examination without abnormal findings (principal); E55.9 Vitamin D deficiency, unspecified; M25.512 Pain in left shoulder
CPT/HCPCS: 36415; 80053; 80061; 82306; 84443; 85025

== ENCOUNTER → 2025-05-09 | Outpatient (CLI) | payer OTHER ==
--- NOTE | 2025-05-09 10:40 | MM ---
Reason for Exam: Screening (asymptomatic). Last mammogram was performed 1 year(s) and 4 month(s) ago. Patient History: Menarche at age 14. First Full-Term at age 20. Premenopausal. Risk Values: Jaz 5 year model risk: 0.5%. NCI Lifetime model risk: 7.1%. Prior Study Comparison: 12/30/2023 Bilateral MG screening mammo w CAD, [facility]. Tissue Density: There are scattered areas of fibroglandular density. Findings: Analyzed By CAD. Grouped calcifications central to right breast remain unchanged. There is no suspicious group of microcalcifications or new suspicious mass in either breast. Overall Assessment: Benign, BI-RAD 2 Management: Screening Mammogram of both breasts in 1 year. Patient should continue monthly self-breast exams. A clinical breast exam by your physician is recommended on an annual basis. This exam should not preclude additional follow-up of suspicious palpable abnormalities. Note on Jaz scores and lifetime risk: 1. A Jaz score greater than 3% is considered moderate risk. If this is the case, consider specialist referral to assess eligibility for a risk reducing agent. 2. If overall lifetime risk for the development of breast cancer is 20% or higher, the patient may qualify for future screening with alternating mammogram and breast MRI. [facility], , 05/09/2025 10:37 AM. Electronically signed and approved by: Michael Maldonado M.D. Radiologist
--- NOTE | 2025-05-09 13:36 | US ---
EXAMINATION TYPE: US transvaginal DATE OF EXAM: 05/09/2025 COMPARISON: NONE CLINICAL INDICATION: Female, 45 years old with history of N83.209 Ovarian cyst; Hx of ovarian cyst. TECHNIQUE: Transvaginal (TV). Doppler imaging: Not performed. FINDINGS: EXAM MEASUREMENTS: Uterus: 6.9 x 4.9 x 5.6 cm Endometrial Stripe: 1.0 cm Left Ovary: 2.9 x 1.6 x 3.5 cm 1. Uterus: Retroverted wnl 2. Endometrium: wnl 3. Right Ovary: Obscured by overlying bowel gas 4. Left Ovary: Anechoic area 2.8 x 2.3 x 2.8 cm. 5. Bilateral Adnexa: wnl 6. Posterior cul-de-sac: wnl IMPRESSION: 1. Left ovarian cyst, O-rads 2. O-RADS 2021 [email or web address] [facility], , 05/09/2025 1:33 PM
== END | disposition home or self-care (01) ==
LOC: RADMAMWWP 09:23
PROVIDERS: ATTEND Internal Medicine
DX: Z12.31 Encounter for screening mammogram for malignant neoplasm of breast (principal); R92.323 Mammographic fibroglandular density, bilateral breasts; N83.202 Unspecified ovarian cyst, left side
CPT/HCPCS: 76830; 77067

== ENCOUNTER 2025-06-09 14:08 | Emergency (ER) | payer OTHER ==
--- NOTE | 2025-06-09 15:12 | ED ---
General Adult HPI - General Chief complaint: Extremity Injury, Lower Stated complaint: Left leg injury Time Seen by Provider: 06/09/25 14:15 Source: patient, RN notes reviewed, old records reviewed Mode of arrival: ambulatory Limitations: no limitations - History of Present Illness Initial comments: This is a 45-year-old female who presents to the emergency department stating she fell down a few stairs 3 weeks ago. Patient complains of some lateral left knee pain. Patient is able to ambulate. Patient denies any other symptoms any other complaints of extremity pain. - Related Data Home Medications Medication Instructions Recorded Confirmed FLUoxetine HCL [PROzac] 40 mg PO DAILY 08/16/21 09/21/23 OXcarbazepine 600 mg PO BID 08/16/21 09/21/23 FLUoxetine HCL [PROzac] 20 mg PO DAILY 01/08/22 09/21/23 OXcarbazepine [Trileptal] 300 mg PO BID 09/18/23 09/21/23 diazePAM [Valium] 5 mg PO BID PRN 09/18/23 09/21/23 Previous Rx's Medication Instructions Recorded Famotidine [Pepcid] 20 mg PO DAILY 14 Days #14 tablet 09/18/23 Apixaban [Eliquis Starter Pack 5 - 10 mg PO DIRECTED 30 Days 09/28/23 (for VTE)] #1 each HYDROcodone/APAP 5-325MG [[place] 1 each PO Q6HR PRN #21 tab 09/28/23 5-325] Ondansetron [Zofran] 4 mg PO Q8HR PRN #30 tab 09/28/23 Allergies Allergy/AdvReac Type Severity Reaction Status Date / Time Bleach (Sodium Hypochlorite) Allergy Rash/Hives Verified 06/09/25 14:18 cephalexin [From Keflex] Allergy Rash/Hives Verified 06/09/25 14:18 soap Allergy Rash/Hives Verified 06/09/25 14:18 Review of Systems ROS Statement: Those systems with pertinent positive or pertinent negative responses have been documented in the HPI. ROS Other: All systems not noted in ROS Statement are negative. Past Medical History Past Medical History: Hypertension Additional Past Medical History / Comment(s): back pain, " numbed the nerves" in back, rt knee torn meniscus, bipolar, ovarian cyst, blood clot in spleen History of Any Multi-Drug Resistant Organisms: None Reported Past Surgical History: Cholecystectomy, Orthopedic Surgery, Tubal Ligation Additional Past Surgical History / Comment(s): left breast milk duct removal and reconstruction, right knee Past Anesthesia/Blood Transfusion Reactions: No Reported Reaction Past Psychological History: Anxiety, Bipolar, Depression, Schizophrenia Smoking Status: Vaper Past Alcohol Use History: None Reported Past Drug Use History: None Reported - Past Family History Mother Family Medical History: Unable to Obtain General Exam - General Exam Comments Initial Comments: GENERAL Patient is well-developed and well-nourished. Patient is in mild distress. EYES Patient's pupils are equal and round. Extraocular motion is intact SKIN Unremarkable NEURO The patient is alert and oriented A&Ox3 PYSCH Patient has normal interpersonal interactions. MUSCULOSKELETAL Patient has some mild tenderness to the palpation on the left knee lateral to the kneecap. Patient has no bruising no ligament laxity and no effusion noted. Limitations: no limitations Course Vital Signs 06/09/25 14:12 Temperature 98.0 F Pulse Rate 78 Respiratory 18 Rate Blood Pressure 161/105 O2 Sat by Pulse 98 Oximetry Medical Decision Making - Medical Decision Making Was pt. sent in by a medical professional or institution (Dr. PA, HEALTHCARE ADMINISTRATIVE ASSISTANT, urgent care, hospital, or long-term...) When possible be specific @ -No Did you speak to anyone other than the patient for history (EMS, parent, family, police, friend...)? What history was obtained from this source @ -No Did you review nursing and triage notes (agree or disagree)? Why? @ -I reviewed and agree with nursing and triage notes Were old charts reviewed (outside hosp., previous admission, EMS record, old EKG, old radiological studies, urgent care reports/EKG's, long-term records)? Report findings @ -No old charts were reviewed Differential Diagnosis? @ -Differential Musculoskeletal Muscular strain, contusion, ligament sprain, fracture, arthritis, septic arthritis, bursitis, cellulitis, muscle spasm, nerve compression, DVT, arterial occlusion, herpes zoster, electrolyte abnormality, tumor.... This is not meant to be in all inclusive list EKG interpreted by me (3pts min.). @ -As above X-rays interpreted by me (1pt min.). @ -X-ray of the knee shows no acute abnormality CT interpreted by me (1pt min.). @ -None done U/S interpreted by me (1pt. min.). @ -None done What testing was considered but not performed or refused? (CT, X-rays, U/S, labs)? Why? @ -None What meds were considered but not given or refused? Why? @ -None Did you discuss the management of the patient with other professionals (professionals i.e. Dr., PA, HEALTHCARE ADMINISTRATIVE ASSISTANT, lab, RT, psych nurse, hospice social worker, stone product fabricator, teacher, consumer safety officer, egg caser)? Give summary @ -No Was smoking cessation discussed for >3mins.? @ -No Was critical care preformed (if so, how long)? @ -No Were there social determinants of health that impacted care today? How? (Homelessness, low income, unemployed, alcoholism, drug addiction, transportation, low edu. Level, literacy, decrease access to med. care, detention, rehab)? @ -No Was there de-escalation of care discussed even if they declined (Discuss DNR or withdrawal of care, Hospice)? DNR status @ -No What co-morbidities impacted this encounter? (DM, HTN, Smoking, COPD, CAD, Cancer, CVA, ARF, Chemo, Hep., AIDS, mental health diagnosis, sleep apnea, morbid obesity)? @ -None Was patient admitted / discharged? Hospital course, mention meds given and route, prescriptions, significant lab abnormalities, going to OR and other pertinent info. @ -Patient was able to ambulate on the leg. There was no abnormality on x-ray. Patient will follow-up with Ortho if it continues to hurt. Patient will have an Ashvin wrap placed. Undiagnosed new problem with uncertain prognosis? @ -No Drug Therapy requiring intensive monitoring for toxicity (Heparin, Nitro, Insulin, Cardizem)? @ -No Were any procedures done? @ -No Diagnosis/symptom? @ -Knee strain Acute, or Chronic, or Acute on Chronic? @ -Acute Uncomplicated (without systemic symptoms) or Complicated (systemic symptoms)? @ -Unkempt Side effects of treatment? @ -No Exacerbation, Progression, or Severe Exacerbation? @ -No Poses a threat to life or bodily function? How? (Chest pain, [place], [place], pneumonia, PE, COPD, DKA, ARF, appy, cholecystitis, CVA, Diverticulitis, Homicidal, Suicidal, threat to staff... and all critical care pts) @ -No Disposition Clinical Impression: Knee sprain Disposition: HOME SELF-CARE Condition: Good Instructions (If sedation given, give patient instructions): Knee Sprain (ED) Is patient prescribed a controlled substance at d/c from ED?: No Referrals: Palomo Gage DO [Primary Care Provider] - 1-2 days Dieudonne Neely MD [STAFF PHYSICIAN] - 1-2 days Time of Disposition: 15:39
--- NOTE | 2025-06-09 15:28 | XR ---
EXAMINATION TYPE: XR knee complete LT DATE OF EXAM: 06/09/2025 3:03 PM COMPARISON: None CLINICAL INDICATION: Female, 45 years old with history of Fall; PHH, pain TECHNIQUE: XR knee complete LT 3 views submitted. FINDINGS: No evidence of any acute osseous pathology or soft tissue swelling. Small joint effusion. IMPRESSION: 1. No acute osseous pathology. 2. Mild tricompartmental osteoarthritic changes. [facility], , 06/09/2025 3:25 PM
[2025-06-09 15:53] VITALS: BP 158/88; PULSE 70; RESP 17; TEMP 97.2
== END 2025-06-09 15:52 | disposition home or self-care (01) ==
LOC: EC 14:08
DX: S83.92XA Sprain of unspecified site of left knee, initial encounter (principal); F17.290 Nicotine dependence, other tobacco product, uncomplicated; Z88.1 Allergy status to other antibiotic agents; Z88.8 Allergy status to other drugs, medicaments and biological substances; W10.9XXA Fall (on) (from) unspecified stairs and steps, initial encounter
CPT/HCPCS: 99283